=== PATIENT | male | born 1975 | race American Indian/Alaskan Native ===

== ENCOUNTER 2017-05-14 23:19 | Inpatient (IN) | payer MEDICAID ==
[2017-05-14] MEDS ORDERED: Midazolam 2 MG/2 ML VIAL IV ONE (23:41)
[2017-05-14 23:43] LABS: VENOUS BLOOD GAS BASE EXCESS -6.3 mmol/L (0.0-2.0); VENOUS BLOOD GAS PCO2 64 mmHg (40-60); VENOUS BLOOD PH 7.17 (7.32-7.43)
[2017-05-14] MEDS ORDERED: Sodium Chloride 0.9% 1,000 ML IV STA (23:47)
--- NOTE | 2017-05-14 23:49 | ED PDOC ---
HPI: Cardiac Arrest Time Seen by Provider: 05/14/17 23:27 Chief Complaint (Nursing): Cardiac Arrest Chief Complaint (Provider): Post-Cardiac Arrest History Per: EMS, Family Reason For Code Blue: Unresponsive Circumstances: Brought To ED By EMS Arrest Witnessed By: Family CPR Initiated Prior To MD Arrival?: Yes Treatment Initiated Prior To MD Arrival: CPR (done by bystander prior to EMS) Additional Complaint(s): 41 year male brought in by EMS and accompanied by ilya presents to ED due to possible post-cardiac arrest x25 minutes [employer] and has a past medical history of DM (type II), peripheral vascular disease, and end stage renal disease. Fiancee states that patient experienced sudden onset "seizure-like activity" in a motel and noted shaking, foaming at the mouth, and his eyes rolling back. Confirms that CPR was administered by a bystander prior to EMS arrival. Fiancee states patient was complaining of abdominal pain earlier today and had not had a bowel movement all day. States that patient is on MWF dialysis, but received dialysis yesterday as well due to being told by his doctor that there was too much fluid. EMS states patient was in VFIB, underwent defibrillation, and was asystole before another defibrillation brought the patient back to AFIB. EMS notes patient was sinus tachycardia and had a blood pressure of 89/46. Denies administering epinephrine, but confirmed administering Amiodarone. Of note, patient had recent amputation x5 weeks ago. PCP: Dr. Ye in [place] - Initial Findings Mentation: Unresponsive Respirations: None (Assisted) Rhythm: Tachycardia Past Medical History Reviewed: Historical Data, Nursing Documentation, Vital Signs Vital Signs: Last Vital Signs Temp 100.2 F H 05/17/17 09:18 Pulse 123 H 05/17/17 09:18 Resp 24 05/17/17 09:18 BP 114/76 05/17/17 09:18 Pulse Ox 100 05/17/17 09:00 - Medical History PMH: Diabetes, End Stage Renal Disease, Chronic Kidney Disease - Surgical History Other surgeries: bilateral leg amputations: left below the knee, right above the knee. Right chest wall permacath - Family History Family History: States: Unknown Family Hx - Social History Current smoker - smoking cessation education provided: Yes Ex-Smoker (has not smoked in the last 12 months): No Alcohol: None Drugs: Cannabis (occasional) - Immunization History Hx Tetanus Toxoid Vaccination: Yes Hx Influenza Vaccination: Yes Hx Pneumococcal Vaccination: No - Home Medications Home Medications: Ambulatory Orders Medication Instructions Recorded Calcium Acetate [Phoslo] 667 mg PO TID 04/07/16 Oxycodone HCl/Acetaminophen 1 each PO DAILY PRN 04/07/16 [Percocet 10-325 mg Tablet] predniSONE [Prednisone] 20 mg PO DAILY #7 tab 01/01/17 Cinacalcet [Sensipar] 1 tab PO DAILY 01/15/17 Clopidogrel [Plavix] 1 tab PO DAILY 01/15/17 Oxycodone HCl/Acetaminophen 1 tab PO QID PRN 01/15/17 [Percocet 10-325 mg Tablet] Sevelamer [Renagel] 4 tab PO TID 01/15/17 DiphenhydrAMINE [Benadryl] 50 mg PO Q6 PRN #16 cap 01/16/17 Tramadol HCl [Ultram] 50 mg PO Q6 PRN #12 tab 01/16/17 predniSONE [Prednisone] 40 mg PO DAILY #10 tab 01/16/17 - Allergies Allergies/Adverse Reactions: Allergies Allergy/AdvReac Type Severity Reaction Status Date / Time FISH Allergy RASH Verified 01/01/17 20:32 Review of Systems Review Of Systems: ROS cannot be obtained secondary to pt's inabilty to answer questions. (Patient is unresponsive) Neurological: Positive for: Seizures (as per fileanne) Physical Exam - Reviewed Nursing Documentation Reviewed: Yes Vital Signs Reviewed: Yes - Physical Exam Appears: Positive for: In Acute Distress Skin: Positive for: Normal Color, Warm, Dry Neck: Positive for: Normal Cardiovascular/Chest: Positive for: Regular Rate, Rhythm, Tachycardia Respiratory: Positive for: Normal Breath Sounds (equal sounds bilaterally), Other (Intubated by EMS in field) Gastrointestinal/Abdominal: Positive for: Normal Exam, Soft. Negative for: Tenderness Back: Positive for: Normal Inspection Extremity: Positive for: Other (bilateral leg amputations: right - above knee. left - below knee) Neurologic/Psych: Negative for: Alert, Oriented - Laboratory Results Result Diagrams: 05/17/17 04:20 05/17/17 04:20 - ECG ECG Rhythm: Positive for: Sinus Tachycardia Rate: 105 - Critical Care Total Time (In Min): 60 Medical Decision Making Medical Decision Makin Patient has good carotid pulse. Respiratory at bedside. BP: 113/86 Heart: ST 105 Sugar: 241 Noted right AC line done by EMS 2326 Initial impression: Initial plan: * T&S * ABG shock * VBG * CT HEAD * EKG * EtOH serum * Labs * CPK * Magnesium * Phosphorus * Trop I Q8H * PTT/PT * CXR * NS IV * Midazolam 4mg IV * Re-eval 2338 Rectal temperature: 97.8 degrees Hypothermia protocol initiated [address] Ring. Requests prolactin level * Prolactin 0000 VBG: potassium level is normal (4.8) Lactic acid is elevated (5.9) Patient is afebrile. Patient is starting to wake up. 0012 * Dextrose IV * Midazolam 4mg IV 0026 Dr. Ring accepted patient for ICU admission. 0029 ABG: lactic acid level: 3.1 CT HEAD FINDINGS Brain: No acute intracranial hemorrhage. No significant white matter disease. No edema. Ventricles: No significant ventriculomegaly. Bones: No acute displaced fracture. Sinuses: Unremarkable as visualized. No acute sinusitis. Mastoid air cells: Unremarkable as visualized. No mastoid effusion. IMPRESSION: No acute intracranial hemorrhage, or suspicious mass effect. 0130 Due to repeat lactic acid level being 3.1, will not consider case as code sepsis. Central line placed by Dr. Ring. Scribe Attestation: Documented by Christina Trejo acting as a scribe for Argelia Yost MD. Scribe Attestation: All medical record entries made by the Scribe were at my direction and personally dictated by me. I have reviewed the chart and agree that the record accurately reflects my personal performance of the history, physical exam, medical decision making, and the department course for this patient. I have also personally directed, reviewed, and agree with the discharge instructions and disposition. Disposition - Disposition
[2017-05-15] MEDS ORDERED: Midazolam 50 MG in Dextrose 5% In Water 50 ML IV ONE (00:04)
[2017-05-15] MEDS ORDERED: Midazolam 2 MG/2 ML VIAL IV ONE ×2 (00:12→01:42)
[2017-05-15 00:24] LABS: ABG ALLEN TEST YES; ABG MECHANICAL RATE 12; ARTERIAL BLOOD GAS HCO3 21.3 mmol/L (21-28); ARTERIAL BLOOD GAS MODE PRVC/AC; ARTERIAL BLOOD GAS PH 7.27 (7.35-7.45); ARTERIAL BLOOD GAS PO2 293 mm/Hg (80-100); ATERIAL BLOOD GAS PEEP 5
--- NOTE | 2017-05-15 00:30 | CT ---
EXAM: CT Head Without Intravenous Contrast CLINICAL HISTORY: 41 years old, male; Pain; Other: Cardiac arrest; Additional info: Sp cardiac arrest, hypothermia TECHNIQUE: Axial computed tomography images of the head/brain without intravenous contrast. All CT scans at this facility use one or more dose reduction techniques, viz.: automated exposure control; ma/kV adjustment per patient size (including targeted exams where dose is matched to indication; i.e. head); or iterative reconstruction technique. Coronal and sagittal reformatted images were created and reviewed. COMPARISON: No relevant prior studies available. FINDINGS: Brain: No acute intracranial hemorrhage. No significant white matter disease. No edema. Ventricles: No significant ventriculomegaly. Bones: No acute displaced fracture. Sinuses: Unremarkable as visualized. No acute sinusitis. Mastoid air cells: Unremarkable as visualized. No mastoid effusion. IMPRESSION: No acute intracranial hemorrhage, or suspicious mass effect.
[2017-05-15 00:43] LABS: ALB/GLOB RATIO 1.4 (1.0-2.1); ALCOHOL SERUM < 10 mg/dl (0-10); ALKALINE PHOSPHATASE 177 U/L (38-126); ALT/SGPT 131 U/L (21-72); AST/SGOT 125 U/L (17-59); BILIRUBIN,TOTAL 0.8 mg/dl (0.2-1.3); BLOOD UREA NITROGEN 64 mg/dl (9-20); CALCIUM 7.5 mg/dL (8.4-10.2); CARBON DIOXIDE 18 mmol/L (22-30); CHLORIDE 98 mmol/L (98-107); GFR AFRICAN-AMERICAN 7; GLUCOSE,RANDOM 229 mg/dL (75-110); MAGNESIUM 2.2 MG/DL (1.6-2.3); PHOSPHOROUS 11.3 mg/dl (2.5-4.5); SODIUM 142 mmol/l (132-148); TOTAL PROTEIN 8.3 G/DL (6.3-8.2)
[2017-05-15 00:45] LABS: BASO # 0.1 K/uL (0.0-0.2); BASO % 0.8 % (0.0-2.0); EOS # 0.4 K/uL (0.0-0.7); EOS % 3.3 % (0.0-4.0); HEMATOCRIT 43.3 % (35.0-51.0); LYMPH # 3.4 K/uL (1.0-4.3); LYMPH % 25.3 % (20.0-40.0); MEAN CORPUSCULAR HEMOGLOBIN 27.3 pg (27.0-31.0); MEAN CORPUSCULAR HGB CONC 30.3 g/dL (33.0-37.0); MEAN PLATELET VOLUME 9.5 fl (7.2-11.7); MONO # 0.5 K/uL (0.0-0.8); MONO % 3.7 % (0.0-10.0); NEUT # 9.1 K/uL (1.8-7.0); NEUT % 66.9 % (50.0-75.0); NRBC % 0.5 % (0.0-0.0); RED CELL DISTRIBUTION WIDTH 18.9 % (11.5-14.5); WHITE BLOOD COUNT 13.6 K/uL (4.8-10.8)
[2017-05-15] MEDS ORDERED: Propofol 10 mg/ml Inj (100 ml) IV SCH (02:00)
[2017-05-15] MEDS ORDERED: Cisatracurium Besylate 200 MG in Sodium Chloride 0.9% 500 ML IV SCH ×2 (02:00→18:56)
--- NOTE | 2017-05-15 02:06 | CP.PCM.HP ---
History of Present Illness - History of Present Illness History of Present Illness: CC: Cardiac Arrest HPI: This is a 41 y/o male with ESRD on MWF HD, DM2, and PVD among other medical conditions who comes in after having a cardiac arrest in the field. Per he fiancee, after dinner patient had 'seizure like activity' -- shaking/foaming a the mouth. Per report EMS arrived and noted Vfib/Vtach and administered defibrillation. Initially he was asystole but a second shock brought him back to A fib. He had a BP of 89/46. He was given a dose of epinephrine and a dose of amiodarone in the field. He was intubated in the field. ROS: Cannot be obtained MHx: ESRD on HD, DM2, PVD SHx: b/l LE amputation; R AKA, L BKA Allergies: Fish Medications: Pending Family Hx: Cannot obtain Social Hx: Lives with ilya, no EtOH or tobacco Surrogate: Fiancee Present on Admission - Present on Admission Any Indicators Present on Admission: No Past Patient History - Infectious Disease Hx of Infectious Diseases: None - Past Medical History & Family History Past Medical History?: Yes - Past Social History Alcohol: None Drugs: Cannabis (occasional) - CARDIAC Hx Cardiac Disorders: Yes - PULMONARY Hx Respiratory Disorders: No - NEUROLOGICAL Hx Neurological Disorder: No - HEENT Hx HEENT Problems: Yes - RENAL Hx Chronic Kidney Disease: Yes - ENDOCRINE/METABOLIC Hx Diabetes Mellitus Type 2: Yes - HEMATOLOGICAL/ONCOLOGICAL Hx Blood Transfusions: Yes - INTEGUMENTARY Hx Dermatological Problems: No - MUSCULOSKELETAL/RHEUMATOLOGICAL Other/Comment: gangrene left leg due to diabetes, pt. states diabetes under control - GASTROINTESTINAL Hx Gastrointestinal Disorders: No - GENITOURINARY/GYNECOLOGICAL Other/Comment: pt. 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,, right metatarsals amputated on right foot - ANESTHESIA Hx Anesthesia: Yes Hx Anesthesia Reactions: No Hx Malignant Hyperthermia: No Meds Allergies/Adverse Reactions: Allergies Allergy/AdvReac Type Severity Reaction Status Date / Time FISH Allergy RASH Verified 01/01/17 20:32 Physical Exam - Constitutional Appears: Agitated - Head Exam Head Exam: ATRAUMATIC, NORMOCEPHALIC - ENT Exam ENT Exam: Mucous Membranes Moist - Neck Exam Neck exam: Positive for: Full Rom - Respiratory Exam Additional comments: coarse bs on vent - Cardiovascular Exam Cardiovascular Exam: REGULAR RHYTHM, +S1, +S2 - GI/Abdominal Exam GI & Abdominal Exam: Normal Bowel Sounds, Soft - Extremities Exam Additional comments: amputations on both LE; AKA R, BKA L - Neurological Exam Additional comments: sedated - Skin Skin Exam: Dry, Warm Results - Vital Signs Recent Vital Signs: Last Vital Signs Temp 96.9 F L 05/15/17 01:47 Pulse 85 05/15/17 01:47 Resp 25 H 05/15/17 01:47 BP 100/68 05/15/17 01:47 Pulse Ox 98 05/15/17 01:47 - Labs Result Diagrams: 05/15/17 00:01 05/15/17 00:01 - EKG Data EKG Interpreted by: Myself EKG shows normal: Sinus rhythm Rate: Tachycardia - EKG Data EKG comments: No acute findings currently - Imaging and Cardiology Chest x-ray Status: Image reviewed by me (HD cath in place L chest, ET tube in place) CT scan - head Status: Image reviewed by me, Report reviewed by me (NO acute findings) Assessment & Plan (1) Cardiac arrest Assessment and Plan: 41 y/o patient with multiple medical problems coming in with cardiac arrest and possible seizure. 1) Cardiac arrest -Initiated hypothermia protocol in ED -Patient is being sedated with propofol IV as he was refractory to Versed/ Fentanyl -Nimbex ordered for shivering -Tylenol ordered for elevated temp -Ser gluc mgmt as below -Received amiodarone in field -Cardiology/Pulmonary consulted 2) DM2 -- q2h accucheck for now, will initiate insulin gtt as appropriate 3) ESRD on HD -- renal consult in AM for HD 4) HTN -- currently BP on low side, maintain map > 60-65 5) Possible seizure -- currently sedated, prolactin level ordered, neuro consult in AM 5) DVT PPx -- will re-eval in AM before starting Status: Acute (2) DM2 (diabetes mellitus, type 2) Status: Acute (3) HTN (hypertension) Status: Acute (4) ESRD (end stage renal disease) on dialysis Status: Acute (5) DVT prophylaxis Status: Acute
[2017-05-15] MEDS ORDERED: Glucagon Recombinant 1 mg Inj IM PRN (02:12)
[2017-05-15] MEDS ORDERED: Dextrose 50% SYRINGE Inj (50 ml) IV PRN (02:12)
[2017-05-15] MEDS ORDERED: Cisatracurium 2 mg/mL Inj 10ml IV ONE (02:35)
--- NOTE | 2017-05-15 02:43 | PCM.PROC ---
Procedures Attestation:: I certify that I have explained the specified Operation(s) or Procedure(s), risks, benefits and reasonable alternatives to the Patient and/or other person responsible. The opportunity was given to ask questions and all questions answered - Central Line Placement Left Femoral Aseptic technique was employed throughout the procedure: Hand Hygiene done prior to procedure, Full sterile barriers (mask, hair cover, sterile gown, sterile gloves), Full body sterile drape, Chloraprep Antiseptic: 30 second prep for IJ or SC sites CVP Time Out Performed: Yes Pt. Placed on Pulse Ox Monitor: Yes Central Line Prep: Chlorhexidine-Alcohol Combination Local Anesthesia Used: Lidocaine 1% Ultrasound Used for Placement: Yes Central Line Lumen Inserted: triple Post Procedure: Sutured in Place, Good Blood Return, All Ports Aspirated, Flushed, Capped, Sterile Dressing Applied Secured by: Suture Post Procedure X-Ray: No Patient Tolerated Procedure: No Complications Immediate Complications: Hematoma at Puncture Site Additional Comments: R femoral TLC was attempted, but because of patient movement fem artery was punctured; pressure dressing applied; L femoral vein was then accessed by ultrasound and successfully cannulated.
[2017-05-15] MEDS ORDERED: CISATRACURIUM IV ONE (02:45)
[2017-05-15] MEDS ORDERED: SODIUM CHLORIDE 0.9% IV ONE (02:45)
[2017-05-15] MEDS: Propofol 10 mg/ml Inj (100 ml) IV SCH ×3 (04:44→14:49)
[2017-05-15] MEDS ORDERED: Labetalol 5 mg/ml Inj 20ML IVP STA (05:27)
[2017-05-15 05:41] LABS: ABG ALLEN TEST YES; ABG MECHANICAL RATE 12; ARTERIAL BLOOD GAS HCO3 19.8 mmol/L (21-28); ARTERIAL BLOOD GAS MODE A/C; ARTERIAL BLOOD GAS O2 CAPACITY 20.2 mL/dL (16-24); ARTERIAL BLOOD GAS PH 7.13 (7.35-7.45); ARTERIAL BLOOD GAS PO2 265 mm/Hg (80-100); ARTERIAL BLOOD HGB O2 SAT 96.6 % (95.0-98.0); ATERIAL BLOOD GAS PEEP 5; CARBOXYHEMOGLOBIN 1.2 % (0.5-1.5); HHB 0.8 % (0.0-5.0); METHEMOGLOBIN 1.3 % (0.0-3.0)
[2017-05-15 06:50] LABS: ALB/GLOB RATIO 1.4 (1.0-2.1); BILIRUBIN,TOTAL 0.5 mg/dl (0.2-1.3); CALCIUM 7.2 mg/dL (8.4-10.2); MAGNESIUM 2.1 MG/DL (1.6-2.3); POTASSIUM 4.1 MMOL/L (3.6-5.0); TOTAL PROTEIN 8.2 G/DL (6.3-8.2)
[2017-05-15] MEDS: Sodium Chloride 0.9% 1,000 ML IV STA ×2 (06:57→17:51)
[2017-05-15 07:46] LABS: BASO % 0.1 % (0.0-2.0); HEMATOCRIT 43.6 % (35.0-51.0); LYMPH # 0.9 K/uL (1.0-4.3); LYMPH % 3.9 % (20.0-40.0); MEAN CELL VOLUME 88.9 fl (80.0-94.0); MEAN CORPUSCULAR HEMOGLOBIN 27.2 pg (27.0-31.0); MEAN CORPUSCULAR HGB CONC 30.6 g/dL (33.0-37.0); MEAN PLATELET VOLUME 10.2 fl (7.2-11.7); MONO % 4.4 % (0.0-10.0); NEUT # 21.6 K/uL (1.8-7.0); NEUT % 91.6 % (50.0-75.0); NRBC % 0.5 % (0.0-0.0); PLATELET COUNT 224 K/uL (130-400); WHITE BLOOD COUNT 23.6 K/uL (4.8-10.8)
[2017-05-15 08:34] VITALS: BMI 27.1
[2017-05-15 09:06] LABS: ABG ALLEN TEST YES; ABG MECHANICAL RATE 12; ARTERIAL BLOOD GAS HCO3 18.9 mmol/L (21-28); ARTERIAL BLOOD GAS MODE PRVC/AC; ARTERIAL BLOOD GAS PH 7.15 (7.35-7.45); ARTERIAL BLOOD GAS PO2 175 mm/Hg (80-100); ATERIAL BLOOD GAS PEEP 5
--- NOTE | 2017-05-15 09:40 | RAD ---
HISTORY: cardiac arrest COMPARISON: No prior study available for comparison FINDINGS: In situ ETT, tip of which lies approximately 6.3 5 cm above johnie. Large-bore right-sided central venous catheter with tip in the SVC/RA junction. LUNGS: Poor inspiration with low lung volumes crowded bronchovascular markings and mild atelectasis mid to lower lung farris. . PLEURA: No significant pleural effusion identified, no pneumothorax apparent. CARDIOVASCULAR: Heart size is borderline/mildly enlarged OSSEOUS STRUCTURES: No significant abnormalities. VISUALIZED UPPER ABDOMEN: Normal. OTHER FINDINGS: None. IMPRESSION: Support lines and tubes as above. Poor inspiration with low lung volumes crowded bronchovascular markings and mild atelectasis mid to lower lung farris. Heart size is borderline/ mildly enlarged
--- NOTE | 2017-05-15 10:00 | RAD ---
HISTORY: intubated COMPARISON: KeyNo prior. FINDINGS: In situ ETT, tip of which lies prox 7.27 cm above johnie. NGT is present, tip of which has not been included on this film though distal aspect does lie well below EG junction. Large-bore right IJ central venous line with tip in the SVC/RA junction. LUNGS: Vague patchy perihilar right perihilar opacity may represent perihilar atelectasis or developing perihilar infiltrate. PLEURA: No significant pleural effusion identified, no pneumothorax apparent. CARDIOVASCULAR: Heart appears enlarged. OSSEOUS STRUCTURES: No significant abnormalities. VISUALIZED UPPER ABDOMEN: Normal. OTHER FINDINGS: None. IMPRESSION: Support lines and tubes as above. Patchy right right perihilar opacity may represent atelectasis or developing perihilar infiltrate Cardiomegaly.
[2017-05-15 10:39] LABS: NEUTROPHIL 92 % (42-75); TOTAL CELLS COUNTED 100
--- NOTE | 2017-05-15 13:08 | CP.PCM.CON ---
History of Present Illness - History of Present Illness History of Present Illness: I was asked to evaluate patient by the Hospitalist service. Patient is a 41 year old male with PMH ESRD on HD, DM PAD s/p R AKA, L BKA who presents after cardiac arrest. The history is obtained from the record. The patient was eating with his faincee when he had a seizure. He reportedly had abdominal pain earlier in the day. The patient had an out of hospital cardaic arrest, complicated by reported V fib. The patient was defibrillated. Amiodarone was given. The patient is undergoing hypothermia protocol. Review of Systems - Review of Systems Systems not reviewed;Unavailable: Unstable Vital Signs Past Patient History - Infectious Disease Hx of Infectious Diseases: None - Past Medical History & Family History Past Medical History?: Yes - Past Social History Smoking Status: Never Smoked - CARDIAC Hx Cardiac Disorders: Yes Hx Peripheral Vascular Disease: Yes Other/Comment: left below the knee amputee. >rt above the knee amputee. >rt chest wall permacath for HD - PULMONARY Hx Respiratory Disorders: No - NEUROLOGICAL Hx Neurological Disorder: No - HEENT Hx HEENT Problems: Yes - RENAL Hx Chronic Kidney Disease: Yes Hx Dialysis: Yes Type of Dialysis Access: [id number] - ENDOCRINE/METABOLIC Hx Endocrine Disorders: Yes Hx Diabetes Mellitus Type 1: Yes Hx Diabetes Mellitus Type 2: Yes - HEMATOLOGICAL/ONCOLOGICAL Hx Blood Disorders: No Hx AIDS: No Hx Human Immunodeficiency Virus (HIV): No - INTEGUMENTARY Hx Dermatological Problems: No - MUSCULOSKELETAL/RHEUMATOLOGICAL Hx Musculoskeletal Disorders: No Hx Falls: No - GASTROINTESTINAL Hx Gastrointestinal Disorders: No - GENITOURINARY/GYNECOLOGICAL Hx Genitourinary Disorders: No Hx Prostate Problems: No Other/Comment: pt. 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 - ANESTHESIA Hx Anesthesia: Yes Hx Anesthesia Reactions: No Hx Malignant Hyperthermia: No Meds Allergies/Adverse Reactions: Allergies Allergy/AdvReac Type Severity Reaction Status Date / Time FISH Allergy RASH Verified 01/01/17 20:32 - Medications Medications: Current Medications Acetaminophen (Tylenol 650mg/20.3ml Solution Ud) 975 mg NG Q6 PRN PRN Reason: Rigors Dextrose (Dextrose 50% Inj) 0 ml IV STAT PRN; Protocol PRN Reason: Hyglycemia Protocol Dextrose (Glutose 15) 0 gm PO ONCE PRN; Protocol PRN Reason: Hypoglycemia Protocol Glucagon (Glucagen Diagnostic Kit) 0 mg IM STAT PRN; Protocol PRN Reason: Hypoglycemia Protocol Cisatracurium Besylate 200 mg/ (Sodium Chloride) 520 mls @ 37.14 mls/hr IV .Q14H1M JENI PRN Reason: 3 MCG/KG/MIN Last Admin: 05/15/17 07:30 Dose: 37.14 mls/hr Insulin Human Regular 100 (units/ Sodium Chloride) 101 mls @ 1.01 mls/hr IV .Q24H JENI; 1 UNITS/HR PRN Reason: Protocol Last Titration: 05/15/17 08:00 Dose: 2 units/hr, 2.02 mls/hr Piperacillin Sod/Tazobactam (Sod 2.25 gm/ Sodium Chloride) 100 mls @ 100 mls/ hr IVPB Q8 JENI Last Admin: 05/15/17 10:30 Dose: 100 mls/hr Pantoprazole Sodium (Protonix Inj) 40 mg IVP DAILY [facility] Last Admin: 05/15/17 09:21 Dose: 40 mg Propofol (Diprivan) 1,000 mg IV .TITRATE JENI PRN Reason: Protocol Last Admin: 05/15/17 07:30 Dose: 1,000 mg Physical Exam - Constitutional Additional comments: sedated - Head Exam Head Exam: NORMAL INSPECTION - Eye Exam Eye Exam: Normal appearance - ENT Exam ENT Exam: Mucous Membranes Moist - Neck Exam Neck exam: Positive for: Normal Inspection - Respiratory Exam Respiratory Exam: Decreased Breath Sounds - Cardiovascular Exam Cardiovascular Exam: REGULAR RHYTHM - GI/Abdominal Exam GI & Abdominal Exam: Hypoactive Bowel Sounds - Rectal Exam Rectal Exam: Deferred - Extremities Exam Additional comments: Braden GARCIAA - Skin Skin Exam: Normal Color Results - Vital Signs Recent Vital Signs: Last Vital Signs Temp 95.9 F L 05/15/17 08:38 Pulse 114 H 05/15/17 08:38 Resp 21 05/15/17 08:38 BP 176/112 H 05/15/17 08:38 Pulse Ox 100 05/15/17 07:00 - Labs Result Diagrams: 05/15/17 05:30 09/04/17 05:30 Labs: Laboratory Results - last 24 hr 05/15/17 05/15/17 05/15/17 02:40 02:55 04:07 WBC RBC Hgb Hct MCV MCH MCHC RDW Plt Count MPV Neut % (Auto) Lymph % (Auto) [place] % (Auto) Eos % (Auto) Baso % (Auto) Neut # Lymph # [place] # Eos # Baso # Neutrophils % (Manual) Band Neutrophils % Lymphocytes % (Manual) Monocytes % (Manual) Platelet Estimate Anisocytosis (manual) Tear Drop Cells Ovalocytes PT 11.1 INR 1.1 pCO2 pO2 HCO3 ABG pH ABG Total CO2 ABG O2 Saturation ABG O2 Content ABG Base Excess ABG Hemoglobin ABG Carboxyhemoglobin POC ABG HHb (Measured) ABG Methemoglobin ABG O2 Capacity Gurdeep Test ABG Potassium A-a O2 Difference Hgb O2 Saturation Glucose Lactate Vent Mode Mechanical Rate FiO2 Tidal Volume PEEP Crit Value Called To Crit Value Called By Crit Value Read Back Blood Gas Notified Time Sodium Potassium Chloride Carbon Dioxide Anion Gap BUN Creatinine Est GFR ( Amer) Est GFR (Non-Af Amer) POC Glucose (mg/dL) 320 H 280 H Random Glucose Lactic Acid Calcium Magnesium Total Bilirubin AST ALT Alkaline Phosphatase Troponin I Total Protein Albumin Globulin Albumin/Globulin Ratio Arterial Blood Potassium 05/15/17 05/15/17 05/15/17 05:00 05:19 05:30 WBC 23.6 H D RBC 4.91 Hgb 13.3 Hct 43.6 MCV 88.9 MCH 27.2 MCHC 30.6 L RDW 19.0 H Plt Count 224 MPV 10.2 Neut % (Auto) 91.6 H Lymph % (Auto) 3.9 L [place] % (Auto) 4.4 Eos % (Auto) 0.0 Baso % (Auto) 0.1 Neut # 21.6 H Lymph # 0.9 L [place] # 1.0 H Eos # 0.0 Baso # 0.0 Neutrophils % (Manual) 92 H Band Neutrophils % 2 Lymphocytes % (Manual) 2 L Monocytes % (Manual) 4 Platelet Estimate Normal Anisocytosis (manual) Moderate Tear Drop Cells Slight Ovalocytes Slight PT INR pCO2 73 H* pO2 265 H HCO3 19.8 L ABG pH 7.13 L* ABG Total CO2 26.5 ABG O2 Saturation 99.2 H ABG O2 Content 20.0 ABG Base Excess -6.5 L ABG Hemoglobin 14.3 ABG Carboxyhemoglobin 1.2 POC ABG HHb (Measured) 0.8 ABG Methemoglobin 1.3 ABG O2 Capacity 20.2 Gurdeep Test Yes ABG Potassium A-a O2 Difference 357.0 Hgb O2 Saturation 96.6 Glucose Lactate Vent Mode A/c Mechanical Rate 12 FiO2 100.0 Tidal Volume 500 PEEP 5 Crit Value Called To Dallin betancourt rn Crit Value Called By 6075 Crit Value Read Back Y Blood Gas Notified Time 541 Sodium Potassium Chloride Carbon Dioxide Anion Gap BUN Creatinine Est GFR ( Amer) Est GFR (Non-Af Amer) POC Glucose (mg/dL) 315 H Random Glucose Lactic Acid Calcium Magnesium Total Bilirubin AST ALT Alkaline Phosphatase Troponin I Total Protein Albumin Globulin Albumin/Globulin Ratio Arterial Blood Potassium 05/15/17 05/15/17 05/15/17 05:30 05:30 05:53 WBC RBC Hgb Hct MCV MCH MCHC RDW Plt Count MPV Neut % (Auto) Lymph % (Auto) [place] % (Auto) Eos % (Auto) Baso % (Auto) Neut # Lymph # [place] # Eos # Baso # Neutrophils % (Manual) Band Neutrophils % Lymphocytes % (Manual) Monocytes % (Manual) Platelet Estimate Anisocytosis (manual) Tear Drop Cells Ovalocytes PT INR pCO2 pO2 HCO3 ABG pH ABG Total CO2 ABG O2 Saturation ABG O2 Content ABG Base Excess ABG Hemoglobin ABG Carboxyhemoglobin POC ABG HHb (Measured) ABG Methemoglobin ABG O2 Capacity Gurdeep Test ABG Potassium A-a O2 Difference Hgb O2 Saturation Glucose Lactate Vent Mode Mechanical Rate FiO2 Tidal Volume PEEP Crit Value Called To Crit Value Called By Crit Value Read Back Blood Gas Notified Time Sodium 145 Potassium 4.1 Chloride 98 Carbon Dioxide 23 Anion Gap 28 H BUN 75 H Creatinine 9.7 H* Est GFR ( Amer) 7 Est GFR (Non-Af Amer) 6 POC Glucose (mg/dL) 325 H Random Glucose 333 H Lactic Acid 2.1 Calcium 7.2 L Magnesium 2.1 Total Bilirubin 0.5 AST 147 H ALT 126 H Alkaline Phosphatase 175 H Troponin I Total Protein 8.2 Albumin 4.7 Globulin 3.4 Albumin/Globulin Ratio 1.4 Arterial Blood Potassium 05/15/17 05/15/17 05/15/17 06:00 06:50 07:55 WBC RBC Hgb Hct MCV MCH MCHC RDW Plt Count MPV Neut % (Auto) Lymph % (Auto) [place] % (Auto) Eos % (Auto) Baso % (Auto) Neut # Lymph # [place] # Eos # Baso # Neutrophils % (Manual) Band Neutrophils % Lymphocytes % (Manual) Monocytes % (Manual) Platelet Estimate Anisocytosis (manual) Tear Drop Cells Ovalocytes PT INR pCO2 pO2 HCO3 ABG pH ABG Total CO2 ABG O2 Saturation ABG O2 Content ABG Base Excess ABG Hemoglobin ABG Carboxyhemoglobin POC ABG HHb (Measured) ABG Methemoglobin ABG O2 Capacity Gurdeep Test ABG Potassium A-a O2 Difference Hgb O2 Saturation Glucose Lactate Vent Mode Mechanical Rate FiO2 Tidal Volume PEEP Crit Value Called To Crit Value Called By Crit Value Read Back Blood Gas Notified Time Sodium Potassium Chloride Carbon Dioxide Anion Gap BUN Creatinine Est GFR ( Amer) Est GFR (Non-Af Amer) POC Glucose (mg/dL) 283 H 211 H Random Glucose Lactic Acid Calcium Magnesium Total Bilirubin AST ALT Alkaline Phosphatase Troponin I 0.5260 H* Total Protein Albumin Globulin Albumin/Globulin Ratio Arterial Blood Potassium 05/15/17 05/15/17 05/15/17 09:02 09:06 10:03 WBC RBC Hgb Hct MCV MCH MCHC RDW Plt Count MPV Neut % (Auto) Lymph % (Auto) [place] % (Auto) Eos % (Auto) Baso % (Auto) Neut # Lymph # [place] # Eos # Baso # Neutrophils % (Manual) Band Neutrophils % Lymphocytes % (Manual) Monocytes % (Manual) Platelet Estimate Anisocytosis (manual) Tear Drop Cells Ovalocytes PT INR pCO2 64 H pO2 175 H HCO3 18.9 L ABG pH 7.15 L* ABG Total CO2 24.3 ABG O2 Saturation 98.4 H ABG O2 Content ABG Base Excess -7.7 L ABG Hemoglobin ABG Carboxyhemoglobin POC ABG HHb (Measured) ABG Methemoglobin ABG O2 Capacity Gurdeep Test Yes ABG Potassium 4.5 A-a O2 Difference 458.0 Hgb O2 Saturation Glucose 234 H Lactate 1.7 Vent Mode Prvc/ac Mechanical Rate 12 FiO2 100.0 Tidal Volume 500 PEEP 5 Crit Value Called To Maverick partida Crit Value Called By 15 Crit Value Read Back Y Blood Gas Notified Time 905 Sodium 134.0 Potassium Chloride 103.0 Carbon Dioxide Anion Gap BUN Creatinine Est GFR ( Amer) Est GFR (Non-Af Amer) POC Glucose (mg/dL) 251 H 243 H Random Glucose Lactic Acid Calcium Magnesium Total Bilirubin AST ALT Alkaline Phosphatase Troponin I Total Protein Albumin Globulin Albumin/Globulin Ratio Arterial Blood Potassium 4.5 05/15/17 05/15/17 11:05 12:01 WBC RBC Hgb Hct MCV MCH MCHC RDW Plt Count MPV Neut % (Auto) Lymph % (Auto) [place] % (Auto) Eos % (Auto) Baso % (Auto) Neut # Lymph # [place] # Eos # Baso # Neutrophils % (Manual) Band Neutrophils % Lymphocytes % (Manual) Monocytes % (Manual) Platelet Estimate Anisocytosis (manual) Tear Drop Cells Ovalocytes PT INR pCO2 pO2 HCO3 ABG pH ABG Total CO2 ABG O2 Saturation ABG O2 Content ABG Base Excess ABG Hemoglobin ABG Carboxyhemoglobin POC ABG HHb (Measured) ABG Methemoglobin ABG O2 Capacity Gurdeep Test ABG Potassium A-a O2 Difference Hgb O2 Saturation Glucose Lactate Vent Mode Mechanical Rate FiO2 Tidal Volume PEEP Crit Value Called To Crit Value Called By Crit Value Read Back Blood Gas Notified Time Sodium Potassium Chloride Carbon Dioxide Anion Gap BUN Creatinine Est GFR ( Amer) Est GFR (Non-Af Amer) POC Glucose (mg/dL) 207 H 152 H Random Glucose Lactic Acid Calcium Magnesium Total Bilirubin AST ALT Alkaline Phosphatase Troponin I Total Protein Albumin Globulin Albumin/Globulin Ratio Arterial Blood Potassium - EKG Data EKG Interpreted by: Myself EKG shows normal: Sinus rhythm Assessment & Plan (1) Cardiac arrest Assessment and Plan: unclear etiology. WBC elevated. troponin mildy elevated. recommend echocardiogram to evaluate ventricular function. Status: Acute (2) DM2 (diabetes mellitus, type 2) Assessment and Plan: risk factor for CAD Status: Acute (3) ESRD (end stage renal disease) on dialysis Assessment and Plan: on dialysis Status: Acute (4) HTN (hypertension) Assessment and Plan: will monitor. Status: Acute
[2017-05-15 13:25] LABS: HEMATOCRIT 45.7 % (35.0-51.0); MEAN CELL VOLUME 88.7 fl (80.0-94.0); MEAN CORPUSCULAR HGB CONC 30.5 g/dL (33.0-37.0); RED CELL DISTRIBUTION WIDTH 18.7 % (11.5-14.5); WHITE BLOOD COUNT 16.6 K/uL (4.8-10.8)
[2017-05-15] MEDS ORDERED: Nicardipine 20 MG/200 ML 20 MG/200 ML BAG IV SCH (13:30)
[2017-05-15 13:41] LABS: CALCIUM 7.2 mg/dL (8.4-10.2); PHOSPHOROUS 9.6 mg/dl (2.5-4.5); POTASSIUM 5.4 MMOL/L (3.6-5.0)
[2017-05-15 13:44] LABS: PARTIAL THROMBOPLASTIN TIME 36.1 Seconds (25.6-37.1)
[2017-05-15 13:54] LABS: TROPONIN I 0.792 ng/mL (0.00-0.120)
[2017-05-15] MEDS: Propofol 10 mg/ml 1,000 MG/100 ML VIAL IV SCH ×2 (14:49→15:00)
[2017-05-15 15:13] LABS: ABG ALLEN TEST YES; ABG MECHANICAL RATE 18; ARTERIAL BLOOD GAS HCO3 17.3 mmol/L (21-28); ARTERIAL BLOOD GAS MODE PRVC/AC; ARTERIAL BLOOD GAS O2 CAPACITY 20.7 mL/dL (16-24); ARTERIAL BLOOD GAS O2 CONTENT 19.4 ML/dL (15-23); ARTERIAL BLOOD GAS PH 7.15 (7.35-7.45); ARTERIAL BLOOD GAS PO2 72 mm/Hg (80-100); ARTERIAL BLOOD HGB O2 SAT 91.4 % (95.0-98.0); ATERIAL BLOOD GAS PEEP 8; CARBOXYHEMOGLOBIN 1.3 % (0.5-1.5); HHB 5.9 % (0.0-5.0); METHEMOGLOBIN 1.4 % (0.0-3.0)
[2017-05-15 17:36] LABS: ABG ALLEN TEST YES; ABG MECHANICAL RATE 20; ARTERIAL BLOOD GAS HCO3 17.9 mmol/L (21-28); ARTERIAL BLOOD GAS MODE PRVC AC; ARTERIAL BLOOD GAS O2 CONTENT 19.1 ML/dL (15-23); ARTERIAL BLOOD GAS PH 7.25 (7.35-7.45); ARTERIAL BLOOD GAS PO2 76 mm/Hg (80-100); ARTERIAL BLOOD HGB O2 SAT 92.9 % (95.0-98.0); ATERIAL BLOOD GAS PEEP 8; CARBOXYHEMOGLOBIN 1.1 % (0.5-1.5); HHB 4.6 % (0.0-5.0); METHEMOGLOBIN 1.5 % (0.0-3.0)
[2017-05-15 20:33] LABS: BASO % 0.3 % (0.0-2.0); EOS % 0.3 % (0.0-4.0); HEMATOCRIT 45.7 % (35.0-51.0); LYMPH # 0.9 K/uL (1.0-4.3); LYMPH % 8.9 % (20.0-40.0); MEAN CELL VOLUME 87.7 fl (80.0-94.0); MEAN CORPUSCULAR HEMOGLOBIN 27.3 pg (27.0-31.0); MEAN CORPUSCULAR HGB CONC 31.1 g/dL (33.0-37.0); MEAN PLATELET VOLUME 8.3 fl (7.2-11.7); MONO # 0.6 K/uL (0.0-0.8); MONO % 5.6 % (0.0-10.0); NEUT # 8.9 K/uL (1.8-7.0); NEUT % 84.9 % (50.0-75.0); NRBC % 0.1 % (0.0-0.0); RED CELL DISTRIBUTION WIDTH 19.1 % (11.5-14.5); WHITE BLOOD COUNT 10.5 K/uL (4.8-10.8)
[2017-05-15 20:43] LABS: CALCIUM 7.7 mg/dL (8.4-10.2); MAGNESIUM 2.1 MG/DL (1.6-2.3); PHOSPHOROUS 8.8 mg/dl (2.5-4.5)
[2017-05-15 20:44] LABS: CALCIUM 7.7 mg/dL (8.4-10.2)
[2017-05-15 20:47] LABS: PARTIAL THROMBOPLASTIN TIME 35.8 Seconds (25.6-37.1)
[2017-05-15 21:03] LABS: TROPONIN I 0.865 ng/mL (0.00-0.120)
[2017-05-15] MEDS ORDERED: Dextrose 50% SYRINGE Inj (50 ml) IVP ONE (22:19)
[2017-05-15] MEDS ORDERED: Insulin Regular 100 units/ml IVP ONE (22:24)
--- NOTE | 2017-05-15 22:24 | CP.PCM.CON ---
History of Present Illness - History of Present Illness History of Present Illness: Initial Nephrology Consultation: Assessment: critical Diabetic chronic Kidney Disease (E11.22) Hypertensive Chronic Kidney Disease (I12.0) End stage renal disease (N18.6) dependence on hemodialysis (Z99.2) (MWF) via permacath Anemia (D64.9), Hyperphosphatemia (E83.39), Secondary Hyperparathyroidism (E21.1 ), HTN (I12.0) s/p Rt AKA and left BKA Combined respiratory and metabolic acidosis, lactic acidosis s/p cardiac arrest, V fib, seizure, Hyperkalemia Plan: Pt presently on hypothermia protocol and dialysis is not feasible at this time as it will interfere with his hypothermia recommend medical management of his mildly elevated K with D50 x 1 amp and 5 units of regular insulin IV. repeat BMP at 1:00 AM. Please call with results aspen if with persistent hyperkalemia to see if dialysis need to be done at that time. As rewarming will begin at midnight, dialysis afterwards will be feasible. If remains stable from electrolyte perspective then shall plan for dialysis in AM. lower down IVF rate to 75 ml/hr to avoid potential fluid overload status. may lower it further to 50 ml/hr by tomorrow AM Continue with Nephrovite 1 tab/day once stable Last Hb 13 hence no MYLES at this time Continue with phos binders phoslo 667 mg 3 cap TID with meals once stable, on feeds. last phos level 8-11 range BP control with meds as ordered. Glycemic control, Dialysis consistent diet Further work up/management as per primary team Dose meds/antibiotics (if needed) for ESRD status. Avoid fleets enema/magnesium based laxatives. Thanks for allowing me to participate in care of your patient. Will follow patient with you. Please call if any Qs Dr Bethel Chavira Office: [phone] Chief Complaint;Unable reason for consult: ESRD source of Info; EMR HPI: Pt is a 41 y/o M with hx of ESRD on hemodialysis (MWF) via permacath, last dialysis monday as extra treatment after [facility] HD on monday, chronic anemia , hyperphosphatemia, secondary hyperparathyroidism, Diabetes Mellitus, hypertension, Rt AKA and left BKA was brought to hospital after an episode of seizure, cardiac arrest, V fib s/p defibrillator Pt is currently intubated and on hypothermia protocol. I was called to evaluate him 1 hour ago. ROS: Unable as pt intubated/sedated Physical Examination: General Appearance: no acute respiratory distress, intubated/sedated and on hypothermia protocol . he is ill appearing Vitals reviewed and noted as below Head; Atraumatic, normocephalic ENT: intubated. EYES: Sclera is anicteric. Neck; supple no lymphadenopathy, no thyromegaly or bruit Lungs: Normal respiratory rate/effort anteriorly. Breath sounds bilateral equal and clear. he is mechanically ventilated Heart: Normal rate. s1s2 normal. No rub or gallop. Extremities: no edema. No varicose veins. s/p Rt AKA and left BKA Neurological: Patient is sedated Skin: Warm and dry. Normal turgor. No rash. Palpitation: Normal elasticity for age Abdomen: Abdomen is soft. Bowel sounds +. There is no abdominal tenderness, no guarding/rigidity or organomegaly Psych: Unable MSK: no joint tenderness or swelling. Digits and nails normal, no deformity : kidney or bladder not palpable. has obrien Access: permacath Labs/imaging reviewed. Past medical history, past surgical history, family history, social history, allergy reviewed and noted as below Family Hx: Unable to obtain Past Patient History - Infectious Disease Hx of Infectious Diseases: None - Past Medical History & Family History Past Medical History?: Yes - Past Social History Smoking Status: Never Smoked - CARDIAC Hx Cardiac Disorders: Yes Hx Peripheral Vascular Disease: Yes Other/Comment: left below the knee amputee. >rt above the knee amputee. >rt chest wall permacath for HD - PULMONARY Hx Respiratory Disorders: No - NEUROLOGICAL Hx Neurological Disorder: No - HEENT Hx HEENT Problems: Yes - RENAL Hx Chronic Kidney Disease: Yes Hx Dialysis: Yes Type of Dialysis Access: [id number] - ENDOCRINE/METABOLIC Hx Endocrine Disorders: Yes Hx Diabetes Mellitus Type 1: Yes Hx Diabetes Mellitus Type 2: Yes - HEMATOLOGICAL/ONCOLOGICAL Hx Blood Disorders: No Hx AIDS: No Hx Human Immunodeficiency Virus (HIV): No - INTEGUMENTARY Hx Dermatological Problems: No - MUSCULOSKELETAL/RHEUMATOLOGICAL Hx Musculoskeletal Disorders: No Hx Falls: No - GASTROINTESTINAL Hx Gastrointestinal Disorders: No - GENITOURINARY/GYNECOLOGICAL Hx Genitourinary Disorders: No Hx Prostate Problems: No Other/Comment: pt. 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 - ANESTHESIA Hx Anesthesia: Yes Hx Anesthesia Reactions: No Hx Malignant Hyperthermia: No Meds Allergies/Adverse Reactions: Allergies Allergy/AdvReac Type Severity Reaction Status Date / Time FISH Allergy RASH Verified 01/01/17 20:32 - Medications Medications: Current Medications Acetaminophen (Tylenol 650mg/20.3ml Solution Ud) 975 mg NG Q6 PRN PRN Reason: Rigors Dextrose (Dextrose 50% Inj) 0 ml IV STAT PRN; Protocol PRN Reason: Hyglycemia Protocol Dextrose (Glutose 15) 0 gm PO ONCE PRN; Protocol PRN Reason: Hypoglycemia Protocol Glucagon (Glucagen Diagnostic Kit) 0 mg IM STAT PRN; Protocol PRN Reason: Hypoglycemia Protocol Heparin Sodium (Porcine) (Heparin) 5,000 units SC Q12 JENI PRN Reason: Protocol Insulin Human Regular 100 (units/ Sodium Chloride) 101 mls @ 1.01 mls/hr IV .Q24H JENI; 1 UNITS/HR PRN Reason: Protocol Last Titration: 05/15/17 19:00 Dose: 0 units/hr, 0 mls/hr Piperacillin Sod/Tazobactam (Sod 2.25 gm/ Sodium Chloride) 100 mls @ 100 mls/ hr IVPB Q8 JENI Last Admin: 05/15/17 17:54 Dose: 100 mls/hr Nicardipine HCl (Cardene Iv Premix) 20 mg in 200 mls @ 50 mls/hr IV .Q4H JENI; 5 MG/HR PRN Reason: Protocol Last Titration: 05/15/17 16:30 Dose: 0 mg/hr, 0 mls/hr Propofol (Diprivan) 1,000 mg in 100 mls @ 2.722 mls/hr IV .Q24H JENI; 5 MCG/KG/ MIN PRN Reason: Protocol Stop: 05/16/17 18:33 Last Admin: 05/15/17 14:49 Dose: 20 mcg/kg/min, 10.886 mls/hr Sodium Bicarbonate 75 meq/ (Sodium Chloride) 1,075 mls @ 100 mls/hr IV .[id number] JENI Stop: 05/16/17 18:51 Last Admin: 05/15/17 20:55 Dose: 100 mls/hr Cisatracurium Besylate 200 mg/ (Sodium Chloride) 520 mls @ 37.14 mls/hr IV .Q14H1M JENI; 3 MCG/KG/MIN PRN Reason: Protocol Last Admin: 05/15/17 15:00 Dose: 2 mcg/kg/min, 24.76 mls/hr Pantoprazole Sodium (Protonix Inj) 40 mg IVP DAILY JENI Last Admin: 05/15/17 09:21 Dose: 40 mg Results - Vital Signs Recent Vital Signs: Last Vital Signs Temp 96.3 F L 05/15/17 21:00 Pulse 89 05/15/17 21:00 Resp 20 05/15/17 21:00 BP 145/96 H 05/15/17 21:00 Pulse Ox 100 05/15/17 21:00 - Labs Result Diagrams: 05/15/17 20:29 05/15/17 20:31 Labs: Laboratory Results - last 24 hr 05/15/17 05/15/17 05/15/17 02:40 02:55 04:07 WBC RBC Hgb Hct MCV MCH MCHC RDW Plt Count MPV Neut % (Auto) Lymph % (Auto) [place] % (Auto) Eos % (Auto) Baso % (Auto) Neut # Lymph # [place] # Eos # Baso # Neutrophils % (Manual) Band Neutrophils % Lymphocytes % (Manual) Monocytes % (Manual) Platelet Estimate Anisocytosis (manual) Tear Drop Cells Ovalocytes PT 11.1 INR 1.1 APTT pCO2 pO2 HCO3 ABG pH ABG Total CO2 ABG O2 Saturation ABG O2 Content ABG Base Excess ABG Hemoglobin ABG Carboxyhemoglobin POC ABG HHb (Measured) ABG Methemoglobin ABG O2 Capacity Gurdeep Test ABG Potassium A-a O2 Difference Hgb O2 Saturation Glucose Lactate Vent Mode Mechanical Rate FiO2 Tidal Volume PEEP Crit Value Called To Crit Value Called By Crit Value Read Back Blood Gas Notified Time Sodium Potassium Chloride Carbon Dioxide Anion Gap BUN Creatinine Est GFR ( Amer) Est GFR (Non-Af Amer) POC Glucose (mg/dL) 320 H 280 H Random Glucose Lactic Acid Calcium Phosphorus Magnesium Total Bilirubin AST ALT Alkaline Phosphatase Troponin I Total Protein Albumin Globulin Albumin/Globulin Ratio Arterial Blood Potassium 05/15/17 05/15/17 05/15/17 05:00 05:19 05:30 WBC 23.6 H D RBC 4.91 Hgb 13.3 Hct 43.6 MCV 88.9 MCH 27.2 MCHC 30.6 L RDW 19.0 H Plt Count 224 MPV 10.2 Neut % (Auto) 91.6 H Lymph % (Auto) 3.9 L [place] % (Auto) 4.4 Eos % (Auto) 0.0 Baso % (Auto) 0.1 Neut # 21.6 H Lymph # 0.9 L [place] # 1.0 H Eos # 0.0 Baso # 0.0 Neutrophils % (Manual) 92 H Band Neutrophils % 2 Lymphocytes % (Manual) 2 L Monocytes % (Manual) 4 Platelet Estimate Normal Anisocytosis (manual) Moderate Tear Drop Cells Slight Ovalocytes Slight PT INR APTT pCO2 73 H* pO2 265 H HCO3 19.8 L ABG pH 7.13 L* ABG Total CO2 26.5 ABG O2 Saturation 99.2 H ABG O2 Content 20.0 ABG Base Excess -6.5 L ABG Hemoglobin 14.3 ABG Carboxyhemoglobin 1.2 POC ABG HHb (Measured) 0.8 ABG Methemoglobin 1.3 ABG O2 Capacity 20.2 Gurdeep Test Yes ABG Potassium A-a O2 Difference 357.0 Hgb O2 Saturation 96.6 Glucose Lactate Vent Mode A/c Mechanical Rate 12 FiO2 100.0 Tidal Volume 500 PEEP 5 Crit Value Called To Dallin betancourt rn Crit Value Called By 6075 Crit Value Read Back Y Blood Gas Notified Time 541 Sodium Potassium Chloride Carbon Dioxide Anion Gap BUN Creatinine Est GFR ( Amer) Est GFR (Non-Af Amer) POC Glucose (mg/dL) 315 H Random Glucose Lactic Acid Calcium Phosphorus Magnesium Total Bilirubin AST ALT Alkaline Phosphatase Troponin I Total Protein Albumin Globulin Albumin/Globulin Ratio Arterial Blood Potassium 05/15/17 05/15/17 05/15/17 05:30 05:30 05:53 WBC RBC Hgb Hct MCV MCH MCHC RDW Plt Count MPV Neut % (Auto) Lymph % (Auto) [place] % (Auto) Eos % (Auto) Baso % (Auto) Neut # Lymph # [place] # Eos # Baso # Neutrophils % (Manual) Band Neutrophils % Lymphocytes % (Manual) Monocytes % (Manual) Platelet Estimate Anisocytosis (manual) Tear Drop Cells Ovalocytes PT INR APTT pCO2 pO2 HCO3 ABG pH ABG Total CO2 ABG O2 Saturation ABG O2 Content ABG Base Excess ABG Hemoglobin ABG Carboxyhemoglobin POC ABG HHb (Measured) ABG Methemoglobin ABG O2 Capacity Gurdeep Test ABG Potassium A-a O2 Difference Hgb O2 Saturation Glucose Lactate Vent Mode Mechanical Rate FiO2 Tidal Volume PEEP Crit Value Called To Crit Value Called By Crit Value Read Back Blood Gas Notified Time Sodium 145 Potassium 4.1 Chloride 98 Carbon Dioxide 23 Anion Gap 28 H BUN 75 H Creatinine 9.7 H* Est GFR ( Amer) 7 Est GFR (Non-Af Amer) 6 POC Glucose (mg/dL) 325 H Random Glucose 333 H Lactic Acid 2.1 Calcium 7.2 L Phosphorus Magnesium 2.1 Total Bilirubin 0.5 AST 147 H ALT 126 H Alkaline Phosphatase 175 H Troponin I Total Protein 8.2 Albumin 4.7 Globulin 3.4 Albumin/Globulin Ratio 1.4 Arterial Blood Potassium 05/15/17 05/15/17 05/15/17 06:00 06:50 07:55 WBC RBC Hgb Hct MCV MCH MCHC RDW Plt Count MPV Neut % (Auto) Lymph % (Auto) [place] % (Auto) Eos % (Auto) Baso % (Auto) Neut # Lymph # [place] # Eos # Baso # Neutrophils % (Manual) Band Neutrophils % Lymphocytes % (Manual) Monocytes % (Manual) Platelet Estimate Anisocytosis (manual) Tear Drop Cells Ovalocytes PT INR APTT pCO2 pO2 HCO3 ABG pH ABG Total CO2 ABG O2 Saturation ABG O2 Content ABG Base Excess ABG Hemoglobin ABG Carboxyhemoglobin POC ABG HHb (Measured) ABG Methemoglobin ABG O2 Capacity Gurdeep Test ABG Potassium A-a O2 Difference Hgb O2 Saturation Glucose Lactate Vent Mode Mechanical Rate FiO2 Tidal Volume PEEP Crit Value Called To Crit Value Called By Crit Value Read Back Blood Gas Notified Time Sodium Potassium Chloride Carbon Dioxide Anion Gap BUN Creatinine Est GFR ( Amer) Est GFR (Non-Af Amer) POC Glucose (mg/dL) 283 H 211 H Random Glucose Lactic Acid Calcium Phosphorus Magnesium Total Bilirubin AST ALT Alkaline Phosphatase Troponin I 0.5260 H* Total Protein Albumin Globulin Albumin/Globulin Ratio Arterial Blood Potassium 05/15/17 05/15/17 05/15/17 09:02 09:06 10:03 WBC RBC Hgb Hct MCV MCH MCHC RDW Plt Count MPV Neut % (Auto) Lymph % (Auto) [place] % (Auto) Eos % (Auto) Baso % (Auto) Neut # Lymph # [place] # Eos # Baso # Neutrophils % (Manual) Band Neutrophils % Lymphocytes % (Manual) Monocytes % (Manual) Platelet Estimate Anisocytosis (manual) Tear Drop Cells Ovalocytes PT INR APTT pCO2 64 H pO2 175 H HCO3 18.9 L ABG pH 7.15 L* ABG Total CO2 24.3 ABG O2 Saturation 98.4 H ABG O2 Content ABG Base Excess -7.7 L ABG Hemoglobin ABG Carboxyhemoglobin POC ABG HHb (Measured) ABG Methemoglobin ABG O2 Capacity Gurdeep Test Yes ABG Potassium 4.5 A-a O2 Difference 458.0 Hgb O2 Saturation Glucose 234 H Lactate 1.7 Vent Mode Prvc/ac Mechanical Rate 12 FiO2 100.0 Tidal Volume 500 PEEP 5 Crit Value Called To Maverick partida Crit Value Called By 15 Crit Value Read Back Y Blood Gas Notified Time 905 Sodium 134.0 Potassium Chloride 103.0 Carbon Dioxide Anion Gap BUN Creatinine Est GFR ( Amer) Est GFR (Non-Af Amer) POC Glucose (mg/dL) 251 H 243 H Random Glucose Lactic Acid Calcium Phosphorus Magnesium Total Bilirubin AST ALT Alkaline Phosphatase Troponin I Total Protein Albumin Globulin Albumin/Globulin Ratio Arterial Blood Potassium 4.5 05/15/17 05/15/17 05/15/17 11:05 12:01 13:00 WBC RBC Hgb Hct MCV MCH MCHC RDW Plt Count MPV Neut % (Auto) Lymph % (Auto) [place] % (Auto) Eos % (Auto) Baso % (Auto) Neut # Lymph # [place] # Eos # Baso # Neutrophils % (Manual) Band Neutrophils % Lymphocytes % (Manual) Monocytes % (Manual) Platelet Estimate Anisocytosis (manual) Tear Drop Cells Ovalocytes PT INR APTT pCO2 pO2 HCO3 ABG pH ABG Total CO2 ABG O2 Saturation ABG O2 Content ABG Base Excess ABG Hemoglobin ABG Carboxyhemoglobin POC ABG HHb (Measured) ABG Methemoglobin ABG O2 Capacity Gurdeep Test ABG Potassium A-a O2 Difference Hgb O2 Saturation Glucose Lactate Vent Mode Mechanical Rate FiO2 Tidal Volume PEEP Crit Value Called To Crit Value Called By Crit Value Read Back Blood Gas Notified Time Sodium Potassium Chloride Carbon Dioxide Anion Gap BUN Creatinine Est GFR ( Amer) Est GFR (Non-Af Amer) POC Glucose (mg/dL) 207 H 152 H Random Glucose Lactic Acid Calcium 7.1 L Phosphorus Magnesium Total Bilirubin AST ALT Alkaline Phosphatase Troponin I Total Protein Albumin Globulin Albumin/Globulin Ratio Arterial Blood Potassium 05/15/17 05/15/17 05/15/17 13:16 13:20 13:20 WBC 16.6 H RBC 5.15 Hgb 13.9 Hct 45.7 MCV 88.7 MCH 27.0 MCHC 30.5 L RDW 18.7 H Plt Count 191 MPV Neut % (Auto) Lymph % (Auto) [place] % (Auto) Eos % (Auto) Baso % (Auto) Neut # Lymph # [place] # Eos # Baso # Neutrophils % (Manual) Band Neutrophils % Lymphocytes % (Manual) Monocytes % (Manual) Platelet Estimate Anisocytosis (manual) Tear Drop Cells Ovalocytes PT 11.5 INR 1.1 APTT 36.1 pCO2 pO2 HCO3 ABG pH ABG Total CO2 ABG O2 Saturation ABG O2 Content ABG Base Excess ABG Hemoglobin ABG Carboxyhemoglobin POC ABG HHb (Measured) ABG Methemoglobin ABG O2 Capacity Gurdeep Test ABG Potassium A-a O2 Difference Hgb O2 Saturation Glucose Lactate Vent Mode Mechanical Rate FiO2 Tidal Volume PEEP Crit Value Called To Crit Value Called By Crit Value Read Back Blood Gas Notified Time Sodium Potassium Chloride Carbon Dioxide Anion Gap BUN Creatinine Est GFR ( Amer) Est GFR (Non-Af Amer) POC Glucose (mg/dL) 173 H Random Glucose Lactic Acid Calcium Phosphorus Magnesium Total Bilirubin AST ALT Alkaline Phosphatase Troponin I Total Protein Albumin Globulin Albumin/Globulin Ratio Arterial Blood Potassium 05/15/17 05/15/17 05/15/17 13:20 14:00 15:08 WBC RBC Hgb Hct MCV MCH MCHC RDW Plt Count MPV Neut % (Auto) Lymph % (Auto) [place] % (Auto) Eos % (Auto) Baso % (Auto) Neut # Lymph # [place] # Eos # Baso # Neutrophils % (Manual) Band Neutrophils % Lymphocytes % (Manual) Monocytes % (Manual) Platelet Estimate Anisocytosis (manual) Tear Drop Cells Ovalocytes PT INR APTT pCO2 57 H pO2 72 L HCO3 17.3 L ABG pH 7.15 L* ABG Total CO2 21.6 L ABG O2 Saturation 93.9 L ABG O2 Content 19.4 ABG Base Excess -9.6 L ABG Hemoglobin 15.1 ABG Carboxyhemoglobin 1.3 POC ABG HHb (Measured) 5.9 H ABG Methemoglobin 1.4 ABG O2 Capacity 20.7 Gurdeep Test Yes ABG Potassium A-a O2 Difference 427.0 Hgb O2 Saturation 91.4 L Glucose Lactate Vent Mode Prvc/ac Mechanical Rate 18 FiO2 80.0 Tidal Volume 500 PEEP 8 Crit Value Called To dalton Anguiano Crit Value Called By 203 Crit Value Read Back Y Blood Gas Notified Time 1513 Sodium 143 Potassium 5.4 H Chloride 100 Carbon Dioxide 20 L Anion Gap 28 H BUN 79 H Creatinine 10.4 H* Est GFR ( Amer) 7 Est GFR (Non-Af Amer) 6 POC Glucose (mg/dL) 231 H Random Glucose 180 H Lactic Acid Calcium 7.2 L Phosphorus 9.6 H Magnesium 2.0 Total Bilirubin AST ALT Alkaline Phosphatase Troponin I 0.7920 H* Total Protein Albumin Globulin Albumin/Globulin Ratio Arterial Blood Potassium 05/15/17 05/15/17 05/15/17 15:13 16:11 16:56 WBC RBC Hgb Hct MCV MCH MCHC RDW Plt Count MPV Neut % (Auto) Lymph % (Auto) [place] % (Auto) Eos % (Auto) Baso % (Auto) Neut # Lymph # [place] # Eos # Baso # Neutrophils % (Manual) Band Neutrophils % Lymphocytes % (Manual) Monocytes % (Manual) Platelet Estimate Anisocytosis (manual) Tear Drop Cells Ovalocytes PT INR APTT pCO2 pO2 HCO3 ABG pH ABG Total CO2 ABG O2 Saturation ABG O2 Content ABG Base Excess ABG Hemoglobin ABG Carboxyhemoglobin POC ABG HHb (Measured) ABG Methemoglobin ABG O2 Capacity Gurdeep Test ABG Potassium A-a O2 Difference Hgb O2 Saturation Glucose Lactate Vent Mode Mechanical Rate FiO2 Tidal Volume PEEP Crit Value Called To Crit Value Called By Crit Value Read Back Blood Gas Notified Time Sodium Potassium Chloride Carbon Dioxide Anion Gap BUN Creatinine Est GFR ( Amer) Est GFR (Non-Af Amer) POC Glucose (mg/dL) 219 H 248 H 276 H Random Glucose Lactic Acid Calcium Phosphorus Magnesium Total Bilirubin AST ALT Alkaline Phosphatase Troponin I Total Protein Albumin Globulin Albumin/Globulin Ratio Arterial Blood Potassium 05/15/17 05/15/17 05/15/17 17:33 17:56 18:57 WBC RBC Hgb Hct MCV MCH MCHC RDW Plt Count MPV Neut % (Auto) Lymph % (Auto) [place] % (Auto) Eos % (Auto) Baso % (Auto) Neut # Lymph # [place] # Eos # Baso # Neutrophils % (Manual) Band Neutrophils % Lymphocytes % (Manual) Monocytes % (Manual) Platelet Estimate Anisocytosis (manual) Tear Drop Cells Ovalocytes PT INR APTT pCO2 41 pO2 76 L HCO3 17.9 L ABG pH 7.25 L ABG Total CO2 19.3 L ABG O2 Saturation 95.3 ABG O2 Content 19.1 ABG Base Excess -8.8 L ABG Hemoglobin 14.6 ABG Carboxyhemoglobin 1.1 POC ABG HHb (Measured) 4.6 ABG Methemoglobin 1.5 ABG O2 Capacity 20.0 Gurdeep Test Yes ABG Potassium A-a O2 Difference 443.0 Hgb O2 Saturation 92.9 L Glucose Lactate Vent Mode Prvc ac Mechanical Rate 20 FiO2 80.0 Tidal Volume 550 PEEP 8 Crit Value Called To Crit Value Called By Crit Value Read Back Blood Gas Notified Time Sodium Potassium Chloride Carbon Dioxide Anion Gap BUN Creatinine Est GFR ( Amer) Est GFR (Non-Af Amer) POC Glucose (mg/dL) 231 H 165 H Random Glucose Lactic Acid Calcium Phosphorus Magnesium Total Bilirubin AST ALT Alkaline Phosphatase Troponin I Total Protein Albumin Globulin Albumin/Globulin Ratio Arterial Blood Potassium 05/15/17 05/15/17 05/15/17 19:56 20:29 20:29 WBC RBC Hgb Hct MCV MCH MCHC RDW Plt Count MPV Neut % (Auto) Lymph % (Auto) [place] % (Auto) Eos % (Auto) Baso % (Auto) Neut # Lymph # [place] # Eos # Baso # Neutrophils % (Manual) Band Neutrophils % Lymphocytes % (Manual) Monocytes % (Manual) Platelet Estimate Anisocytosis (manual) Tear Drop Cells Ovalocytes PT 11.6 INR 1.1 APTT 35.8 pCO2 pO2 HCO3 ABG pH ABG Total CO2 ABG O2 Saturation ABG O2 Content ABG Base Excess ABG Hemoglobin ABG Carboxyhemoglobin POC ABG HHb (Measured) ABG Methemoglobin ABG O2 Capacity Gurdeep Test ABG Potassium A-a O2 Difference Hgb O2 Saturation Glucose Lactate Vent Mode Mechanical Rate FiO2 Tidal Volume PEEP Crit Value Called To Crit Value Called By Crit Value Read Back Blood Gas Notified Time Sodium Potassium Chloride Carbon Dioxide Anion Gap BUN Creatinine Est GFR ( Amer) Est GFR (Non-Af Amer) POC Glucose (mg/dL) 123 H Random Glucose Lactic Acid Calcium 7.7 L Phosphorus 8.8 H Magnesium 2.1 Total Bilirubin AST ALT Alkaline Phosphatase Troponin I 0.8650 H* Total Protein Albumin Globulin Albumin/Globulin Ratio Arterial Blood Potassium 05/15/17 05/15/17 05/15/17 20:29 20:31 20:54 WBC 10.5 RBC 5.21 Hgb 14.2 Hct 45.7 MCV 87.7 MCH 27.3 MCHC 31.1 L RDW 19.1 H Plt Count 150 MPV 8.3 Neut % (Auto) 84.9 H Lymph % (Auto) 8.9 L [place] % (Auto) 5.6 Eos % (Auto) 0.3 Baso % (Auto) 0.3 Neut # 8.9 H Lymph # 0.9 L [place] # 0.6 Eos # 0.0 Baso # 0.0 Neutrophils % (Manual) Band Neutrophils % Lymphocytes % (Manual) Monocytes % (Manual) Platelet Estimate Anisocytosis (manual) Tear Drop Cells Ovalocytes PT INR APTT pCO2 pO2 HCO3 ABG pH ABG Total CO2 ABG O2 Saturation ABG O2 Content ABG Base Excess ABG Hemoglobin ABG Carboxyhemoglobin POC ABG HHb (Measured) ABG Methemoglobin ABG O2 Capacity Gurdeep Test ABG Potassium A-a O2 Difference Hgb O2 Saturation Glucose Lactate Vent Mode Mechanical Rate FiO2 Tidal Volume PEEP Crit Value Called To Crit Value Called By Crit Value Read Back Blood Gas Notified Time Sodium 143 Potassium 6.0 H Chloride 100 Carbon Dioxide 19 L Anion Gap 30 H BUN 85 H Creatinine 10.7 H* Est GFR ( Amer) 7 Est GFR (Non-Af Amer) 5 POC Glucose (mg/dL) 124 H Random Glucose 128 H Lactic Acid Calcium 7.7 L Phosphorus Magnesium Total Bilirubin AST ALT Alkaline Phosphatase Troponin I Total Protein Albumin Globulin Albumin/Globulin Ratio Arterial Blood Potassium 05/15/17 21:59 WBC RBC Hgb Hct MCV MCH MCHC RDW Plt Count MPV Neut % (Auto) Lymph % (Auto) [place] % (Auto) Eos % (Auto) Baso % (Auto) Neut # Lymph # [place] # Eos # Baso # Neutrophils % (Manual) Band Neutrophils % Lymphocytes % (Manual) Monocytes % (Manual) Platelet Estimate Anisocytosis (manual) Tear Drop Cells Ovalocytes PT INR APTT pCO2 pO2 HCO3 ABG pH ABG Total CO2 ABG O2 Saturation ABG O2 Content ABG Base Excess ABG Hemoglobin ABG Carboxyhemoglobin POC ABG HHb (Measured) ABG Methemoglobin ABG O2 Capacity Gurdeep Test ABG Potassium A-a O2 Difference Hgb O2 Saturation Glucose Lactate Vent Mode Mechanical Rate FiO2 Tidal Volume PEEP Crit Value Called To Crit Value Called By Crit Value Read Back Blood Gas Notified Time Sodium Potassium Chloride Carbon Dioxide Anion Gap BUN Creatinine Est GFR ( Amer) Est GFR (Non-Af Amer) POC Glucose (mg/dL) 136 H Random Glucose Lactic Acid Calcium Phosphorus Magnesium Total Bilirubin AST ALT Alkaline Phosphatase Troponin I Total Protein Albumin Globulin Albumin/Globulin Ratio Arterial Blood Potassium
--- NOTE | 2017-05-15 23:25 | CP.PCM.CON ---
History of Present Illness - History of Present Illness History of Present Illness: Acute Resp Fail Asp Pneumonia / sepsis Cardiac arrest Acute on Chronic Renal Fail DM II / HTN T = Hypothermic protocol. VSS Stable. Head: neg adeno, pos ana Heart RRR, NS1S2 Neg M Lungs: some scattered crackles at bases. Abdo: s, nt, pos bs Ext: no c,c,e Neuro: Pt in deep sedation. a/p Cont MV, maintain O2 Sat > 90% Maintain PH between 7.35 ane 7.45 Cont IV Abx and monitor CBC, Temp Curve, and Pancultures. Cardiac optimization as per Cardiology. Neuro assessment. Cont IV Abx for possible Aspiration Pna during Cardiac arrest. PUD and DVT Px Cont care as per ICU Staff / Physician. Signing out of case. Please reconsult prn: Past Patient History - Infectious Disease Hx of Infectious Diseases: None - Past Medical History & Family History Past Medical History?: Yes - Past Social History Smoking Status: Never Smoked - CARDIAC Hx Cardiac Disorders: Yes Hx Peripheral Vascular Disease: Yes Other/Comment: left below the knee amputee. >rt above the knee amputee. >rt chest wall permacath for HD - PULMONARY Hx Respiratory Disorders: No - NEUROLOGICAL Hx Neurological Disorder: No - HEENT Hx HEENT Problems: Yes - RENAL Hx Chronic Kidney Disease: Yes Hx Dialysis: Yes Type of Dialysis Access: [id number] - ENDOCRINE/METABOLIC Hx Endocrine Disorders: Yes Hx Diabetes Mellitus Type 1: Yes Hx Diabetes Mellitus Type 2: Yes - HEMATOLOGICAL/ONCOLOGICAL Hx Blood Disorders: No Hx AIDS: No Hx Human Immunodeficiency Virus (HIV): No - INTEGUMENTARY Hx Dermatological Problems: No - MUSCULOSKELETAL/RHEUMATOLOGICAL Hx Musculoskeletal Disorders: No Hx Falls: No - GASTROINTESTINAL Hx Gastrointestinal Disorders: No - GENITOURINARY/GYNECOLOGICAL Hx Genitourinary Disorders: No Hx Prostate Problems: No Other/Comment: pt. 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 - ANESTHESIA Hx Anesthesia: Yes Hx Anesthesia Reactions: No Hx Malignant Hyperthermia: No Meds Allergies/Adverse Reactions: Allergies Allergy/AdvReac Type Severity Reaction Status Date / Time FISH Allergy RASH Verified 01/01/17 20:32 - Medications Medications: Current Medications Acetaminophen (Tylenol 650mg/20.3ml Solution Ud) 975 mg NG Q6 PRN PRN Reason: Rigors Dextrose (Dextrose 50% Inj) 0 ml IV STAT PRN; Protocol PRN Reason: Hyglycemia Protocol Dextrose (Glutose 15) 0 gm PO ONCE PRN; Protocol PRN Reason: Hypoglycemia Protocol Glucagon (Glucagen Diagnostic Kit) 0 mg IM STAT PRN; Protocol PRN Reason: Hypoglycemia Protocol Heparin Sodium (Porcine) (Heparin) 5,000 units SC Q12 JENI PRN Reason: Protocol Last Admin: 05/15/17 22:36 Dose: 5,000 units Insulin Human Regular 100 (units/ Sodium Chloride) 101 mls @ 1.01 mls/hr IV .Q24H JENI; 1 UNITS/HR PRN Reason: Protocol Last Titration: 05/15/17 19:00 Dose: 0 units/hr, 0 mls/hr Piperacillin Sod/Tazobactam (Sod 2.25 gm/ Sodium Chloride) 100 mls @ 100 mls/ hr IVPB Q8 JENI Last Admin: 05/15/17 17:54 Dose: 100 mls/hr Nicardipine HCl (Cardene Iv Premix) 20 mg in 200 mls @ 50 mls/hr IV .Q4H JENI; 5 MG/HR PRN Reason: Protocol Last Titration: 05/15/17 16:30 Dose: 0 mg/hr, 0 mls/hr Propofol (Diprivan) 1,000 mg in 100 mls @ 2.722 mls/hr IV .Q24H JENI; 5 MCG/KG/ MIN PRN Reason: Protocol Stop: 05/16/17 18:33 Last Titration: 05/15/17 23:00 Dose: 10 mcg/kg/min, 5.443 mls/hr Cisatracurium Besylate 200 mg/ (Sodium Chloride) 520 mls @ 37.14 mls/hr IV .Q14H1M JENI; 3 MCG/KG/MIN PRN Reason: Protocol Last Titration: 05/15/17 23:06 Dose: 1.5 mcg/kg/min, 18.57 mls/hr Sodium Bicarbonate 75 meq/ (Sodium Chloride) 1,075 mls @ 75 mls/hr IV .[id number] JENI Stop: 05/16/17 18:51 Last Admin: 05/15/17 22:43 Dose: 75 mls/hr Pantoprazole Sodium (Protonix Inj) 40 mg IVP DAILY [facility] Last Admin: 05/15/17 09:21 Dose: 40 mg Results - Vital Signs Recent Vital Signs: Last Vital Signs Temp 96.3 F L 05/15/17 21:00 Pulse 89 05/15/17 21:00 Resp 20 05/15/17 21:00 BP 145/96 H 05/15/17 21:00 Pulse Ox 100 05/15/17 21:00 - Labs Result Diagrams: 05/15/17 20:29 05/15/17 20:31 Labs: Laboratory Results - last 24 hr 05/15/17 05/15/17 05/15/17 02:40 02:55 04:07 WBC RBC Hgb Hct MCV MCH MCHC RDW Plt Count MPV Neut % (Auto) Lymph % (Auto) [place] % (Auto) Eos % (Auto) Baso % (Auto) Neut # Lymph # [place] # Eos # Baso # Neutrophils % (Manual) Band Neutrophils % Lymphocytes % (Manual) Monocytes % (Manual) Platelet Estimate Anisocytosis (manual) Tear Drop Cells Ovalocytes PT 11.1 INR 1.1 APTT pCO2 pO2 HCO3 ABG pH ABG Total CO2 ABG O2 Saturation ABG O2 Content ABG Base Excess ABG Hemoglobin ABG Carboxyhemoglobin POC ABG HHb (Measured) ABG Methemoglobin ABG O2 Capacity Gurdeep Test ABG Potassium A-a O2 Difference Hgb O2 Saturation Glucose Lactate Vent Mode Mechanical Rate FiO2 Tidal Volume PEEP Crit Value Called To Crit Value Called By Crit Value Read Back Blood Gas Notified Time Sodium Potassium Chloride Carbon Dioxide Anion Gap BUN Creatinine Est GFR ( Amer) Est GFR (Non-Af Amer) POC Glucose (mg/dL) 320 H 280 H Random Glucose Lactic Acid Calcium Phosphorus Magnesium Total Bilirubin AST ALT Alkaline Phosphatase Troponin I Total Protein Albumin Globulin Albumin/Globulin Ratio Arterial Blood Potassium 05/15/17 05/15/17 05/15/17 05:00 05:19 05:30 WBC 23.6 H D RBC 4.91 Hgb 13.3 Hct 43.6 MCV 88.9 MCH 27.2 MCHC 30.6 L RDW 19.0 H Plt Count 224 MPV 10.2 Neut % (Auto) 91.6 H Lymph % (Auto) 3.9 L [place] % (Auto) 4.4 Eos % (Auto) 0.0 Baso % (Auto) 0.1 Neut # 21.6 H Lymph # 0.9 L [place] # 1.0 H Eos # 0.0 Baso # 0.0 Neutrophils % (Manual) 92 H Band Neutrophils % 2 Lymphocytes % (Manual) 2 L Monocytes % (Manual) 4 Platelet Estimate Normal Anisocytosis (manual) Moderate Tear Drop Cells Slight Ovalocytes Slight PT INR APTT pCO2 73 H* pO2 265 H HCO3 19.8 L ABG pH 7.13 L* ABG Total CO2 26.5 ABG O2 Saturation 99.2 H ABG O2 Content 20.0 ABG Base Excess -6.5 L ABG Hemoglobin 14.3 ABG Carboxyhemoglobin 1.2 POC ABG HHb (Measured) 0.8 ABG Methemoglobin 1.3 ABG O2 Capacity 20.2 Gurdeep Test Yes ABG Potassium A-a O2 Difference 357.0 Hgb O2 Saturation 96.6 Glucose Lactate Vent Mode A/c Mechanical Rate 12 FiO2 100.0 Tidal Volume 500 PEEP 5 Crit Value Called To Dallin betancourt rn Crit Value Called By 6075 Crit Value Read Back Y Blood Gas Notified Time 541 Sodium Potassium Chloride Carbon Dioxide Anion Gap BUN Creatinine Est GFR ( Amer) Est GFR (Non-Af Amer) POC Glucose (mg/dL) 315 H Random Glucose Lactic Acid Calcium Phosphorus Magnesium Total Bilirubin AST ALT Alkaline Phosphatase Troponin I Total Protein Albumin Globulin Albumin/Globulin Ratio Arterial Blood Potassium 05/15/17 05/15/17 05/15/17 05:30 05:30 05:53 WBC RBC Hgb Hct MCV MCH MCHC RDW Plt Count MPV Neut % (Auto) Lymph % (Auto) [place] % (Auto) Eos % (Auto) Baso % (Auto) Neut # Lymph # [place] # Eos # Baso # Neutrophils % (Manual) Band Neutrophils % Lymphocytes % (Manual) Monocytes % (Manual) Platelet Estimate Anisocytosis (manual) Tear Drop Cells Ovalocytes PT INR APTT pCO2 pO2 HCO3 ABG pH ABG Total CO2 ABG O2 Saturation ABG O2 Content ABG Base Excess ABG Hemoglobin ABG Carboxyhemoglobin POC ABG HHb (Measured) ABG Methemoglobin ABG O2 Capacity Gurdeep Test ABG Potassium A-a O2 Difference Hgb O2 Saturation Glucose Lactate Vent Mode Mechanical Rate FiO2 Tidal Volume PEEP Crit Value Called To Crit Value Called By Crit Value Read Back Blood Gas Notified Time Sodium 145 Potassium 4.1 Chloride 98 Carbon Dioxide 23 Anion Gap 28 H BUN 75 H Creatinine 9.7 H* Est GFR ( Amer) 7 Est GFR (Non-Af Amer) 6 POC Glucose (mg/dL) 325 H Random Glucose 333 H Lactic Acid 2.1 Calcium 7.2 L Phosphorus Magnesium 2.1 Total Bilirubin 0.5 AST 147 H ALT 126 H Alkaline Phosphatase 175 H Troponin I Total Protein 8.2 Albumin 4.7 Globulin 3.4 Albumin/Globulin Ratio 1.4 Arterial Blood Potassium 05/15/17 05/15/17 05/15/17 06:00 06:50 07:55 WBC RBC Hgb Hct MCV MCH MCHC RDW Plt Count MPV Neut % (Auto) Lymph % (Auto) [place] % (Auto) Eos % (Auto) Baso % (Auto) Neut # Lymph # [place] # Eos # Baso # Neutrophils % (Manual) Band Neutrophils % Lymphocytes % (Manual) Monocytes % (Manual) Platelet Estimate Anisocytosis (manual) Tear Drop Cells Ovalocytes PT INR APTT pCO2 pO2 HCO3 ABG pH ABG Total CO2 ABG O2 Saturation ABG O2 Content ABG Base Excess ABG Hemoglobin ABG Carboxyhemoglobin POC ABG HHb (Measured) ABG Methemoglobin ABG O2 Capacity Gurdeep Test ABG Potassium A-a O2 Difference Hgb O2 Saturation Glucose Lactate Vent Mode Mechanical Rate FiO2 Tidal Volume PEEP Crit Value Called To Crit Value Called By Crit Value Read Back Blood Gas Notified Time Sodium Potassium Chloride Carbon Dioxide Anion Gap BUN Creatinine Est GFR ( Amer) Est GFR (Non-Af Amer) POC Glucose (mg/dL) 283 H 211 H Random Glucose Lactic Acid Calcium Phosphorus Magnesium Total Bilirubin AST ALT Alkaline Phosphatase Troponin I 0.5260 H* Total Protein Albumin Globulin Albumin/Globulin Ratio Arterial Blood Potassium 05/15/17 05/15/17 05/15/17 09:02 09:06 10:03 WBC RBC Hgb Hct MCV MCH MCHC RDW Plt Count MPV Neut % (Auto) Lymph % (Auto) [place] % (Auto) Eos % (Auto) Baso % (Auto) Neut # Lymph # [place] # Eos # Baso # Neutrophils % (Manual) Band Neutrophils % Lymphocytes % (Manual) Monocytes % (Manual) Platelet Estimate Anisocytosis (manual) Tear Drop Cells Ovalocytes PT INR APTT pCO2 64 H pO2 175 H HCO3 18.9 L ABG pH 7.15 L* ABG Total CO2 24.3 ABG O2 Saturation 98.4 H ABG O2 Content ABG Base Excess -7.7 L ABG Hemoglobin ABG Carboxyhemoglobin POC ABG HHb (Measured) ABG Methemoglobin ABG O2 Capacity Gurdeep Test Yes ABG Potassium 4.5 A-a O2 Difference 458.0 Hgb O2 Saturation Glucose 234 H Lactate 1.7 Vent Mode Prvc/ac Mechanical Rate 12 FiO2 100.0 Tidal Volume 500 PEEP 5 Crit Value Called To Maverick partida Crit Value Called By 15 Crit Value Read Back Y Blood Gas Notified Time 905 Sodium 134.0 Potassium Chloride 103.0 Carbon Dioxide Anion Gap BUN Creatinine Est GFR ( Amer) Est GFR (Non-Af Amer) POC Glucose (mg/dL) 251 H 243 H Random Glucose Lactic Acid Calcium Phosphorus Magnesium Total Bilirubin AST ALT Alkaline Phosphatase Troponin I Total Protein Albumin Globulin Albumin/Globulin Ratio Arterial Blood Potassium 4.5 05/15/17 05/15/17 05/15/17 11:05 12:01 13:00 WBC RBC Hgb Hct MCV MCH MCHC RDW Plt Count MPV Neut % (Auto) Lymph % (Auto) [place] % (Auto) Eos % (Auto) Baso % (Auto) Neut # Lymph # [place] # Eos # Baso # Neutrophils % (Manual) Band Neutrophils % Lymphocytes % (Manual) Monocytes % (Manual) Platelet Estimate Anisocytosis (manual) Tear Drop Cells Ovalocytes PT INR APTT pCO2 pO2 HCO3 ABG pH ABG Total CO2 ABG O2 Saturation ABG O2 Content ABG Base Excess ABG Hemoglobin ABG Carboxyhemoglobin POC ABG HHb (Measured) ABG Methemoglobin ABG O2 Capacity Gurdeep Test ABG Potassium A-a O2 Difference Hgb O2 Saturation Glucose Lactate Vent Mode Mechanical Rate FiO2 Tidal Volume PEEP Crit Value Called To Crit Value Called By Crit Value Read Back Blood Gas Notified Time Sodium Potassium Chloride Carbon Dioxide Anion Gap BUN Creatinine Est GFR ( Amer) Est GFR (Non-Af Amer) POC Glucose (mg/dL) 207 H 152 H Random Glucose Lactic Acid Calcium 7.1 L Phosphorus Magnesium Total Bilirubin AST ALT Alkaline Phosphatase Troponin I Total Protein Albumin Globulin Albumin/Globulin Ratio Arterial Blood Potassium 05/15/17 05/15/17 05/15/17 13:16 13:20 13:20 WBC 16.6 H RBC 5.15 Hgb 13.9 Hct 45.7 MCV 88.7 MCH 27.0 MCHC 30.5 L RDW 18.7 H Plt Count 191 MPV Neut % (Auto) Lymph % (Auto) [place] % (Auto) Eos % (Auto) Baso % (Auto) Neut # Lymph # [place] # Eos # Baso # Neutrophils % (Manual) Band Neutrophils % Lymphocytes % (Manual) Monocytes % (Manual) Platelet Estimate Anisocytosis (manual) Tear Drop Cells Ovalocytes PT 11.5 INR 1.1 APTT 36.1 pCO2 pO2 HCO3 ABG pH ABG Total CO2 ABG O2 Saturation ABG O2 Content ABG Base Excess ABG Hemoglobin ABG Carboxyhemoglobin POC ABG HHb (Measured) ABG Methemoglobin ABG O2 Capacity Gurdeep Test ABG Potassium A-a O2 Difference Hgb O2 Saturation Glucose Lactate Vent Mode Mechanical Rate FiO2 Tidal Volume PEEP Crit Value Called To Crit Value Called By Crit Value Read Back Blood Gas Notified Time Sodium Potassium Chloride Carbon Dioxide Anion Gap BUN Creatinine Est GFR ( Amer) Est GFR (Non-Af Amer) POC Glucose (mg/dL) 173 H Random Glucose Lactic Acid Calcium Phosphorus Magnesium Total Bilirubin AST ALT Alkaline Phosphatase Troponin I Total Protein Albumin Globulin Albumin/Globulin Ratio Arterial Blood Potassium 05/15/17 05/15/17 05/15/17 13:20 14:00 15:08 WBC RBC Hgb Hct MCV MCH MCHC RDW Plt Count MPV Neut % (Auto) Lymph % (Auto) [place] % (Auto) Eos % (Auto) Baso % (Auto) Neut # Lymph # [place] # Eos # Baso # Neutrophils % (Manual) Band Neutrophils % Lymphocytes % (Manual) Monocytes % (Manual) Platelet Estimate Anisocytosis (manual) Tear Drop Cells Ovalocytes PT INR APTT pCO2 57 H pO2 72 L HCO3 17.3 L ABG pH 7.15 L* ABG Total CO2 21.6 L ABG O2 Saturation 93.9 L ABG O2 Content 19.4 ABG Base Excess -9.6 L ABG Hemoglobin 15.1 ABG Carboxyhemoglobin 1.3 POC ABG HHb (Measured) 5.9 H ABG Methemoglobin 1.4 ABG O2 Capacity 20.7 Gurdeep Test Yes ABG Potassium A-a O2 Difference 427.0 Hgb O2 Saturation 91.4 L Glucose Lactate Vent Mode Prvc/ac Mechanical Rate 18 FiO2 80.0 Tidal Volume 500 PEEP 8 Crit Value Called To dalton Anguiano Crit Value Called By 203 Crit Value Read Back Y Blood Gas Notified Time 1513 Sodium 143 Potassium 5.4 H Chloride 100 Carbon Dioxide 20 L Anion Gap 28 H BUN 79 H Creatinine 10.4 H* Est GFR ( Amer) 7 Est GFR (Non-Af Amer) 6 POC Glucose (mg/dL) 231 H Random Glucose 180 H Lactic Acid Calcium 7.2 L Phosphorus 9.6 H Magnesium 2.0 Total Bilirubin AST ALT Alkaline Phosphatase Troponin I 0.7920 H* Total Protein Albumin Globulin Albumin/Globulin Ratio Arterial Blood Potassium 05/15/17 05/15/17 05/15/17 15:13 16:11 16:56 WBC RBC Hgb Hct MCV MCH MCHC RDW Plt Count MPV Neut % (Auto) Lymph % (Auto) [place] % (Auto) Eos % (Auto) Baso % (Auto) Neut # Lymph # [place] # Eos # Baso # Neutrophils % (Manual) Band Neutrophils % Lymphocytes % (Manual) Monocytes % (Manual) Platelet Estimate Anisocytosis (manual) Tear Drop Cells Ovalocytes PT INR APTT pCO2 pO2 HCO3 ABG pH ABG Total CO2 ABG O2 Saturation ABG O2 Content ABG Base Excess ABG Hemoglobin ABG Carboxyhemoglobin POC ABG HHb (Measured) ABG Methemoglobin ABG O2 Capacity Gurdeep Test ABG Potassium A-a O2 Difference Hgb O2 Saturation Glucose Lactate Vent Mode Mechanical Rate FiO2 Tidal Volume PEEP Crit Value Called To Crit Value Called By Crit Value Read Back Blood Gas Notified Time Sodium Potassium Chloride Carbon Dioxide Anion Gap BUN Creatinine Est GFR ( Amer) Est GFR (Non-Af Amer) POC Glucose (mg/dL) 219 H 248 H 276 H Random Glucose Lactic Acid Calcium Phosphorus Magnesium Total Bilirubin AST ALT Alkaline Phosphatase Troponin I Total Protein Albumin Globulin Albumin/Globulin Ratio Arterial Blood Potassium 05/15/17 05/15/17 05/15/17 17:33 17:56 18:57 WBC RBC Hgb Hct MCV MCH MCHC RDW Plt Count MPV Neut % (Auto) Lymph % (Auto) [place] % (Auto) Eos % (Auto) Baso % (Auto) Neut # Lymph # [place] # Eos # Baso # Neutrophils % (Manual) Band Neutrophils % Lymphocytes % (Manual) Monocytes % (Manual) Platelet Estimate Anisocytosis (manual) Tear Drop Cells Ovalocytes PT INR APTT pCO2 41 pO2 76 L HCO3 17.9 L ABG pH 7.25 L ABG Total CO2 19.3 L ABG O2 Saturation 95.3 ABG O2 Content 19.1 ABG Base Excess -8.8 L ABG Hemoglobin 14.6 ABG Carboxyhemoglobin 1.1 POC ABG HHb (Measured) 4.6 ABG Methemoglobin 1.5 ABG O2 Capacity 20.0 Gurdeep Test Yes ABG Potassium A-a O2 Difference 443.0 Hgb O2 Saturation 92.9 L Glucose Lactate Vent Mode Prvc ac Mechanical Rate 20 FiO2 80.0 Tidal Volume 550 PEEP 8 Crit Value Called To Crit Value Called By Crit Value Read Back Blood Gas Notified Time Sodium Potassium Chloride Carbon Dioxide Anion Gap BUN Creatinine Est GFR ( Amer) Est GFR (Non-Af Amer) POC Glucose (mg/dL) 231 H 165 H Random Glucose Lactic Acid Calcium Phosphorus Magnesium Total Bilirubin AST ALT Alkaline Phosphatase Troponin I Total Protein Albumin Globulin Albumin/Globulin Ratio Arterial Blood Potassium 05/15/17 05/15/17 05/15/17 19:56 20:29 20:29 WBC RBC Hgb Hct MCV MCH MCHC RDW Plt Count MPV Neut % (Auto) Lymph % (Auto) [place] % (Auto) Eos % (Auto) Baso % (Auto) Neut # Lymph # [place] # Eos # Baso # Neutrophils % (Manual) Band Neutrophils % Lymphocytes % (Manual) Monocytes % (Manual) Platelet Estimate Anisocytosis (manual) Tear Drop Cells Ovalocytes PT 11.6 INR 1.1 APTT 35.8 pCO2 pO2 HCO3 ABG pH ABG Total CO2 ABG O2 Saturation ABG O2 Content ABG Base Excess ABG Hemoglobin ABG Carboxyhemoglobin POC ABG HHb (Measured) ABG Methemoglobin ABG O2 Capacity Gurdeep Test ABG Potassium A-a O2 Difference Hgb O2 Saturation Glucose Lactate Vent Mode Mechanical Rate FiO2 Tidal Volume PEEP Crit Value Called To Crit Value Called By Crit Value Read Back Blood Gas Notified Time Sodium Potassium Chloride Carbon Dioxide Anion Gap BUN Creatinine Est GFR ( Amer) Est GFR (Non-Af Amer) POC Glucose (mg/dL) 123 H Random Glucose Lactic Acid Calcium 7.7 L Phosphorus 8.8 H Magnesium 2.1 Total Bilirubin AST ALT Alkaline Phosphatase Troponin I 0.8650 H* Total Protein Albumin Globulin Albumin/Globulin Ratio Arterial Blood Potassium 05/15/17 05/15/17 05/15/17 20:29 20:31 20:54 WBC 10.5 RBC 5.21 Hgb 14.2 Hct 45.7 MCV 87.7 MCH 27.3 MCHC 31.1 L RDW 19.1 H Plt Count 150 MPV 8.3 Neut % (Auto) 84.9 H Lymph % (Auto) 8.9 L [place] % (Auto) 5.6 Eos % (Auto) 0.3 Baso % (Auto) 0.3 Neut # 8.9 H Lymph # 0.9 L [place] # 0.6 Eos # 0.0 Baso # 0.0 Neutrophils % (Manual) Band Neutrophils % Lymphocytes % (Manual) Monocytes % (Manual) Platelet Estimate Anisocytosis (manual) Tear Drop Cells Ovalocytes PT INR APTT pCO2 pO2 HCO3 ABG pH ABG Total CO2 ABG O2 Saturation ABG O2 Content ABG Base Excess ABG Hemoglobin ABG Carboxyhemoglobin POC ABG HHb (Measured) ABG Methemoglobin ABG O2 Capacity Gurdeep Test ABG Potassium A-a O2 Difference Hgb O2 Saturation Glucose Lactate Vent Mode Mechanical Rate FiO2 Tidal Volume PEEP Crit Value Called To Crit Value Called By Crit Value Read Back Blood Gas Notified Time Sodium 143 Potassium 6.0 H Chloride 100 Carbon Dioxide 19 L Anion Gap 30 H BUN 85 H Creatinine 10.7 H* Est GFR ( Amer) 7 Est GFR (Non-Af Amer) 5 POC Glucose (mg/dL) 124 H Random Glucose 128 H Lactic Acid Calcium 7.7 L Phosphorus Magnesium Total Bilirubin AST ALT Alkaline Phosphatase Troponin I Total Protein Albumin Globulin Albumin/Globulin Ratio Arterial Blood Potassium 05/15/17 05/15/17 21:59 22:57 WBC RBC Hgb Hct MCV MCH MCHC RDW Plt Count MPV Neut % (Auto) Lymph % (Auto) [place] % (Auto) Eos % (Auto) Baso % (Auto) Neut # Lymph # [place] # Eos # Baso # Neutrophils % (Manual) Band Neutrophils % Lymphocytes % (Manual) Monocytes % (Manual) Platelet Estimate Anisocytosis (manual) Tear Drop Cells Ovalocytes PT INR APTT pCO2 pO2 HCO3 ABG pH ABG Total CO2 ABG O2 Saturation ABG O2 Content ABG Base Excess ABG Hemoglobin ABG Carboxyhemoglobin POC ABG HHb (Measured) ABG Methemoglobin ABG O2 Capacity Gurdeep Test ABG Potassium A-a O2 Difference Hgb O2 Saturation Glucose Lactate Vent Mode Mechanical Rate FiO2 Tidal Volume PEEP Crit Value Called To Crit Value Called By Crit Value Read Back Blood Gas Notified Time Sodium Potassium Chloride Carbon Dioxide Anion Gap BUN Creatinine Est GFR ( Amer) Est GFR (Non-Af Amer) POC Glucose (mg/dL) 136 H 198 H Random Glucose Lactic Acid Calcium Phosphorus Magnesium Total Bilirubin AST ALT Alkaline Phosphatase Troponin I Total Protein Albumin Globulin Albumin/Globulin Ratio Arterial Blood Potassium
[2017-05-16] MEDS: Labetalol 5mg/ml (4ml) IVP SCH ×5 (00:15→23:45)
[2017-05-16] MEDS: Propofol 10 mg/ml 1,000 MG/100 ML VIAL IV SCH ×3 (00:47→18:57)
[2017-05-16 01:51] LABS: POTASSIUM 5.4 MMOL/L (3.6-5.0)
[2017-05-16] MEDS ORDERED: Midazolam 2 MG/2 ML VIAL IV ONE (04:33)
[2017-05-16 06:00] LABS: ABG ALLEN TEST YES; ABG MECHANICAL RATE 20; ARTERIAL BLOOD GAS HCO3 18.1 mmol/L (21-28); ARTERIAL BLOOD GAS MODE A/C; ARTERIAL BLOOD GAS O2 CAPACITY 20.2 mL/dL (16-24); ARTERIAL BLOOD GAS O2 CONTENT 19.9 ML/dL (15-23); ARTERIAL BLOOD GAS PH 7.26 (7.35-7.45); ARTERIAL BLOOD GAS PO2 220 mm/Hg (80-100); ARTERIAL BLOOD HGB O2 SAT 96.2 % (95.0-98.0); ATERIAL BLOOD GAS PEEP 8; CARBOXYHEMOGLOBIN 0.8 % (0.5-1.5); HHB 1.5 % (0.0-5.0); METHEMOGLOBIN 1.5 % (0.0-3.0)
[2017-05-16 06:13] LABS: HEMATOCRIT 42.5 % (35.0-51.0); MEAN CELL VOLUME 87.6 fl (80.0-94.0); MEAN CORPUSCULAR HEMOGLOBIN 27.8 pg (27.0-31.0); MEAN CORPUSCULAR HGB CONC 31.8 g/dL (33.0-37.0); RED CELL DISTRIBUTION WIDTH 18.7 % (11.5-14.5); WHITE BLOOD COUNT 10.2 K/uL (4.8-10.8)
[2017-05-16 06:24] LABS: CALCIUM 8.2 mg/dL (8.4-10.2)
[2017-05-16 06:35] LABS: POTASSIUM 5.6 MMOL/L (3.6-5.0)
--- NOTE | 2017-05-16 07:51 | RAD ---
PROCEDURE: CHEST RADIOGRAPH, 1 VIEW HISTORY: intubated COMPARISON: Portable chest 05/15/2017. FINDINGS: Endotracheal tube, nasogastric tube and right central venous dialysis catheter unchanged in position. LUNGS: Restrained motion degrades correlates examination a repeat radiograph is advised. Nevertheless, limited right perihilar PET patchy density is not excluded with left basilar infiltrate or atelectasis unchanged. No definitive pleural effusion bilaterally. No pneumothorax. PLEURA: As above. CARDIOVASCULAR: Cardiac silhouette remains prominent appearing. OSSEOUS STRUCTURES: No significant abnormalities. VISUALIZED UPPER ABDOMEN: Normal. OTHER FINDINGS: None. IMPRESSION: Limited examination due to respiratory motion. Likely stable bilateral infiltrates. Repeat radiography is advised.
[2017-05-16] MEDS: Midazolam 2 MG/2 ML VIAL IV PRN ×3 (08:05→18:32)
[2017-05-16 09:14] LABS: ABG ALLEN TEST YES; ARTERIAL BLOOD GAS HCO3 18.9 mmol/L (21-28); ARTERIAL BLOOD GAS O2 CAPACITY 19.1 mL/dL (16-24); ARTERIAL BLOOD GAS O2 CONTENT 18.6 ML/dL (15-23); ARTERIAL BLOOD GAS PH 7.27 (7.35-7.45); ARTERIAL BLOOD GAS PO2 114 mm/Hg (80-100); ARTERIAL BLOOD HGB O2 SAT 95.1 % (95.0-98.0); CARBOXYHEMOGLOBIN 0.9 % (0.5-1.5); HHB 2.5 % (0.0-5.0); METHEMOGLOBIN 1.6 % (0.0-3.0)
--- NOTE | 2017-05-16 09:20 | CP.PCM.PN ---
Subjective - Date & Time of Evaluation Date of Evaluation: 05/16/17 Time of Evaluation: 09:00 - Subjective Subjective: Patient seen and examined bedside. Intubated on MV 16/450/8/70 % FIO2 ABG 41/ 114/18/7.27 , awake , restless on propofol drip .No acute issues overnight BP 135/88 HR 98 afebrile T 99.5 At present being re warmed after hypothermia protocol I/o 2644/800 With minimal coffee ground output from OGT WBC 10 Hgb 13 plt 154 K 5.6 BUN / Cr 90/11 Objective - Vital Signs/Intake and Output Vital Signs (last 24 hours): Temp Pulse Resp BP Pulse Ox 97.5 F L 98 H 24 135/88 100 05/16/17 06:30 05/16/17 06:30 05/16/17 06:30 05/16/17 06:30 05/16/17 06:30 Intake and Output: 05/16/17 05/16/17 06:59 18:59 Intake Total 1129 0 Output Total 800 Balance 329 0 - Medications Medications: Current Medications Acetaminophen (Tylenol 650mg/20.3ml Solution Ud) 975 mg NG Q6 PRN PRN Reason: Rigors Dextrose (Dextrose 50% Inj) 0 ml IV STAT PRN; Protocol PRN Reason: Hyglycemia Protocol Dextrose (Glutose 15) 0 gm PO ONCE PRN; Protocol PRN Reason: Hypoglycemia Protocol Glucagon (Glucagen Diagnostic Kit) 0 mg IM STAT PRN; Protocol PRN Reason: Hypoglycemia Protocol Heparin Sodium (Porcine) (Heparin) 5,000 units SC Q12 JENI PRN Reason: Protocol Last Admin: 05/16/17 08:07 Dose: 5,000 units Insulin Human Regular 100 (units/ Sodium Chloride) 101 mls @ 1.01 mls/hr IV .Q24H JENI; 1 UNITS/HR PRN Reason: Protocol Last Titration: 05/15/17 23:10 Dose: 2 units/hr, 2.02 mls/hr Piperacillin Sod/Tazobactam (Sod 2.25 gm/ Sodium Chloride) 100 mls @ 100 mls/ hr IVPB Q8 JENI Last Admin: 05/16/17 08:08 Dose: 100 mls/hr Nicardipine HCl (Cardene Iv Premix) 20 mg in 200 mls @ 50 mls/hr IV .Q4H JENI; 5 MG/HR PRN Reason: Protocol Last Titration: 05/15/17 16:30 Dose: 0 mg/hr, 0 mls/hr Propofol (Diprivan) 1,000 mg in 100 mls @ 2.722 mls/hr IV .Q24H JENI; 5 MCG/KG/ MIN PRN Reason: Protocol Stop: 05/16/17 18:33 Last Titration: 05/16/17 07:45 Dose: 25 mcg/kg/min, 13.608 mls/hr Cisatracurium Besylate 200 mg/ (Sodium Chloride) 520 mls @ 37.14 mls/hr IV .Q14H1M JENI; 3 MCG/KG/MIN PRN Reason: Protocol Last Titration: 05/16/17 01:34 Dose: 1 mcg/kg/min, 12.38 mls/hr Sodium Bicarbonate 75 meq/ (Sodium Chloride) 1,075 mls @ 75 mls/hr IV .[id number] JENI Stop: 05/16/17 18:51 Last Admin: 05/15/17 22:43 Dose: 75 mls/hr Labetalol HCl (Trandate) 10 mg IVP Q6H JENI Last Admin: 05/16/17 06:00 Dose: Not Given Midazolam HCl (Versed Inj) 2 mg IV Q2H PRN PRN Reason: Agitation Last Admin: 05/16/17 08:05 Dose: 2 mg Pantoprazole Sodium (Protonix Inj) 40 mg IVP DAILY [facility] Last Admin: 05/15/17 09:21 Dose: 40 mg - Labs Labs: 05/16/17 04:30 05/16/17 04:30 PT 11.6 Seconds (9.8-13.1) 05/15/17 20:29 INR 1.1 (0.9-1.2) 05/15/17 20:29 APTT 35.8 Seconds (25.6-37.1) 05/15/17 20:29 - Constitutional Appears: Other (intubated on MV, restlesss , awake ) - Head Exam Head Exam: ATRAUMATIC, NORMOCEPHALIC - Eye Exam Eye Exam: EOMI, Normal appearance, PERRL Pupil Exam: NORMAL ACCOMODATION - ENT Exam ENT Exam: Mucous Membranes Moist, Normal Exam - Neck Exam Neck Exam: Normal Inspection - Respiratory Exam Additional comments: coarse breath sounds bilaterally - Cardiovascular Exam Cardiovascular Exam: REGULAR RHYTHM, RRR, +S1, +S2. absent: JVD - GI/Abdominal Exam GI & Abdominal Exam: Soft, Normal Bowel Sounds. absent: Distended, Guarding, Tenderness, Rebound - Rectal Exam Rectal Exam: Deferred - Extremities Exam Additional comments: left BKa Right AKA - Neurological Exam Additional comments: responds to name calling - Skin Skin Exam: Dry, Normal Color, Warm Assessment and Plan - Assessment and Plan (Free Text) Assessment: 41 y/o male with PMH ESRD on MWF HD, DM2, and PVD among other medical conditions brought in after having a cardiac arrest in the field. Per his fiancee, after dinner patient had 'seizure like activity' -- shaking/foaming a the mouth. Per report EMS arrived and noted Vfib/Vtach and administered defibrillation. Initially he was asystole but a second shock brought him back to A fib. He had a BP of 89/46. He was given a dose of epinephrine and a dose of amiodarone in the field. He was intubated in the field. 1. Cardiac arrest unclear etiology with episode of Vib/Vtach in the field s/p defibrillation and amiodarone troponin slightly elevated 0.5--0.7--0.8 Hypothermia protocol was initiated and now rewarming started cardiology consulted Follow up echo report Patient is being sedated with propofol IV as he was refractory to Versed/ Fentanyl 2. Acute respiratory failure post cardiac arrest on MV PRVC AC mode 16/450/8/70 % FIo2 with ABG 41/114/7.27 CXR showing bilateral infiltrate possible aspiration pneumonia WBC trended down to normal 10 K Started Zosyn Iv. Will add Vancomycin post HD f/u cultures , sputum and blood pulmonary on consult 3.Combined respiratory and metabolic acidosis Ph 7.27 CO2 18 Continue vent management patient will need HD as soon as rewarming is finished on HCO3 drip nephro on consult on insulin drip 4.ESRD on HD/ with hyperkalemia nephro consulted Will start HD today on HCO3 drip treated hyperkalemia medically while on hypothermia protocol 5.Suspected Seizure like activity CT head showed no acute pathology Follow up MRI Head and EEG neuro consulted Seziure precautions on propofol and ativan PRN 6.Hypertension uncontrolled was initially on cardene drip and now d/c Continue labetalol PRN 7.DM uncontrolled on insulin drip will start OGT feeding 8. 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 DVT prophylaxis 10. GI prophylaxis with coffee ground materail on OGT most likely stress induced on Protonix IV
[2017-05-16] MEDS ORDERED: Dextrose 50% SYRINGE Inj (50 ml) IV PRN (09:59)
[2017-05-16] MEDS ORDERED: Glucagon Recombinant 1 mg Inj IM PRN (09:59)
--- NOTE | 2017-05-16 10:11 | CP.CCUPN ---
<Manasa Solis - Last Filed: 05/16/17 10:33> CCU Subjective - Physician Review Subjective (Free Text): 05/16/17 10:04 Patient intubated, alert, restless, follows commands. Hemodialysis scheduled for today, OG tube feeds will start after rewarming phase of Therapeutic Hypothermia protocol ends at 4:30pm. 05/16/17 10:33 CCU Objective - Vital Signs / Intake & Output Vital Signs (Last 4 hours): Vital Signs Temp Pulse Resp BP Pulse Ox 05/16/17 06:30 97.5 F L 98 H 24 135/88 100 Intake and Output (Last 8hrs): Intake & Output 05/15/17 05/16/17 05/16/17 22:59 06:59 14:59 Intake Total 643 1128 0 Output Total 0 800 Balance 643 328 0 Intake: IV 643 800 0 Intake, Piggyback 328 Output: Gastric Amount 800 Stomach 800 Urine 0 Urethral (Obrien) 0 - Physical Exam Physical Exam Limitations: Positive for: Other (Intubated, upper extremity restraints in place) Head: Positive for: Atraumatic, Normocephalic Pupils: Positive for: PERRL Extroacular Muscles: Positive for: EOMI Respiratory/Chest: Positive for: Rhonchi Cardiovascular: Positive for: Regular Rate and Rhythm, Normal S1, S2 Abdomen: Positive for: Normal Bowel Sounds Genitourinary Male: Positive for: Other (obrien catheter in place, no urine output) Upper Extremity: Positive for: NORMAL PULSES (restraints in place) 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, left BKA) Neurological: Positive for: Other (alert, follows commands, restless) Skin: Positive for: Warm, Dry Psychiatric: Positive for: Alert - Medications Active Medications: Active Medications Generic Name Dose Route Start Last Admin Trade Name Freq PRN Reason Stop Dose Admin Acetaminophen 975 mg 05/15/17 01:55 Tylenol 650mg/20.3ml Solution Ud NG Q6 PRN Rigors Dextrose 0 ml 05/15/17 02:12 Dextrose 50% Inj IV STAT PRN Hyglycemia Protocol Protocol Dextrose 0 gm 05/15/17 02:12 Glutose 15 PO ONCE PRN Hypoglycemia Protocol Protocol Dextrose 0 ml 05/16/17 09:59 Dextrose 50% Inj IV STAT PRN Hyglycemia Protocol Protocol Dextrose 0 gm 05/16/17 09:59 Glutose 15 PO ONCE PRN Hypoglycemia Protocol Protocol Glucagon 0 mg 05/15/17 02:12 Glucagen Diagnostic Kit IM STAT PRN Hypoglycemia Protocol Protocol Glucagon 0 mg 05/16/17 09:59 Glucagen Diagnostic Kit IM STAT PRN Hypoglycemia Protocol Protocol Heparin Sodium (Porcine) 5,000 units 05/15/17 21:00 05/16/17 08:07 Heparin SC 5,000 units Q12 JENI Administration Protocol Insulin Human Regular 100 101 mls @ 1.01 mls/hr 05/15/17 02:15 05/15/17 23:10 units/ Sodium Chloride IV 2 units/hr .Q24H JENI 2.02 mls/hr Protocol Titration 1 UNITS/HR Piperacillin Sod/Tazobactam 100 mls @ 100 mls/hr 05/15/17 09:30 05/16/17 08: 08 Sod 2.25 gm/ Sodium Chloride IVPB 100 mls/hr Q8 JENI Administration Nicardipine HCl 20 mg in 200 mls @ 50 mls/hr 05/15/17 13:30 05/15/17 16:30 Cardene Iv Premix IV 0 mg/hr .Q4H JENI 0 mls/hr Protocol Titration 5 MG/HR Propofol 1,000 mg in 100 mls @ 2.722 mls/hr 05/15/17 14:00 05/16/17 07:45 Diprivan IV 05/16/17 18:33 25 mcg/kg/min .Q24H JENI 13.608 mls/hr Protocol Titration 5 MCG/KG/MIN Cisatracurium Besylate 200 mg/ 520 mls @ 37.14 mls/hr 05/15/17 18:56 01:34 Sodium Chloride IV 1 mcg/kg/min .Q14H1M JENI 12.38 mls/hr Protocol Titration 3 MCG/KG/MIN Sodium Bicarbonate 75 meq/ 1,075 mls @ 75 mls/hr 05/15/17 22:30 05/15/17 22: 43 Sodium Chloride IV 05/16/17 18:51 75 mls/hr .[id number] JENI Administration Insulin Human Lispro 0 units 05/16/17 10:00 Humalog SC Q6 JENI Protocol Labetalol HCl 10 mg 05/15/17 23:45 05/16/17 06:00 Trandate IVP Not Given Q6H JENI Midazolam HCl 2 mg 05/16/17 04:33 05/16/17 08:05 Versed Inj IV 2 mg Q2H PRN Administration Agitation Pantoprazole Sodium 40 mg 05/15/17 09:00 05/15/17 09:21 Protonix Inj IVP 40 mg DAILY JENI Administration - Patient Studies Lab Studies: Lab Studies 05/16/17 05/16/17 05/16/17 Range/Units 09:05 05:55 05:53 WBC (4.8-10.8) K/uL RBC (4.40-5.90) Mil/uL Hgb (12.0-18.0) g/dL Hct (35.0-51.0) % MCV (80.0-94.0) fl MCH (27.0-31.0) pg MCHC (33.0-37.0) g/dL RDW (11.5-14.5) % Plt Count (130-400) K/uL MPV (7.2-11.7) fl Neut % (Auto) (50.0-75.0) % Lymph % (Auto) (20.0-40.0) % Carter % (Auto) (0.0-10.0) % Eos % (Auto) (0.0-4.0) % Baso % (Auto) (0.0-2.0) % Neut # (1.8-7.0) K/uL Lymph # (1.0-4.3) K/uL Carter # (0.0-0.8) K/uL Eos # (0.0-0.7) K/uL Baso # (0.0-0.2) K/uL Neutrophils % (Manual) (42-75) % Band Neutrophils % (0-2) % Lymphocytes % (Manual) (20-50) % Monocytes % (Manual) (0-10) % Platelet Estimate (NORMAL) Anisocytosis (manual) Tear Drop Cells Ovalocytes PT (9.8-13.1) Seconds INR (0.9-1.2) APTT (25.6-37.1) Seconds pCO2 41 40 (35-45) mm/Hg pO2 114 H 220 H (80-100) mm/Hg HCO3 18.9 L 18.1 L (21-28) mmol/L ABG pH 7.27 L 7.26 L (7.35-7.45) ABG Total CO2 20.1 L 19.1 L (22-28) mmol/L ABG O2 Saturation 97.4 98.5 H (95-98) % ABG O2 Content 18.6 19.9 (15-23) ML/dL ABG Base Excess -7.7 L -8.7 L (-2.0-3.0) mmol/L ABG Hemoglobin 13.8 14.4 (11.7-17.4) g/dL ABG Carboxyhemoglobin 0.9 0.8 (0.5-1.5) % POC ABG HHb (Measured) 2.5 1.5 (0.0-5.0) % ABG Methemoglobin 1.6 1.5 (0.0-3.0) % ABG O2 Capacity 19.1 20.2 (16-24) mL/dL Gurdeep Test Yes Yes A-a O2 Difference 334.0 372.0 mm/Hg Hgb O2 Saturation 95.1 96.2 (95.0-98.0) % Vent Mode A/c Mechanical Rate 20 FiO2 70.0 90.0 % Tidal Volume 550 PEEP 8 Crit Value Called To Crit Value Called By Crit Value Read Back Blood Gas Notified Time Sodium (132-148) mmol/l Potassium (3.6-5.0) MMOL/L Chloride (98-107) mmol/L Carbon Dioxide (22-30) mmol/L Anion Gap (10-20) BUN (9-20) mg/dl Creatinine (0.8-1.5) mg/dL Est GFR ( Amer) Est GFR (Non-Af Amer) POC Glucose (mg/dL) 173 H (65-110) mg/dL Random Glucose (75-110) mg/dL Calcium (8.4-10.2) mg/dL Phosphorus (2.5-4.5) mg/dl Magnesium (1.6-2.3) MG/DL Troponin I (0.00-0.120) ng/mL 05/16/17 05/16/17 05/16/17 Range/Units 04:30 04:30 04:17 WBC 10.2 (4.8-10.8) K/uL RBC 4.85 (4.40-5.90) Mil/uL Hgb 13.5 (12.0-18.0) g/dL Hct 42.5 (35.0-51.0) % MCV 87.6 (80.0-94.0) fl MCH 27.8 (27.0-31.0) pg MCHC 31.8 L (33.0-37.0) g/dL RDW 18.7 H (11.5-14.5) % Plt Count 154 (130-400) K/uL MPV (7.2-11.7) fl Neut % (Auto) (50.0-75.0) % Lymph % (Auto) (20.0-40.0) % Carter % (Auto) (0.0-10.0) % Eos % (Auto) (0.0-4.0) % Baso % (Auto) (0.0-2.0) % Neut # (1.8-7.0) K/uL Lymph # (1.0-4.3) K/uL Carter # (0.0-0.8) K/uL Eos # (0.0-0.7) K/uL Baso # (0.0-0.2) K/uL Neutrophils % (Manual) (42-75) % Band Neutrophils % (0-2) % Lymphocytes % (Manual) (20-50) % Monocytes % (Manual) (0-10) % Platelet Estimate (NORMAL) Anisocytosis (manual) Tear Drop Cells Ovalocytes PT (9.8-13.1) Seconds INR (0.9-1.2) APTT (25.6-37.1) Seconds pCO2 (35-45) mm/Hg pO2 (80-100) mm/Hg HCO3 (21-28) mmol/L ABG pH (7.35-7.45) ABG Total CO2 (22-28) mmol/L ABG O2 Saturation (95-98) % ABG O2 Content (15-23) ML/dL ABG Base Excess (-2.0-3.0) mmol/L ABG Hemoglobin (11.7-17.4) g/dL ABG Carboxyhemoglobin (0.5-1.5) % POC ABG HHb (Measured) (0.0-5.0) % ABG Methemoglobin (0.0-3.0) % ABG O2 Capacity (16-24) mL/dL Gurdeep Test A-a O2 Difference mm/Hg Hgb O2 Saturation (95.0-98.0) % Vent Mode Mechanical Rate FiO2 % Tidal Volume PEEP Crit Value Called To Crit Value Called By Crit Value Read Back Blood Gas Notified Time Sodium 144 (132-148) mmol/l Potassium 5.6 H (3.6-5.0) MMOL/L Chloride 99 (98-107) mmol/L Carbon Dioxide 19 L (22-30) mmol/L Anion Gap 32 H (10-20) BUN 90 H (9-20) mg/dl Creatinine 11.0 H* (0.8-1.5) mg/dL Est GFR ( Amer) 6 Est GFR (Non-Af Amer) 5 POC Glucose (mg/dL) 170 H (65-110) mg/dL Random Glucose 169 H (75-110) mg/dL Calcium 8.2 L (8.4-10.2) mg/dL Phosphorus (2.5-4.5) mg/dl Magnesium (1.6-2.3) MG/DL Troponin I (0.00-0.120) ng/mL 05/16/17 05/16/17 05/16/17 Range/Units 03:28 02:05 01:21 WBC (4.8-10.8) K/uL RBC (4.40-5.90) Mil/uL Hgb (12.0-18.0) g/dL Hct (35.0-51.0) % MCV (80.0-94.0) fl MCH (27.0-31.0) pg MCHC (33.0-37.0) g/dL RDW (11.5-14.5) % Plt Count (130-400) K/uL MPV (7.2-11.7) fl Neut % (Auto) (50.0-75.0) % Lymph % (Auto) (20.0-40.0) % Carter % (Auto) (0.0-10.0) % Eos % (Auto) (0.0-4.0) % Baso % (Auto) (0.0-2.0) % Neut # (1.8-7.0) K/uL Lymph # (1.0-4.3) K/uL Carter # (0.0-0.8) K/uL Eos # (0.0-0.7) K/uL Baso # (0.0-0.2) K/uL Neutrophils % (Manual) (42-75) % Band Neutrophils % (0-2) % Lymphocytes % (Manual) (20-50) % Monocytes % (Manual) (0-10) % Platelet Estimate (NORMAL) Anisocytosis (manual) Tear Drop Cells Ovalocytes PT (9.8-13.1) Seconds INR (0.9-1.2) APTT (25.6-37.1) Seconds pCO2 (35-45) mm/Hg pO2 (80-100) mm/Hg HCO3 (21-28) mmol/L ABG pH (7.35-7.45) ABG Total CO2 (22-28) mmol/L ABG O2 Saturation (95-98) % ABG O2 Content (15-23) ML/dL ABG Base Excess (-2.0-3.0) mmol/L ABG Hemoglobin (11.7-17.4) g/dL ABG Carboxyhemoglobin (0.5-1.5) % POC ABG HHb (Measured) (0.0-5.0) % ABG Methemoglobin (0.0-3.0) % ABG O2 Capacity (16-24) mL/dL Gurdeep Test A-a O2 Difference mm/Hg Hgb O2 Saturation (95.0-98.0) % Vent Mode Mechanical Rate FiO2 % Tidal Volume PEEP Crit Value Called To Crit Value Called By Crit Value Read Back Blood Gas Notified Time Sodium 143 (132-148) mmol/l Potassium 5.4 H (3.6-5.0) MMOL/L Chloride 101 (98-107) mmol/L Carbon Dioxide 18 L (22-30) mmol/L Anion Gap 29 H (10-20) BUN 86 H (9-20) mg/dl Creatinine 10.7 H* (0.8-1.5) mg/dL Est GFR ( Amer) 7 Est GFR (Non-Af Amer) 5 POC Glucose (mg/dL) 178 H 192 H (65-110) mg/dL Random Glucose 162 H (75-110) mg/dL Calcium 8.0 L (8.4-10.2) mg/dL Phosphorus (2.5-4.5) mg/dl Magnesium (1.6-2.3) MG/DL Troponin I (0.00-0.120) ng/mL 05/16/17 05/16/17 05/15/17 Range/Units 01:08 00:07 23:17 WBC (4.8-10.8) K/uL RBC (4.40-5.90) Mil/uL Hgb (12.0-18.0) g/dL Hct (35.0-51.0) % MCV (80.0-94.0) fl MCH (27.0-31.0) pg MCHC (33.0-37.0) g/dL RDW (11.5-14.5) % Plt Count (130-400) K/uL MPV (7.2-11.7) fl Neut % (Auto) (50.0-75.0) % Lymph % (Auto) (20.0-40.0) % Carter % (Auto) (0.0-10.0) % Eos % (Auto) (0.0-4.0) % Baso % (Auto) (0.0-2.0) % Neut # (1.8-7.0) K/uL Lymph # (1.0-4.3) K/uL Carter # (0.0-0.8) K/uL Eos # (0.0-0.7) K/uL Baso # (0.0-0.2) K/uL Neutrophils % (Manual) (42-75) % Band Neutrophils % (0-2) % Lymphocytes % (Manual) (20-50) % Monocytes % (Manual) (0-10) % Platelet Estimate (NORMAL) Anisocytosis (manual) Tear Drop Cells Ovalocytes PT (9.8-13.1) Seconds INR (0.9-1.2) APTT (25.6-37.1) Seconds pCO2 (35-45) mm/Hg pO2 (80-100) mm/Hg HCO3 (21-28) mmol/L ABG pH (7.35-7.45) ABG Total CO2 (22-28) mmol/L ABG O2 Saturation (95-98) % ABG O2 Content (15-23) ML/dL ABG Base Excess (-2.0-3.0) mmol/L ABG Hemoglobin (11.7-17.4) g/dL ABG Carboxyhemoglobin (0.5-1.5) % POC ABG HHb (Measured) (0.0-5.0) % ABG Methemoglobin (0.0-3.0) % ABG O2 Capacity (16-24) mL/dL Gurdeep Test A-a O2 Difference mm/Hg Hgb O2 Saturation (95.0-98.0) % Vent Mode Mechanical Rate FiO2 % Tidal Volume PEEP Crit Value Called To Crit Value Called By Crit Value Read Back Blood Gas Notified Time Sodium (132-148) mmol/l Potassium (3.6-5.0) MMOL/L Chloride (98-107) mmol/L Carbon Dioxide (22-30) mmol/L Anion Gap (10-20) BUN (9-20) mg/dl Creatinine (0.8-1.5) mg/dL Est GFR ( Amer) Est GFR (Non-Af Amer) POC Glucose (mg/dL) 182 H 196 H 201 H (65-110) mg/dL Random Glucose (75-110) mg/dL Calcium (8.4-10.2) mg/dL Phosphorus (2.5-4.5) mg/dl Magnesium (1.6-2.3) MG/DL Troponin I (0.00-0.120) ng/mL 05/15/17 05/15/17 05/15/17 Range/Units 22:57 21:59 20:54 WBC (4.8-10.8) K/uL RBC (4.40-5.90) Mil/uL Hgb (12.0-18.0) g/dL Hct (35.0-51.0) % MCV (80.0-94.0) fl MCH (27.0-31.0) pg MCHC (33.0-37.0) g/dL RDW (11.5-14.5) % Plt Count (130-400) K/uL MPV (7.2-11.7) fl Neut % (Auto) (50.0-75.0) % Lymph % (Auto) (20.0-40.0) % Carter % (Auto) (0.0-10.0) % Eos % (Auto) (0.0-4.0) % Baso % (Auto) (0.0-2.0) % Neut # (1.8-7.0) K/uL Lymph # (1.0-4.3) K/uL Carter # (0.0-0.8) K/uL Eos # (0.0-0.7) K/uL Baso # (0.0-0.2) K/uL Neutrophils % (Manual) (42-75) % Band Neutrophils % (0-2) % Lymphocytes % (Manual) (20-50) % Monocytes % (Manual) (0-10) % Platelet Estimate (NORMAL) Anisocytosis (manual) Tear Drop Cells Ovalocytes PT (9.8-13.1) Seconds INR (0.9-1.2) APTT (25.6-37.1) Seconds pCO2 (35-45) mm/Hg pO2 (80-100) mm/Hg HCO3 (21-28) mmol/L ABG pH (7.35-7.45) ABG Total CO2 (22-28) mmol/L ABG O2 Saturation (95-98) % ABG O2 Content (15-23) ML/dL ABG Base Excess (-2.0-3.0) mmol/L ABG Hemoglobin (11.7-17.4) g/dL ABG Carboxyhemoglobin (0.5-1.5) % POC ABG HHb (Measured) (0.0-5.0) % ABG Methemoglobin (0.0-3.0) % ABG O2 Capacity (16-24) mL/dL Gurdeep Test A-a O2 Difference mm/Hg Hgb O2 Saturation (95.0-98.0) % Vent Mode Mechanical Rate FiO2 % Tidal Volume PEEP Crit Value Called To Crit Value Called By Crit Value Read Back Blood Gas Notified Time Sodium (132-148) mmol/l Potassium (3.6-5.0) MMOL/L Chloride (98-107) mmol/L Carbon Dioxide (22-30) mmol/L Anion Gap (10-20) BUN (9-20) mg/dl Creatinine (0.8-1.5) mg/dL Est GFR ( Amer) Est GFR (Non-Af Amer) POC Glucose (mg/dL) 198 H 136 H 124 H (65-110) mg/dL Random Glucose (75-110) mg/dL Calcium (8.4-10.2) mg/dL Phosphorus (2.5-4.5) mg/dl Magnesium (1.6-2.3) MG/DL Troponin I (0.00-0.120) ng/mL 05/15/17 05/15/17 05/15/17 Range/Units 20:31 20:29 20:29 WBC 10.5 (4.8-10.8) K/uL RBC 5.21 (4.40-5.90) Mil/uL Hgb 14.2 (12.0-18.0) g/dL Hct 45.7 (35.0-51.0) % MCV 87.7 (80.0-94.0) fl MCH 27.3 (27.0-31.0) pg MCHC 31.1 L (33.0-37.0) g/dL RDW 19.1 H (11.5-14.5) % Plt Count 150 (130-400) K/uL MPV 8.3 (7.2-11.7) fl Neut % (Auto) 84.9 H (50.0-75.0) % Lymph % (Auto) 8.9 L (20.0-40.0) % Carter % (Auto) 5.6 (0.0-10.0) % Eos % (Auto) 0.3 (0.0-4.0) % Baso % (Auto) 0.3 (0.0-2.0) % Neut # 8.9 H (1.8-7.0) K/uL Lymph # 0.9 L (1.0-4.3) K/uL Carter # 0.6 (0.0-0.8) K/uL Eos # 0.0 (0.0-0.7) K/uL Baso # 0.0 (0.0-0.2) K/uL Neutrophils % (Manual) (42-75) % Band Neutrophils % (0-2) % Lymphocytes % (Manual) (20-50) % Monocytes % (Manual) (0-10) % Platelet Estimate (NORMAL) Anisocytosis (manual) Tear Drop Cells Ovalocytes PT (9.8-13.1) Seconds INR (0.9-1.2) APTT (25.6-37.1) Seconds pCO2 (35-45) mm/Hg pO2 (80-100) mm/Hg HCO3 (21-28) mmol/L ABG pH (7.35-7.45) ABG Total CO2 (22-28) mmol/L ABG O2 Saturation (95-98) % ABG O2 Content (15-23) ML/dL ABG Base Excess (-2.0-3.0) mmol/L ABG Hemoglobin (11.7-17.4) g/dL ABG Carboxyhemoglobin (0.5-1.5) % POC ABG HHb (Measured) (0.0-5.0) % ABG Methemoglobin (0.0-3.0) % ABG O2 Capacity (16-24) mL/dL Gurdeep Test A-a O2 Difference mm/Hg Hgb O2 Saturation (95.0-98.0) % Vent Mode Mechanical Rate FiO2 % Tidal Volume PEEP Crit Value Called To Crit Value Called By Crit Value Read Back Blood Gas Notified Time Sodium 143 (132-148) mmol/l Potassium 6.0 H (3.6-5.0) MMOL/L Chloride 100 (98-107) mmol/L Carbon Dioxide 19 L (22-30) mmol/L Anion Gap 30 H (10-20) BUN 85 H (9-20) mg/dl Creatinine 10.7 H* (0.8-1.5) mg/dL Est GFR ( Amer) 7 Est GFR (Non-Af Amer) 5 POC Glucose (mg/dL) (65-110) mg/dL Random Glucose 128 H (75-110) mg/dL Calcium 7.7 L 7.7 L (8.4-10.2) mg/dL Phosphorus 8.8 H (2.5-4.5) mg/dl Magnesium 2.1 (1.6-2.3) MG/DL Troponin I 0.8650 H* (0.00-0.120) ng/mL 05/15/17 05/15/17 05/15/17 Range/Units 20:29 19:56 18:57 WBC (4.8-10.8) K/uL RBC (4.40-5.90) Mil/uL Hgb (12.0-18.0) g/dL Hct (35.0-51.0) % MCV (80.0-94.0) fl MCH (27.0-31.0) pg MCHC (33.0-37.0) g/dL RDW (11.5-14.5) % Plt Count (130-400) K/uL MPV (7.2-11.7) fl Neut % (Auto) (50.0-75.0) % Lymph % (Auto) (20.0-40.0) % Carter % (Auto) (0.0-10.0) % Eos % (Auto) (0.0-4.0) % Baso % (Auto) (0.0-2.0) % Neut # (1.8-7.0) K/uL Lymph # (1.0-4.3) K/uL Carter # (0.0-0.8) K/uL Eos # (0.0-0.7) K/uL Baso # (0.0-0.2) K/uL Neutrophils % (Manual) (42-75) % Band Neutrophils % (0-2) % Lymphocytes % (Manual) (20-50) % Monocytes % (Manual) (0-10) % Platelet Estimate (NORMAL) Anisocytosis (manual) Tear Drop Cells Ovalocytes PT 11.6 (9.8-13.1) Seconds INR 1.1 (0.9-1.2) APTT 35.8 (25.6-37.1) Seconds pCO2 (35-45) mm/Hg pO2 (80-100) mm/Hg HCO3 (21-28) mmol/L ABG pH (7.35-7.45) ABG Total CO2 (22-28) mmol/L ABG O2 Saturation (95-98) % ABG O2 Content (15-23) ML/dL ABG Base Excess (-2.0-3.0) mmol/L ABG Hemoglobin (11.7-17.4) g/dL ABG Carboxyhemoglobin (0.5-1.5) % POC ABG HHb (Measured) (0.0-5.0) % ABG Methemoglobin (0.0-3.0) % ABG O2 Capacity (16-24) mL/dL Gurdeep Test A-a O2 Difference mm/Hg Hgb O2 Saturation (95.0-98.0) % Vent Mode Mechanical Rate FiO2 % Tidal Volume PEEP Crit Value Called To Crit Value Called By Crit Value Read Back Blood Gas Notified Time Sodium (132-148) mmol/l Potassium (3.6-5.0) MMOL/L Chloride (98-107) mmol/L Carbon Dioxide (22-30) mmol/L Anion Gap (10-20) BUN (9-20) mg/dl Creatinine (0.8-1.5) mg/dL Est GFR ( Amer) Est GFR (Non-Af Amer) POC Glucose (mg/dL) 123 H 165 H (65-110) mg/dL Random Glucose (75-110) mg/dL Calcium (8.4-10.2) mg/dL Phosphorus (2.5-4.5) mg/dl Magnesium (1.6-2.3) MG/DL Troponin I (0.00-0.120) ng/mL 05/15/17 05/15/17 05/15/17 Range/Units 17:56 17:33 16:56 WBC (4.8-10.8) K/uL RBC (4.40-5.90) Mil/uL Hgb (12.0-18.0) g/dL Hct (35.0-51.0) % MCV (80.0-94.0) fl MCH (27.0-31.0) pg MCHC (33.0-37.0) g/dL RDW (11.5-14.5) % Plt Count (130-400) K/uL MPV (7.2-11.7) fl Neut % (Auto) (50.0-75.0) % Lymph % (Auto) (20.0-40.0) % Carter % (Auto) (0.0-10.0) % Eos % (Auto) (0.0-4.0) % Baso % (Auto) (0.0-2.0) % Neut # (1.8-7.0) K/uL Lymph # (1.0-4.3) K/uL Carter # (0.0-0.8) K/uL Eos # (0.0-0.7) K/uL Baso # (0.0-0.2) K/uL Neutrophils % (Manual) (42-75) % Band Neutrophils % (0-2) % Lymphocytes % (Manual) (20-50) % Monocytes % (Manual) (0-10) % Platelet Estimate (NORMAL) Anisocytosis (manual) Tear Drop Cells Ovalocytes PT (9.8-13.1) Seconds INR (0.9-1.2) APTT (25.6-37.1) Seconds pCO2 41 (35-45) mm/Hg pO2 76 L (80-100) mm/Hg HCO3 17.9 L (21-28) mmol/L ABG pH 7.25 L (7.35-7.45) ABG Total CO2 19.3 L (22-28) mmol/L ABG O2 Saturation 95.3 (95-98) % ABG O2 Content 19.1 (15-23) ML/dL ABG Base Excess -8.8 L (-2.0-3.0) mmol/L ABG Hemoglobin 14.6 (11.7-17.4) g/dL ABG Carboxyhemoglobin 1.1 (0.5-1.5) % POC ABG HHb (Measured) 4.6 (0.0-5.0) % ABG Methemoglobin 1.5 (0.0-3.0) % ABG O2 Capacity 20.0 (16-24) mL/dL Gurdeep Test Yes A-a O2 Difference 443.0 mm/Hg Hgb O2 Saturation 92.9 L (95.0-98.0) % Vent Mode Prvc ac Mechanical Rate 20 FiO2 80.0 % Tidal Volume 550 PEEP 8 Crit Value Called To Crit Value Called By Crit Value Read Back Blood Gas Notified Time Sodium (132-148) mmol/l Potassium (3.6-5.0) MMOL/L Chloride (98-107) mmol/L Carbon Dioxide (22-30) mmol/L Anion Gap (10-20) BUN (9-20) mg/dl Creatinine (0.8-1.5) mg/dL Est GFR ( Amer) Est GFR (Non-Af Amer) POC Glucose (mg/dL) 231 H 276 H (65-110) mg/dL Random Glucose (75-110) mg/dL Calcium (8.4-10.2) mg/dL Phosphorus (2.5-4.5) mg/dl Magnesium (1.6-2.3) MG/DL Troponin I (0.00-0.120) ng/mL 05/15/17 05/15/17 05/15/17 Range/Units 16:11 15:13 15:08 WBC (4.8-10.8) K/uL RBC (4.40-5.90) Mil/uL Hgb (12.0-18.0) g/dL Hct (35.0-51.0) % MCV (80.0-94.0) fl MCH (27.0-31.0) pg MCHC (33.0-37.0) g/dL RDW (11.5-14.5) % Plt Count (130-400) K/uL MPV (7.2-11.7) fl Neut % (Auto) (50.0-75.0) % Lymph % (Auto) (20.0-40.0) % Carter % (Auto) (0.0-10.0) % Eos % (Auto) (0.0-4.0) % Baso % (Auto) (0.0-2.0) % Neut # (1.8-7.0) K/uL Lymph # (1.0-4.3) K/uL Carter # (0.0-0.8) K/uL Eos # (0.0-0.7) K/uL Baso # (0.0-0.2) K/uL Neutrophils % (Manual) (42-75) % Band Neutrophils % (0-2) % Lymphocytes % (Manual) (20-50) % Monocytes % (Manual) (0-10) % Platelet Estimate (NORMAL) Anisocytosis (manual) Tear Drop Cells Ovalocytes PT (9.8-13.1) Seconds INR (0.9-1.2) APTT (25.6-37.1) Seconds pCO2 57 H (35-45) mm/Hg pO2 72 L (80-100) mm/Hg HCO3 17.3 L (21-28) mmol/L ABG pH 7.15 L* (7.35-7.45) ABG Total CO2 21.6 L (22-28) mmol/L ABG O2 Saturation 93.9 L (95-98) % ABG O2 Content 19.4 (15-23) ML/dL ABG Base Excess -9.6 L (-2.0-3.0) mmol/L ABG Hemoglobin 15.1 (11.7-17.4) g/dL ABG Carboxyhemoglobin 1.3 (0.5-1.5) % POC ABG HHb (Measured) 5.9 H (0.0-5.0) % ABG Methemoglobin 1.4 (0.0-3.0) % ABG O2 Capacity 20.7 (16-24) mL/dL Gurdeep Test Yes A-a O2 Difference 427.0 mm/Hg Hgb O2 Saturation 91.4 L (95.0-98.0) % Vent Mode Prvc/ac Mechanical Rate 18 FiO2 80.0 % Tidal Volume 500 PEEP 8 Crit Value Called To dalton Anguiano Crit Value Called By 203 Crit Value Read Back Y Blood Gas Notified Time 1513 Sodium (132-148) mmol/l Potassium (3.6-5.0) MMOL/L Chloride (98-107) mmol/L Carbon Dioxide (22-30) mmol/L Anion Gap (10-20) BUN (9-20) mg/dl Creatinine (0.8-1.5) mg/dL Est GFR ( Amer) Est GFR (Non-Af Amer) POC Glucose (mg/dL) 248 H 219 H (65-110) mg/dL Random Glucose (75-110) mg/dL Calcium (8.4-10.2) mg/dL Phosphorus (2.5-4.5) mg/dl Magnesium (1.6-2.3) MG/DL Troponin I (0.00-0.120) ng/mL 05/15/17 05/15/17 05/15/17 Range/Units 14:00 13:20 13:20 WBC (4.8-10.8) K/uL RBC (4.40-5.90) Mil/uL Hgb (12.0-18.0) g/dL Hct (35.0-51.0) % MCV (80.0-94.0) fl MCH (27.0-31.0) pg MCHC (33.0-37.0) g/dL RDW (11.5-14.5) % Plt Count (130-400) K/uL MPV (7.2-11.7) fl Neut % (Auto) (50.0-75.0) % Lymph % (Auto) (20.0-40.0) % Carter % (Auto) (0.0-10.0) % Eos % (Auto) (0.0-4.0) % Baso % (Auto) (0.0-2.0) % Neut # (1.8-7.0) K/uL Lymph # (1.0-4.3) K/uL Carter # (0.0-0.8) K/uL Eos # (0.0-0.7) K/uL Baso # (0.0-0.2) K/uL Neutrophils % (Manual) (42-75) % Band Neutrophils % (0-2) % Lymphocytes % (Manual) (20-50) % Monocytes % (Manual) (0-10) % Platelet Estimate (NORMAL) Anisocytosis (manual) Tear Drop Cells Ovalocytes PT 11.5 (9.8-13.1) Seconds INR 1.1 (0.9-1.2) APTT 36.1 (25.6-37.1) Seconds pCO2 (35-45) mm/Hg pO2 (80-100) mm/Hg HCO3 (21-28) mmol/L ABG pH (7.35-7.45) ABG Total CO2 (22-28) mmol/L ABG O2 Saturation (95-98) % ABG O2 Content (15-23) ML/dL ABG Base Excess (-2.0-3.0) mmol/L ABG Hemoglobin (11.7-17.4) g/dL ABG Carboxyhemoglobin (0.5-1.5) % POC ABG HHb (Measured) (0.0-5.0) % ABG Methemoglobin (0.0-3.0) % ABG O2 Capacity (16-24) mL/dL Gurdeep Test A-a O2 Difference mm/Hg Hgb O2 Saturation (95.0-98.0) % Vent Mode Mechanical Rate FiO2 % Tidal Volume PEEP Crit Value Called To Crit Value Called By Crit Value Read Back Blood Gas Notified Time Sodium 143 (132-148) mmol/l Potassium 5.4 H (3.6-5.0) MMOL/L Chloride 100 (98-107) mmol/L Carbon Dioxide 20 L (22-30) mmol/L Anion Gap 28 H (10-20) BUN 79 H (9-20) mg/dl Creatinine 10.4 H* (0.8-1.5) mg/dL Est GFR ( Amer) 7 Est GFR (Non-Af Amer) 6 POC Glucose (mg/dL) 231 H (65-110) mg/dL Random Glucose 180 H (75-110) mg/dL Calcium 7.2 L (8.4-10.2) mg/dL Phosphorus 9.6 H (2.5-4.5) mg/dl Magnesium 2.0 (1.6-2.3) MG/DL Troponin I 0.7920 H* (0.00-0.120) ng/mL 05/15/17 05/15/17 05/15/17 Range/Units 13:20 13:16 13:00 WBC 16.6 H (4.8-10.8) K/uL RBC 5.15 (4.40-5.90) Mil/uL Hgb 13.9 (12.0-18.0) g/dL Hct 45.7 (35.0-51.0) % MCV 88.7 (80.0-94.0) fl MCH 27.0 (27.0-31.0) pg MCHC 30.5 L (33.0-37.0) g/dL RDW 18.7 H (11.5-14.5) % Plt Count 191 (130-400) K/uL MPV (7.2-11.7) fl Neut % (Auto) (50.0-75.0) % Lymph % (Auto) (20.0-40.0) % Carter % (Auto) (0.0-10.0) % Eos % (Auto) (0.0-4.0) % Baso % (Auto) (0.0-2.0) % Neut # (1.8-7.0) K/uL Lymph # (1.0-4.3) K/uL Carter # (0.0-0.8) K/uL Eos # (0.0-0.7) K/uL Baso # (0.0-0.2) K/uL Neutrophils % (Manual) (42-75) % Band Neutrophils % (0-2) % Lymphocytes % (Manual) (20-50) % Monocytes % (Manual) (0-10) % Platelet Estimate (NORMAL) Anisocytosis (manual) Tear Drop Cells Ovalocytes PT (9.8-13.1) Seconds INR (0.9-1.2) APTT (25.6-37.1) Seconds pCO2 (35-45) mm/Hg pO2 (80-100) mm/Hg HCO3 (21-28) mmol/L ABG pH (7.35-7.45) ABG Total CO2 (22-28) mmol/L ABG O2 Saturation (95-98) % ABG O2 Content (15-23) ML/dL ABG Base Excess (-2.0-3.0) mmol/L ABG Hemoglobin (11.7-17.4) g/dL ABG Carboxyhemoglobin (0.5-1.5) % POC ABG HHb (Measured) (0.0-5.0) % ABG Methemoglobin (0.0-3.0) % ABG O2 Capacity (16-24) mL/dL Gurdeep Test A-a O2 Difference mm/Hg Hgb O2 Saturation (95.0-98.0) % Vent Mode Mechanical Rate FiO2 % Tidal Volume PEEP Crit Value Called To Crit Value Called By Crit Value Read Back Blood Gas Notified Time Sodium (132-148) mmol/l Potassium (3.6-5.0) MMOL/L Chloride (98-107) mmol/L Carbon Dioxide (22-30) mmol/L Anion Gap (10-20) BUN (9-20) mg/dl Creatinine (0.8-1.5) mg/dL Est GFR ( Amer) Est GFR (Non-Af Amer) POC Glucose (mg/dL) 173 H (65-110) mg/dL Random Glucose (75-110) mg/dL Calcium 7.1 L (8.4-10.2) mg/dL Phosphorus (2.5-4.5) mg/dl Magnesium (1.6-2.3) MG/DL Troponin I (0.00-0.120) ng/mL 05/15/17 05/15/17 05/15/17 Range/Units 12:01 11:05 10:03 WBC (4.8-10.8) K/uL RBC (4.40-5.90) Mil/uL Hgb (12.0-18.0) g/dL Hct (35.0-51.0) % MCV (80.0-94.0) fl MCH (27.0-31.0) pg MCHC (33.0-37.0) g/dL RDW (11.5-14.5) % Plt Count (130-400) K/uL MPV (7.2-11.7) fl Neut % (Auto) (50.0-75.0) % Lymph % (Auto) (20.0-40.0) % Carter % (Auto) (0.0-10.0) % Eos % (Auto) (0.0-4.0) % Baso % (Auto) (0.0-2.0) % Neut # (1.8-7.0) K/uL Lymph # (1.0-4.3) K/uL Carter # (0.0-0.8) K/uL Eos # (0.0-0.7) K/uL Baso # (0.0-0.2) K/uL Neutrophils % (Manual) (42-75) % Band Neutrophils % (0-2) % Lymphocytes % (Manual) (20-50) % Monocytes % (Manual) (0-10) % Platelet Estimate (NORMAL) Anisocytosis (manual) Tear Drop Cells Ovalocytes PT (9.8-13.1) Seconds INR (0.9-1.2) APTT (25.6-37.1) Seconds pCO2 (35-45) mm/Hg pO2 (80-100) mm/Hg HCO3 (21-28) mmol/L ABG pH (7.35-7.45) ABG Total CO2 (22-28) mmol/L ABG O2 Saturation (95-98) % ABG O2 Content (15-23) ML/dL ABG Base Excess (-2.0-3.0) mmol/L ABG Hemoglobin (11.7-17.4) g/dL ABG Carboxyhemoglobin (0.5-1.5) % POC ABG HHb (Measured) (0.0-5.0) % ABG Methemoglobin (0.0-3.0) % ABG O2 Capacity (16-24) mL/dL Gurdeep Test A-a O2 Difference mm/Hg Hgb O2 Saturation (95.0-98.0) % Vent Mode Mechanical Rate FiO2 % Tidal Volume PEEP Crit Value Called To Crit Value Called By Crit Value Read Back Blood Gas Notified Time Sodium (132-148) mmol/l Potassium (3.6-5.0) MMOL/L Chloride (98-107) mmol/L Carbon Dioxide (22-30) mmol/L Anion Gap (10-20) BUN (9-20) mg/dl Creatinine (0.8-1.5) mg/dL Est GFR ( Amer) Est GFR (Non-Af Amer) POC Glucose (mg/dL) 152 H 207 H 243 H (65-110) mg/dL Random Glucose (75-110) mg/dL Calcium (8.4-10.2) mg/dL Phosphorus (2.5-4.5) mg/dl Magnesium (1.6-2.3) MG/DL Troponin I (0.00-0.120) ng/mL 05/15/17 Range/Units 05:30 WBC (4.8-10.8) K/uL RBC (4.40-5.90) Mil/uL Hgb (12.0-18.0) g/dL Hct (35.0-51.0) % MCV (80.0-94.0) fl MCH (27.0-31.0) pg MCHC (33.0-37.0) g/dL RDW (11.5-14.5) % Plt Count (130-400) K/uL MPV (7.2-11.7) fl Neut % (Auto) (50.0-75.0) % Lymph % (Auto) (20.0-40.0) % Carter % (Auto) (0.0-10.0) % Eos % (Auto) (0.0-4.0) % Baso % (Auto) (0.0-2.0) % Neut # (1.8-7.0) K/uL Lymph # (1.0-4.3) K/uL Carter # (0.0-0.8) K/uL Eos # (0.0-0.7) K/uL Baso # (0.0-0.2) K/uL Neutrophils % (Manual) 92 H (42-75) % Band Neutrophils % 2 (0-2) % Lymphocytes % (Manual) 2 L (20-50) % Monocytes % (Manual) 4 (0-10) % Platelet Estimate Normal (NORMAL) Anisocytosis (manual) Moderate Tear Drop Cells Slight Ovalocytes Slight PT (9.8-13.1) Seconds INR (0.9-1.2) APTT (25.6-37.1) Seconds pCO2 (35-45) mm/Hg pO2 (80-100) mm/Hg HCO3 (21-28) mmol/L ABG pH (7.35-7.45) ABG Total CO2 (22-28) mmol/L ABG O2 Saturation (95-98) % ABG O2 Content (15-23) ML/dL ABG Base Excess (-2.0-3.0) mmol/L ABG Hemoglobin (11.7-17.4) g/dL ABG Carboxyhemoglobin (0.5-1.5) % POC ABG HHb (Measured) (0.0-5.0) % ABG Methemoglobin (0.0-3.0) % ABG O2 Capacity (16-24) mL/dL Gurdeep Test A-a O2 Difference mm/Hg Hgb O2 Saturation (95.0-98.0) % Vent Mode Mechanical Rate FiO2 % Tidal Volume PEEP Crit Value Called To Crit Value Called By Crit Value Read Back Blood Gas Notified Time Sodium (132-148) mmol/l Potassium (3.6-5.0) MMOL/L Chloride (98-107) mmol/L Carbon Dioxide (22-30) mmol/L Anion Gap (10-20) BUN (9-20) mg/dl Creatinine (0.8-1.5) mg/dL Est GFR ( Amer) Est GFR (Non-Af Amer) POC Glucose (mg/dL) (65-110) mg/dL Random Glucose (75-110) mg/dL Calcium (8.4-10.2) mg/dL Phosphorus (2.5-4.5) mg/dl Magnesium (1.6-2.3) MG/DL Troponin I (0.00-0.120) ng/mL Laboratory Results - last 24 hr 05/15/17 05/15/17 05/15/17 05:30 10:03 11:05 WBC RBC Hgb Hct MCV MCH MCHC RDW Plt Count MPV Neut % (Auto) Lymph % (Auto) Carter % (Auto) Eos % (Auto) Baso % (Auto) Neut # Lymph # Carter # Eos # Baso # Neutrophils % (Manual) 92 H Band Neutrophils % 2 Lymphocytes % (Manual) 2 L Monocytes % (Manual) 4 Platelet Estimate Normal Anisocytosis (manual) Moderate Tear Drop Cells Slight Ovalocytes Slight PT INR APTT pCO2 pO2 HCO3 ABG pH ABG Total CO2 ABG O2 Saturation ABG O2 Content ABG Base Excess ABG Hemoglobin ABG Carboxyhemoglobin POC ABG HHb (Measured) ABG Methemoglobin ABG O2 Capacity Gurdeep Test A-a O2 Difference Hgb O2 Saturation Vent Mode Mechanical Rate FiO2 Tidal Volume PEEP Crit Value Called To Crit Value Called By Crit Value Read Back Blood Gas Notified Time Sodium Potassium Chloride Carbon Dioxide Anion Gap BUN Creatinine Est GFR ( Amer) Est GFR (Non-Af Amer) POC Glucose (mg/dL) 243 H 207 H Random Glucose Calcium Phosphorus Magnesium Troponin I 05/15/17 05/15/17 05/15/17 12:01 13:00 13:16 WBC RBC Hgb Hct MCV MCH MCHC RDW Plt Count MPV Neut % (Auto) Lymph % (Auto) Carter % (Auto) Eos % (Auto) Baso % (Auto) Neut # Lymph # Carter # Eos # Baso # Neutrophils % (Manual) Band Neutrophils % Lymphocytes % (Manual) Monocytes % (Manual) Platelet Estimate Anisocytosis (manual) Tear Drop Cells Ovalocytes PT INR APTT pCO2 pO2 HCO3 ABG pH ABG Total CO2 ABG O2 Saturation ABG O2 Content ABG Base Excess ABG Hemoglobin ABG Carboxyhemoglobin POC ABG HHb (Measured) ABG Methemoglobin ABG O2 Capacity Gurdeep Test A-a O2 Difference Hgb O2 Saturation Vent Mode Mechanical Rate FiO2 Tidal Volume PEEP Crit Value Called To Crit Value Called By Crit Value Read Back Blood Gas Notified Time Sodium Potassium Chloride Carbon Dioxide Anion Gap BUN Creatinine Est GFR ( Amer) Est GFR (Non-Af Amer) POC Glucose (mg/dL) 152 H 173 H Random Glucose Calcium 7.1 L Phosphorus Magnesium Troponin I 05/15/17 05/15/17 05/15/17 13:20 13:20 13:20 WBC 16.6 H RBC 5.15 Hgb 13.9 Hct 45.7 MCV 88.7 MCH 27.0 MCHC 30.5 L RDW 18.7 H Plt Count 191 MPV Neut % (Auto) Lymph % (Auto) Carter % (Auto) Eos % (Auto) Baso % (Auto) Neut # Lymph # Carter # Eos # Baso # Neutrophils % (Manual) Band Neutrophils % Lymphocytes % (Manual) Monocytes % (Manual) Platelet Estimate Anisocytosis (manual) Tear Drop Cells Ovalocytes PT 11.5 INR 1.1 APTT 36.1 pCO2 pO2 HCO3 ABG pH ABG Total CO2 ABG O2 Saturation ABG O2 Content ABG Base Excess ABG Hemoglobin ABG Carboxyhemoglobin POC ABG HHb (Measured) ABG Methemoglobin ABG O2 Capacity Gurdeep Test A-a O2 Difference Hgb O2 Saturation Vent Mode Mechanical Rate FiO2 Tidal Volume PEEP Crit Value Called To Crit Value Called By Crit Value Read Back Blood Gas Notified Time Sodium 143 Potassium 5.4 H Chloride 100 Carbon Dioxide 20 L Anion Gap 28 H BUN 79 H Creatinine 10.4 H* Est GFR ( Amer) 7 Est GFR (Non-Af Amer) 6 POC Glucose (mg/dL) Random Glucose 180 H Calcium 7.2 L Phosphorus 9.6 H Magnesium 2.0 Troponin I 0.7920 H* 05/15/17 05/15/17 05/15/17 14:00 15:08 15:13 WBC RBC Hgb Hct MCV MCH MCHC RDW Plt Count MPV Neut % (Auto) Lymph % (Auto) Carter % (Auto) Eos % (Auto) Baso % (Auto) Neut # Lymph # Carter # Eos # Baso # Neutrophils % (Manual) Band Neutrophils % Lymphocytes % (Manual) Monocytes % (Manual) Platelet Estimate Anisocytosis (manual) Tear Drop Cells Ovalocytes PT INR APTT pCO2 57 H pO2 72 L HCO3 17.3 L ABG pH 7.15 L* ABG Total CO2 21.6 L ABG O2 Saturation 93.9 L ABG O2 Content 19.4 ABG Base Excess -9.6 L ABG Hemoglobin 15.1 ABG Carboxyhemoglobin 1.3 POC ABG HHb (Measured) 5.9 H ABG Methemoglobin 1.4 ABG O2 Capacity 20.7 Gurdeep Test Yes A-a O2 Difference 427.0 Hgb O2 Saturation 91.4 L Vent Mode Prvc/ac Mechanical Rate 18 FiO2 80.0 Tidal Volume 500 PEEP 8 Crit Value Called To dalton Anguiano Crit Value Called By 203 Crit Value Read Back Y Blood Gas Notified Time 1513 Sodium Potassium Chloride Carbon Dioxide Anion Gap BUN Creatinine Est GFR ( Amer) Est GFR (Non-Af Amer) POC Glucose (mg/dL) 231 H 219 H Random Glucose Calcium Phosphorus Magnesium Troponin I 05/15/17 05/15/17 05/15/17 16:11 16:56 17:33 WBC RBC Hgb Hct MCV MCH MCHC RDW Plt Count MPV Neut % (Auto) Lymph % (Auto) Carter % (Auto) Eos % (Auto) Baso % (Auto) Neut # Lymph # Carter # Eos # Baso # Neutrophils % (Manual) Band Neutrophils % Lymphocytes % (Manual) Monocytes % (Manual) Platelet Estimate Anisocytosis (manual) Tear Drop Cells Ovalocytes PT INR APTT pCO2 41 pO2 76 L HCO3 17.9 L ABG pH 7.25 L ABG Total CO2 19.3 L ABG O2 Saturation 95.3 ABG O2 Content 19.1 ABG Base Excess -8.8 L ABG Hemoglobin 14.6 ABG Carboxyhemoglobin 1.1 POC ABG HHb (Measured) 4.6 ABG Methemoglobin 1.5 ABG O2 Capacity 20.0 Gurdeep Test Yes A-a O2 Difference 443.0 Hgb O2 Saturation 92.9 L Vent Mode Prvc ac Mechanical Rate 20 FiO2 80.0 Tidal Volume 550 PEEP 8 Crit Value Called To Crit Value Called By Crit Value Read Back Blood Gas Notified Time Sodium Potassium Chloride Carbon Dioxide Anion Gap BUN Creatinine Est GFR ( Amer) Est GFR (Non-Af Amer) POC Glucose (mg/dL) 248 H 276 H Random Glucose Calcium Phosphorus Magnesium Troponin I 05/15/17 05/15/17 05/15/17 17:56 18:57 19:56 WBC RBC Hgb Hct MCV MCH MCHC RDW Plt Count MPV Neut % (Auto) Lymph % (Auto) Carter % (Auto) Eos % (Auto) Baso % (Auto) Neut # Lymph # Carter # Eos # Baso # Neutrophils % (Manual) Band Neutrophils % Lymphocytes % (Manual) Monocytes % (Manual) Platelet Estimate Anisocytosis (manual) Tear Drop Cells Ovalocytes PT INR APTT pCO2 pO2 HCO3 ABG pH ABG Total CO2 ABG O2 Saturation ABG O2 Content ABG Base Excess ABG Hemoglobin ABG Carboxyhemoglobin POC ABG HHb (Measured) ABG Methemoglobin ABG O2 Capacity Gurdeep Test A-a O2 Difference Hgb O2 Saturation Vent Mode Mechanical Rate FiO2 Tidal Volume PEEP Crit Value Called To Crit Value Called By Crit Value Read Back Blood Gas Notified Time Sodium Potassium Chloride Carbon Dioxide Anion Gap BUN Creatinine Est GFR ( Amer) Est GFR (Non-Af Amer) POC Glucose (mg/dL) 231 H 165 H 123 H Random Glucose Calcium Phosphorus Magnesium Troponin I 05/15/17 05/15/17 05/15/17 20:29 20:29 20:29 WBC 10.5 RBC 5.21 Hgb 14.2 Hct 45.7 MCV 87.7 MCH 27.3 MCHC 31.1 L RDW 19.1 H Plt Count 150 MPV 8.3 Neut % (Auto) 84.9 H Lymph % (Auto) 8.9 L Carter % (Auto) 5.6 Eos % (Auto) 0.3 Baso % (Auto) 0.3 Neut # 8.9 H Lymph # 0.9 L Carter # 0.6 Eos # 0.0 Baso # 0.0 Neutrophils % (Manual) Band Neutrophils % Lymphocytes % (Manual) Monocytes % (Manual) Platelet Estimate Anisocytosis (manual) Tear Drop Cells Ovalocytes PT 11.6 INR 1.1 APTT 35.8 pCO2 pO2 HCO3 ABG pH ABG Total CO2 ABG O2 Saturation ABG O2 Content ABG Base Excess ABG Hemoglobin ABG Carboxyhemoglobin POC ABG HHb (Measured) ABG Methemoglobin ABG O2 Capacity Gurdeep Test A-a O2 Difference Hgb O2 Saturation Vent Mode Mechanical Rate FiO2 Tidal Volume PEEP Crit Value Called To Crit Value Called By Crit Value Read Back Blood Gas Notified Time Sodium Potassium Chloride Carbon Dioxide Anion Gap BUN Creatinine Est GFR ( Amer) Est GFR (Non-Af Amer) POC Glucose (mg/dL) Random Glucose Calcium 7.7 L Phosphorus 8.8 H Magnesium 2.1 Troponin I 0.8650 H* 05/15/17 05/15/17 05/15/17 20:31 20:54 21:59 WBC RBC Hgb Hct MCV MCH MCHC RDW Plt Count MPV Neut % (Auto) Lymph % (Auto) Carter % (Auto) Eos % (Auto) Baso % (Auto) Neut # Lymph # Carter # Eos # Baso # Neutrophils % (Manual) Band Neutrophils % Lymphocytes % (Manual) Monocytes % (Manual) Platelet Estimate Anisocytosis (manual) Tear Drop Cells Ovalocytes PT INR APTT pCO2 pO2 HCO3 ABG pH ABG Total CO2 ABG O2 Saturation ABG O2 Content ABG Base Excess ABG Hemoglobin ABG Carboxyhemoglobin POC ABG HHb (Measured) ABG Methemoglobin ABG O2 Capacity Gurdeep Test A-a O2 Difference Hgb O2 Saturation Vent Mode Mechanical Rate FiO2 Tidal Volume PEEP Crit Value Called To Crit Value Called By Crit Value Read Back Blood Gas Notified Time Sodium 143 Potassium 6.0 H Chloride 100 Carbon Dioxide 19 L Anion Gap 30 H BUN 85 H Creatinine 10.7 H* Est GFR ( Amer) 7 Est GFR (Non-Af Amer) 5 POC Glucose (mg/dL) 124 H 136 H Random Glucose 128 H Calcium 7.7 L Phosphorus Magnesium Troponin I 05/15/17 05/15/17 05/16/17 22:57 23:17 00:07 WBC RBC Hgb Hct MCV MCH MCHC RDW Plt Count MPV Neut % (Auto) Lymph % (Auto) Carter % (Auto) Eos % (Auto) Baso % (Auto) Neut # Lymph # Carter # Eos # Baso # Neutrophils % (Manual) Band Neutrophils % Lymphocytes % (Manual) Monocytes % (Manual) Platelet Estimate Anisocytosis (manual) Tear Drop Cells Ovalocytes PT INR APTT pCO2 pO2 HCO3 ABG pH ABG Total CO2 ABG O2 Saturation ABG O2 Content ABG Base Excess ABG Hemoglobin ABG Carboxyhemoglobin POC ABG HHb (Measured) ABG Methemoglobin ABG O2 Capacity Gurdeep Test A-a O2 Difference Hgb O2 Saturation Vent Mode Mechanical Rate FiO2 Tidal Volume PEEP Crit Value Called To Crit Value Called By Crit Value Read Back Blood Gas Notified Time Sodium Potassium Chloride Carbon Dioxide Anion Gap BUN Creatinine Est GFR ( Amer) Est GFR (Non-Af Amer) POC Glucose (mg/dL) 198 H 201 H 196 H Random Glucose Calcium Phosphorus Magnesium Troponin I 05/16/17 05/16/17 05/16/17 01:08 01:21 02:05 WBC RBC Hgb Hct MCV MCH MCHC RDW Plt Count MPV Neut % (Auto) Lymph % (Auto) Carter % (Auto) Eos % (Auto) Baso % (Auto) Neut # Lymph # Carter # Eos # Baso # Neutrophils % (Manual) Band Neutrophils % Lymphocytes % (Manual) Monocytes % (Manual) Platelet Estimate Anisocytosis (manual) Tear Drop Cells Ovalocytes PT INR APTT pCO2 pO2 HCO3 ABG pH ABG Total CO2 ABG O2 Saturation ABG O2 Content ABG Base Excess ABG Hemoglobin ABG Carboxyhemoglobin POC ABG HHb (Measured) ABG Methemoglobin ABG O2 Capacity Gurdeep Test A-a O2 Difference Hgb O2 Saturation Vent Mode Mechanical Rate FiO2 Tidal Volume PEEP Crit Value Called To Crit Value Called By Crit Value Read Back Blood Gas Notified Time Sodium 143 Potassium 5.4 H Chloride 101 Carbon Dioxide 18 L Anion Gap 29 H BUN 86 H Creatinine 10.7 H* Est GFR ( Amer) 7 Est GFR (Non-Af Amer) 5 POC Glucose (mg/dL) 182 H 192 H Random Glucose 162 H Calcium 8.0 L Phosphorus Magnesium Troponin I 05/16/17 05/16/17 05/16/17 03:28 04:17 04:30 WBC 10.2 RBC 4.85 Hgb 13.5 Hct 42.5 MCV 87.6 MCH 27.8 MCHC 31.8 L RDW 18.7 H Plt Count 154 MPV Neut % (Auto) Lymph % (Auto) Carter % (Auto) Eos % (Auto) Baso % (Auto) Neut # Lymph # Carter # Eos # Baso # Neutrophils % (Manual) Band Neutrophils % Lymphocytes % (Manual) Monocytes % (Manual) Platelet Estimate Anisocytosis (manual) Tear Drop Cells Ovalocytes PT INR APTT pCO2 pO2 HCO3 ABG pH ABG Total CO2 ABG O2 Saturation ABG O2 Content ABG Base Excess ABG Hemoglobin ABG Carboxyhemoglobin POC ABG HHb (Measured) ABG Methemoglobin ABG O2 Capacity Gurdeep Test A-a O2 Difference Hgb O2 Saturation Vent Mode Mechanical Rate FiO2 Tidal Volume PEEP Crit Value Called To Crit Value Called By Crit Value Read Back Blood Gas Notified Time Sodium Potassium Chloride Carbon Dioxide Anion Gap BUN Creatinine Est GFR ( Amer) Est GFR (Non-Af Amer) POC Glucose (mg/dL) 178 H 170 H Random Glucose Calcium Phosphorus Magnesium Troponin I 05/16/17 05/16/17 05/16/17 04:30 05:53 05:55 WBC RBC Hgb Hct MCV MCH MCHC RDW Plt Count MPV Neut % (Auto) Lymph % (Auto) Carter % (Auto) Eos % (Auto) Baso % (Auto) Neut # Lymph # Carter # Eos # Baso # Neutrophils % (Manual) Band Neutrophils % Lymphocytes % (Manual) Monocytes % (Manual) Platelet Estimate Anisocytosis (manual) Tear Drop Cells Ovalocytes PT INR APTT pCO2 40 pO2 220 H HCO3 18.1 L ABG pH 7.26 L ABG Total CO2 19.1 L ABG O2 Saturation 98.5 H ABG O2 Content 19.9 ABG Base Excess -8.7 L ABG Hemoglobin 14.4 ABG Carboxyhemoglobin 0.8 POC ABG HHb (Measured) 1.5 ABG Methemoglobin 1.5 ABG O2 Capacity 20.2 Gurdeep Test Yes A-a O2 Difference 372.0 Hgb O2 Saturation 96.2 Vent Mode A/c Mechanical Rate 20 FiO2 90.0 Tidal Volume 550 PEEP 8 Crit Value Called To Crit Value Called By Crit Value Read Back Blood Gas Notified Time Sodium 144 Potassium 5.6 H Chloride 99 Carbon Dioxide 19 L Anion Gap 32 H BUN 90 H Creatinine 11.0 H* Est GFR ( Amer) 6 Est GFR (Non-Af Amer) 5 POC Glucose (mg/dL) 173 H Random Glucose 169 H Calcium 8.2 L Phosphorus Magnesium Troponin I 05/16/17 09:05 WBC RBC Hgb Hct MCV MCH MCHC RDW Plt Count MPV Neut % (Auto) Lymph % (Auto) Carter % (Auto) Eos % (Auto) Baso % (Auto) Neut # Lymph # Carter # Eos # Baso # Neutrophils % (Manual) Band Neutrophils % Lymphocytes % (Manual) Monocytes % (Manual) Platelet Estimate Anisocytosis (manual) Tear Drop Cells Ovalocytes PT INR APTT pCO2 41 pO2 114 H HCO3 18.9 L ABG pH 7.27 L ABG Total CO2 20.1 L ABG O2 Saturation 97.4 ABG O2 Content 18.6 ABG Base Excess -7.7 L ABG Hemoglobin 13.8 ABG Carboxyhemoglobin 0.9 POC ABG HHb (Measured) 2.5 ABG Methemoglobin 1.6 ABG O2 Capacity 19.1 Gurdeep Test Yes A-a O2 Difference 334.0 Hgb O2 Saturation 95.1 Vent Mode Mechanical Rate FiO2 70.0 Tidal Volume PEEP Crit Value Called To Crit Value Called By Crit Value Read Back Blood Gas Notified Time Sodium Potassium Chloride Carbon Dioxide Anion Gap BUN Creatinine Est GFR ( Amer) Est GFR (Non-Af Amer) POC Glucose (mg/dL) Random Glucose Calcium Phosphorus Magnesium Troponin I Fingerstick Blood Sugar Results: 173 Review of Systems - Review of Systems Systems not reviewed;Unavailable: Intubated Critical Care Progress Note - Vent Settings TIDAL VOLUME:: 500 RESP RATE:: 16 FIO2:: 70 PEEP:: 8 - Extremities/Vascular Does the Patient have a Central Venous Catheter?: Yes Insertion Site: Femoral Vein (left) Does the Patient need a Central Venous Catheter?: Yes Does the Patient have a Obrien Catheter?: Yes Does the Patient need a Obrien Catheter?: Yes Catheter Insertion Criteria: Need for accurate measurement of output in critically ill patient - Restraints Justification for Restraints: High risk for self extubation - Prophylaxis GI Prophylaxis GI: PPI - Prophylaxis DVT Prophylaxis DVT: Heparin SQ - Nutrition Nutrition: Nutrition Category Date Time Status NPO Diet [DIET] Diets 05/15/17 Breakfast Active Assessment/Plan - Assessment and Plan (Free Text) Assessment: 41 yr old with PMHx of ESRD on HD MWF, DM2, PVD with R AKA and L BKA, admitted to ICU s/p cardiac arrest with acute respiratory failure 2dary to cardiac arrest. Neuro: alert and following commands, CT negative for ICH of mass effect Pulm: acute respiratory failure on vent, sedated d/t restlessness (propofol drip , versed prn) CV: s/p cardiac arrest, on rewarming phase of Therapeutic Hypothermia protocol, BP stable, regular rhythm, f/u echo per cardiology Hem: hemodynamically stable, no pressors required Renal: Anion gap metabolic acidosis, ESRD on HD MWD, missed HD yesterday d/t cardiac arrest, HD scheduled for today Endo: DM type 2, short acting insulin coverage scale Q6h, accucheck Q4h GI: NPO, OG tube feeds will start today once rewarming phase of therapeutic hypothermia protocol ends at 16:30 ID: afebrile, negative Bcx, leukocytosis resolved, empiric Zosyn DVT proph - heparin SC Q12 GI proph - Protonix IV QD obrien for strict I/O's during acute illness Code status - full code - Date & Time Date: 05/16/17 Time: 08:00 <Jhon Bradley - Last Filed: 05/16/17 16:39> CCU Objective - Vital Signs / Intake & Output Vital Signs (Last 4 hours): Vital Signs Temp Pulse Resp BP Pulse Ox 05/16/17 16:00 97.4 F L 125 H 19 127/82 100 05/16/17 15:30 125 H 24 127/82 100 05/16/17 15:00 121 H 26 H 131/79 100 05/16/17 14:30 115 H 26 H 138/85 100 05/16/17 14:09 98.2 F 112 H 26 H 135/75 05/16/17 14:00 108 H 24 147/80 100 05/16/17 13:30 110 H 24 152/74 H 100 05/16/17 13:09 98.8 F 05/16/17 13:00 110 H 24 136/75 100 Intake and Output (Last 8hrs): Intake & Output 05/16/17 05/16/17 05/16/17 06:59 14:59 22:59 Intake Total 1128 695 Output Total 800 0 Balance 328 695 Intake: IV 800 695 Intake, Piggyback 328 Output: Gastric Amount 800 Stomach 800 Urine 0 Urethral (Obrien) 0 - Medications Active Medications: Active Medications Generic Name Dose Route Start Last Admin Trade Name Freq PRN Reason Stop Dose Admin Acetaminophen 975 mg 05/15/17 01:55 05/16/17 13:09 Tylenol 650mg/20.3ml Solution Ud NG 975 mg Q6 PRN Administration Rigors Dextrose 0 ml 05/15/17 02:12 Dextrose 50% Inj IV STAT PRN Hyglycemia Protocol Protocol Dextrose 0 gm 05/15/17 02:12 Glutose 15 PO ONCE PRN Hypoglycemia Protocol Protocol Dextrose 0 ml 05/16/17 09:59 Dextrose 50% Inj IV STAT PRN Hyglycemia Protocol Protocol Dextrose 0 gm 05/16/17 09:59 Glutose 15 PO ONCE PRN Hypoglycemia Protocol Protocol Glucagon 0 mg 05/15/17 02:12 Glucagen Diagnostic Kit IM STAT PRN Hypoglycemia Protocol Protocol Glucagon 0 mg 05/16/17 09:59 Glucagen Diagnostic Kit IM STAT PRN Hypoglycemia Protocol Protocol Heparin Sodium (Porcine) 5,000 units 05/15/17 21:00 05/16/17 08:07 Heparin SC 5,000 units Q12 JENI Administration Protocol Piperacillin Sod/Tazobactam 100 mls @ 100 mls/hr 05/15/17 09:30 05/16/17 08: 08 Sod 2.25 gm/ Sodium Chloride IVPB 100 mls/hr Q8 JENI Administration Nicardipine HCl 20 mg in 200 mls @ 50 mls/hr 05/15/17 13:30 05/15/17 16:30 Cardene Iv Premix IV 0 mg/hr .Q4H JENI 0 mls/hr Protocol Titration 5 MG/HR Propofol 1,000 mg in 100 mls @ 2.722 mls/hr 05/15/17 14:00 05/16/17 15:54 Diprivan IV 05/16/17 18:33 30 mcg/kg/min .Q24H JENI 16.329 mls/hr Protocol Administration 5 MCG/KG/MIN Sodium Bicarbonate 75 meq/ 1,075 mls @ 75 mls/hr 05/15/17 22:30 05/16/17 13: 24 Sodium Chloride IV 05/16/17 18:51 75 mls/hr .[id number] JENI Administration Insulin Human Lispro 0 units 05/16/17 10:00 05/16/17 15:53 Humalog SC Not Given Q6 JENI Protocol Labetalol HCl 10 mg 05/15/17 23:45 05/16/17 13:23 Trandate IVP 10 mg Q6H JENI Administration Midazolam HCl 2 mg 05/16/17 04:33 05/16/17 12:28 Versed Inj IV 2 mg Q2H PRN Administration Agitation Pantoprazole Sodium 40 mg 05/15/17 09:00 05/16/17 08:20 Protonix Inj IVP 40 mg DAILY JENI Administration - Patient Studies Lab Studies: Microbiology Studies 05/15/17 14:00 Blood Culture - Preliminary Blood-Thru Central Line NO GROWTH AFTER 24 HOURS 05/15/17 09:03 MRSA Culture (Admit) - Final Nose MRSA NOT DETECTED Lab Studies 05/16/17 05/16/17 05/16/17 Range/Units 15:45 11:00 10:02 WBC (4.8-10.8) K/uL RBC (4.40-5.90) Mil/uL Hgb (12.0-18.0) g/dL Hct (35.0-51.0) % MCV (80.0-94.0) fl MCH (27.0-31.0) pg MCHC (33.0-37.0) g/dL RDW (11.5-14.5) % Plt Count (130-400) K/uL MPV (7.2-11.7) fl Neut % (Auto) (50.0-75.0) % Lymph % (Auto) (20.0-40.0) % Carter % (Auto) (0.0-10.0) % Eos % (Auto) (0.0-4.0) % Baso % (Auto) (0.0-2.0) % Neut # (1.8-7.0) K/uL Lymph # (1.0-4.3) K/uL Carter # (0.0-0.8) K/uL Eos # (0.0-0.7) K/uL Baso # (0.0-0.2) K/uL PT (9.8-13.1) Seconds INR (0.9-1.2) APTT (25.6-37.1) Seconds pCO2 (35-45) mm/Hg pO2 (80-100) mm/Hg HCO3 (21-28) mmol/L ABG pH (7.35-7.45) ABG Total CO2 (22-28) mmol/L ABG O2 Saturation (95-98) % ABG O2 Content (15-23) ML/dL ABG Base Excess (-2.0-3.0) mmol/L ABG Hemoglobin (11.7-17.4) g/dL ABG Carboxyhemoglobin (0.5-1.5) % POC ABG HHb (Measured) (0.0-5.0) % ABG Methemoglobin (0.0-3.0) % ABG O2 Capacity (16-24) mL/dL Gurdeep Test A-a O2 Difference mm/Hg Hgb O2 Saturation (95.0-98.0) % Vent Mode Mechanical Rate FiO2 % Tidal Volume PEEP Sodium (132-148) mmol/l Potassium (3.6-5.0) MMOL/L Chloride (98-107) mmol/L Carbon Dioxide (22-30) mmol/L Anion Gap (10-20) BUN (9-20) mg/dl Creatinine (0.8-1.5) mg/dL Est GFR ( Amer) Est GFR (Non-Af Amer) POC Glucose (mg/dL) 160 H 154 H 147 H (65-110) mg/dL Random Glucose (75-110) mg/dL Calcium (8.4-10.2) mg/dL Phosphorus (2.5-4.5) mg/dl Magnesium (1.6-2.3) MG/DL Troponin I (0.00-0.120) ng/mL 05/16/17 05/16/17 05/16/17 Range/Units 09:05 07:59 05:55 WBC (4.8-10.8) K/uL RBC (4.40-5.90) Mil/uL Hgb (12.0-18.0) g/dL Hct (35.0-51.0) % MCV (80.0-94.0) fl MCH (27.0-31.0) pg MCHC (33.0-37.0) g/dL RDW (11.5-14.5) % Plt Count (130-400) K/uL MPV (7.2-11.7) fl Neut % (Auto) (50.0-75.0) % Lymph % (Auto) (20.0-40.0) % Carter % (Auto) (0.0-10.0) % Eos % (Auto) (0.0-4.0) % Baso % (Auto) (0.0-2.0) % Neut # (1.8-7.0) K/uL Lymph # (1.0-4.3) K/uL Carter # (0.0-0.8) K/uL Eos # (0.0-0.7) K/uL Baso # (0.0-0.2) K/uL PT (9.8-13.1) Seconds INR (0.9-1.2) APTT (25.6-37.1) Seconds pCO2 41 40 (35-45) mm/Hg pO2 114 H 220 H (80-100) mm/Hg HCO3 18.9 L 18.1 L (21-28) mmol/L ABG pH 7.27 L 7.26 L (7.35-7.45) ABG Total CO2 20.1 L 19.1 L (22-28) mmol/L ABG O2 Saturation 97.4 98.5 H (95-98) % ABG O2 Content 18.6 19.9 (15-23) ML/dL ABG Base Excess -7.7 L -8.7 L (-2.0-3.0) mmol/L ABG Hemoglobin 13.8 14.4 (11.7-17.4) g/dL ABG Carboxyhemoglobin 0.9 0.8 (0.5-1.5) % POC ABG HHb (Measured) 2.5 1.5 (0.0-5.0) % ABG Methemoglobin 1.6 1.5 (0.0-3.0) % ABG O2 Capacity 19.1 20.2 (16-24) mL/dL Gurdeep Test Yes Yes A-a O2 Difference 334.0 372.0 mm/Hg Hgb O2 Saturation 95.1 96.2 (95.0-98.0) % Vent Mode A/c Mechanical Rate 20 FiO2 70.0 90.0 % Tidal Volume 550 PEEP 8 Sodium (132-148) mmol/l Potassium (3.6-5.0) MMOL/L Chloride (98-107) mmol/L Carbon Dioxide (22-30) mmol/L Anion Gap (10-20) BUN (9-20) mg/dl Creatinine (0.8-1.5) mg/dL Est GFR ( Amer) Est GFR (Non-Af Amer) POC Glucose (mg/dL) 128 H (65-110) mg/dL Random Glucose (75-110) mg/dL Calcium (8.4-10.2) mg/dL Phosphorus (2.5-4.5) mg/dl Magnesium (1.6-2.3) MG/DL Troponin I (0.00-0.120) ng/mL 05/16/17 05/16/17 05/16/17 Range/Units 05:53 04:30 04:30 WBC 10.2 (4.8-10.8) K/uL RBC 4.85 (4.40-5.90) Mil/uL Hgb 13.5 (12.0-18.0) g/dL Hct 42.5 (35.0-51.0) % MCV 87.6 (80.0-94.0) fl MCH 27.8 (27.0-31.0) pg MCHC 31.8 L (33.0-37.0) g/dL RDW 18.7 H (11.5-14.5) % Plt Count 154 (130-400) K/uL MPV (7.2-11.7) fl Neut % (Auto) (50.0-75.0) % Lymph % (Auto) (20.0-40.0) % Carter % (Auto) (0.0-10.0) % Eos % (Auto) (0.0-4.0) % Baso % (Auto) (0.0-2.0) % Neut # (1.8-7.0) K/uL Lymph # (1.0-4.3) K/uL Carter # (0.0-0.8) K/uL Eos # (0.0-0.7) K/uL Baso # (0.0-0.2) K/uL PT (9.8-13.1) Seconds INR (0.9-1.2) APTT (25.6-37.1) Seconds pCO2 (35-45) mm/Hg pO2 (80-100) mm/Hg HCO3 (21-28) mmol/L ABG pH (7.35-7.45) ABG Total CO2 (22-28) mmol/L ABG O2 Saturation (95-98) % ABG O2 Content (15-23) ML/dL ABG Base Excess (-2.0-3.0) mmol/L ABG Hemoglobin (11.7-17.4) g/dL ABG Carboxyhemoglobin (0.5-1.5) % POC ABG HHb (Measured) (0.0-5.0) % ABG Methemoglobin (0.0-3.0) % ABG O2 Capacity (16-24) mL/dL Gurdeep Test A-a O2 Difference mm/Hg Hgb O2 Saturation (95.0-98.0) % Vent Mode Mechanical Rate FiO2 % Tidal Volume PEEP Sodium 144 (132-148) mmol/l Potassium 5.6 H (3.6-5.0) MMOL/L Chloride 99 (98-107) mmol/L Carbon Dioxide 19 L (22-30) mmol/L Anion Gap 32 H (10-20) BUN 90 H (9-20) mg/dl Creatinine 11.0 H* (0.8-1.5) mg/dL Est GFR ( Amer) 6 Est GFR (Non-Af Amer) 5 POC Glucose (mg/dL) 173 H (65-110) mg/dL Random Glucose 169 H (75-110) mg/dL Calcium 8.2 L (8.4-10.2) mg/dL Phosphorus (2.5-4.5) mg/dl Magnesium (1.6-2.3) MG/DL Troponin I (0.00-0.120) ng/mL 05/16/17 05/16/17 05/16/17 Range/Units 04:17 03:28 02:05 WBC (4.8-10.8) K/uL RBC (4.40-5.90) Mil/uL Hgb (12.0-18.0) g/dL Hct (35.0-51.0) % MCV (80.0-94.0) fl MCH (27.0-31.0) pg MCHC (33.0-37.0) g/dL RDW (11.5-14.5) % Plt Count (130-400) K/uL MPV (7.2-11.7) fl Neut % (Auto) (50.0-75.0) % Lymph % (Auto) (20.0-40.0) % Carter % (Auto) (0.0-10.0) % Eos % (Auto) (0.0-4.0) % Baso % (Auto) (0.0-2.0) % Neut # (1.8-7.0) K/uL Lymph # (1.0-4.3) K/uL Carter # (0.0-0.8) K/uL Eos # (0.0-0.7) K/uL Baso # (0.0-0.2) K/uL PT (9.8-13.1) Seconds INR (0.9-1.2) APTT (25.6-37.1) Seconds pCO2 (35-45) mm/Hg pO2 (80-100) mm/Hg HCO3 (21-28) mmol/L ABG pH (7.35-7.45) ABG Total CO2 (22-28) mmol/L ABG O2 Saturation (95-98) % ABG O2 Content (15-23) ML/dL ABG Base Excess (-2.0-3.0) mmol/L ABG Hemoglobin (11.7-17.4) g/dL ABG Carboxyhemoglobin (0.5-1.5) % POC ABG HHb (Measured) (0.0-5.0) % ABG Methemoglobin (0.0-3.0) % ABG O2 Capacity (16-24) mL/dL Gurdeep Test A-a O2 Difference mm/Hg Hgb O2 Saturation (95.0-98.0) % Vent Mode Mechanical Rate FiO2 % Tidal Volume PEEP Sodium (132-148) mmol/l Potassium (3.6-5.0) MMOL/L Chloride (98-107) mmol/L Carbon Dioxide (22-30) mmol/L Anion Gap (10-20) BUN (9-20) mg/dl Creatinine (0.8-1.5) mg/dL Est GFR ( Amer) Est GFR (Non-Af Amer) POC Glucose (mg/dL) 170 H 178 H 192 H (65-110) mg/dL Random Glucose (75-110) mg/dL Calcium (8.4-10.2) mg/dL Phosphorus (2.5-4.5) mg/dl Magnesium (1.6-2.3) MG/DL Troponin I (0.00-0.120) ng/mL 05/16/17 05/16/17 05/16/17 Range/Units 01:21 01:08 00:07 WBC (4.8-10.8) K/uL RBC (4.40-5.90) Mil/uL Hgb (12.0-18.0) g/dL Hct (35.0-51.0) % MCV (80.0-94.0) fl MCH (27.0-31.0) pg MCHC (33.0-37.0) g/dL RDW (11.5-14.5) % Plt Count (130-400) K/uL MPV (7.2-11.7) fl Neut % (Auto) (50.0-75.0) % Lymph % (Auto) (20.0-40.0) % Carter % (Auto) (0.0-10.0) % Eos % (Auto) (0.0-4.0) % Baso % (Auto) (0.0-2.0) % Neut # (1.8-7.0) K/uL Lymph # (1.0-4.3) K/uL Carter # (0.0-0.8) K/uL Eos # (0.0-0.7) K/uL Baso # (0.0-0.2) K/uL PT (9.8-13.1) Seconds INR (0.9-1.2) APTT (25.6-37.1) Seconds pCO2 (35-45) mm/Hg pO2 (80-100) mm/Hg HCO3 (21-28) mmol/L ABG pH (7.35-7.45) ABG Total CO2 (22-28) mmol/L ABG O2 Saturation (95-98) % ABG O2 Content (15-23) ML/dL ABG Base Excess (-2.0-3.0) mmol/L ABG Hemoglobin (11.7-17.4) g/dL ABG Carboxyhemoglobin (0.5-1.5) % POC ABG HHb (Measured) (0.0-5.0) % ABG Methemoglobin (0.0-3.0) % ABG O2 Capacity (16-24) mL/dL Gurdeep Test A-a O2 Difference mm/Hg Hgb O2 Saturation (95.0-98.0) % Vent Mode Mechanical Rate FiO2 % Tidal Volume PEEP Sodium 143 (132-148) mmol/l Potassium 5.4 H (3.6-5.0) MMOL/L Chloride 101 (98-107) mmol/L Carbon Dioxide 18 L (22-30) mmol/L Anion Gap 29 H (10-20) BUN 86 H (9-20) mg/dl Creatinine 10.7 H* (0.8-1.5) mg/dL Est GFR ( Amer) 7 Est GFR (Non-Af Amer) 5 POC Glucose (mg/dL) 182 H 196 H (65-110) mg/dL Random Glucose 162 H (75-110) mg/dL Calcium 8.0 L (8.4-10.2) mg/dL Phosphorus (2.5-4.5) mg/dl Magnesium (1.6-2.3) MG/DL Troponin I (0.00-0.120) ng/mL 05/15/17 05/15/17 05/15/17 Range/Units 23:17 22:57 21:59 WBC (4.8-10.8) K/uL RBC (4.40-5.90) Mil/uL Hgb (12.0-18.0) g/dL Hct (35.0-51.0) % MCV (80.0-94.0) fl MCH (27.0-31.0) pg MCHC (33.0-37.0) g/dL RDW (11.5-14.5) % Plt Count (130-400) K/uL MPV (7.2-11.7) fl Neut % (Auto) (50.0-75.0) % Lymph % (Auto) (20.0-40.0) % Carter % (Auto) (0.0-10.0) % Eos % (Auto) (0.0-4.0) % Baso % (Auto) (0.0-2.0) % Neut # (1.8-7.0) K/uL Lymph # (1.0-4.3) K/uL Carter # (0.0-0.8) K/uL Eos # (0.0-0.7) K/uL Baso # (0.0-0.2) K/uL PT (9.8-13.1) Seconds INR (0.9-1.2) APTT (25.6-37.1) Seconds pCO2 (35-45) mm/Hg pO2 (80-100) mm/Hg HCO3 (21-28) mmol/L ABG pH (7.35-7.45) ABG Total CO2 (22-28) mmol/L ABG O2 Saturation (95-98) % ABG O2 Content (15-23) ML/dL ABG Base Excess (-2.0-3.0) mmol/L ABG Hemoglobin (11.7-17.4) g/dL ABG Carboxyhemoglobin (0.5-1.5) % POC ABG HHb (Measured) (0.0-5.0) % ABG Methemoglobin (0.0-3.0) % ABG O2 Capacity (16-24) mL/dL Gurdeep Test A-a O2 Difference mm/Hg Hgb O2 Saturation (95.0-98.0) % Vent Mode Mechanical Rate FiO2 % Tidal Volume PEEP Sodium (132-148) mmol/l Potassium (3.6-5.0) MMOL/L Chloride (98-107) mmol/L Carbon Dioxide (22-30) mmol/L Anion Gap (10-20) BUN (9-20) mg/dl Creatinine (0.8-1.5) mg/dL Est GFR ( Amer) Est GFR (Non-Af Amer) POC Glucose (mg/dL) 201 H 198 H 136 H (65-110) mg/dL Random Glucose (75-110) mg/dL Calcium (8.4-10.2) mg/dL Phosphorus (2.5-4.5) mg/dl Magnesium (1.6-2.3) MG/DL Troponin I (0.00-0.120) ng/mL 05/15/17 05/15/17 05/15/17 Range/Units 20:54 20:31 20:29 WBC 10.5 (4.8-10.8) K/uL RBC 5.21 (4.40-5.90) Mil/uL Hgb 14.2 (12.0-18.0) g/dL Hct 45.7 (35.0-51.0) % MCV 87.7 (80.0-94.0) fl MCH 27.3 (27.0-31.0) pg MCHC 31.1 L (33.0-37.0) g/dL RDW 19.1 H (11.5-14.5) % Plt Count 150 (130-400) K/uL MPV 8.3 (7.2-11.7) fl Neut % (Auto) 84.9 H (50.0-75.0) % Lymph % (Auto) 8.9 L (20.0-40.0) % Carter % (Auto) 5.6 (0.0-10.0) % Eos % (Auto) 0.3 (0.0-4.0) % Baso % (Auto) 0.3 (0.0-2.0) % Neut # 8.9 H (1.8-7.0) K/uL Lymph # 0.9 L (1.0-4.3) K/uL Carter # 0.6 (0.0-0.8) K/uL Eos # 0.0 (0.0-0.7) K/uL Baso # 0.0 (0.0-0.2) K/uL PT (9.8-13.1) Seconds INR (0.9-1.2) APTT (25.6-37.1) Seconds pCO2 (35-45) mm/Hg pO2 (80-100) mm/Hg HCO3 (21-28) mmol/L ABG pH (7.35-7.45) ABG Total CO2 (22-28) mmol/L ABG O2 Saturation (95-98) % ABG O2 Content (15-23) ML/dL ABG Base Excess (-2.0-3.0) mmol/L ABG Hemoglobin (11.7-17.4) g/dL ABG Carboxyhemoglobin (0.5-1.5) % POC ABG HHb (Measured) (0.0-5.0) % ABG Methemoglobin (0.0-3.0) % ABG O2 Capacity (16-24) mL/dL Gurdeep Test A-a O2 Difference mm/Hg Hgb O2 Saturation (95.0-98.0) % Vent Mode Mechanical Rate FiO2 % Tidal Volume PEEP Sodium 143 (132-148) mmol/l Potassium 6.0 H (3.6-5.0) MMOL/L Chloride 100 (98-107) mmol/L Carbon Dioxide 19 L (22-30) mmol/L Anion Gap 30 H (10-20) BUN 85 H (9-20) mg/dl Creatinine 10.7 H* (0.8-1.5) mg/dL Est GFR ( Amer) 7 Est GFR (Non-Af Amer) 5 POC Glucose (mg/dL) 124 H (65-110) mg/dL Random Glucose 128 H (75-110) mg/dL Calcium 7.7 L (8.4-10.2) mg/dL Phosphorus (2.5-4.5) mg/dl Magnesium (1.6-2.3) MG/DL Troponin I (0.00-0.120) ng/mL 05/15/17 05/15/17 05/15/17 Range/Units 20:29 20:29 19:56 WBC (4.8-10.8) K/uL RBC (4.40-5.90) Mil/uL Hgb (12.0-18.0) g/dL Hct (35.0-51.0) % MCV (80.0-94.0) fl MCH (27.0-31.0) pg MCHC (33.0-37.0) g/dL RDW (11.5-14.5) % Plt Count (130-400) K/uL MPV (7.2-11.7) fl Neut % (Auto) (50.0-75.0) % Lymph % (Auto) (20.0-40.0) % Carter % (Auto) (0.0-10.0) % Eos % (Auto) (0.0-4.0) % Baso % (Auto) (0.0-2.0) % Neut # (1.8-7.0) K/uL Lymph # (1.0-4.3) K/uL Carter # (0.0-0.8) K/uL Eos # (0.0-0.7) K/uL Baso # (0.0-0.2) K/uL PT 11.6 (9.8-13.1) Seconds INR 1.1 (0.9-1.2) APTT 35.8 (25.6-37.1) Seconds pCO2 (35-45) mm/Hg pO2 (80-100) mm/Hg HCO3 (21-28) mmol/L ABG pH (7.35-7.45) ABG Total CO2 (22-28) mmol/L ABG O2 Saturation (95-98) % ABG O2 Content (15-23) ML/dL ABG Base Excess (-2.0-3.0) mmol/L ABG Hemoglobin (11.7-17.4) g/dL ABG Carboxyhemoglobin (0.5-1.5) % POC ABG HHb (Measured) (0.0-5.0) % ABG Methemoglobin (0.0-3.0) % ABG O2 Capacity (16-24) mL/dL Gurdeep Test A-a O2 Difference mm/Hg Hgb O2 Saturation (95.0-98.0) % Vent Mode Mechanical Rate FiO2 % Tidal Volume PEEP Sodium (132-148) mmol/l Potassium (3.6-5.0) MMOL/L Chloride (98-107) mmol/L Carbon Dioxide (22-30) mmol/L Anion Gap (10-20) BUN (9-20) mg/dl Creatinine (0.8-1.5) mg/dL Est GFR ( Amer) Est GFR (Non-Af Amer) POC Glucose (mg/dL) 123 H (65-110) mg/dL Random Glucose (75-110) mg/dL Calcium 7.7 L (8.4-10.2) mg/dL Phosphorus 8.8 H (2.5-4.5) mg/dl Magnesium 2.1 (1.6-2.3) MG/DL Troponin I 0.8650 H* (0.00-0.120) ng/mL 05/15/17 05/15/17 05/15/17 Range/Units 18:57 17:56 17:33 WBC (4.8-10.8) K/uL RBC (4.40-5.90) Mil/uL Hgb (12.0-18.0) g/dL Hct (35.0-51.0) % MCV (80.0-94.0) fl MCH (27.0-31.0) pg MCHC (33.0-37.0) g/dL RDW (11.5-14.5) % Plt Count (130-400) K/uL MPV (7.2-11.7) fl Neut % (Auto) (50.0-75.0) % Lymph % (Auto) (20.0-40.0) % Carter % (Auto) (0.0-10.0) % Eos % (Auto) (0.0-4.0) % Baso % (Auto) (0.0-2.0) % Neut # (1.8-7.0) K/uL Lymph # (1.0-4.3) K/uL Carter # (0.0-0.8) K/uL Eos # (0.0-0.7) K/uL Baso # (0.0-0.2) K/uL PT (9.8-13.1) Seconds INR (0.9-1.2) APTT (25.6-37.1) Seconds pCO2 41 (35-45) mm/Hg pO2 76 L (80-100) mm/Hg HCO3 17.9 L (21-28) mmol/L ABG pH 7.25 L (7.35-7.45) ABG Total CO2 19.3 L (22-28) mmol/L ABG O2 Saturation 95.3 (95-98) % ABG O2 Content 19.1 (15-23) ML/dL ABG Base Excess -8.8 L (-2.0-3.0) mmol/L ABG Hemoglobin 14.6 (11.7-17.4) g/dL ABG Carboxyhemoglobin 1.1 (0.5-1.5) % POC ABG HHb (Measured) 4.6 (0.0-5.0) % ABG Methemoglobin 1.5 (0.0-3.0) % ABG O2 Capacity 20.0 (16-24) mL/dL Gurdeep Test Yes A-a O2 Difference 443.0 mm/Hg Hgb O2 Saturation 92.9 L (95.0-98.0) % Vent Mode Prvc ac Mechanical Rate 20 FiO2 80.0 % Tidal Volume 550 PEEP 8 Sodium (132-148) mmol/l Potassium (3.6-5.0) MMOL/L Chloride (98-107) mmol/L Carbon Dioxide (22-30) mmol/L Anion Gap (10-20) BUN (9-20) mg/dl Creatinine (0.8-1.5) mg/dL Est GFR ( Amer) Est GFR (Non-Af Amer) POC Glucose (mg/dL) 165 H 231 H (65-110) mg/dL Random Glucose (75-110) mg/dL Calcium (8.4-10.2) mg/dL Phosphorus (2.5-4.5) mg/dl Magnesium (1.6-2.3) MG/DL Troponin I (0.00-0.120) ng/mL 05/15/17 Range/Units 16:56 WBC (4.8-10.8) K/uL RBC (4.40-5.90) Mil/uL Hgb (12.0-18.0) g/dL Hct (35.0-51.0) % MCV (80.0-94.0) fl MCH (27.0-31.0) pg MCHC (33.0-37.0) g/dL RDW (11.5-14.5) % Plt Count (130-400) K/uL MPV (7.2-11.7) fl Neut % (Auto) (50.0-75.0) % Lymph % (Auto) (20.0-40.0) % Carter % (Auto) (0.0-10.0) % Eos % (Auto) (0.0-4.0) % Baso % (Auto) (0.0-2.0) % Neut # (1.8-7.0) K/uL Lymph # (1.0-4.3) K/uL Carter # (0.0-0.8) K/uL Eos # (0.0-0.7) K/uL Baso # (0.0-0.2) K/uL PT (9.8-13.1) Seconds INR (0.9-1.2) APTT (25.6-37.1) Seconds pCO2 (35-45) mm/Hg pO2 (80-100) mm/Hg HCO3 (21-28) mmol/L ABG pH (7.35-7.45) ABG Total CO2 (22-28) mmol/L ABG O2 Saturation (95-98) % ABG O2 Content (15-23) ML/dL ABG Base Excess (-2.0-3.0) mmol/L ABG Hemoglobin (11.7-17.4) g/dL ABG Carboxyhemoglobin (0.5-1.5) % POC ABG HHb (Measured) (0.0-5.0) % ABG Methemoglobin (0.0-3.0) % ABG O2 Capacity (16-24) mL/dL Gurdeep Test A-a O2 Difference mm/Hg Hgb O2 Saturation (95.0-98.0) % Vent Mode Mechanical Rate FiO2 % Tidal Volume PEEP Sodium (132-148) mmol/l Potassium (3.6-5.0) MMOL/L Chloride (98-107) mmol/L Carbon Dioxide (22-30) mmol/L Anion Gap (10-20) BUN (9-20) mg/dl Creatinine (0.8-1.5) mg/dL Est GFR ( Amer) Est GFR (Non-Af Amer) POC Glucose (mg/dL) 276 H (65-110) mg/dL Random Glucose (75-110) mg/dL Calcium (8.4-10.2) mg/dL Phosphorus (2.5-4.5) mg/dl Magnesium (1.6-2.3) MG/DL Troponin I (0.00-0.120) ng/mL Laboratory Results - last 24 hr 05/15/17 05/15/17 05/15/17 16:56 17:33 17:56 WBC RBC Hgb Hct MCV MCH MCHC RDW Plt Count MPV Neut % (Auto) Lymph % (Auto) Carter % (Auto) Eos % (Auto) Baso % (Auto) Neut # Lymph # Carter # Eos # Baso # PT INR APTT pCO2 41 pO2 76 L HCO3 17.9 L ABG pH 7.25 L ABG Total CO2 19.3 L ABG O2 Saturation 95.3 ABG O2 Content 19.1 ABG Base Excess -8.8 L ABG Hemoglobin 14.6 ABG Carboxyhemoglobin 1.1 POC ABG HHb (Measured) 4.6 ABG Methemoglobin 1.5 ABG O2 Capacity 20.0 Gurdeep Test Yes A-a O2 Difference 443.0 Hgb O2 Saturation 92.9 L Vent Mode Prvc ac Mechanical Rate 20 FiO2 80.0 Tidal Volume 550 PEEP 8 Sodium Potassium Chloride Carbon Dioxide Anion Gap BUN Creatinine Est GFR ( Amer) Est GFR (Non-Af Amer) POC Glucose (mg/dL) 276 H 231 H Random Glucose Calcium Phosphorus Magnesium Troponin I 05/15/17 05/15/17 05/15/17 18:57 19:56 20:29 WBC RBC Hgb Hct MCV MCH MCHC RDW Plt Count MPV Neut % (Auto) Lymph % (Auto) Carter % (Auto) Eos % (Auto) Baso % (Auto) Neut # Lymph # Carter # Eos # Baso # PT 11.6 INR 1.1 APTT 35.8 pCO2 pO2 HCO3 ABG pH ABG Total CO2 ABG O2 Saturation ABG O2 Content ABG Base Excess ABG Hemoglobin ABG Carboxyhemoglobin POC ABG HHb (Measured) ABG Methemoglobin ABG O2 Capacity Gurdeep Test A-a O2 Difference Hgb O2 Saturation Vent Mode Mechanical Rate FiO2 Tidal Volume PEEP Sodium Potassium Chloride Carbon Dioxide Anion Gap BUN Creatinine Est GFR ( Amer) Est GFR (Non-Af Amer) POC Glucose (mg/dL) 165 H 123 H Random Glucose Calcium Phosphorus Magnesium Troponin I 05/15/17 05/15/17 05/15/17 20:29 20:29 20:31 WBC 10.5 RBC 5.21 Hgb 14.2 Hct 45.7 MCV 87.7 MCH 27.3 MCHC 31.1 L RDW 19.1 H Plt Count 150 MPV 8.3 Neut % (Auto) 84.9 H Lymph % (Auto) 8.9 L Carter % (Auto) 5.6 Eos % (Auto) 0.3 Baso % (Auto) 0.3 Neut # 8.9 H Lymph # 0.9 L Carter # 0.6 Eos # 0.0 Baso # 0.0 PT INR APTT pCO2 pO2 HCO3 ABG pH ABG Total CO2 ABG O2 Saturation ABG O2 Content ABG Base Excess ABG Hemoglobin ABG Carboxyhemoglobin POC ABG HHb (Measured) ABG Methemoglobin ABG O2 Capacity Gurdeep Test A-a O2 Difference Hgb O2 Saturation Vent Mode Mechanical Rate FiO2 Tidal Volume PEEP Sodium 143 Potassium 6.0 H Chloride 100 Carbon Dioxide 19 L Anion Gap 30 H BUN 85 H Creatinine 10.7 H* Est GFR ( Amer) 7 Est GFR (Non-Af Amer) 5 POC Glucose (mg/dL) Random Glucose 128 H Calcium 7.7 L 7.7 L Phosphorus 8.8 H Magnesium 2.1 Troponin I 0.8650 H* 05/15/17 05/15/17 05/15/17 20:54 21:59 22:57 WBC RBC Hgb Hct MCV MCH MCHC RDW Plt Count MPV Neut % (Auto) Lymph % (Auto) Carter % (Auto) Eos % (Auto) Baso % (Auto) Neut # Lymph # Carter # Eos # Baso # PT INR APTT pCO2 pO2 HCO3 ABG pH ABG Total CO2 ABG O2 Saturation ABG O2 Content ABG Base Excess ABG Hemoglobin ABG Carboxyhemoglobin POC ABG HHb (Measured) ABG Methemoglobin ABG O2 Capacity Gurdeep Test A-a O2 Difference Hgb O2 Saturation Vent Mode Mechanical Rate FiO2 Tidal Volume PEEP Sodium Potassium Chloride Carbon Dioxide Anion Gap BUN Creatinine Est GFR ( Amer) Est GFR (Non-Af Amer) POC Glucose (mg/dL) 124 H 136 H 198 H Random Glucose Calcium Phosphorus Magnesium Troponin I 05/15/17 05/16/17 05/16/17 23:17 00:07 01:08 WBC RBC Hgb Hct MCV MCH MCHC RDW Plt Count MPV Neut % (Auto) Lymph % (Auto) Carter % (Auto) Eos % (Auto) Baso % (Auto) Neut # Lymph # Carter # Eos # Baso # PT INR APTT pCO2 pO2 HCO3 ABG pH ABG Total CO2 ABG O2 Saturation ABG O2 Content ABG Base Excess ABG Hemoglobin ABG Carboxyhemoglobin POC ABG HHb (Measured) ABG Methemoglobin ABG O2 Capacity Gurdeep Test A-a O2 Difference Hgb O2 Saturation Vent Mode Mechanical Rate FiO2 Tidal Volume PEEP Sodium Potassium Chloride Carbon Dioxide Anion Gap BUN Creatinine Est GFR ( Amer) Est GFR (Non-Af Amer) POC Glucose (mg/dL) 201 H 196 H 182 H Random Glucose Calcium Phosphorus Magnesium Troponin I 0905/16/17 05/16/17 01:21 02:05 03:28 WBC RBC Hgb Hct MCV MCH MCHC RDW Plt Count MPV Neut % (Auto) Lymph % (Auto) Carter % (Auto) Eos % (Auto) Baso % (Auto) Neut # Lymph # Carter # Eos # Baso # PT INR APTT pCO2 pO2 HCO3 ABG pH ABG Total CO2 ABG O2 Saturation ABG O2 Content ABG Base Excess ABG Hemoglobin ABG Carboxyhemoglobin POC ABG HHb (Measured) ABG Methemoglobin ABG O2 Capacity Gurdeep Test A-a O2 Difference Hgb O2 Saturation Vent Mode Mechanical Rate FiO2 Tidal Volume PEEP Sodium 143 Potassium 5.4 H Chloride 101 Carbon Dioxide 18 L Anion Gap 29 H BUN 86 H Creatinine 10.7 H* Est GFR ( Amer) 7 Est GFR (Non-Af Amer) 5 POC Glucose (mg/dL) 192 H 178 H Random Glucose 162 H Calcium 8.0 L Phosphorus Magnesium Troponin I 05/16/17 05/16/17 05/16/17 04:17 04:30 04:30 WBC 10.2 RBC 4.85 Hgb 13.5 Hct 42.5 MCV 87.6 MCH 27.8 MCHC 31.8 L RDW 18.7 H Plt Count 154 MPV Neut % (Auto) Lymph % (Auto) Carter % (Auto) Eos % (Auto) Baso % (Auto) Neut # Lymph # Carter # Eos # Baso # PT INR APTT pCO2 pO2 HCO3 ABG pH ABG Total CO2 ABG O2 Saturation ABG O2 Content ABG Base Excess ABG Hemoglobin ABG Carboxyhemoglobin POC ABG HHb (Measured) ABG Methemoglobin ABG O2 Capacity Gurdeep Test A-a O2 Difference Hgb O2 Saturation Vent Mode Mechanical Rate FiO2 Tidal Volume PEEP Sodium 144 Potassium 5.6 H Chloride 99 Carbon Dioxide 19 L Anion Gap 32 H BUN 90 H Creatinine 11.0 H* Est GFR ( Amer) 6 Est GFR (Non-Af Amer) 5 POC Glucose (mg/dL) 170 H Random Glucose 169 H Calcium 8.2 L Phosphorus Magnesium Troponin I 05/16/17 05/16/17 05/16/17 05:53 05:55 07:59 WBC RBC Hgb Hct MCV MCH MCHC RDW Plt Count MPV Neut % (Auto) Lymph % (Auto) Carter % (Auto) Eos % (Auto) Baso % (Auto) Neut # Lymph # Carter # Eos # Baso # PT INR APTT pCO2 40 pO2 220 H HCO3 18.1 L ABG pH 7.26 L ABG Total CO2 19.1 L ABG O2 Saturation 98.5 H ABG O2 Content 19.9 ABG Base Excess -8.7 L ABG Hemoglobin 14.4 ABG Carboxyhemoglobin 0.8 POC ABG HHb (Measured) 1.5 ABG Methemoglobin 1.5 ABG O2 Capacity 20.2 Gurdeep Test Yes A-a O2 Difference 372.0 Hgb O2 Saturation 96.2 Vent Mode A/c Mechanical Rate 20 FiO2 90.0 Tidal Volume 550 PEEP 8 Sodium Potassium Chloride Carbon Dioxide Anion Gap BUN Creatinine Est GFR ( Amer) Est GFR (Non-Af Amer) POC Glucose (mg/dL) 173 H 128 H Random Glucose Calcium Phosphorus Magnesium Troponin I 05/16/17 05/16/17 05/16/17 09:05 10:02 11:00 WBC RBC Hgb Hct MCV MCH MCHC RDW Plt Count MPV Neut % (Auto) Lymph % (Auto) Carter % (Auto) Eos % (Auto) Baso % (Auto) Neut # Lymph # Carter # Eos # Baso # PT INR APTT pCO2 41 pO2 114 H HCO3 18.9 L ABG pH 7.27 L ABG Total CO2 20.1 L ABG O2 Saturation 97.4 ABG O2 Content 18.6 ABG Base Excess -7.7 L ABG Hemoglobin 13.8 ABG Carboxyhemoglobin 0.9 POC ABG HHb (Measured) 2.5 ABG Methemoglobin 1.6 ABG O2 Capacity 19.1 Gurdeep Test Yes A-a O2 Difference 334.0 Hgb O2 Saturation 95.1 Vent Mode Mechanical Rate FiO2 70.0 Tidal Volume PEEP Sodium Potassium Chloride Carbon Dioxide Anion Gap BUN Creatinine Est GFR ( Amer) Est GFR (Non-Af Amer) POC Glucose (mg/dL) 147 H 154 H Random Glucose Calcium Phosphorus Magnesium Troponin I 05/16/17 15:45 WBC RBC Hgb Hct MCV MCH MCHC RDW Plt Count MPV Neut % (Auto) Lymph % (Auto) Carter % (Auto) Eos % (Auto) Baso % (Auto) Neut # Lymph # Carter # Eos # Baso # PT INR APTT pCO2 pO2 HCO3 ABG pH ABG Total CO2 ABG O2 Saturation ABG O2 Content ABG Base Excess ABG Hemoglobin ABG Carboxyhemoglobin POC ABG HHb (Measured) ABG Methemoglobin ABG O2 Capacity Gurdeep Test A-a O2 Difference Hgb O2 Saturation Vent Mode Mechanical Rate FiO2 Tidal Volume PEEP Sodium Potassium Chloride Carbon Dioxide Anion Gap BUN Creatinine Est GFR ( Amer) Est GFR (Non-Af Amer) POC Glucose (mg/dL) 160 H Random Glucose Calcium Phosphorus Magnesium Troponin I Critical Care Progress Note - Nutrition Nutrition: Nutrition Category Date Time Status NPO Diet [DIET] Diets 05/15/17 Breakfast Active Attending/Attestation - Attestation I have personally seen and examined this patient.: Yes I have fully participated in the care of the patient.: Yes I have reviewed all pertinent clinical information: Yes Notes (Text): 05/16/17 16:38 I have seen and examined the patient. Medical records, lab studies, and imaging were reviewed by me and a management plan was formulated on multidisciplinary rounds with resident Dr. Solis. I agree with their above documented assessment and plan. Patient has completed rewarming. Alert and following commands. Slowly weaning vent requirements, will soon be extubatable. Critical Care Time 35 minutes. Multi-disciplinary rounds were performed with house staff, nursing, speech therapy, respiratory therapy, pharmacy and nutrition with integrated input from the primary team/attending and other consulting services. The documented time is cumulative and includes review of patient data/exams/labs/chart review and examination of the patient on rounds and throughout the day; time is exclusive of any procedures or teaching time.
[2017-05-16] MEDS: Insulin Lispro (humaLOG) 100 Units/ml Inj SC SCH ×4 (10:23→21:44)
[2017-05-16] MEDS: Acetaminophen 650mg/20.3ml solution UD NG PRN (13:09)
--- NOTE | 2017-05-16 15:10 | CP.PCM.PN ---
Subjective - Date & Time of Evaluation Date of Evaluation: 05/16/17 Time of Evaluation: 15:09 - Subjective Subjective: no events overnight Objective - Vital Signs/Intake and Output Vital Signs (last 24 hours): Temp Pulse Resp BP Pulse Ox 98.2 F 112 H 26 H 135/75 100 05/16/17 14:09 05/16/17 14:09 05/16/17 14:05/16/17 14:09 05/16/17 06:30 Intake and Output: 05/16/17 05/16/17 06:59 18:59 Intake Total 1129 695 Output Total 800 0 Balance 329 695 - Medications Medications: Current Medications Acetaminophen (Tylenol 650mg/20.3ml Solution Ud) 975 mg NG Q6 PRN PRN Reason: Rigors Last Admin: 05/16/17 13:09 Dose: 975 mg Dextrose (Dextrose 50% Inj) 0 ml IV STAT PRN; Protocol PRN Reason: Hyglycemia Protocol Dextrose (Glutose 15) 0 gm PO ONCE PRN; Protocol PRN Reason: Hypoglycemia Protocol Dextrose (Dextrose 50% Inj) 0 ml IV STAT PRN; Protocol PRN Reason: Hyglycemia Protocol Dextrose (Glutose 15) 0 gm PO ONCE PRN; Protocol PRN Reason: Hypoglycemia Protocol Glucagon (Glucagen Diagnostic Kit) 0 mg IM STAT PRN; Protocol PRN Reason: Hypoglycemia Protocol Glucagon (Glucagen Diagnostic Kit) 0 mg IM STAT PRN; Protocol PRN Reason: Hypoglycemia Protocol Heparin Sodium (Porcine) (Heparin) 5,000 units SC Q12 JENI PRN Reason: Protocol Last Admin: 05/16/17 08:07 Dose: 5,000 units Piperacillin Sod/Tazobactam (Sod 2.25 gm/ Sodium Chloride) 100 mls @ 100 mls/ hr IVPB Q8 JENI Last Admin: 05/16/17 08:08 Dose: 100 mls/hr Nicardipine HCl (Cardene Iv Premix) 20 mg in 200 mls @ 50 mls/hr IV .Q4H JENI; 5 MG/HR PRN Reason: Protocol Last Titration: 05/15/17 16:30 Dose: 0 mg/hr, 0 mls/hr Propofol (Diprivan) 1,000 mg in 100 mls @ 2.722 mls/hr IV .Q24H JENI; 5 MCG/KG/ MIN PRN Reason: Protocol Stop: 05/16/17 18:33 Last Titration: 05/16/17 08:45 Dose: 30 mcg/kg/min, 16.329 mls/hr Sodium Bicarbonate 75 meq/ (Sodium Chloride) 1,075 mls @ 75 mls/hr IV .[id number] [facility] Stop: 05/16/17 18:51 Last Admin: 05/16/17 13:24 Dose: 75 mls/hr Insulin Human Lispro (Humalog) 0 units SC Q6 JENI PRN Reason: Protocol Last Admin: 05/16/17 10:23 Dose: Not Given Labetalol HCl (Trandate) [address] [facility] Last Admin: 05/16/17 13:23 Dose: 10 mg Midazolam HCl (Versed Inj) 2 mg IV Q2H PRN PRN Reason: Agitation Last Admin: 05/16/17 12:28 Dose: 2 mg Pantoprazole Sodium (Protonix Inj) [address] [facility] Last Admin: 05/16/17 08:20 Dose: 40 mg - Labs Labs: 05/16/17 04:30 05/16/17 04:30 PT 11.6 Seconds (9.8-13.1) 05/15/17 20:29 INR 1.1 (0.9-1.2) 05/15/17 20:29 APTT 35.8 Seconds (25.6-37.1) 05/15/17 20:29 - Constitutional Appears: Other (intubated ao times 0, ) - Eye Exam Eye Exam: Normal appearance - ENT Exam ENT Exam: Mucous Membranes Moist - Respiratory Exam Additional comments: vent dependent - Cardiovascular Exam Cardiovascular Exam: +S1, +S2 - GI/Abdominal Exam GI & Abdominal Exam: Soft - Extremities Exam Additional comments: bilateral LE amputations - Neurological Exam Additional comments: AO times 0 Assessment and Plan - Assessment and Plan (Free Text) Plan: ESRD/acute resp failure/pvd/cardiac arrest/anemia/hyperkalemia/acidosis hd mwf, has been gettingextra sessions opt sec to volume overload hd today per schedule hyperkalemia should improve with hd acidosis: should improve with hd anemia: no epo as hb>10
--- NOTE | 2017-05-16 20:39 | CON ---
DATE: 05/16/2017 NEUROLOGY CONSULT CHIEF COMPLAINT: Status post cardiac arrest. HISTORY OF PRESENT ILLNESS: A 41-year-old man with past medical history of end-stage renal disease, on hemodialysis on Monday, Monday, and Monday; type 2 diabetes mellitus; PVD; who was brought in after a cardiac arrest in the field. Apparently, per his fiancee after dinner he had a generalized shaking like activity and foaming of the mouth, and when the EMS had arrived, he was noted to be ventricular fibrillation/ventricular tachycardia, and was administered defibrillation. He was initially asystole, and a second a shot brought him back into atrial fibrillation, and he had systolic and diastolic blood pressure of 89/46 mmHg. He was also given a dose of epinephrine and a dose of amiodarone in the field. He was intubated and brought to the hospital. He had severe metabolic derangements, elevated BUN and creatinine, which he will be going for hemodialysis. Currently, he is on propofol though he is moving all extremities. He has bilateral below-knee amputations. He has a left BKA and a right AKA. He is moving all his upper extremities despite being on propofol. He is restless. He withdraws to localized deep noxious stimulus. No seizure like activity noticed. Currently, his blood pressures are stabilized, and his initial leukocytosis was likely possible to secondary aspiration pneumonia. PAST MEDICAL HISTORY: End-stage renal disease, on hemodialysis on Monday, Monday, and Monday; type 2 diabetes mellitus; peripheral vascular disease; left BKA, right AKA. REVIEW OF SYSTEMS: Difficult to obtain at this time due to underlying mental status. ALLERGIES: FISH. SOCIAL HISTORY: No illicit drug use, smoking, or EtOH abuse at this time. FAMILY HISTORY: Noncontributory. PHYSICAL EXAMINATION VITAL SIGNS: Temperature is 97.4, pulse rate of 125, blood pressure 127/80, respiratory rate of 19 and oxygen saturation is 100 % by mechanical ventilation. GENERAL: The patient is on sedation with propofol, though he is restless, moving around. HEENT: Head is atraumatic and normocephalic. PERRLA. Extraocular muscles are intact. NECK: Supple. No JVD. No adenopathy noted. LUNGS: Clear to auscultation. No adventitious sounds. HEART: S1 and S2, normal rate and rhythm. No murmurs, rubs, or gallops. ABDOMEN: Soft, nontender, and nondistended. Bowel sounds are present. EXTREMITIES: Left BKA and the right AKA. NEUROLOGIC: Drowsy and intubated on propofol though he has spontaneous movements of the upper extremities. Cranial nerves II through XII are intact. No doll's eyes are present. Brainstem reflexes are intact. Motor exam: Moving the upper extremities and bilateral lower thighs spontaneously. Motor was localized to noxious stimulus. DTRs are 1+ in the upper extremities. Coordination and gait deferred for now. LABORATORY DATA: Sodium is 144, potassium 5.6, chloride 99, carbon dioxide 19, BUN of 90, creatinine 11. Random glucose of 169. ASSESSMENT AND PLAN: This is a 41-year-old man with past medical history of end-stage renal disease, on hemodialysis on Monday, Monday, and Monday; type 2 diabetes mellitus; peripheral vascular disease; status post left below-knee amputation and right above-knee amputation, was brought in status post cardiac arrest, noticed to have foaming and non-seizure like activity with a round of ventricular fibrillation and ventricular tachycardia and was asystole and therefore was defibrillated back to a shock of atrial fibrillation. Currently, his cardiac arrest is unclear etiology, most likely secondary to metabolic derangements and cardiac in nature. At this time, his altered mental status is secondary to changes in cerebral hyperperfusion to the brain from the cardiac arrest which resulted also in unprovoked seizure. At this time recommend: 1. MRI of the brain without contrast to search for any infarcts. 2. EEG to assess brainwave activity. 3. Monitor electrolytes and correct accordingly. 4. Keep his blood sugars between 140 to 180. 5. Recommend IV thiamine 100 mg IV q. 12. 6. Follow up with nephrology in regards to his hemodialysis and his metabolic parameters and continue with current ICU management. Thank you for this consult. Delio Gomez MD
[2017-05-16] MEDS ORDERED: Sodium Chloride 0.9% 500 ML IV ONE (20:45)
[2017-05-17] MEDS: Insulin Lispro (humaLOG) 100 Units/ml Inj SC SCH ×4 (04:00→22:16)
[2017-05-17] MEDS: Acetaminophen 650mg/20.3ml solution UD NG PRN ×2 (04:04→08:18)
[2017-05-17 05:03] LABS: ABG ALLEN TEST YES; ABG MECHANICAL RATE 16; ARTERIAL BLOOD GAS HCO3 23.3 mmol/L (21-28); ARTERIAL BLOOD GAS MODE A/C; ARTERIAL BLOOD GAS O2 CAPACITY 18.1 mL/dL (16-24); ARTERIAL BLOOD GAS O2 CONTENT 17.8 ML/dL (15-23); ARTERIAL BLOOD GAS PH 7.35 (7.35-7.45); ARTERIAL BLOOD GAS PO2 231 mm/Hg (80-100); ARTERIAL BLOOD HGB O2 SAT 96.1 % (95.0-98.0); ATERIAL BLOOD GAS PEEP 8; CARBOXYHEMOGLOBIN 0.8 % (0.5-1.5); HHB 1.5 % (0.0-5.0); METHEMOGLOBIN 1.5 % (0.0-3.0)
[2017-05-17 05:26] LABS: HEMATOCRIT 38.3 % (35.0-51.0); MEAN CORPUSCULAR HEMOGLOBIN 26.8 pg (27.0-31.0); MEAN CORPUSCULAR HGB CONC 31.1 g/dL (33.0-37.0); RED CELL DISTRIBUTION WIDTH 18.9 % (11.5-14.5); WHITE BLOOD COUNT 11.3 K/uL (4.8-10.8)
[2017-05-17 05:34] LABS: CALCIUM 8.5 mg/dL (8.4-10.2)
[2017-05-17] MEDS: Labetalol 5mg/ml (4ml) IVP SCH ×3 (07:00→23:12)
[2017-05-17] MEDS ORDERED: Chlorhexidine Gluconate 1 APPL/PKT TP ONE (07:41)
--- NOTE | 2017-05-17 08:14 | CP.CCUPN ---
<Manasa Solis - Last Filed: 05/17/17 11:03> CCU Subjective - Physician Review Subjective (Free Text): 05/17/17 07:55 Patient seen and examined at bedside, intubated, awake, alert, follows commands , spontaneously moving b/l upper and proximal b/l LE. Was only able to tolerate 2hrs of HD yesterday due to low BP. BP has normalized today. Obrien was discontinued. Last night patient removed his OG tube, and NG tube was placed and patient removed it as well despite UE restraints and being under mild sedation. An OG tube was placed this AM. CCU Objective - Vital Signs / Intake & Output Vital Signs (Last 4 hours): Vital Signs Temp Pulse Resp BP Pulse Ox 05/17/17 07:00 114 H 18 157/15 H 100 05/17/17 06:00 124 H 22 135/76 100 05/17/17 05:00 99.8 F H 121 H 19 158/71 H 100 05/17/17 04:04 99.8 F H 05/17/17 04:00 99.8 F H 114 H 18 119/53 L 100 Intake and Output (Last 8hrs): Intake & Output 05/16/17 05/17/17 05/17/17 22:59 06:59 14:59 Intake Total 1217 604 16 Output Total 1701 0 0 Balance -484 604 16 Intake: IV 497 524 16 Intake, Piggyback 500 Tube Feeding 20 80 Free Water Flush 200 Output: Urine 0 0 0 Urethral (Obrien) 0 0 0 Stool 1 Ultrafiltrate 1700 - Physical Exam Physical Exam Limitations: Positive for: Other (Intubated, ,upper extremity restraints b/l) Head: Positive for: Atraumatic, Normocephalic Pupils: Positive for: PERRL Extroacular Muscles: Positive for: EOMI Conjunctiva: Positive for: Normal Mouth: Positive for: Moist Mucous Membranes, Other (approximately 10cc dark brown fluid reflux from OG tube this AM) Nose (External): Positive for: Atraumatic Neck: Positive for: Normal Range of Motion. Negative for: JVD Respiratory/Chest: Positive for: Clear to Auscultation, Other (right chest perm- cath (dressing clean/dry/intact)) Cardiovascular: Positive for: Regular Rate and Rhythm, Normal S1, S2 Abdomen: Positive for: Normal Bowel Sounds Genitourinary Male: Positive for: Other (obrien discontinued) Upper Extremity: Positive for: NORMAL PULSES (b/l restraints in place) Lower Extremity: Positive for: Other (left femoral vein catheter in place, right AKA, left BKA) Neurological: Positive for: Other (alert, awake, follows commands) Skin: Positive for: Warm, Dry Psychiatric: Positive for: Alert - Medications Active Medications: Active Medications Generic Name Dose Route Start Last Admin Trade Name Freq PRN Reason Stop Dose Admin Acetaminophen 975 mg 05/15/17 01:55 05/17/17 04:04 Tylenol 650mg/20.3ml Solution Ud NG 975 mg Q6 PRN Administration Rigors Dextrose 0 ml 05/15/17 02:12 Dextrose 50% Inj IV STAT PRN Hyglycemia Protocol Protocol Dextrose 0 gm 05/15/17 02:12 Glutose 15 PO ONCE PRN Hypoglycemia Protocol Protocol Dextrose 0 ml 05/16/17 09:59 Dextrose 50% Inj IV STAT PRN Hyglycemia Protocol Protocol Dextrose 0 gm 05/16/17 09:59 Glutose 15 PO ONCE PRN Hypoglycemia Protocol Protocol Glucagon 0 mg 05/15/17 02:12 Glucagen Diagnostic Kit IM STAT PRN Hypoglycemia Protocol Protocol Glucagon 0 mg 05/16/17 09:59 Glucagen Diagnostic Kit IM STAT PRN Hypoglycemia Protocol Protocol Heparin Sodium (Porcine) 5,000 units 05/15/17 21:00 05/16/17 21:17 Heparin SC 5,000 units Q12 JENI Administration Protocol Piperacillin Sod/Tazobactam 100 mls @ 100 mls/hr 05/15/17 09:30 05/17/17 01: 48 Sod 2.25 gm/ Sodium Chloride IVPB 100 mls/hr Q8 JENI Administration Nicardipine HCl 20 mg in 200 mls @ 50 mls/hr 05/15/17 13:30 05/15/17 16:30 Cardene Iv Premix IV 0 mg/hr .Q4H JENI 0 mls/hr Protocol Titration 5 MG/HR Propofol 1,000 mg in 100 mls @ 13.608 mls/hr 05/16/17 19:00 05/17/17 01:00 Diprivan IV 05/17/17 18:53 30 mcg/kg/min .Q7H21M JENI 16.329 mls/hr Protocol Titration 25 MCG/KG/MIN Ibuprofen 600 mg 05/16/17 17:40 05/16/17 18:21 Motrin Tab PO 600 mg Q6 PRN Administration Fever >100.4 F Insulin Human Lispro 0 units 05/16/17 10:00 05/17/17 04:00 Humalog SC Not Given Q6 [facility] Protocol Labetalol HCl 10 mg 05/15/17 23:45 05/17/17 07:00 Trandate IVP Not Given Q6H JENI Midazolam HCl 2 mg 05/16/17 04:33 05/16/17 18:32 Versed Inj IV 2 mg Q2H PRN Administration Agitation Pantoprazole Sodium 40 mg 05/15/17 09:00 05/16/17 08:20 Protonix Inj IVP 40 mg DAILY JENI Administration - Patient Studies Lab Studies: Microbiology Studies 05/15/17 14:00 Blood Culture - Preliminary Blood-Thru Central Line NO GROWTH AFTER 24 HOURS 05/15/17 09:03 MRSA Culture (Admit) - Final Nose MRSA NOT DETECTED Lab Studies 05/17/17 05/17/17 05/17/17 Range/Units 04:57 04:20 04:20 WBC 11.3 H (4.8-10.8) K/uL RBC 4.46 (4.40-5.90) Mil/uL Hgb 11.9 L (12.0-18.0) g/dL Hct 38.3 (35.0-51.0) % MCV 86.0 (80.0-94.0) fl MCH 26.8 L (27.0-31.0) pg MCHC 31.1 L (33.0-37.0) g/dL RDW 18.9 H (11.5-14.5) % Plt Count 144 (130-400) K/uL pCO2 43 (35-45) mm/Hg pO2 231 H (80-100) mm/Hg HCO3 23.3 (21-28) mmol/L ABG pH 7.35 (7.35-7.45) ABG Total CO2 25.0 (22-28) mmol/L ABG O2 Saturation 98.5 H (95-98) % ABG O2 Content 17.8 (15-23) ML/dL ABG Base Excess -2.0 (-2.0-3.0) mmol/L ABG Hemoglobin 12.8 (11.7-17.4) g/dL ABG Carboxyhemoglobin 0.8 (0.5-1.5) % POC ABG HHb (Measured) 1.5 (0.0-5.0) % ABG Methemoglobin 1.5 (0.0-3.0) % ABG O2 Capacity 18.1 (16-24) mL/dL Gurdeep Test Yes A-a O2 Difference 214.0 mm/Hg Hgb O2 Saturation 96.1 (95.0-98.0) % Vent Mode A/c Mechanical Rate 16 FiO2 70.0 % Tidal Volume 500 PEEP 8 Sodium 140 (132-148) mmol/l Potassium 5.0 (3.6-5.0) MMOL/L Chloride 95 L (98-107) mmol/L Carbon Dioxide 22 (22-30) mmol/L Anion Gap 28 H (10-20) BUN 72 H (9-20) mg/dl Creatinine 9.8 H* (0.8-1.5) mg/dL Est GFR ( Amer) 7 Est GFR (Non-Af Amer) 6 POC Glucose (mg/dL) (65-110) mg/dL Random Glucose 150 H (75-110) mg/dL Calcium 8.5 (8.4-10.2) mg/dL Hep Bs Antigen (NEGATIVE) Hep Bs Antibody (NEGATIVE) Hepatitis C Antibody (NEGATIVE) 05/17/17 05/16/17 05/16/17 Range/Units 04:17 21:08 18:36 WBC (4.8-10.8) K/uL RBC (4.40-5.90) Mil/uL Hgb (12.0-18.0) g/dL Hct (35.0-51.0) % MCV (80.0-94.0) fl MCH (27.0-31.0) pg MCHC (33.0-37.0) g/dL RDW (11.5-14.5) % Plt Count (130-400) K/uL pCO2 (35-45) mm/Hg pO2 (80-100) mm/Hg HCO3 (21-28) mmol/L ABG pH (7.35-7.45) ABG Total CO2 (22-28) mmol/L ABG O2 Saturation (95-98) % ABG O2 Content (15-23) ML/dL ABG Base Excess (-2.0-3.0) mmol/L ABG Hemoglobin (11.7-17.4) g/dL ABG Carboxyhemoglobin (0.5-1.5) % POC ABG HHb (Measured) (0.0-5.0) % ABG Methemoglobin (0.0-3.0) % ABG O2 Capacity (16-24) mL/dL Gurdeep Test A-a O2 Difference mm/Hg Hgb O2 Saturation (95.0-98.0) % Vent Mode Mechanical Rate FiO2 % Tidal Volume PEEP Sodium (132-148) mmol/l Potassium (3.6-5.0) MMOL/L Chloride (98-107) mmol/L Carbon Dioxide (22-30) mmol/L Anion Gap (10-20) BUN (9-20) mg/dl Creatinine (0.8-1.5) mg/dL Est GFR ( Amer) Est GFR (Non-Af Amer) POC Glucose (mg/dL) 133 H 167 H 134 H (65-110) mg/dL Random Glucose (75-110) mg/dL Calcium (8.4-10.2) mg/dL Hep Bs Antigen (NEGATIVE) Hep Bs Antibody (NEGATIVE) Hepatitis C Antibody (NEGATIVE) 05/16/17 05/16/17 05/16/17 Range/Units 18:00 18:00 15:45 WBC (4.8-10.8) K/uL RBC (4.40-5.90) Mil/uL Hgb (12.0-18.0) g/dL Hct (35.0-51.0) % MCV (80.0-94.0) fl MCH (27.0-31.0) pg MCHC (33.0-37.0) g/dL RDW (11.5-14.5) % Plt Count (130-400) K/uL pCO2 (35-45) mm/Hg pO2 (80-100) mm/Hg HCO3 (21-28) mmol/L ABG pH (7.35-7.45) ABG Total CO2 (22-28) mmol/L ABG O2 Saturation (95-98) % ABG O2 Content (15-23) ML/dL ABG Base Excess (-2.0-3.0) mmol/L ABG Hemoglobin (11.7-17.4) g/dL ABG Carboxyhemoglobin (0.5-1.5) % POC ABG HHb (Measured) (0.0-5.0) % ABG Methemoglobin (0.0-3.0) % ABG O2 Capacity (16-24) mL/dL Gurdeep Test A-a O2 Difference mm/Hg Hgb O2 Saturation (95.0-98.0) % Vent Mode Mechanical Rate FiO2 % Tidal Volume PEEP Sodium (132-148) mmol/l Potassium (3.6-5.0) MMOL/L Chloride (98-107) mmol/L Carbon Dioxide (22-30) mmol/L Anion Gap (10-20) BUN (9-20) mg/dl Creatinine (0.8-1.5) mg/dL Est GFR ( Amer) Est GFR (Non-Af Amer) POC Glucose (mg/dL) 160 H (65-110) mg/dL Random Glucose (75-110) mg/dL Calcium (8.4-10.2) mg/dL Hep Bs Antigen Negative (NEGATIVE) Hep Bs Antibody Positive (NEGATIVE) Hepatitis C Antibody Negative (NEGATIVE) 05/16/17 05/16/17 05/16/17 Range/Units 11:00 10:02 09:05 WBC (4.8-10.8) K/uL RBC (4.40-5.90) Mil/uL Hgb (12.0-18.0) g/dL Hct (35.0-51.0) % MCV (80.0-94.0) fl MCH (27.0-31.0) pg MCHC (33.0-37.0) g/dL RDW (11.5-14.5) % Plt Count (130-400) K/uL pCO2 41 (35-45) mm/Hg pO2 114 H (80-100) mm/Hg HCO3 18.9 L (21-28) mmol/L ABG pH 7.27 L (7.35-7.45) ABG Total CO2 20.1 L (22-28) mmol/L ABG O2 Saturation 97.4 (95-98) % ABG O2 Content 18.6 (15-23) ML/dL ABG Base Excess -7.7 L (-2.0-3.0) mmol/L ABG Hemoglobin 13.8 (11.7-17.4) g/dL ABG Carboxyhemoglobin 0.9 (0.5-1.5) % POC ABG HHb (Measured) 2.5 (0.0-5.0) % ABG Methemoglobin 1.6 (0.0-3.0) % ABG O2 Capacity 19.1 (16-24) mL/dL Gurdeep Test Yes A-a O2 Difference 334.0 mm/Hg Hgb O2 Saturation 95.1 (95.0-98.0) % Vent Mode Mechanical Rate FiO2 70.0 % Tidal Volume PEEP Sodium (132-148) mmol/l Potassium (3.6-5.0) MMOL/L Chloride (98-107) mmol/L Carbon Dioxide (22-30) mmol/L Anion Gap (10-20) BUN (9-20) mg/dl Creatinine (0.8-1.5) mg/dL Est GFR ( Amer) Est GFR (Non-Af Amer) POC Glucose (mg/dL) 154 H 147 H (65-110) mg/dL Random Glucose (75-110) mg/dL Calcium (8.4-10.2) mg/dL Hep Bs Antigen (NEGATIVE) Hep Bs Antibody (NEGATIVE) Hepatitis C Antibody (NEGATIVE) 05/16/17 Range/Units 07:59 WBC (4.8-10.8) K/uL RBC (4.40-5.90) Mil/uL Hgb (12.0-18.0) g/dL Hct (35.0-51.0) % MCV (80.0-94.0) fl MCH (27.0-31.0) pg MCHC (33.0-37.0) g/dL RDW (11.5-14.5) % Plt Count (130-400) K/uL pCO2 (35-45) mm/Hg pO2 (80-100) mm/Hg HCO3 (21-28) mmol/L ABG pH (7.35-7.45) ABG Total CO2 (22-28) mmol/L ABG O2 Saturation (95-98) % ABG O2 Content (15-23) ML/dL ABG Base Excess (-2.0-3.0) mmol/L ABG Hemoglobin (11.7-17.4) g/dL ABG Carboxyhemoglobin (0.5-1.5) % POC ABG HHb (Measured) (0.0-5.0) % ABG Methemoglobin (0.0-3.0) % ABG O2 Capacity (16-24) mL/dL Gurdeep Test A-a O2 Difference mm/Hg Hgb O2 Saturation (95.0-98.0) % Vent Mode Mechanical Rate FiO2 % Tidal Volume PEEP Sodium (132-148) mmol/l Potassium (3.6-5.0) MMOL/L Chloride (98-107) mmol/L Carbon Dioxide (22-30) mmol/L Anion Gap (10-20) BUN (9-20) mg/dl Creatinine (0.8-1.5) mg/dL Est GFR ( Amer) Est GFR (Non-Af Amer) POC Glucose (mg/dL) 128 H (65-110) mg/dL Random Glucose (75-110) mg/dL Calcium (8.4-10.2) mg/dL Hep Bs Antigen (NEGATIVE) Hep Bs Antibody (NEGATIVE) Hepatitis C Antibody (NEGATIVE) Laboratory Results - last 24 hr 05/16/17 05/16/17 05/16/17 07:59 09:05 10:02 WBC RBC Hgb Hct MCV MCH MCHC RDW Plt Count pCO2 41 pO2 114 H HCO3 18.9 L ABG pH 7.27 L ABG Total CO2 20.1 L ABG O2 Saturation 97.4 ABG O2 Content 18.6 ABG Base Excess -7.7 L ABG Hemoglobin 13.8 ABG Carboxyhemoglobin 0.9 POC ABG HHb (Measured) 2.5 ABG Methemoglobin 1.6 ABG O2 Capacity 19.1 Gurdeep Test Yes A-a O2 Difference 334.0 Hgb O2 Saturation 95.1 Vent Mode Mechanical Rate FiO2 70.0 Tidal Volume PEEP Sodium Potassium Chloride Carbon Dioxide Anion Gap BUN Creatinine Est GFR ( Amer) Est GFR (Non-Af Amer) POC Glucose (mg/dL) 128 H 147 H Random Glucose Calcium Hep Bs Antigen Hep Bs Antibody Hepatitis C Antibody 05/16/17 05/16/17 05/16/17 11:00 15:45 18:00 WBC RBC Hgb Hct MCV MCH MCHC RDW Plt Count pCO2 pO2 HCO3 ABG pH ABG Total CO2 ABG O2 Saturation ABG O2 Content ABG Base Excess ABG Hemoglobin ABG Carboxyhemoglobin POC ABG HHb (Measured) ABG Methemoglobin ABG O2 Capacity Gurdeep Test A-a O2 Difference Hgb O2 Saturation Vent Mode Mechanical Rate FiO2 Tidal Volume PEEP Sodium Potassium Chloride Carbon Dioxide Anion Gap BUN Creatinine Est GFR ( Amer) Est GFR (Non-Af Amer) POC Glucose (mg/dL) 154 H 160 H Random Glucose Calcium Hep Bs Antigen Negative Hep Bs Antibody Hepatitis C Antibody Negative 05/16/17 05/16/17 05/16/17 18:00 18:36 21:08 WBC RBC Hgb Hct MCV MCH MCHC RDW Plt Count pCO2 pO2 HCO3 ABG pH ABG Total CO2 ABG O2 Saturation ABG O2 Content ABG Base Excess ABG Hemoglobin ABG Carboxyhemoglobin POC ABG HHb (Measured) ABG Methemoglobin ABG O2 Capacity Gurdeep Test A-a O2 Difference Hgb O2 Saturation Vent Mode Mechanical Rate FiO2 Tidal Volume PEEP Sodium Potassium Chloride Carbon Dioxide Anion Gap BUN Creatinine Est GFR ( Amer) Est GFR (Non-Af Amer) POC Glucose (mg/dL) 134 H 167 H Random Glucose Calcium Hep Bs Antigen Hep Bs Antibody Positive Hepatitis C Antibody 05/17/17 05/17/17 05/17/17 04:17 04:20 04:20 WBC 11.3 H RBC 4.46 Hgb 11.9 L Hct 38.3 MCV 86.0 MCH 26.8 L MCHC 31.1 L RDW 18.9 H Plt Count 144 pCO2 pO2 HCO3 ABG pH ABG Total CO2 ABG O2 Saturation ABG O2 Content ABG Base Excess ABG Hemoglobin ABG Carboxyhemoglobin POC ABG HHb (Measured) ABG Methemoglobin ABG O2 Capacity Gurdeep Test A-a O2 Difference Hgb O2 Saturation Vent Mode Mechanical Rate FiO2 Tidal Volume PEEP Sodium 140 Potassium 5.0 Chloride 95 L Carbon Dioxide 22 Anion Gap 28 H BUN 72 H Creatinine 9.8 H* Est GFR ( Amer) 7 Est GFR (Non-Af Amer) 6 POC Glucose (mg/dL) 133 H Random Glucose 150 H Calcium 8.5 Hep Bs Antigen Hep Bs Antibody Hepatitis C Antibody 05/17/17 04:57 WBC RBC Hgb Hct MCV MCH MCHC RDW Plt Count pCO2 43 pO2 231 H HCO3 23.3 ABG pH 7.35 ABG Total CO2 25.0 ABG O2 Saturation 98.5 H ABG O2 Content 17.8 ABG Base Excess -2.0 ABG Hemoglobin 12.8 ABG Carboxyhemoglobin 0.8 POC ABG HHb (Measured) 1.5 ABG Methemoglobin 1.5 ABG O2 Capacity 18.1 Gurdeep Test Yes A-a O2 Difference 214.0 Hgb O2 Saturation 96.1 Vent Mode A/c Mechanical Rate 16 FiO2 70.0 Tidal Volume 500 PEEP 8 Sodium Potassium Chloride Carbon Dioxide Anion Gap BUN Creatinine Est GFR ( Amer) Est GFR (Non-Af Amer) POC Glucose (mg/dL) Random Glucose Calcium Hep Bs Antigen Hep Bs Antibody Hepatitis C Antibody Fingerstick Blood Sugar Results: 133 Review of Systems - Review of Systems Systems not reviewed;Unavailable: Intubated Review of Systems: denies chest or abd pain via head gesture Critical Care Progress Note - Ventilator Checklist Head of Bed 30 Degrees: Yes Daily Sedation Vacation: Yes Daily Assessment of Readiness to Wean: Yes PUD Prophalyxis: Yes DVT Prophylaxis: Yes - Vent Settings MODE:: PRVC (/AC) TIDAL VOLUME:: 500 RESP RATE:: 16 FIO2:: 60 PEEP:: 8 - Extremities/Vascular Does the Patient have a Central Venous Catheter?: Yes Insertion Site: Femoral Vein (left) Does the Patient need a Central Venous Catheter?: Yes Does the Patient have a Obrien Catheter?: No Does the Patient need a Obrien Catheter?: No - Restraints Justification for Restraints: High risk for self extubation - Prophylaxis GI Prophylaxis GI: PPI - Prophylaxis DVT Prophylaxis DVT: Heparin SQ (AM dose held d/t dark brown fluid reflux from OG tube this AM) - Nutrition Nutrition: Nutrition Category Date Time Status NPO Diet [DIET] Diets 05/15/17 Breakfast Active Assessment/Plan - Assessment and Plan (Free Text) Assessment: 41 yr old with PMHx of ESRD on HD MWF, DM2, PVD with R AKA and L BKA, admitted to ICU s/p cardiac arrest with acute respiratory failure 2dary to cardiac arrest. Neuro: alert and following commands, CT negative for ICH of mass effect, per neurology follow up EEG and MRI Brain Pulm: acute respiratory failure on vent, restless (will d/c propofol drip, and start Fentanyl ) CV: s/p cardiac arrest, BP stable, regular rhythm, f/u echo per cardiology, 24hr post-hypothermia protocol ends at 4:30pm today, Tylenol PRN for temp >37 C Hem: hemodynamically stable, no pressors required, pt has left femoral veina catheter and right chest perm-cath port, PICC ordered, will remove left femoral vein catheter after PICC placement Renal: acidosis resolved, ESRD on HD MWD, only tolerated 2hr of HD yesterday d/ t low BP during session, will have HD today Endo: DM type 2, short acting insulin coverage scale Q6h, accucheck Q4h GI: NPO, OG tube feeds held today d/t dark brown fluid reflux from OG tube this AM ID: Tmax 100.3 F at 9am today, Tylenol PRN to keep temp < 98.6 F , negative Bcx , f/u repeat BCx, leukocytosis 11.3, empiric Zosyn DVT prophylaxis - heparin SC Q12, held this AM d/t dark brown fluid reflux from OG tube GI proph - Protonix IV QD Code status - full code - Date & Time Date: 05/17/17 Time: 08:00 <Gideon Torres M - Last Filed: 05/17/17 16:01> CCU Objective - Vital Signs / Intake & Output Vital Signs (Last 4 hours): Vital Signs Temp Pulse Resp BP Pulse Ox 05/17/17 15:00 99.9 F H 118 H 20 105/74 100 05/17/17 14:30 100.1 F H 121 H 20 122/78 100 05/17/17 14:00 125 H 20 106/71 100 05/17/17 13:30 99.9 F H 05/17/17 13:00 125 H 20 145/66 100 05/17/17 12:30 100.2 F H 123 H 20 141/94 H 100 Intake and Output (Last 8hrs): Intake & Output 05/17/17 05/17/17 05/17/17 06:59 14:59 22:59 Intake Total 609 191 40 Output Total 0 0 Balance 609 191 40 Weight 201 lb 3.2 oz Intake: IV 529 16 Intake, Piggyback 100 Tube Feeding 80 Free Water Flush 75 40 Output: Urine 0 0 Urethral (Obrien) 0 0 - Medications Active Medications: Active Medications Generic Name Dose Route Start Last Admin Trade Name Freq PRN Reason Stop Dose Admin Dextrose 0 ml 05/15/17 02:12 Dextrose 50% Inj IV STAT PRN Hyglycemia Protocol Protocol Dextrose 0 gm 05/15/17 02:12 Glutose 15 PO ONCE PRN Hypoglycemia Protocol Protocol Dextrose 0 ml 05/16/17 09:59 Dextrose 50% Inj IV STAT PRN Hyglycemia Protocol Protocol Dextrose 0 gm 05/16/17 09:59 Glutose 15 PO ONCE PRN Hypoglycemia Protocol Protocol Glucagon 0 mg 05/15/17 02:12 Glucagen Diagnostic Kit IM STAT PRN Hypoglycemia Protocol Protocol Glucagon 0 mg 05/16/17 09:59 Glucagen Diagnostic Kit IM STAT PRN Hypoglycemia Protocol Protocol Heparin Sodium (Porcine) 5,000 units 05/15/17 21:00 05/17/17 08:23 Heparin SC 5,000 units Q12 JENI Administration Protocol Piperacillin Sod/Tazobactam 100 mls @ 100 mls/hr 05/15/17 09:30 05/17/17 10: 14 Sod 2.25 gm/ Sodium Chloride IVPB 100 mls/hr Q8 JENI Administration Fentanyl Citrate 2,500 mcg/ 250 mls @ 6.3 mls/hr 05/17/17 10:00 05/17/17 12: 24 Dextrose IV 6.3 mls/hr .Q24H JENI Administration 63 MCG/HR Vancomycin HCl 1 gm/ Sodium 250 mls @ 125 mls/hr 05/17/17 14:31 05/17/17 14: 59 Chloride IVPB 125 mls/hr MWF JENI Administration Ibuprofen 600 mg 05/16/17 17:40 05/17/17 12:30 Motrin Tab PO 600 mg Q6 PRN Administration Fever >100.4 F Insulin Human Lispro 0 units 05/16/17 10:00 05/17/17 11:16 Humalog SC Not Given Q6 JENI Protocol Labetalol HCl 10 mg 05/15/17 23:45 05/17/17 12:44 Trandate IVP Not Given Q6H JENI Midazolam HCl 2 mg 05/16/17 04:33 05/16/17 18:32 Versed Inj IV 2 mg Q2H PRN Administration Agitation Pantoprazole Sodium 40 mg 05/15/17 09:00 05/17/17 08:22 Protonix Inj IVP 40 mg DAILY JENI Administration - Patient Studies Lab Studies: Microbiology Studies 05/15/17 14:00 Blood Culture - Preliminary Blood-Thru Central Line NO GROWTH AFTER 48 HOURS Lab Studies 05/17/17 05/17/17 05/17/17 Range/Units 12:30 11:16 04:57 WBC 9.9 (4.8-10.8) K/uL RBC 4.18 L (4.40-5.90) Mil/uL Hgb 11.5 L (12.0-18.0) g/dL Hct 35.9 (35.0-51.0) % MCV 85.9 (80.0-94.0) fl MCH 27.4 (27.0-31.0) pg MCHC 31.9 L (33.0-37.0) g/dL RDW 19.1 H (11.5-14.5) % Plt Count 133 (130-400) K/uL pCO2 43 (35-45) mm/Hg pO2 231 H (80-100) mm/Hg HCO3 23.3 (21-28) mmol/L ABG pH 7.35 (7.35-7.45) ABG Total CO2 25.0 (22-28) mmol/L ABG O2 Saturation 98.5 H (95-98) % ABG O2 Content 17.8 (15-23) ML/dL ABG Base Excess -2.0 (-2.0-3.0) mmol/L ABG Hemoglobin 12.8 (11.7-17.4) g/dL ABG Carboxyhemoglobin 0.8 (0.5-1.5) % POC ABG HHb (Measured) 1.5 (0.0-5.0) % ABG Methemoglobin 1.5 (0.0-3.0) % ABG O2 Capacity 18.1 (16-24) mL/dL Gurdeep Test Yes A-a O2 Difference 214.0 mm/Hg Hgb O2 Saturation 96.1 (95.0-98.0) % Vent Mode A/c Mechanical Rate 16 FiO2 70.0 % Tidal Volume 500 PEEP 8 Sodium (132-148) mmol/l Potassium (3.6-5.0) MMOL/L Chloride (98-107) mmol/L Carbon Dioxide (22-30) mmol/L Anion Gap (10-20) BUN (9-20) mg/dl Creatinine (0.8-1.5) mg/dL Est GFR ( Amer) Est GFR (Non-Af Amer) POC Glucose (mg/dL) 131 H (65-110) mg/dL Random Glucose (75-110) mg/dL Calcium (8.4-10.2) mg/dL Hep Bs Antigen (NEGATIVE) Hep Bs Antibody (NEGATIVE) Hepatitis C Antibody (NEGATIVE) 05/17/17 05/17/17 05/17/17 Range/Units 04:20 04:20 04:17 WBC 11.3 H (4.8-10.8) K/uL RBC 4.46 (4.40-5.90) Mil/uL Hgb 11.9 L (12.0-18.0) g/dL Hct 38.3 (35.0-51.0) % MCV 86.0 (80.0-94.0) fl MCH 26.8 L (27.0-31.0) pg MCHC 31.1 L (33.0-37.0) g/dL RDW 18.9 H (11.5-14.5) % Plt Count 144 (130-400) K/uL pCO2 (35-45) mm/Hg pO2 (80-100) mm/Hg HCO3 (21-28) mmol/L ABG pH (7.35-7.45) ABG Total CO2 (22-28) mmol/L ABG O2 Saturation (95-98) % ABG O2 Content (15-23) ML/dL ABG Base Excess (-2.0-3.0) mmol/L ABG Hemoglobin (11.7-17.4) g/dL ABG Carboxyhemoglobin (0.5-1.5) % POC ABG HHb (Measured) (0.0-5.0) % ABG Methemoglobin (0.0-3.0) % ABG O2 Capacity (16-24) mL/dL Gurdeep Test A-a O2 Difference mm/Hg Hgb O2 Saturation (95.0-98.0) % Vent Mode Mechanical Rate FiO2 % Tidal Volume PEEP Sodium 140 (132-148) mmol/l Potassium 5.0 (3.6-5.0) MMOL/L Chloride 95 L (98-107) mmol/L Carbon Dioxide 22 (22-30) mmol/L Anion Gap 28 H (10-20) BUN 72 H (9-20) mg/dl Creatinine 9.8 H* (0.8-1.5) mg/dL Est GFR ( Amer) 7 Est GFR (Non-Af Amer) 6 POC Glucose (mg/dL) 133 H (65-110) mg/dL Random Glucose 150 H (75-110) mg/dL Calcium 8.5 (8.4-10.2) mg/dL Hep Bs Antigen (NEGATIVE) Hep Bs Antibody (NEGATIVE) Hepatitis C Antibody (NEGATIVE) 05/16/17 05/16/17 05/16/17 Range/Units 21:08 18:36 18:00 WBC (4.8-10.8) K/uL RBC (4.40-5.90) Mil/uL Hgb (12.0-18.0) g/dL Hct (35.0-51.0) % MCV (80.0-94.0) fl MCH (27.0-31.0) pg MCHC (33.0-37.0) g/dL RDW (11.5-14.5) % Plt Count (130-400) K/uL pCO2 (35-45) mm/Hg pO2 (80-100) mm/Hg HCO3 (21-28) mmol/L ABG pH (7.35-7.45) ABG Total CO2 (22-28) mmol/L ABG O2 Saturation (95-98) % ABG O2 Content (15-23) ML/dL ABG Base Excess (-2.0-3.0) mmol/L ABG Hemoglobin (11.7-17.4) g/dL ABG Carboxyhemoglobin (0.5-1.5) % POC ABG HHb (Measured) (0.0-5.0) % ABG Methemoglobin (0.0-3.0) % ABG O2 Capacity (16-24) mL/dL Gurdeep Test A-a O2 Difference mm/Hg Hgb O2 Saturation (95.0-98.0) % Vent Mode Mechanical Rate FiO2 % Tidal Volume PEEP Sodium (132-148) mmol/l Potassium (3.6-5.0) MMOL/L Chloride (98-107) mmol/L Carbon Dioxide (22-30) mmol/L Anion Gap (10-20) BUN (9-20) mg/dl Creatinine (0.8-1.5) mg/dL Est GFR ( Amer) Est GFR (Non-Af Amer) POC Glucose (mg/dL) 167 H 134 H (65-110) mg/dL Random Glucose (75-110) mg/dL Calcium (8.4-10.2) mg/dL Hep Bs Antigen (NEGATIVE) Hep Bs Antibody Positive (NEGATIVE) Hepatitis C Antibody (NEGATIVE) 05/16/17 Range/Units 18:00 WBC (4.8-10.8) K/uL RBC (4.40-5.90) Mil/uL Hgb (12.0-18.0) g/dL Hct (35.0-51.0) % MCV (80.0-94.0) fl MCH (27.0-31.0) pg MCHC (33.0-37.0) g/dL RDW (11.5-14.5) % Plt Count (130-400) K/uL pCO2 (35-45) mm/Hg pO2 (80-100) mm/Hg HCO3 (21-28) mmol/L ABG pH (7.35-7.45) ABG Total CO2 (22-28) mmol/L ABG O2 Saturation (95-98) % ABG O2 Content (15-23) ML/dL ABG Base Excess (-2.0-3.0) mmol/L ABG Hemoglobin (11.7-17.4) g/dL ABG Carboxyhemoglobin (0.5-1.5) % POC ABG HHb (Measured) (0.0-5.0) % ABG Methemoglobin (0.0-3.0) % ABG O2 Capacity (16-24) mL/dL Gurdeep Test A-a O2 Difference mm/Hg Hgb O2 Saturation (95.0-98.0) % Vent Mode Mechanical Rate FiO2 % Tidal Volume PEEP Sodium (132-148) mmol/l Potassium (3.6-5.0) MMOL/L Chloride (98-107) mmol/L Carbon Dioxide (22-30) mmol/L Anion Gap (10-20) BUN (9-20) mg/dl Creatinine (0.8-1.5) mg/dL Est GFR ( Amer) Est GFR (Non-Af Amer) POC Glucose (mg/dL) (65-110) mg/dL Random Glucose (75-110) mg/dL Calcium (8.4-10.2) mg/dL Hep Bs Antigen Negative (NEGATIVE) Hep Bs Antibody (NEGATIVE) Hepatitis C Antibody Negative (NEGATIVE) Laboratory Results - last 24 hr 05/16/17 05/16/17 05/16/17 18:00 18:00 18:36 WBC RBC Hgb Hct MCV MCH MCHC RDW Plt Count pCO2 pO2 HCO3 ABG pH ABG Total CO2 ABG O2 Saturation ABG O2 Content ABG Base Excess ABG Hemoglobin ABG Carboxyhemoglobin POC ABG HHb (Measured) ABG Methemoglobin ABG O2 Capacity Gurdeep Test A-a O2 Difference Hgb O2 Saturation Vent Mode Mechanical Rate FiO2 Tidal Volume PEEP Sodium Potassium Chloride Carbon Dioxide Anion Gap BUN Creatinine Est GFR ( Amer) Est GFR (Non-Af Amer) POC Glucose (mg/dL) 134 H Random Glucose Calcium Hep Bs Antigen Negative Hep Bs Antibody Positive Hepatitis C Antibody Negative 05/16/17 05/17/17 05/17/17 21:08 04:17 04:20 WBC 11.3 H RBC 4.46 Hgb 11.9 L Hct 38.3 MCV 86.0 MCH 26.8 L MCHC 31.1 L RDW 18.9 H Plt Count 144 pCO2 pO2 HCO3 ABG pH ABG Total CO2 ABG O2 Saturation ABG O2 Content ABG Base Excess ABG Hemoglobin ABG Carboxyhemoglobin POC ABG HHb (Measured) ABG Methemoglobin ABG O2 Capacity Gurdeep Test A-a O2 Difference Hgb O2 Saturation Vent Mode Mechanical Rate FiO2 Tidal Volume PEEP Sodium Potassium Chloride Carbon Dioxide Anion Gap BUN Creatinine Est GFR ( Amer) Est GFR (Non-Af Amer) POC Glucose (mg/dL) 167 H 133 H Random Glucose Calcium Hep Bs Antigen Hep Bs Antibody Hepatitis C Antibody 05/17/17 05/17/17 05/17/17 04:20 04:57 11:16 WBC RBC Hgb Hct MCV MCH MCHC RDW Plt Count pCO2 43 pO2 231 H HCO3 23.3 ABG pH 7.35 ABG Total CO2 25.0 ABG O2 Saturation 98.5 H ABG O2 Content 17.8 ABG Base Excess -2.0 ABG Hemoglobin 12.8 ABG Carboxyhemoglobin 0.8 POC ABG HHb (Measured) 1.5 ABG Methemoglobin 1.5 ABG O2 Capacity 18.1 Gurdeep Test Yes A-a O2 Difference 214.0 Hgb O2 Saturation 96.1 Vent Mode A/c Mechanical Rate 16 FiO2 70.0 Tidal Volume 500 PEEP 8 Sodium 140 Potassium 5.0 Chloride 95 L Carbon Dioxide 22 Anion Gap 28 H BUN 72 H Creatinine 9.8 H* Est GFR ( Amer) 7 Est GFR (Non-Af Amer) 6 POC Glucose (mg/dL) 131 H Random Glucose 150 H Calcium 8.5 Hep Bs Antigen Hep Bs Antibody Hepatitis C Antibody 05/17/17 12:30 WBC 9.9 RBC 4.18 L Hgb 11.5 L Hct 35.9 MCV 85.9 MCH 27.4 MCHC 31.9 L RDW 19.1 H Plt Count 133 pCO2 pO2 HCO3 ABG pH ABG Total CO2 ABG O2 Saturation ABG O2 Content ABG Base Excess ABG Hemoglobin ABG Carboxyhemoglobin POC ABG HHb (Measured) ABG Methemoglobin ABG O2 Capacity Gurdeep Test A-a O2 Difference Hgb O2 Saturation Vent Mode Mechanical Rate FiO2 Tidal Volume PEEP Sodium Potassium Chloride Carbon Dioxide Anion Gap BUN Creatinine Est GFR ( Amer) Est GFR (Non-Af Amer) POC Glucose (mg/dL) Random Glucose Calcium Hep Bs Antigen Hep Bs Antibody Hepatitis C Antibody Attending/Attestation - Attestation I have personally seen and examined this patient.: Yes I have fully participated in the care of the patient.: Yes I have reviewed all pertinent clinical information: Yes Notes (Text): 05/17/17 16:01 Today: Wednesday, May 17, 2017 The patient was Seen/interviewed and examined by me at the bedside during ICU round, Medical records reviewed and Management issues were discussed and formulated with the house staff. I have reviewed all the relevant clinical, laboratory, hemodynamic, radiographic data and medications Pain issues, skin care, head of the bed elevation, glycemic control were addressed. I concur with resident's assessment and plan of care as transcribed in Dr. Solis note.
--- NOTE | 2017-05-17 08:20 | CP.PCM.PN ---
Subjective - Date & Time of Evaluation Date of Evaluation: 05/16/17 Time of Evaluation: 10:00 - Subjective Subjective: patient remains intubated. undergoing rewarming Objective - Vital Signs/Intake and Output Vital Signs (last 24 hours): Temp Pulse Resp BP Pulse Ox 99.8 F H 114 H 18 157/15 H 100 05/17/17 05:00 05/17/17 07:00 05/17/17 07:00 05/17/17 07:00 05/17/17 07:00 Intake and Output: 05/17/17 05/17/17 06:59 18:59 Intake Total 1821 16 Output Total 1701 0 Balance 120 16 - Medications Medications: Current Medications Acetaminophen (Tylenol 650mg/20.3ml Solution Ud) 975 mg NG Q6 PRN PRN Reason: Rigors Last Admin: 05/17/17 04:04 Dose: 975 mg Dextrose (Dextrose 50% Inj) 0 ml IV STAT PRN; Protocol PRN Reason: Hyglycemia Protocol Dextrose (Glutose 15) 0 gm PO ONCE PRN; Protocol PRN Reason: Hypoglycemia Protocol Dextrose (Dextrose 50% Inj) 0 ml IV STAT PRN; Protocol PRN Reason: Hyglycemia Protocol Dextrose (Glutose 15) 0 gm PO ONCE PRN; Protocol PRN Reason: Hypoglycemia Protocol Glucagon (Glucagen Diagnostic Kit) 0 mg IM STAT PRN; Protocol PRN Reason: Hypoglycemia Protocol Glucagon (Glucagen Diagnostic Kit) 0 mg IM STAT PRN; Protocol PRN Reason: Hypoglycemia Protocol Heparin Sodium (Porcine) (Heparin) 5,000 units SC Q12 JENI PRN Reason: Protocol Last Admin: 05/16/17 21:17 Dose: 5,000 units Piperacillin Sod/Tazobactam (Sod 2.25 gm/ Sodium Chloride) 100 mls @ 100 mls/ hr IVPB Q8 JENI Last Admin: 05/17/17 01:48 Dose: 100 mls/hr Nicardipine HCl (Cardene Iv Premix) 20 mg in 200 mls @ 50 mls/hr IV .Q4H JENI; 5 MG/HR PRN Reason: Protocol Last Titration: 05/15/17 16:30 Dose: 0 mg/hr, 0 mls/hr Propofol (Diprivan) 1,000 mg in 100 mls @ 13.608 mls/hr IV .Q7H21M JENI; 25 MCG/ KG/MIN PRN Reason: Protocol Stop: 05/17/17 18:53 Last Titration: 05/17/17 01:00 Dose: 30 mcg/kg/min, 16.329 mls/hr Ibuprofen (Motrin Tab) 600 mg PO Q6 PRN PRN Reason: Fever >100.4 F Last Admin: 05/16/17 18:21 Dose: 600 mg Insulin Human Lispro (Humalog) 0 units SC Q6 JENI PRN Reason: Protocol Last Admin: 05/17/17 04:00 Dose: Not Given Labetalol HCl (Trandate) 10 mg IVP Q6H [facility] Last Admin: 05/17/17 07:00 Dose: Not Given Midazolam HCl (Versed Inj) 2 mg IV Q2H PRN PRN Reason: Agitation Last Admin: 05/16/17 18:32 Dose: 2 mg Pantoprazole Sodium (Protonix Inj) 40 mg IVP DAILY [facility] Last Admin: 05/16/17 08:20 Dose: 40 mg - Labs Labs: 05/17/17 04:20 05/17/17 04:20 PT 11.6 Seconds (9.8-13.1) 05/15/17 20:29 INR 1.1 (0.9-1.2) 05/15/17 20:29 APTT 35.8 Seconds (25.6-37.1) 05/15/17 20:29 - Constitutional Appears: Toxic - Head Exam Head Exam: NORMAL INSPECTION - Eye Exam Eye Exam: Normal appearance - ENT Exam ENT Exam: Mucous Membranes Moist - Neck Exam Neck Exam: Full ROM - Respiratory Exam Respiratory Exam: Decreased Breath Sounds - Cardiovascular Exam Cardiovascular Exam: REGULAR RHYTHM - GI/Abdominal Exam GI & Abdominal Exam: Normal Bowel Sounds - Rectal Exam Rectal Exam: Deferred - Extremities Exam Extremities Exam: absent: Joint Swelling - Skin Skin Exam: Normal Color Assessment and Plan (1) Cardiac arrest Assessment & Plan: await echocardiogram. if improves to extubation, recommend cardiac catheterization to define coronary anatomy Status: Acute (2) DM2 (diabetes mellitus, type 2) Assessment & Plan: glucose control Status: Acute (3) ESRD (end stage renal disease) on dialysis Status: Acute (4) HTN (hypertension) Status: Acute
[2017-05-17] MEDS: Propofol 10 mg/ml 1,000 MG/100 ML VIAL IV SCH (08:44)
--- NOTE | 2017-05-17 09:32 | CP.PCM.PN ---
Subjective - Date & Time of Evaluation Date of Evaluation: 05/17/17 Time of Evaluation: 12:00 - Subjective Subjective: Patient seen and examined bedside. Intubated on MV 16/500/8/60 % FIO2 ABG 49/ 231/29/7.35 , awake , alert , following commands, denies any discomfort , on propofol drip . Febrile Tmax 100.2 , tachycardic HR 123 BP 123/94 saturating 100 % Had HD yesterday which was stopped early due to hypotension . will have another HD today feeding was started yesterday afternoon but held due to residuals . ( patient pulled out OGT tube that was reinserted ) I/o 2521/1701 CXr today showed clear lung field bilaterally WBC 11 Hgb 11 BUN/Cr 72/9.8 Objective - Vital Signs/Intake and Output Vital Signs (last 24 hours): Temp Pulse Resp BP Pulse Ox 100.2 F H 125 H 22 143/91 H 100 05/17/17 08:18 05/17/17 08:00 05/17/17 08:00 05/17/17 08:00 05/17/17 08:00 Intake and Output: 05/17/17 05/17/17 06:59 18:59 Intake Total 1826 16 Output Total 1701 0 Balance 125 16 - Medications Medications: Current Medications Dextrose (Dextrose 50% Inj) 0 ml IV STAT PRN; Protocol PRN Reason: Hyglycemia Protocol Dextrose (Glutose 15) 0 gm PO ONCE PRN; Protocol PRN Reason: Hypoglycemia Protocol Dextrose (Dextrose 50% Inj) 0 ml IV STAT PRN; Protocol PRN Reason: Hyglycemia Protocol Dextrose (Glutose 15) 0 gm PO ONCE PRN; Protocol PRN Reason: Hypoglycemia Protocol Glucagon (Glucagen Diagnostic Kit) 0 mg IM STAT PRN; Protocol PRN Reason: Hypoglycemia Protocol Glucagon (Glucagen Diagnostic Kit) 0 mg IM STAT PRN; Protocol PRN Reason: Hypoglycemia Protocol Heparin Sodium (Porcine) (Heparin) 5,000 units SC Q12 JENI PRN Reason: Protocol Last Admin: 05/17/17 08:23 Dose: 5,000 units Piperacillin Sod/Tazobactam (Sod 2.25 gm/ Sodium Chloride) 100 mls @ 100 mls/ hr IVPB Q8 [facility] Last Admin: 05/17/17 01:48 Dose: 100 mls/hr Nicardipine HCl (Cardene Iv Premix) 20 mg in 200 mls @ 50 mls/hr IV .Q4H JENI; 5 MG/HR PRN Reason: Protocol Last Titration: 05/15/17 16:30 Dose: 0 mg/hr, 0 mls/hr Propofol (Diprivan) 1,000 mg in 100 mls @ 13.608 mls/hr IV .Q7H21M JENI; 25 MCG/ KG/MIN PRN Reason: Protocol Stop: 05/17/17 18:53 Last Admin: 05/17/17 08:44 Dose: 24.8 mcg/kg/min, 13.499 mls/hr Ibuprofen (Motrin Tab) 600 mg PO Q6 PRN PRN Reason: Fever >100.4 F Last Admin: 05/16/17 18:21 Dose: 600 mg Insulin Human Lispro (Humalog) 0 units SC Q6 JENI PRN Reason: Protocol Last Admin: 05/17/17 04:00 Dose: Not Given Labetalol HCl (Trandate) 10 mg IVP Q6H [facility] Last Admin: 05/17/17 07:00 Dose: Not Given Midazolam HCl (Versed Inj) 2 mg IV Q2H PRN PRN Reason: Agitation Last Admin: 05/16/17 18:32 Dose: 2 mg Pantoprazole Sodium (Protonix Inj) 40 mg IVP DAILY [facility] Last Admin: 05/17/17 08:22 Dose: 40 mg - Labs Labs: 05/17/17 04:20 05/17/17 04:20 PT 11.6 Seconds (9.8-13.1) 05/15/17 20:29 INR 1.1 (0.9-1.2) 05/15/17 20:29 APTT 35.8 Seconds (25.6-37.1) 05/15/17 20:29 - Constitutional Appears: Other (intubated on MV, awake and alert following commands on PRVC/ Ac mode FiO2 60 %) - Head Exam Head Exam: ATRAUMATIC, NORMAL INSPECTION, NORMOCEPHALIC - Eye Exam Eye Exam: EOMI, Normal appearance, PERRL Pupil Exam: NORMAL ACCOMODATION - ENT Exam ENT Exam: Mucous Membranes Moist, Normal Exam - Neck Exam Neck Exam: Full ROM, Normal Inspection - Respiratory Exam Respiratory Exam: Clear to Ausculation Bilateral, NORMAL BREATHING PATTERN. absent: Rales, Rhonchi, Wheezes, Respiratory Distress - Cardiovascular Exam Cardiovascular Exam: Tachycardia, RRR, +S1, +S2. absent: JVD - GI/Abdominal Exam GI & Abdominal Exam: Soft, Normal Bowel Sounds. absent: Distended, Guarding, Tenderness, Rebound - Rectal Exam Rectal Exam: Deferred - Extremities Exam Additional comments: left AKA right BKA - Neurological Exam Neurological Exam: Alert, Awake Additional comments: moves extremities , follows commands - Psychiatric Exam Psychiatric exam: Normal Affect - Skin Skin Exam: Dry, Intact, Normal Color, Warm Assessment and Plan - Assessment and Plan (Free Text) Assessment: 41 y/o male with PMH ESRD on MWF HD, DM2, and PVD among other medical conditions brought in after having a cardiac arrest in the field. Per his fiancee, after dinner patient had 'seizure like activity' -- shaking/foaming of the mouth. Per report EMS arrived and noted Vfib/Vtach and administered defibrillation. Initially he was in asystole but a second shock brought him back to A fib. He had a BP of 89/46. He was given a dose of epinephrine and a dose of amiodarone in the field. He was intubated in the field. At present in ICU intubated on PRVC/ Ac mode FIo2 60 % , awake , alert , following commands 1. Cardiac arrest unclear etiology with episode of Vib/Vtach in the field s/p defibrillation and amiodarone troponin slightly elevated 0.5--0.7--0.8 suggesting less likely ID Hypothermia protocol was initiated and now 24 hours after rewarming cardiology consult appreciated f/u Echo report Will need cardiac cath once stable started Fentanyl drip 2. Acute respiratory failure post cardiac arrest on MV PRVC AC mode 16/500/8/60 % FIo2 with ABG 49/231/29/7.35 CXR initially showed bilateral infiltrate possible aspiration pneumonia. Repeat CXR today post HD showed clear lung farris bilaterally WBC 11 k , febrile Tmax 100.2 Continue Zosyn IV empirically . Added Vancomycin post HD f/u cultures , sputum and blood pulmonary on consult 3.Combined respiratory and metabolic acidosis-- improved Continue vent management patient will have another session of HD today nephro on consult 4.ESRD on HD/ with hyperkalemia nephro consulted Continjue with HD. Had HD yesterday but terminated early due to hypotension. will receive another Session today patient's technology sales representative is Dr. Augustine 5.Suspected Seizure like activity CT head showed no acute pathology Follow up MRI Head and EEG neuro consulted Seizure precautions on propofol and ativan PRN 6.Hypertension uncontrolled was initially on cardene drip and now d/c Continue labetalol PRN 7.DM uncontrolled d/c insulin drip Feeding on hold due to residuals Lispro coverage 8. 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 DVT prophylaxis on Heparin 10. GI prophylaxis with coffee ground material on OGT most likely stress induced on Protonix IV
--- NOTE | 2017-05-17 11:10 | CP.PCM.PN ---
Subjective - Date & Time of Evaluation Date of Evaluation: 05/17/17 Time of Evaluation: 11:07 - Subjective Subjective: Patient remained intubated Patient is awake Hemodialysis was not completed yesterday because of he was not stable. Lab reviewed Objective - Vital Signs/Intake and Output Vital Signs (last 24 hours): Temp Pulse Resp BP Pulse Ox 100.2 F H 105 H 24 114/76 100 05/17/17 09:18 05/17/17 10:49 05/17/17 09:18 05/17/17 09:18 05/17/17 09:00 Intake and Output: 05/17/17 05/17/17 06:59 18:59 Intake Total 1826 16 Output Total 1701 0 Balance 125 16 - Medications Medications: Current Medications Dextrose (Dextrose 50% Inj) 0 ml IV STAT PRN; Protocol PRN Reason: Hyglycemia Protocol Dextrose (Glutose 15) 0 gm PO ONCE PRN; Protocol PRN Reason: Hypoglycemia Protocol Dextrose (Dextrose 50% Inj) 0 ml IV STAT PRN; Protocol PRN Reason: Hyglycemia Protocol Dextrose (Glutose 15) 0 gm PO ONCE PRN; Protocol PRN Reason: Hypoglycemia Protocol Glucagon (Glucagen Diagnostic Kit) 0 mg IM STAT PRN; Protocol PRN Reason: Hypoglycemia Protocol Glucagon (Glucagen Diagnostic Kit) 0 mg IM STAT PRN; Protocol PRN Reason: Hypoglycemia Protocol Heparin Sodium (Porcine) (Heparin) 5,000 units SC Q12 JENI PRN Reason: Protocol Last Admin: 05/17/17 08:23 Dose: 5,000 units Piperacillin Sod/Tazobactam (Sod 2.25 gm/ Sodium Chloride) 100 mls @ 100 mls/ hr IVPB Q8 JENI Last Admin: 05/17/17 10:14 Dose: 100 mls/hr Nicardipine HCl (Cardene Iv Premix) 20 mg in 200 mls @ 50 mls/hr IV .Q4H JENI; 5 MG/HR PRN Reason: Protocol Last Titration: 05/15/17 16:30 Dose: 0 mg/hr, 0 mls/hr Propofol (Diprivan) 1,000 mg in 100 mls @ 13.608 mls/hr IV .Q7H21M JENI; 25 MCG/ KG/MIN PRN Reason: Protocol Stop: 05/17/17 18:53 Last Admin: 05/17/17 08:44 Dose: 24.8 mcg/kg/min, 13.499 mls/hr Fentanyl Citrate 2,500 mcg/ (Dextrose) 250 mls @ 6.3 mls/hr IV .Q24H JENI PRN Reason: 63 MCG/HR Ibuprofen (Motrin Tab) 600 mg PO Q6 PRN PRN Reason: Fever >100.4 F Last Admin: 05/16/17 18:21 Dose: 600 mg Insulin Human Lispro (Humalog) 0 units SC Q6 JENI PRN Reason: Protocol Last Admin: 05/17/17 04:00 Dose: Not Given Labetalol HCl (Trandate) 10 mg IVP Q6H [facility] Last Admin: 05/17/17 07:00 Dose: Not Given Midazolam HCl (Versed Inj) 2 mg IV Q2H PRN PRN Reason: Agitation Last Admin: 05/16/17 18:32 Dose: 2 mg Pantoprazole Sodium (Protonix Inj) 40 mg IVP DAILY [facility] Last Admin: 05/17/17 08:22 Dose: 40 mg - Labs Labs: 05/17/17 04:20 05/17/17 04:20 PT 11.6 Seconds (9.8-13.1) 05/15/17 20:29 INR 1.1 (0.9-1.2) 05/15/17 20:29 APTT 35.8 Seconds (25.6-37.1) 05/15/17 20:29 - Constitutional Appears: No Acute Distress - ENT Exam ENT Exam: Mucous Membranes Moist - Respiratory Exam Respiratory Exam: NORMAL BREATHING PATTERN - Cardiovascular Exam Cardiovascular Exam: absent: Rubs - GI/Abdominal Exam GI & Abdominal Exam: Normal Bowel Sounds - Extremities Exam Extremities Exam: absent: Calf Tenderness - Back Exam Back Exam: absent: CVA tenderness (L), CVA tenderness (R) - Neurological Exam Neurological Exam: Altered Assessment and Plan - Assessment and Plan (Free Text) Assessment: End stage renal disease requiring dialysis. Patient scheduled to have dialysis today because he did not completed yesterday Vital sign noted to be acceptable Creatinine rising and noted Diabetic chronic Kidney Disease (E11.22) Hypertensive Chronic Kidney Disease (I12.0) End stage renal disease (N18.6) dependence on hemodialysis (Z99.2) (MWF) via permacath Anemia (D64.9), Hyperphosphatemia (E83.39), Secondary Hyperparathyroidism (E21.1 ), HTN (I12.0) s/p Rt AKA and left BKA Combined respiratory and metabolic acidosis, lactic acidosis s/p cardiac arrest, V fib, seizure, Hyperkalemia
--- NOTE | 2017-05-17 11:50 | RAD ---
PROCEDURE: CHEST RADIOGRAPH, 1 VIEW HISTORY: intubated COMPARISON: Comparison is made to previous the exam. FINDINGS: LUNGS: Interval further improvement in the lungs since the previous study. PLEURA: No pneumothorax or pleural fluid seen. CARDIOVASCULAR: Normal. OSSEOUS STRUCTURES: No significant abnormalities. VISUALIZED UPPER ABDOMEN: Normal. OTHER FINDINGS: Right-sided hemodialysis catheter is seen in place. IMPRESSION: Interval improvement in the lungs since the previous exam.
--- NOTE | 2017-05-17 12:14 | CARD ---
APPROVED REPORT EXAM: Two-dimensional and M-mode echocardiogram with Doppler and color Doppler. Other Information Quality : AverageRhythm : Tachycardia INDICATION Cardiac Arrest,V-Fib 2D DIMENSIONS IVSd0.93 (0.7-1.1cm)LVDd5.78 (3.9-5.9cm) LVOT Diameter2.34 (1.8-2.4cm)PWd0.77 (0.7-1.1cm) IVSs1.11 (0.8-1.2cm)LVDs4.82 (2.5-4.0cm) FS (%) 16.6 %PWs1.04 (0.8-1.2cm) M-Mode DIMENSIONS Left Atrium (MM)3.82 (2.5-4.0cm)Aortic Root3.06 (2.2-3.7cm) Aortic Cusp Exc.1.59 (1.5-2.0cm) Mitral Valve E/A ratio0.0 TDI E/Lateral E'0.0E/Medial E'0.0 LEFT VENTRICLE The left ventricle is normal size. There is normal left ventricular wall thickness. Left ventricle systolic function is severely impaired. The Ejection Fraction is 20% There is severe global hypokinesis Transmitral Doppler flow pattern is Grade IV-fixed restrictive diastolic dysfunction. No left ventricle thrombus noted on this study. There is no ventricular septal defect visualized. There is no left ventricular aneurysm. There is no mass noted in the left ventricle. RIGHT VENTRICLE The right ventricle is normal size. There is normal right ventricular wall thickness. The right ventricular systolic function is normal. ATRIA The left atrium size is normal. The right atrium size is normal. The interatrial septum is intact with no evidence for an atrial septal defect. AORTIC VALVE The aortic valve is normal in structure and function. No aortic regurgitation is present. There is no aortic valvular stenosis. There is no aortic valvular vegetation. MITRAL VALVE The mitral valve is normal in structure and function. There is no evidence of mitral valve prolapse. There is no mitral valve stenosis. Mitral regurgitation is moderate. TRICUSPID VALVE The tricuspid valve is normal in structure and function. There is no tricuspid valve regurgitation noted. There is no tricuspid valve prolapse or vegetation. There is no tricuspid valve stenosis. PULMONIC VALVE The pulmonary valve is normal in structure and function. There is no pulmonic valvular regurgitation. There is no pulmonic valvular stenosis. GREAT VESSELS The aortic root is normal in size. The ascending aorta is normal in size. The IVC is normal in size and collapses >50% with inspiration. PERICARDIAL EFFUSION The pericardium appears normal. There is no pleural effusion. <Conclusion> Severely Reduced LV Systolic Function LVEF 20% Global Hypokinesis
[2017-05-17] MEDS: Fentanyl Citrate 2,500 MCG in Dextrose 5% In Water 200 ML IV SCH (12:24)
[2017-05-17 13:15] LABS: HEMATOCRIT 35.9 % (35.0-51.0); MEAN CELL VOLUME 85.9 fl (80.0-94.0); MEAN CORPUSCULAR HEMOGLOBIN 27.4 pg (27.0-31.0); MEAN CORPUSCULAR HGB CONC 31.9 g/dL (33.0-37.0); RED CELL DISTRIBUTION WIDTH 19.1 % (11.5-14.5); WHITE BLOOD COUNT 9.9 K/uL (4.8-10.8)
--- NOTE | 2017-05-17 14:58 | PN ---
DATE: 05/17/2017 This is a 41-year-old man. CHIEF COMPLAINT: Followup status post cardiac arrest. SUBJECTIVE: The patient was seen and examined at bedside. He is awake. He is intubated on mechanical ventilation. He is awake, alert, following simple commands, no discomfort, on propofol drip. He had hemodialysis yesterday, which was stopped early due to hypertension. We will have hemodialysis again this afternoon. Chest x-ray is clear, lungs bilaterally, moving upper extremities without any difficulties. PAST MEDICAL HISTORY: History of end-stage renal disease, on hemodialysis on Monday, Monday, and Monday; type 2 diabetes mellitus; peripheral vascular disease; left BKA, right AKA. REVIEW OF SYSTEMS: Difficult to obtain secondary to being intubated. ALLERGIES: FISH. SOCIAL HISTORY: No illicit drug use, smoking, or EtOH abuse. FAMILY HISTORY: Noncontributory. PHYSICAL EXAMINATION: VITAL SIGNS: Temperature is 100.4, pulse rate of 130, blood pressure 134/84, respiratory rate of 20 and oxygen saturation is 97% by mechanical ventilation. GENERAL: The patient is alert, oriented to person, follows simple commands. HEENT: Head is atraumatic and normocephalic. PERRLA. Extraocular muscles are intact. He is intubated. NECK: Supple. No JVD. No adenopathy noted. LUNGS: Clear to auscultation. No adventitious sounds. HEART: S1 and S2, normal rate and rhythm. No murmurs, rubs, or gallops. ABDOMEN: Soft, nontender, and nondistended. Bowel sounds are present. EXTREMITIES: Left BKA and the right AKA. NEUROLOGIC: The patient is alert, oriented to person. Cranial nerves II through XII are intact. Brainstem reflexes are intact. Motor exam: Moving the upper extremities equally as well as bilateral lower extremity thighs, his left BKA and right AKA. Sensory exam: Withdraws to localized noxious stimulus. DTRs are 1+ in the upper extremities. Coordination and gait are deferred for now. LABORATORY DATA: Sodium 140, potassium 5, chloride of 95, carbon dioxide 22, BUN of 72, creatinine 9.8. Random glucose of 150. ASSESSMENT AND PLAN: This is a 41-year-old man with past medical history of end-stage renal disease, on hemodialysis on Monday, Monday, and Monday; type 2 diabetes mellitus; peripheral vascular disease; status post left below-knee amputation and right above-knee amputation, was brought in status post cardiac arrest, noticed to have foaming a non-seizure like activity with a round of ventricular fibrillation and ventricular tachycardia and was asystole and therefore was defibrillated back to a shock of atrial fibrillation. Currently, his etiology of cardiac arrest is unclear, most likely secondary to metabolic derangements and most likely cardiac in nature. His altered mental status is secondary to changes in cerebral hypoperfusion to the brain from the cardiac arrest which resulted in unprovoked seizure. Currently, he is alert and following simple commands. RECOMMENDATIONS: At this time when he is stable; 1. Get MRI of the brain without contrast to see for any infarcts. 2. Monitor electrolytes and correct accordingly. 3. Recommend IV thiamine 100 mg IV q. 12. 4. Continue with nephrology in regards to his hemodialysis and monitor electrolytes and correct accordingly. Thank you for this followup. Delio Gomez MD
--- NOTE | 2017-05-17 18:55 | CP.PCM.PN ---
Subjective - Date & Time of Evaluation Date of Evaluation: 05/17/17 Time of Evaluation: 18:00 - Subjective Subjective: patient remains intubated. opens eyes. Objective - Vital Signs/Intake and Output Vital Signs (last 24 hours): Temp Pulse Resp BP Pulse Ox 99.3 F 114 H 20 135/79 100 05/17/17 18:00 05/17/17 18:00 05/17/17 18:00 05/17/17 18:00 05/17/17 18:00 Intake and Output: 05/17/17 05/17/17 06:59 18:59 Intake Total 1826 351 Output Total 1701 0 Balance 125 351 - Medications Medications: Current Medications Dextrose (Dextrose 50% Inj) 0 ml IV STAT PRN; Protocol PRN Reason: Hyglycemia Protocol Dextrose (Glutose 15) 0 gm PO ONCE PRN; Protocol PRN Reason: Hypoglycemia Protocol Dextrose (Dextrose 50% Inj) 0 ml IV STAT PRN; Protocol PRN Reason: Hyglycemia Protocol Dextrose (Glutose 15) 0 gm PO ONCE PRN; Protocol PRN Reason: Hypoglycemia Protocol Glucagon (Glucagen Diagnostic Kit) 0 mg IM STAT PRN; Protocol PRN Reason: Hypoglycemia Protocol Glucagon (Glucagen Diagnostic Kit) 0 mg IM STAT PRN; Protocol PRN Reason: Hypoglycemia Protocol Heparin Sodium (Porcine) (Heparin) 5,000 units SC Q12 JENI PRN Reason: Protocol Last Admin: 05/17/17 08:23 Dose: 5,000 units Piperacillin Sod/Tazobactam (Sod 2.25 gm/ Sodium Chloride) 100 mls @ 100 mls/ hr IVPB Q8 [facility] Last Admin: 05/17/17 17:57 Dose: 100 mls/hr Fentanyl Citrate 2,500 mcg/ (Dextrose) 250 mls @ 6.3 mls/hr IV .Q24H [facility] PRN Reason: 63 MCG/HR Last Admin: 05/17/17 12:24 Dose: 6.3 mls/hr Vancomycin HCl 1 gm/ Sodium (Chloride) 250 mls @ 125 mls/hr IVPB MWF [facility] Last Admin: 05/17/17 14:59 Dose: 125 mls/hr Ibuprofen (Motrin Tab) 600 mg PO Q6 PRN PRN Reason: Fever >100.4 F Last Admin: 05/17/17 12:30 Dose: 600 mg Insulin Human Lispro (Humalog) 0 units SC Q6 JENI PRN Reason: Protocol Last Admin: 05/17/17 17:56 Dose: Not Given Labetalol HCl (Trandate) 10 mg IVP Q6H [facility] Last Admin: 05/17/17 12:44 Dose: Not Given Midazolam HCl (Versed Inj) 2 mg IV Q2H PRN PRN Reason: Agitation Last Admin: 05/16/17 18:32 Dose: 2 mg Pantoprazole Sodium (Protonix Inj) 40 mg IVP DAILY [facility] Last Admin: 05/17/17 08:22 Dose: 40 mg - Labs Labs: 05/17/17 12:30 05/17/17 04:20 PT 11.6 Seconds (9.8-13.1) 05/15/17 20:29 INR 1.1 (0.9-1.2) 05/15/17 20:29 APTT 35.8 Seconds (25.6-37.1) 05/15/17 20:29 - Constitutional Appears: Chronically Ill - Head Exam Head Exam: NORMAL INSPECTION - Eye Exam Eye Exam: Normal appearance - ENT Exam ENT Exam: Mucous Membranes Moist - Neck Exam Neck Exam: Full ROM, Normal Inspection - Respiratory Exam Respiratory Exam: NORMAL BREATHING PATTERN - Cardiovascular Exam Cardiovascular Exam: REGULAR RHYTHM - GI/Abdominal Exam GI & Abdominal Exam: Normal Bowel Sounds - Rectal Exam Rectal Exam: Deferred - Extremities Exam Extremities Exam: absent: Pedal Edema - Back Exam Back Exam: NORMAL INSPECTION - Neurological Exam Neurological Exam: Alert - Psychiatric Exam Psychiatric exam: Normal Affect - Skin Skin Exam: Normal Color Assessment and Plan (1) Cardiac arrest Assessment & Plan: continue medical therapy. will monitor. and consider cardaic cath Status: Acute (2) DM2 (diabetes mellitus, type 2) Assessment & Plan: will monitor glucose Status: Acute (3) ESRD (end stage renal disease) on dialysis Status: Acute (4) HTN (hypertension) Status: Acute
[2017-05-17] MEDS: Midazolam 2 MG/2 ML VIAL IV PRN (21:00)
[2017-05-18 05:05] LABS: ABG ALLEN TEST YES; ABG MECHANICAL RATE 16; ARTERIAL BLOOD GAS HCO3 24.7 mmol/L (21-28); ARTERIAL BLOOD GAS MODE A/C; ARTERIAL BLOOD GAS O2 CAPACITY 16.5 mL/dL (16-24); ARTERIAL BLOOD GAS O2 CONTENT 16.1 ML/dL (15-23); ARTERIAL BLOOD GAS PH 7.39 (7.35-7.45); ARTERIAL BLOOD GAS PO2 103 mm/Hg (80-100); ARTERIAL BLOOD HGB O2 SAT 95.1 % (95.0-98.0); ATERIAL BLOOD GAS PEEP 8; HHB 2.5 % (0.0-5.0); METHEMOGLOBIN 1.5 % (0.0-3.0)
[2017-05-18] MEDS: Insulin Lispro (humaLOG) 100 Units/ml Inj SC SCH ×4 (05:35→21:17)
[2017-05-18] MEDS: Labetalol 5mg/ml (4ml) IVP SCH ×2 (06:14→14:05)
[2017-05-18 06:42] LABS: HEMATOCRIT 35.4 % (35.0-51.0); MEAN CELL VOLUME 86.5 fl (80.0-94.0); MEAN CORPUSCULAR HEMOGLOBIN 27.4 pg (27.0-31.0); MEAN CORPUSCULAR HGB CONC 31.7 g/dL (33.0-37.0); RED CELL DISTRIBUTION WIDTH 19.2 % (11.5-14.5); WHITE BLOOD COUNT 8.3 K/uL (4.8-10.8)
[2017-05-18 06:49] LABS: CALCIUM 9.1 mg/dL (8.4-10.2); POTASSIUM 4.9 MMOL/L (3.6-5.0)
[2017-05-18] MEDS ORDERED: Sodium Chloride 3% for Inhalation 4 ML VIAL.NEB IH PRN (09:56)
--- NOTE | 2017-05-18 10:19 | RAD ---
PROCEDURE: CHEST RADIOGRAPH, 1 VIEW HISTORY: intubated COMPARISON: Frontal chest 05/17/2017. FINDINGS: Central dialysis catheter unchanged in position. LUNGS: Clear. PLEURA: No pneumothorax or pleural fluid seen. CARDIOVASCULAR: Stable cardiac prominence. No definite pulmonary vascular derangement. OSSEOUS STRUCTURES: No significant abnormalities. VISUALIZED UPPER ABDOMEN: Normal. OTHER FINDINGS: None. IMPRESSION: No acute infiltrate identified bilaterally. Stable prominent cardiac silhouette.
--- NOTE | 2017-05-18 10:24 | CP.CCUPN ---
<Manasa Solis - Last Filed: 05/18/17 11:32> CCU Subjective - Physician Review Subjective (Free Text): 05/18/17 10:24 Patient seen and examined at bedside, awake, alert, follows commands. Patient self extubated upon returning from IR for RUE PICC placement. Breathing comfortably with normal O2 sat on FiO2 40%, 10L O2 via venti mask. CCU Objective - Vital Signs / Intake & Output Vital Signs (Last 4 hours): Vital Signs Temp Pulse Resp BP Pulse Ox 05/18/17 10:00 123 H 19 131/81 0 L 05/18/17 09:00 123 H 20 125/70 100 05/18/17 08:00 99.9 F H 119 H 18 131/74 100 Intake and Output (Last 8hrs): Intake & Output 05/17/17 05/18/17 05/18/17 22:59 06:59 14:59 Intake Total 180 152 100 Output Total 0 Balance 180 152 100 Weight 189 lb Intake: IV 120 52 Intake, Piggyback 20 100 100 Oral 0 0 Tube Feeding 0 Free Water Flush 40 Output: Urine 0 Urethral (Baez) 0 - Physical Exam Head: Positive for: Atraumatic, Normocephalic Pupils: Positive for: PERRL Extroacular Muscles: Positive for: EOMI Conjunctiva: Positive for: Normal Mouth: Positive for: Moist Mucous Membranes Nose (External): Positive for: Atraumatic Neck: Positive for: Normal Range of Motion. Negative for: JVD Respiratory/Chest: Positive for: Clear to Auscultation, Good Air Exchange (on 10L O2 at FiO2 40% via venti mask), Other (right chest perm-cath (dressing clean /dry/intact)). Negative for: Rales, Rhonchi Cardiovascular: Positive for: Regular Rate and Rhythm, Normal S1, S2, Tachycardic Abdomen: Positive for: Normal Bowel Sounds Upper Extremity: Positive for: Normal ROM, NORMAL PULSES (RUE PICC placed, dressing clean/dry/intact) Lower Extremity: Positive for: Other (left femoral vein catheter in place, right AKA, left BKA) Neurological: Positive for: Other (alert, awake, follows commands) Skin: Positive for: Warm, Dry. Negative for: Rashes Psychiatric: Positive for: Alert - Medications Active Medications: Active Medications Generic Name Dose Route Start Last Admin Trade Name Freq PRN Reason Stop Dose Admin Dextrose 0 ml 05/15/17 02:12 Dextrose 50% Inj IV STAT PRN Hyglycemia Protocol Protocol Dextrose 0 gm 05/15/17 02:12 Glutose 15 PO ONCE PRN Hypoglycemia Protocol Protocol Dextrose 0 ml 05/16/17 09:59 Dextrose 50% Inj IV STAT PRN Hyglycemia Protocol Protocol Dextrose 0 gm 05/16/17 09:59 Glutose 15 PO ONCE PRN Hypoglycemia Protocol Protocol Glucagon 0 mg 05/15/17 02:12 Glucagen Diagnostic Kit IM STAT PRN Hypoglycemia Protocol Protocol Glucagon 0 mg 05/16/17 09:59 Glucagen Diagnostic Kit IM STAT PRN Hypoglycemia Protocol Protocol Heparin Sodium (Porcine) 5,000 units 05/15/17 21:00 05/17/17 20:51 Heparin SC 5,000 units Q12 JENI Administration Protocol Piperacillin Sod/Tazobactam 100 mls @ 100 mls/hr 05/15/17 09:30 05/18/17 08: 25 Sod 2.25 gm/ Sodium Chloride IVPB 100 mls/hr Q8 JENI Administration Fentanyl Citrate 2,500 mcg/ 250 mls @ 6.3 mls/hr 05/17/17 10:00 05/17/17 12: 24 Dextrose IV 6.3 mls/hr .Q24H JENI Administration 63 MCG/HR Vancomycin HCl 1 gm/ Sodium 250 mls @ 125 mls/hr 05/17/17 14:31 05/17/17 14: 59 Chloride IVPB 125 mls/hr MWF JENI Administration Ibuprofen 600 mg 05/16/17 17:40 05/17/17 12:30 Motrin Tab PO 600 mg Q6 PRN Administration Fever >100.4 F Insulin Human Lispro 0 units 05/16/17 10:00 05/18/17 05:35 Humalog SC Not Given Q6 JENI Protocol Labetalol HCl 10 mg 05/15/17 23:45 05/18/17 06:14 Trandate IVP Not Given Q6H JENI Midazolam HCl 2 mg 05/16/17 04:33 05/17/17 21:00 Versed Inj IV 2 mg Q2H PRN Administration Agitation Pantoprazole Sodium 40 mg 05/15/17 09:00 05/18/17 08:25 Protonix Inj IVP 40 mg DAILY JENI Administration - Patient Studies Lab Studies: Microbiology Studies 05/15/17 14:00 Blood Culture - Preliminary Blood-Thru Central Line NO GROWTH AFTER 48 HOURS Lab Studies 05/18/17 05/18/17 05/18/17 Range/Units 05:27 05:00 05:00 WBC 8.3 (4.8-10.8) K/uL RBC 4.10 L (4.40-5.90) Mil/uL Hgb 11.2 L (12.0-18.0) g/dL Hct 35.4 (35.0-51.0) % MCV 86.5 (80.0-94.0) fl MCH 27.4 (27.0-31.0) pg MCHC 31.7 L (33.0-37.0) g/dL RDW 19.2 H (11.5-14.5) % Plt Count 138 (130-400) K/uL pCO2 (35-45) mm/Hg pO2 (80-100) mm/Hg HCO3 (21-28) mmol/L ABG pH (7.35-7.45) ABG Total CO2 (22-28) mmol/L ABG O2 Saturation (95-98) % ABG O2 Content (15-23) ML/dL ABG Base Excess (-2.0-3.0) mmol/L ABG Hemoglobin (11.7-17.4) g/dL ABG Carboxyhemoglobin (0.5-1.5) % POC ABG HHb (Measured) (0.0-5.0) % ABG Methemoglobin (0.0-3.0) % ABG O2 Capacity (16-24) mL/dL Gurdeep Test A-a O2 Difference mm/Hg Hgb O2 Saturation (95.0-98.0) % Vent Mode Mechanical Rate FiO2 % Tidal Volume PEEP Sodium 138 (132-148) mmol/l Potassium 4.9 (3.6-5.0) MMOL/L Chloride 95 L (98-107) mmol/L Carbon Dioxide 24 (22-30) mmol/L Anion Gap 24 H (10-20) BUN 55 H (9-20) mg/dl Creatinine 8.3 H* (0.8-1.5) mg/dL Est GFR ( Amer) 9 Est GFR (Non-Af Amer) 7 POC Glucose (mg/dL) 139 H (65-110) mg/dL Random Glucose 127 H (75-110) mg/dL Calcium 9.1 (8.4-10.2) mg/dL 05/18/17 05/17/17 05/17/17 Range/Units 04:58 22:13 16:45 WBC (4.8-10.8) K/uL RBC (4.40-5.90) Mil/uL Hgb (12.0-18.0) g/dL Hct (35.0-51.0) % MCV (80.0-94.0) fl MCH (27.0-31.0) pg MCHC (33.0-37.0) g/dL RDW (11.5-14.5) % Plt Count (130-400) K/uL pCO2 41 (35-45) mm/Hg pO2 103 H (80-100) mm/Hg HCO3 24.7 (21-28) mmol/L ABG pH 7.39 (7.35-7.45) ABG Total CO2 26.1 (22-28) mmol/L ABG O2 Saturation 97.4 (95-98) % ABG O2 Content 16.1 (15-23) ML/dL ABG Base Excess -0.2 (-2.0-3.0) mmol/L ABG Hemoglobin 11.9 (11.7-17.4) g/dL ABG Carboxyhemoglobin 1.0 (0.5-1.5) % POC ABG HHb (Measured) 2.5 (0.0-5.0) % ABG Methemoglobin 1.5 (0.0-3.0) % ABG O2 Capacity 16.5 (16-24) mL/dL Gurdeep Test Yes A-a O2 Difference 274.0 mm/Hg Hgb O2 Saturation 95.1 (95.0-98.0) % Vent Mode A/c Mechanical Rate 16 FiO2 60.0 % Tidal Volume 500 PEEP 8 Sodium (132-148) mmol/l Potassium (3.6-5.0) MMOL/L Chloride (98-107) mmol/L Carbon Dioxide (22-30) mmol/L Anion Gap (10-20) BUN (9-20) mg/dl Creatinine (0.8-1.5) mg/dL Est GFR ( Amer) Est GFR (Non-Af Amer) POC Glucose (mg/dL) 157 H 118 H (65-110) mg/dL Random Glucose (75-110) mg/dL Calcium (8.4-10.2) mg/dL 05/17/17 05/17/17 Range/Units 12:30 11:16 WBC 9.9 (4.8-10.8) K/uL RBC 4.18 L (4.40-5.90) Mil/uL Hgb 11.5 L (12.0-18.0) g/dL Hct 35.9 (35.0-51.0) % MCV 85.9 (80.0-94.0) fl MCH 27.4 (27.0-31.0) pg MCHC 31.9 L (33.0-37.0) g/dL RDW 19.1 H (11.5-14.5) % Plt Count 133 (130-400) K/uL pCO2 (35-45) mm/Hg pO2 (80-100) mm/Hg HCO3 (21-28) mmol/L ABG pH (7.35-7.45) ABG Total CO2 (22-28) mmol/L ABG O2 Saturation (95-98) % ABG O2 Content (15-23) ML/dL ABG Base Excess (-2.0-3.0) mmol/L ABG Hemoglobin (11.7-17.4) g/dL ABG Carboxyhemoglobin (0.5-1.5) % POC ABG HHb (Measured) (0.0-5.0) % ABG Methemoglobin (0.0-3.0) % ABG O2 Capacity (16-24) mL/dL Gurdeep Test A-a O2 Difference mm/Hg Hgb O2 Saturation (95.0-98.0) % Vent Mode Mechanical Rate FiO2 % Tidal Volume PEEP Sodium (132-148) mmol/l Potassium (3.6-5.0) MMOL/L Chloride (98-107) mmol/L Carbon Dioxide (22-30) mmol/L Anion Gap (10-20) BUN (9-20) mg/dl Creatinine (0.8-1.5) mg/dL Est GFR ( Amer) Est GFR (Non-Af Amer) POC Glucose (mg/dL) 131 H (65-110) mg/dL Random Glucose (75-110) mg/dL Calcium (8.4-10.2) mg/dL Laboratory Results - last 24 hr 05/17/17 05/17/17 05/17/17 11:16 12:30 16:45 WBC 9.9 RBC 4.18 L Hgb 11.5 L Hct 35.9 MCV 85.9 MCH 27.4 MCHC 31.9 L RDW 19.1 H Plt Count 133 pCO2 pO2 HCO3 ABG pH ABG Total CO2 ABG O2 Saturation ABG O2 Content ABG Base Excess ABG Hemoglobin ABG Carboxyhemoglobin POC ABG HHb (Measured) ABG Methemoglobin ABG O2 Capacity Gurdeep Test A-a O2 Difference Hgb O2 Saturation Vent Mode Mechanical Rate FiO2 Tidal Volume PEEP Sodium Potassium Chloride Carbon Dioxide Anion Gap BUN Creatinine Est GFR ( Amer) Est GFR (Non-Af Amer) POC Glucose (mg/dL) 131 H 118 H Random Glucose Calcium 05/17/17 05/18/17 05/18/17 22:13 04:58 05:00 WBC 8.3 RBC 4.10 L Hgb 11.2 L Hct 35.4 MCV 86.5 MCH 27.4 MCHC 31.7 L RDW 19.2 H Plt Count 138 pCO2 41 pO2 103 H HCO3 24.7 ABG pH 7.39 ABG Total CO2 26.1 ABG O2 Saturation 97.4 ABG O2 Content 16.1 ABG Base Excess -0.2 ABG Hemoglobin 11.9 ABG Carboxyhemoglobin 1.0 POC ABG HHb (Measured) 2.5 ABG Methemoglobin 1.5 ABG O2 Capacity 16.5 Gurdeep Test Yes A-a O2 Difference 274.0 Hgb O2 Saturation 95.1 Vent Mode A/c Mechanical Rate 16 FiO2 60.0 Tidal Volume 500 PEEP 8 Sodium Potassium Chloride Carbon Dioxide Anion Gap BUN Creatinine Est GFR ( Amer) Est GFR (Non-Af Amer) POC Glucose (mg/dL) 157 H Random Glucose Calcium 05/18/17 05/18/17 05:00 05:27 WBC RBC Hgb Hct MCV MCH MCHC RDW Plt Count pCO2 pO2 HCO3 ABG pH ABG Total CO2 ABG O2 Saturation ABG O2 Content ABG Base Excess ABG Hemoglobin ABG Carboxyhemoglobin POC ABG HHb (Measured) ABG Methemoglobin ABG O2 Capacity Gurdeep Test A-a O2 Difference Hgb O2 Saturation Vent Mode Mechanical Rate FiO2 Tidal Volume PEEP Sodium 138 Potassium 4.9 Chloride 95 L Carbon Dioxide 24 Anion Gap 24 H BUN 55 H Creatinine 8.3 H* Est GFR ( Amer) 9 Est GFR (Non-Af Amer) 7 POC Glucose (mg/dL) 139 H Random Glucose 127 H Calcium 9.1 Fingerstick Blood Sugar Results: 139 Review of Systems - Review of Systems Systems not reviewed;Unavailable: Other (self extubated, throat sore) Review of Systems: via head/hand gestures denies SOB, chest pain Critical Care Progress Note - Extremities/Vascular Does the Patient have a Central Venous Catheter?: Yes Insertion Site: Subclavian Vein (RUE PICC placed) Does the Patient need a Central Venous Catheter?: Yes Does the Patient have a Baez Catheter?: No Does the Patient need a Baez Catheter?: No - Prophylaxis GI Prophylaxis GI: PPI - Prophylaxis DVT Prophylaxis DVT: Heparin SQ Assessment/Plan - Assessment and Plan (Free Text) Assessment: 41 yr old with PMHx of ESRD on HD MWF, DM2, PVD with R ARTEMIOA and L ADRI, admitted to ICU s/p cardiac arrest. Self extubated today, comfortable with normal O2 sat on 10L O2 with FiO2 40% via venti mask. RUE PICC placed, will remove left femoral vein catheter. Assessment 1. Acute respiratory Failure 2dary to Cardiac Arrest 2. Systolic CHF (Echo: severely impaired systolic dysfunction with EF of 20% ( see full report)) 3. End Stage Renal Disease 4. NIDDM Type 2-controlled 5. PVD 6. DVT/ GI prophylaxis Plan 1. Resolved, pt self extubated, currently with normal O2 sat on 10L O2 with FiO2 40% via venti mask, PO diet pending swallow screening eval, f/u MRI Brain and EEG per neuro, start Thiamine 100mg Q12 2. stable, will follow cardiology recommendations 3. Hemodialysis MWF, tolerated HD well yesterday, pt has right chest perm-cath port, nephrology on board 4. short acting insulin coverage scale Q6h, accucheck Q4h 5. will consider resuming home med ASA, Plavix; pending possible cardiology procedures 6. Heparin SC Q12, Protonix IV QD - Date & Time Date: 05/18/17 Time: 10:00 <Pablo Ag - Last Filed: 05/18/17 14:02> Assessment/Plan - Assessment and Plan (Free Text) Plan: Attestation: Patient seen and examined at the bedside with Resident Dr. Rio Solis; and I agree with her outline of plans and management as documented below and discussed on AM rounds today, May 18, 2017. Any exceptions or additions are listed in my personal note that follows and reflects my review of all applicable clinical data, and participation in the care of the patient throughout the day in ICU. s/p Cardiac Arrest, followed by Therapeutic Hypothermia, remains on sedation/ anxiolysis with Fentanyl (was on Propofol and NMBs during cooling period). Awake and alert, no overall distress, on AC 16, 450ml TV, 60% with PEEP 8, spo2 99%. Day #6 MV support. Tolerated CPAP PS trials this Am, awaiting for PICC to be completed before extubation. Left Fem TLC noted, on Fentanyl drip, off other vasoactive meds. HD done yesterday with 2.5L removed. Other vitals and I/O's reviewed. Low grade temps post cooling noted. ROS: unobtainable from intubated patient. No other pertinent negs or positives on system review. PMSFH: All Nursing and physician documentation reviewed to date; no new pertinent info noted relevant to current medical problems. CXR: (my interp) ETT position OK above johnie, except for min cardiomegaly, essentially clear lung farris, no gross consolidation nor effusion noted. Previous bilat yaya-hilar interstitial changes not apparent on serial films from 05/17. MAJOR PROBLEMS: 1. Cardiac Arrest 05/15, preceded by "seizure-like" activity 2. Acute Hypoxemic Resp Failure 2' Aspiration Pneumonia 3. ESRD on HD, with s/p Hyperkalemia 4. s/p Accel HTN 5. H/o DM II / PVD / with R-BKA, L-AKA. PLAN: 1. CPAP PS trials towards extubation today if tolerated. Hemodynamics improved , ABGs acceptable. No new CXR findings limiting wean tolerance. 2. Vanco/ Zosyn coverage noted. Blood culture neg to date. I see no Sputum cx in Micro lab, will order now. 3. Brain CT negative on 05/14. Etiology of precedent seizure-like activity unclear. Possible antecedent VFib leading to asystole and hypoxic seizure?? 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 Neuro consulted 05/15. 4. Home meds reviewed, discuss with PMD / Cardio: resume Plavix. Patient was also on Prednisone, ??indication?? 5. ECHO 05/15 results reviewed: indication for AICD?
--- NOTE | 2017-05-18 10:32 | CP.PCM.PN ---
Subjective - Date & Time of Evaluation Date of Evaluation: 05/18/17 Time of Evaluation: 10:29 - Subjective Subjective: Patient on CPAP Patient is more awake Vital sign noted Objective - Vital Signs/Intake and Output Vital Signs (last 24 hours): Temp Pulse Resp BP Pulse Ox 99.9 F H 123 H 19 131/81 0 L 05/18/17 08:00 05/18/17 10:00 05/18/17 10:00 05/18/17 10:00 05/18/17 10:00 Intake and Output: 05/18/17 05/18/17 06:59 18:59 Intake Total 172 100 Output Total 0 Balance 172 100 - Medications Medications: Current Medications Dextrose (Dextrose 50% Inj) 0 ml IV STAT PRN; Protocol PRN Reason: Hyglycemia Protocol Dextrose (Glutose 15) 0 gm PO ONCE PRN; Protocol PRN Reason: Hypoglycemia Protocol Dextrose (Dextrose 50% Inj) 0 ml IV STAT PRN; Protocol PRN Reason: Hyglycemia Protocol Dextrose (Glutose 15) 0 gm PO ONCE PRN; Protocol PRN Reason: Hypoglycemia Protocol Glucagon (Glucagen Diagnostic Kit) 0 mg IM STAT PRN; Protocol PRN Reason: Hypoglycemia Protocol Glucagon (Glucagen Diagnostic Kit) 0 mg IM STAT PRN; Protocol PRN Reason: Hypoglycemia Protocol Heparin Sodium (Porcine) (Heparin) 5,000 units SC Q12 JENI PRN Reason: Protocol Last Admin: 05/17/17 20:51 Dose: 5,000 units Piperacillin Sod/Tazobactam (Sod 2.25 gm/ Sodium Chloride) 100 mls @ 100 mls/ hr IVPB Q8 [facility] Last Admin: 05/18/17 08:25 Dose: 100 mls/hr Fentanyl Citrate 2,500 mcg/ (Dextrose) 250 mls @ 6.3 mls/hr IV .Q24H [facility] PRN Reason: 63 MCG/HR Last Admin: 05/17/17 12:24 Dose: 6.3 mls/hr Vancomycin HCl 1 gm/ Sodium (Chloride) 250 mls @ 125 mls/hr IVPB MWF [facility] Last Admin: 05/17/17 14:59 Dose: 125 mls/hr Ibuprofen (Motrin Tab) 600 mg PO Q6 PRN PRN Reason: Fever >100.4 F Last Admin: 05/17/17 12:30 Dose: 600 mg Insulin Human Lispro (Humalog) 0 units SC Q6 JENI PRN Reason: Protocol Last Admin: 05/18/17 05:35 Dose: Not Given Labetalol HCl (Trandate) 10 mg IVP Q6H [facility] Last Admin: 05/18/17 06:14 Dose: Not Given Midazolam HCl (Versed Inj) 2 mg IV Q2H PRN PRN Reason: Agitation Last Admin: 05/17/17 21:00 Dose: 2 mg Pantoprazole Sodium (Protonix Inj) 40 mg IVP DAILY [facility] Last Admin: 05/18/17 08:25 Dose: 40 mg - Labs Labs: 05/18/17 05:00 05/18/17 05:00 PT 11.6 Seconds (9.8-13.1) 05/15/17 20:29 INR 1.1 (0.9-1.2) 05/15/17 20:29 APTT 35.8 Seconds (25.6-37.1) 05/15/17 20:29 - Constitutional Appears: No Acute Distress - ENT Exam ENT Exam: Mucous Membranes Moist - Respiratory Exam Respiratory Exam: Rhonchi. absent: Chest Wall Tenderness - Cardiovascular Exam Cardiovascular Exam: absent: JVD, Rubs - GI/Abdominal Exam GI & Abdominal Exam: Normal Bowel Sounds - Extremities Exam Extremities Exam: absent: Calf Tenderness - Back Exam Back Exam: absent: CVA tenderness (L), CVA tenderness (R) - Neurological Exam Neurological Exam: Alert Assessment and Plan (1) Chronic kidney disease requiring chronic dialysis Assessment & Plan: Patient had dialysis yesterday and is scheduled for MWF Management of respiratory failure as per primary team The rest of the medical problem as noted Diabetic chronic Kidney Disease (E11.22) Hypertensive Chronic Kidney Disease (I12.0) End stage renal disease (N18.6) dependence on hemodialysis (Z99.2) (MWF) via permacath Anemia (D64.9), Hyperphosphatemia (E83.39), Secondary Hyperparathyroidism (E21.1 ), HTN (I12.0) s/p Rt AKA and left BKA s/p cardiac arrest, V fib, seizure, Hyperkalemia Status: Acute (2) Cardiac arrest Status: Acute
[2017-05-18] MEDS ORDERED: Lidocaine 1% Inj (20ml) ONE (10:37)
--- NOTE | 2017-05-18 11:00 | PCM.SURG1 ---
Surgeon's Initial Post Op Note - Surgeon's Notes Surgeon: Nikunj Rosen MD Commercial Producer: NONE Type of Anesthesia: Local Pre-Operative Diagnosis: Poor venous access Operative Findings: Patent right basilic vein. Post-Operative Diagnosis: Poor venous access Operation Performed: Double lumen picc placement right basilic vein, 40 cm. Tip in SVC. Specimen/Specimens Removed: None Estimated Blood Loss: EBL {In ML}: 2 Blood Products Given: N/A Drains Used: No Drains Post-Op Condition: Poor Date of Surgery/Procedure: 05/18/17 Time of Surgery/Procedure: 10:55
--- NOTE | 2017-05-18 11:37 | PCM.PROC ---
Procedures Attestation:: I certify that I have explained the specified Operation(s) or Procedure(s), risks, benefits and reasonable alternatives to the Patient and/or other person responsible. The opportunity was given to ask questions and all questions answered - Extubation Clinical Parameters: Resolution/Stabilization of disease process, Hemodynamically Stable, Intact Cough/Gag Reflex, Spontaneous Respirations, Acceptable Vent Settings (FIO2<50%, PEEP<8, PaO2>75, pH>7.25) Weaning Criteria Met: Yes General Weaning Approaches: Pressure Support Ventilation (PSV) Weaning Patient Condition: Patient has been successfully extubated and assessed Oxygen Therapy: O2 via Venti Mask Patient Tolerated Procedure: Well Additional Comments: Patient had returned from PICC line procedure and was in the MV weaning process from 930AM, on low level CPAP PS 5/10 at 50% oxygen. Upon return to room, despite bilat soft wrist restraints, he managed to pull out ETT, no distress noted pre-exutubation, nor post-extubation, no immediate stridor noted and SPO2 remains at 100%. Otherwise, awake and alert, regular, symmetrical, spontaneous resp pattern noted. Will continue close observation. OGT removed as well to facilitate ventilatory efforts.
--- NOTE | 2017-05-18 11:49 | CP.PCM.PN ---
Subjective - Date & Time of Evaluation Date of Evaluation: 05/18/17 Time of Evaluation: 11:30 - Subjective Subjective: Pt just self extubated after coming back fom PICC line placement + fever this am awake, alert, with soft voice , was able to tell mw e his name then did not answer other questions follows commands- moves all extremities Denies CP, no abd pain Objective - Vital Signs/Intake and Output Vital Signs (last 24 hours): Temp Pulse Resp BP Pulse Ox 100.7 F H 124 H 19 124/86 100 05/18/17 10:30 05/18/17 10:30 05/18/17 10:00 05/18/17 11:12 05/18/17 11:12 Intake and Output: 05/18/17 05/18/17 06:59 18:59 Intake Total 172 100 Output Total 0 Balance 172 100 - Medications Medications: Current Medications Dextrose (Dextrose 50% Inj) 0 ml IV STAT PRN; Protocol PRN Reason: Hyglycemia Protocol Dextrose (Glutose 15) 0 gm PO ONCE PRN; Protocol PRN Reason: Hypoglycemia Protocol Dextrose (Dextrose 50% Inj) 0 ml IV STAT PRN; Protocol PRN Reason: Hyglycemia Protocol Dextrose (Glutose 15) 0 gm PO ONCE PRN; Protocol PRN Reason: Hypoglycemia Protocol Glucagon (Glucagen Diagnostic Kit) 0 mg IM STAT PRN; Protocol PRN Reason: Hypoglycemia Protocol Glucagon (Glucagen Diagnostic Kit) 0 mg IM STAT PRN; Protocol PRN Reason: Hypoglycemia Protocol Heparin Sodium (Porcine) (Heparin) 5,000 units SC Q12 [facility] PRN Reason: Protocol Last Admin: 05/17/17 20:51 Dose: 5,000 units Piperacillin Sod/Tazobactam (Sod 2.25 gm/ Sodium Chloride) 100 mls @ 100 mls/ hr IVPB Q8 [facility] Last Admin: 05/18/17 08:25 Dose: 100 mls/hr Fentanyl Citrate 2,500 mcg/ (Dextrose) 250 mls @ 6.3 mls/hr IV .Q24H [facility] PRN Reason: 63 MCG/HR Last Admin: 05/17/17 12:24 Dose: 6.3 mls/hr Vancomycin HCl 1 gm/ Sodium (Chloride) 250 mls @ 125 mls/hr IVPB MWF [facility] Last Admin: 05/17/17 14:59 Dose: 125 mls/hr Ibuprofen (Motrin Tab) 600 mg PO Q6 PRN PRN Reason: Fever >100.4 F Last Admin: 05/17/17 12:30 Dose: 600 mg Insulin Human Lispro (Humalog) 0 units SC Q6 [facility] PRN Reason: Protocol Last Admin: 05/18/17 05:35 Dose: Not Given Labetalol HCl (Trandate) 10 mg IVP Q6H [facility] Last Admin: 05/18/17 06:14 Dose: Not Given Midazolam HCl (Versed Inj) 2 mg IV Q2H PRN PRN Reason: Agitation Last Admin: 05/17/17 21:00 Dose: 2 mg Pantoprazole Sodium (Protonix Inj) 40 mg IVP DAILY [facility] Last Admin: 05/18/17 08:25 Dose: 40 mg - Labs Labs: 05/18/17 05:00 05/18/17 05:00 PT 11.6 Seconds (9.8-13.1) 05/15/17 20:29 INR 1.1 (0.9-1.2) 05/15/17 20:29 APTT 35.8 Seconds (25.6-37.1) 05/15/17 20:29 - Constitutional Appears: Other (On Ventimask post self extubation) - Head Exam Head Exam: NORMAL INSPECTION, NORMOCEPHALIC - Eye Exam Eye Exam: EOMI, Normal appearance Pupil Exam: NORMAL ACCOMODATION - ENT Exam ENT Exam: Mucous Membranes Dry, Normal External Ear Exam - Neck Exam Neck Exam: Full ROM. absent: Meningismus - Respiratory Exam Respiratory Exam: Rales, Rhonchi. absent: Wheezes - Cardiovascular Exam Cardiovascular Exam: REGULAR RHYTHM, +S1, +S2 Additional comments: Right Chest HD catheter Right basilic PICC line - GI/Abdominal Exam GI & Abdominal Exam: Soft, Normal Bowel Sounds. absent: Tenderness - Extremities Exam Additional comments: Right AKA, Left BKA left groin TLC - Neurological Exam Neurological Exam: Alert, Awake Additional comments: orinted to person - Psychiatric Exam Psychiatric exam: Flat Affect - Skin Skin Exam: Dry, Normal Color, Warm Assessment and Plan - Assessment and Plan (Free Text) Assessment: 41 y/o male with PMH ESRD on MWF HD, DM2, and PVD among other medical conditions brought in after having a cardiac arrest in the field. Per his fiancee, after dinner patient had 'seizure like activity' -- shaking/foaming of the mouth. Per report EMS arrived and noted Vfib/Vtach and administered defibrillation. Initially he was in asystole but a second shock brought him back to A fib. He had a BP of 89/46. He was given a dose of epinephrine and a dose of amiodarone in the field. He was intubated in the field. At present in ICU , he just self extubated 1. s/p Cardiac arrest unclear etiology with episode of VFib/Vtach in the field s/p defibrillation and amiodarone troponin slightly elevated 0.5--0.7--0.[address] Hypothermia protocol was initiated on admission cardiology consulted- Dr Ogden Echo : Global Hypokinesia, EF=20% Poss Cardiac cath once stable 2. Acute respiratory failure post cardiac arrest , possible Aspiration PNA CXR initially showed bilateral infiltrate possible aspiration pneumonia. Repeat CXR post HD showed clear lung farris bilaterally Pt is febrile, leukocytosis on admission Continue Zosyn IV empirically . Added Vancomycin post HD f/u cultures , sputum and blood pulmonary on consult 3.Combined respiratory and metabolic acidosis-- improved Hemodialysis 4.ESRD on HD/ with hyperkalemia nephro consulted Continue with HD. 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 DVT prophylaxis on Heparin 10. GI prophylaxis with coffee ground material on OGT most likely stress induced on Protonix IV
--- NOTE | 2017-05-18 14:37 | VASCULAR ---
PROCEDURE: Date of procedure: 05/18/2017 Procedure: 1. Placement of a right arm PICC with ultrasound and fluoroscopic guidance, CPT 43009 2. PICC tip confirmation with spot radiograph and is in the superior vena cava Medications: 1 percent lidocaine Total Fluoro time: 1.2 minutes Radiation: 12.12 MGy EBL: 2 cc HISTORY: Infection requiring long-term IV antibiotics TECHNIQUE: Following informed consent and procedure time-out, the patient was placed supine on the interventional table and the right arm prepped and draped in the usual sterile fashion. Ultrasound showed a patent and compressible right basilic vein. After the skin was anesthetized with lidocaine, the basilic vein was accessed with micro micropuncture technique using ultrasound guidance. A guidewire was then advanced under fluoroscopic guidance into the superior vena cava. An image documenting ultrasound guidance for vascular access was permanently saved. The length of the dual-lumen 5 [place] PICC was trimmed to 40 centimeters and advanced through a peel-away sheath. The PICC was position with tip of PICC confirm a spot radiograph the superior vena cava. The PICC was secured to the patient's skin. The PICC was flushed. A biopatch and sterile dressing was applied. IMPRESSION: Placement of a dual-lumen 5 Azeri PICC trimmed to 40 centimeters via right basilic vein. The tip of the PICC is confirmed with spot radiograph and is in the superior vena cava.
[2017-05-18] MEDS: Fentanyl Citrate 2,500 MCG in Dextrose 5% In Water 200 ML IV SCH (16:45)
--- NOTE | 2017-05-18 21:33 | CP.PCM.PN ---
Subjective - Date & Time of Evaluation Date of Evaluation: 05/18/17 Time of Evaluation: 07:30 - Subjective Subjective: patient remains intubated. Objective - Vital Signs/Intake and Output Vital Signs (last 24 hours): Temp Pulse Resp BP Pulse Ox 99.9 F H 126 H 21 122/53 L 100 05/18/17 20:00 05/18/17 20:00 05/18/17 20:00 05/18/17 20:00 05/18/17 20:00 Intake and Output: 05/18/17 05/19/17 18:59 06:59 Intake Total 350 0 Output Total 0 Balance 350 0 - Medications Medications: Current Medications Dextrose (Dextrose 50% Inj) 0 ml IV STAT PRN; Protocol PRN Reason: Hyglycemia Protocol Dextrose (Glutose 15) 0 gm PO ONCE PRN; Protocol PRN Reason: Hypoglycemia Protocol Dextrose (Dextrose 50% Inj) 0 ml IV STAT PRN; Protocol PRN Reason: Hyglycemia Protocol Dextrose (Glutose 15) 0 gm PO ONCE PRN; Protocol PRN Reason: Hypoglycemia Protocol Glucagon (Glucagen Diagnostic Kit) 0 mg IM STAT PRN; Protocol PRN Reason: Hypoglycemia Protocol Glucagon (Glucagen Diagnostic Kit) 0 mg IM STAT PRN; Protocol PRN Reason: Hypoglycemia Protocol Heparin Sodium (Porcine) (Heparin) 5,000 units SC Q12 [facility] PRN Reason: Protocol Last Admin: 05/18/17 20:02 Dose: 5,000 units Piperacillin Sod/Tazobactam (Sod 2.25 gm/ Sodium Chloride) 100 mls @ 100 mls/ hr IVPB Q8 [facility] Last Admin: 05/18/17 16:24 Dose: 100 mls/hr Vancomycin HCl 1 gm/ Sodium (Chloride) 250 mls @ 125 mls/hr IVPB MWF [facility] Last Admin: 05/17/17 14:59 Dose: 125 mls/hr Ibuprofen (Motrin Tab) 600 mg PO Q6 PRN PRN Reason: Fever >100.4 F Last Admin: 05/17/17 12:30 Dose: 600 mg Insulin Human Lispro (Humalog) 0 units SC Q6 [facility] PRN Reason: Protocol Last Admin: 05/18/17 21:17 Dose: Not Given Labetalol HCl (Trandate) 10 mg IVP Q6H [facility] Last Admin: 05/18/17 14:05 Dose: Not Given Midazolam HCl (Versed Inj) 2 mg IV Q2H PRN PRN Reason: Agitation Last Admin: 05/17/17 21:00 Dose: 2 mg Pantoprazole Sodium (Protonix Inj) 40 mg IVP DAILY [facility] Last Admin: 05/18/17 08:25 Dose: 40 mg - Labs Labs: 05/18/17 05:00 05/18/17 05:00 PT 11.6 Seconds (9.8-13.1) 05/15/17 20:29 INR 1.1 (0.9-1.2) 05/15/17 20:29 APTT 35.8 Seconds (25.6-37.1) 05/15/17 20:29 - Constitutional Appears: Non-toxic - Head Exam Head Exam: NORMAL INSPECTION - Eye Exam Eye Exam: Normal appearance - ENT Exam ENT Exam: Mucous Membranes Moist - Neck Exam Neck Exam: Normal Inspection - Respiratory Exam Respiratory Exam: NORMAL BREATHING PATTERN - Cardiovascular Exam Cardiovascular Exam: REGULAR RHYTHM - GI/Abdominal Exam GI & Abdominal Exam: Normal Bowel Sounds - Rectal Exam Rectal Exam: Deferred - Extremities Exam Extremities Exam: Pedal Edema - Back Exam Back Exam: NORMAL INSPECTION - Neurological Exam Neurological Exam: Alert - Psychiatric Exam Psychiatric exam: Normal Affect - Skin Skin Exam: Normal Color Assessment and Plan (1) Cardiac arrest Assessment & Plan: continued current therapy. If recovers would consider cardiac catheterization. Status: Acute (2) DM2 (diabetes mellitus, type 2) Status: Acute (3) ESRD (end stage renal disease) on dialysis Status: Acute (4) HTN (hypertension) Status: Acute
[2017-05-19] MEDS: Labetalol 5mg/ml (4ml) IVP SCH ×2 (02:48→05:13)
[2017-05-19] MEDS: Insulin Lispro (humaLOG) 100 Units/ml Inj SC SCH ×4 (05:12→23:14)
[2017-05-19 05:14] LABS: HEMATOCRIT 33.1 % (35.0-51.0); MEAN CELL VOLUME 86.5 fl (80.0-94.0); MEAN CORPUSCULAR HEMOGLOBIN 27.2 pg (27.0-31.0); MEAN CORPUSCULAR HGB CONC 31.4 g/dL (33.0-37.0); RED CELL DISTRIBUTION WIDTH 19.4 % (11.5-14.5); WHITE BLOOD COUNT 9.3 K/uL (4.8-10.8)
[2017-05-19 05:18] LABS: ALB/GLOB RATIO 1.2 (1.0-2.1); BILIRUBIN,TOTAL 0.8 mg/dl (0.2-1.3); POTASSIUM 4.8 MMOL/L (3.6-5.0); TOTAL PROTEIN 7.1 G/DL (6.3-8.2)
--- NOTE | 2017-05-19 07:36 | CP.PCM.PN ---
Subjective - Date & Time of Evaluation Date of Evaluation: 05/19/17 Time of Evaluation: 07:45 - Subjective Subjective: Patient seen and examined bedside. Lying n bed in NAD. awake , alert , oriented . Denies any pain or discomfort .Able to swallow. Hempdynamically stable afebrile last 12 hours , BP 118/78 Tachycardic HR 107 With chest congestion , expectorating yellowish secretions but with weak cough . No acute issues overnight No neuro deficits Objective - Vital Signs/Intake and Output Vital Signs (last 24 hours): Temp Pulse Resp BP Pulse Ox 98.7 F 107 H 19 118/78 100 05/19/17 04:00 05/19/17 06:09 05/19/17 06:09 05/19/17 06:09 05/19/17 06:09 Intake and Output: 05/19/17 05/19/17 06:59 18:59 Intake Total 210 Balance 210 - Medications Medications: Current Medications Dextrose (Dextrose 50% Inj) 0 ml IV STAT PRN; Protocol PRN Reason: Hyglycemia Protocol Dextrose (Glutose 15) 0 gm PO ONCE PRN; Protocol PRN Reason: Hypoglycemia Protocol Dextrose (Dextrose 50% Inj) 0 ml IV STAT PRN; Protocol PRN Reason: Hyglycemia Protocol Dextrose (Glutose 15) 0 gm PO ONCE PRN; Protocol PRN Reason: Hypoglycemia Protocol Glucagon (Glucagen Diagnostic Kit) 0 mg IM STAT PRN; Protocol PRN Reason: Hypoglycemia Protocol Glucagon (Glucagen Diagnostic Kit) 0 mg IM STAT PRN; Protocol PRN Reason: Hypoglycemia Protocol Heparin Sodium (Porcine) (Heparin) 5,000 units SC Q12 [facility] PRN Reason: Protocol Last Admin: 05/18/17 20:02 Dose: 5,000 units Piperacillin Sod/Tazobactam (Sod 2.25 gm/ Sodium Chloride) 100 mls @ 100 mls/ hr IVPB Q8 [facility] Last Admin: 05/19/17 00:41 Dose: 100 mls/hr Vancomycin HCl 1 gm/ Sodium (Chloride) 250 mls @ 125 mls/hr IVPB MWF [facility] Last Admin: 05/17/17 14:59 Dose: 125 mls/hr Ibuprofen (Motrin Tab) 600 mg PO Q6 PRN PRN Reason: Fever >100.4 F Last Admin: 05/17/17 12:30 Dose: 600 mg Insulin Human Lispro (Humalog) 0 units SC Q6 [facility] PRN Reason: Protocol Last Admin: 05/19/17 05:12 Dose: Not Given Labetalol HCl (Trandate) 10 mg IVP Q6H [facility] Last Admin: 05/19/17 05:13 Dose: Not Given Pantoprazole Sodium (Protonix Inj) 40 mg IVP DAILY [facility] Last Admin: 05/18/17 08:25 Dose: 40 mg - Labs Labs: 05/19/17 04:20 05/19/17 04:20 PT 11.6 Seconds (9.8-13.1) 05/15/17 20:29 INR 1.1 (0.9-1.2) 05/15/17 20:29 APTT 35.8 Seconds (25.6-37.1) 05/15/17 20:29 - Constitutional Appears: Non-toxic, No Acute Distress - Head Exam Head Exam: ATRAUMATIC, NORMAL INSPECTION, NORMOCEPHALIC - Eye Exam Eye Exam: EOMI, Normal appearance, PERRL Pupil Exam: NORMAL ACCOMODATION - ENT Exam ENT Exam: Mucous Membranes Moist, Normal Exam - Neck Exam Neck Exam: Full ROM, Normal Inspection - Respiratory Exam Respiratory Exam: NORMAL BREATHING PATTERN. absent: Accessory Muscle Use, Prolonged Expiratory Phase, Wheezes Additional comments: coarse breath sounds bilaterally - Cardiovascular Exam Cardiovascular Exam: Tachycardia, +S1, +S2. absent: JVD - GI/Abdominal Exam GI & Abdominal Exam: Soft, Normal Bowel Sounds. absent: Distended, Guarding, Tenderness, Rebound - Rectal Exam Rectal Exam: Deferred - Extremities Exam Additional comments: left AKA R BKA - Neurological Exam Neurological Exam: Alert, Awake, CN II-XII Intact, Oriented x3 - Psychiatric Exam Psychiatric exam: Normal Affect, Normal Mood - Skin Skin Exam: Dry, Intact, Normal Color, Warm Assessment and Plan - Assessment and Plan (Free Text) Assessment: 41 y/o male with PMH ESRD on MWF HD, DM2, and PVD among other medical conditions brought in after having a cardiac arrest in the field. Per his fiancee, after dinner patient had 'seizure like activity' -- shaking/foaming of the mouth. Per report EMS arrived and noted Vfib/Vtach and administered defibrillation. Initially he was in asystole but a second shock brought him back to A fib. He had a BP of 89/46. He was given a dose of epinephrine and a dose of amiodarone in the field. He was intubated in the field. Hypothermia protocol was initiated . He wsa started on Zosyn and Vanco post Hd for possible aspiration Pneumonia. Cardiology, nephro ,Pulmonary were consultd Patient self extubated yesterday and at present doing well, maintaining his arirway , saturating 10 % on 2 L O2 vi aNC , hemodynamically stable For HD today 1. s/p Cardiac arrest unclear etiology with episode of VFib/Vtach in the field s/p defibrillation and amiodarone troponin slightly elevated 0.5--0.7--0.8 suggesting less likely [facility] Hypothermia protocol was initiated on admission cardiology consulted- Dr Ogden Echo : Global Hypokinesia, EF=20% Poss Cardiac cath once stable patient will need AICD placement 2. Acute respiratory failure post cardiac arrest , possible Aspiration PNA CXR initially showed bilateral infiltrate possible aspiration pneumonia. Repeat CXR post HD showed clear lung farris bilaterally Pt was febrile, leukocytosis on admission Continue Zosyn IV empirically and Vancomycin post HD cultures with no growth pulmonary on consult self extubated 05/18 and at present saturating well on 2 LO2 via NC with thick secretions and weak cough reflex. Start Duonebs and Acetylcystine INH incentive spirometry Start PT 3.Combined respiratory and metabolic acidosis-- improved Hemodialysis 4.ESRD on HD/ with hyperkalemia nephro consulted Continue with HD. 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 Augustine 5.Suspected Seizure like activity CT head showed no acute pathology Follow up MRI Head and EEG neuro consulted Seizure precautions ativan PRN no need for anti seizure medications for now 6.Hypertension BP now controlled was initially on cardene drip and now d/c off meds 7.DM type II uncontrolled d/c insulin drip Accucheck , Lispro coverage start diet 8. 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 DVT prophylaxis D/c heparin due to possible GI bleed 10. GI prophylaxis had coffee ground material on OGT most likely stress induced Hgb dropped from 14--10 on Protonix IV
--- NOTE | 2017-05-19 07:44 | CP.CCUPN ---
<Manasa Solis - Last Filed: 05/19/17 07:41> CCU Subjective - Physician Review Subjective (Free Text): 05/19/17 07:41 Patient seen and examined at bedside, awake, alert, follows commands, requesting water, oriented to person, does not recall conversation from yesterday afternoon when we discussed his cardiac arrest. Comfortable on supplemental O2 via nasal cannula. Will have repeat speech and swallow eval today. CCU Objective - Vital Signs / Intake & Output Vital Signs (Last 4 hours): Vital Signs Temp Pulse Resp BP Pulse Ox 05/19/17 06:09 107 H 19 118/78 100 05/19/17 05:00 105 H 21 109/46 L 100 05/19/17 04:00 98.7 F 103 H 19 95/70 L 100 Intake and Output (Last 8hrs): Intake & Output 05/18/17 05/19/17 05/19/17 22:59 06:59 14:59 Intake Total 200 210 Balance 200 210 Intake: Intake, Piggyback 100 200 Oral 100 10 Tube Feeding 0 Other: # Bowel Movements 0 - Physical Exam Head: Positive for: Atraumatic, Normocephalic Pupils: Positive for: PERRL Extroacular Muscles: Positive for: EOMI Conjunctiva: Positive for: Normal Mouth: Positive for: Moist Mucous Membranes Nose (External): Positive for: Atraumatic Neck: Positive for: Normal Range of Motion. Negative for: JVD Respiratory/Chest: Positive for: Good Air Exchange (on 2L O2 via nasal cannula) , Rhonchi (minimal), Other (right chest perm-cath (dressing clean/dry/intact)). Negative for: Rales Cardiovascular: Positive for: Regular Rate and Rhythm, Normal S1, S2, Tachycardic Abdomen: Positive for: Normal Bowel Sounds Genitourinary Male: Positive for: Other Upper Extremity: Positive for: Normal ROM, NORMAL PULSES (RUE PICC, dressing clean/dry/intact) 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, left BKA) Neurological: Positive for: Other (alert, awake, follows commands) Skin: Positive for: Warm, Dry. Negative for: Rashes Psychiatric: Positive for: Alert (oriented to self) - Medications Active Medications: Active Medications Generic Name Dose Route Start Last Admin Trade Name Freq PRN Reason Stop Dose Admin Dextrose 0 ml 05/15/17 02:12 Dextrose 50% Inj IV STAT PRN Hyglycemia Protocol Protocol Dextrose 0 gm 05/15/17 02:12 Glutose 15 PO ONCE PRN Hypoglycemia Protocol Protocol Dextrose 0 ml 05/16/17 09:59 Dextrose 50% Inj IV STAT PRN Hyglycemia Protocol Protocol Dextrose 0 gm 05/16/17 09:59 Glutose 15 PO ONCE PRN Hypoglycemia Protocol Protocol Glucagon 0 mg 05/15/17 02:12 Glucagen Diagnostic Kit IM STAT PRN Hypoglycemia Protocol Protocol Glucagon 0 mg 05/16/17 09:59 Glucagen Diagnostic Kit IM STAT PRN Hypoglycemia Protocol Protocol Heparin Sodium (Porcine) 5,000 units 05/15/17 21:00 05/18/17 20:02 Heparin SC 5,000 units Q12 JENI Administration Protocol Piperacillin Sod/Tazobactam 100 mls @ 100 mls/hr 05/15/17 09:30 05/19/17 00: 41 Sod 2.25 gm/ Sodium Chloride IVPB 100 mls/hr Q8 JENI Administration Vancomycin HCl 1 gm/ Sodium 250 mls @ 125 mls/hr 05/17/17 14:31 05/17/17 14: 59 Chloride IVPB 125 mls/hr MWF JENI Administration Ibuprofen 600 mg 05/16/17 17:40 05/17/17 12:30 Motrin Tab PO 600 mg Q6 PRN Administration Fever >100.4 F Insulin Human Lispro 0 units 05/16/17 10:00 05/19/17 05:12 Humalog SC Not Given Q6 JENI Protocol Labetalol HCl 10 mg 05/15/17 23:45 05/19/17 05:13 Trandate IVP Not Given Q6H [facility] Pantoprazole Sodium 40 mg 05/15/17 09:00 05/18/17 08:25 Protonix Inj IVP 40 mg DAILY JENI Administration Thiamine HCl 100 mg 05/19/17 09:00 Vitamin B1 Inj IM Q12 JENI - Patient Studies Lab Studies: Microbiology Studies 05/18/17 10:59 Gram Stain - Final Sputum 05/15/17 14:00 Blood Culture - Preliminary Blood-Thru Central Line NO GROWTH AFTER 3 DAYS Lab Studies 05/19/17 05/19/17 05/19/17 Range/Units 04:20 04:20 04:15 WBC 9.3 (4.8-10.8) K/uL RBC 3.82 L (4.40-5.90) Mil/uL Hgb 10.4 L (12.0-18.0) g/dL Hct 33.1 L (35.0-51.0) % MCV 86.5 (80.0-94.0) fl MCH 27.2 (27.0-31.0) pg MCHC 31.4 L (33.0-37.0) g/dL RDW 19.4 H (11.5-14.5) % Plt Count 133 (130-400) K/uL Sodium 143 (132-148) mmol/l Potassium 4.8 (3.6-5.0) MMOL/L Chloride 98 (98-107) mmol/L Carbon Dioxide 24 (22-30) mmol/L Anion Gap 27 H (10-20) BUN 81 H (9-20) mg/dl Creatinine 11.6 H* D (0.8-1.5) mg/dL Est GFR ( Amer) 6 Est GFR (Non-Af Amer) 5 POC Glucose (mg/dL) 108 (65-110) mg/dL Random Glucose 108 (75-110) mg/dL Calcium 9.0 (8.4-10.2) mg/dL Total Bilirubin 0.8 (0.2-1.3) mg/dl AST 35 (17-59) U/L ALT 41 (21-72) U/L Alkaline Phosphatase 106 (38-126) U/L Total Protein 7.1 (6.3-8.2) G/DL Albumin 3.9 (3.5-5.0) g/dL Globulin 3.2 (2.2-3.9) gm/dL Albumin/Globulin Ratio 1.2 (1.0-2.1) 05/18/17 05/18/17 05/18/17 Range/Units 21:16 16:16 11:27 WBC (4.8-10.8) K/uL RBC (4.40-5.90) Mil/uL Hgb (12.0-18.0) g/dL Hct (35.0-51.0) % MCV (80.0-94.0) fl MCH (27.0-31.0) pg MCHC (33.0-37.0) g/dL RDW (11.5-14.5) % Plt Count (130-400) K/uL Sodium (132-148) mmol/l Potassium (3.6-5.0) MMOL/L Chloride (98-107) mmol/L Carbon Dioxide (22-30) mmol/L Anion Gap (10-20) BUN (9-20) mg/dl Creatinine (0.8-1.5) mg/dL Est GFR ( Amer) Est GFR (Non-Af Amer) POC Glucose (mg/dL) 104 163 H 137 H (65-110) mg/dL Random Glucose (75-110) mg/dL Calcium (8.4-10.2) mg/dL Total Bilirubin (0.2-1.3) mg/dl AST (17-59) U/L ALT (21-72) U/L Alkaline Phosphatase (38-126) U/L Total Protein (6.3-8.2) G/DL Albumin (3.5-5.0) g/dL Globulin (2.2-3.9) gm/dL Albumin/Globulin Ratio (1.0-2.1) Laboratory Results - last 24 hr 05/18/17 05/18/17 05/18/17 11:27 16:16 21:16 WBC RBC Hgb Hct MCV MCH MCHC RDW Plt Count Sodium Potassium Chloride Carbon Dioxide Anion Gap BUN Creatinine Est GFR ( Amer) Est GFR (Non-Af Amer) POC Glucose (mg/dL) 137 H 163 H 104 Random Glucose Calcium Total Bilirubin AST ALT Alkaline Phosphatase Total Protein Albumin Globulin Albumin/Globulin Ratio 05/19/17 05/19/17 05/19/17 04:15 04:20 04:20 WBC 9.3 RBC 3.82 L Hgb 10.4 L Hct 33.1 L MCV 86.5 MCH 27.2 MCHC 31.4 L RDW 19.4 H Plt Count 133 Sodium 143 Potassium 4.8 Chloride 98 Carbon Dioxide 24 Anion Gap 27 H BUN 81 H Creatinine 11.6 H* D Est GFR ( Amer) 6 Est GFR (Non-Af Amer) 5 POC Glucose (mg/dL) 108 Random Glucose 108 Calcium 9.0 Total Bilirubin 0.8 AST 35 ALT 41 Alkaline Phosphatase 106 Total Protein 7.1 Albumin 3.9 Globulin 3.2 Albumin/Globulin Ratio 1.2 Fingerstick Blood Sugar Results: 108 Review of Systems - Review of Systems All systems: reviewed and no additional remarkable complaints except (for phlegm production) Critical Care Progress Note - Extremities/Vascular Does the Patient have a Central Venous Catheter?: Yes Insertion Site: Subclavian Vein (RUE PICC) Does the Patient need a Central Venous Catheter?: Yes Does the Patient have a Baez Catheter?: No Does the Patient need a Baez Catheter?: No - Prophylaxis GI Prophylaxis GI: PPI - Prophylaxis DVT Prophylaxis DVT: Heparin SQ Assessment/Plan - Assessment and Plan (Free Text) Assessment: 41 yr old with PMHx of ESRD on HD MWF, DM2, PVD with R AKA and L BKA, admitted to ICU s/p cardiac arrest. Oriented to self only. Comfortable with normal O2 sat on 2L O2 via nasal cannula. RUE PICC and right chest perm cath in place. Failed speech and swallow eval yesterday. Assessment 1. s/p Cardiac Arrest, acute hypoxemic respiratory failure 2ary to aspiration pneumonia 2. Systolic CHF (Echo: severely impaired systolic dysfunction with EF of 20% ( see full report)) 3. End Stage Renal Disease 4. NIDDM Type 2-controlled 5. PVD 6. DVT/ GI prophylaxis Plan 1. stable, oriented to self only, currently with normal O2 sat on 2L O2 via nasal cannula, PO diet pending repeat speech and swallow eval, f/u MRI Brain and EEG per neuro, start Thiamine 100mg Q12, continue Zosyn and Vancomycin, start duonebs/acetycysteine and spirometry 2. stable, will follow cardiology recommendations 3. Hemodialysis MWF, pt has right chest perm-cath port, nephrology on board 4. short acting insulin coverage scale Q6h, accucheck Q4h 5. will consider resuming home med ASA, Plavix; pending possible cardiology procedures 6. held Heparin SC Q12 for now d/t past brown fluid OG reflux/current epigastric tenderness with PO fluid and drop in Hgb since admission, Protonix IV QD - Date & Time Date: 05/19/17 Time: 07:20 <Palbo Ag - Last Filed: 05/19/17 16:56> Assessment/Plan - Assessment and Plan (Free Text) Plan: Attestation: Patient seen and examined at the bedside with Resident Dr. Rio Solis; and I agree with her outline of plans and management as documented below and discussed on AM rounds today, May 19, 2017. Any exceptions or additions are listed in my personal note that follows and reflects my review of all applicable clinical data, and participation in the care of the patient throughout the day in ICU. Further questioning the patient's fiance reveals possible small atypical seizure events preceding the day of cardiac arrest, manifest by "blank stares." MRI brain and EEG will be done today as tolerated. He is at time disoriented to time and place. Will discuss with Neuro if starting anti-epileptic therapy would be beneficial.
[2017-05-19] MEDS: Acetylcysteine 20% Inhal Soln (4ml) INH SCH ×2 (08:05→19:57)
[2017-05-19] MEDS: Albuterol-Ipratrop 3 mg / 0.5 (3 ml) UD INH SCH ×5 (08:05→19:57)
--- NOTE | 2017-05-19 11:14 | RAD ---
PROCEDURE: CHEST RADIOGRAPH, 1 VIEW HISTORY: r/o pneumonia COMPARISON: 05/18/2017 FINDINGS: There has been interval extubation and removal of the nasogastric tube. The right-sided dialysis catheter terminates at the cavoatrial junction. Please note the right PICC line is coiled in the subclavian vein. LUNGS: The right lung is clear. There is left lower lobe airspace disease. PLEURA: There is a small left pleural effusion. No pneumothorax or larger right pleural fluid seen. CARDIOVASCULAR: Normal. OSSEOUS STRUCTURES: No significant abnormalities. VISUALIZED UPPER ABDOMEN: Normal. OTHER FINDINGS: None. IMPRESSION: 1. Right PICC line is coiled in the subclavian vein. 2. Left lower lobe pneumonia and small left pleural effusion. Findings were conveyed to aircraft engine mechanic Dr. kraft on 05/19/2017 at 11:05 a.m.
[2017-05-19] MEDS: Thiamine 100 mg/ml Inj IM SCH ×2 (13:02→21:47)
--- NOTE | 2017-05-19 13:37 | CP.PCM.PN ---
Subjective - Date & Time of Evaluation Date of Evaluation: 05/19/17 Time of Evaluation: 13:34 - Subjective Subjective: Patient extubated his in bed awake although somewhat confused according to the family member at the bedside Patient just had MRI Objective - Vital Signs/Intake and Output Vital Signs (last 24 hours): Temp Pulse Resp BP Pulse Ox 97.9 F 104 H 12 152/62 H 100 05/19/17 12:00 05/19/17 12:00 05/19/17 12:00 05/19/17 12:00 05/19/17 12:00 Intake and Output: 05/19/17 05/19/17 06:59 18:59 Intake Total 210 710 Balance 210 710 - Medications Medications: Current Medications Acetylcysteine (Acetylcysteine 20%) 2 ml INH RBID [facility] Last Admin: 05/19/17 08:05 Dose: 2 ml Albuterol/Ipratropium (Duoneb 3 Mg/0.5 Mg (3 Ml) Ud) 3 ml INH RQID [facility] Last Admin: 05/19/17 12:37 Dose: 3 ml Dextrose (Dextrose 50% Inj) 0 ml IV STAT PRN; Protocol PRN Reason: Hyglycemia Protocol Dextrose (Glutose 15) 0 gm PO ONCE PRN; Protocol PRN Reason: Hypoglycemia Protocol Dextrose (Dextrose 50% Inj) 0 ml IV STAT PRN; Protocol PRN Reason: Hyglycemia Protocol Dextrose (Glutose 15) 0 gm PO ONCE PRN; Protocol PRN Reason: Hypoglycemia Protocol Docusate Sodium (Colace Liquid) 100 mg PO BID [facility] Last Admin: 05/19/17 12:47 Dose: 100 mg Glucagon (Glucagen Diagnostic Kit) 0 mg IM STAT PRN; Protocol PRN Reason: Hypoglycemia Protocol Glucagon (Glucagen Diagnostic Kit) 0 mg IM STAT PRN; Protocol PRN Reason: Hypoglycemia Protocol Piperacillin Sod/Tazobactam (Sod 2.25 gm/ Sodium Chloride) 100 mls @ 100 mls/ hr IVPB Q8 [facility] Last Admin: 05/19/17 09:28 Dose: 100 mls/hr Vancomycin HCl 1 gm/ Sodium (Chloride) 250 mls @ 125 mls/hr IVPB MWF [facility] Last Admin: 05/19/17 09:27 Dose: 125 mls/hr Ibuprofen (Motrin Tab) 600 mg PO Q6 PRN PRN Reason: Fever >100.4 F Last Admin: 05/17/17 12:30 Dose: 600 mg Insulin Human Lispro (Humalog) 0 units SC Q6 [facility] PRN Reason: Protocol Last Admin: 05/19/17 12:48 Dose: 2 units Pantoprazole Sodium (Protonix Inj) 40 mg IVP DAILY [facility] Last Admin: 05/19/17 09:27 Dose: 40 mg Sevelamer Carbonate (Renvela) 2.4 gm PO TIDWM [facility] Thiamine HCl (Vitamin B1 Inj) 100 mg IM Q12 [facility] Last Admin: 05/19/17 13:02 Dose: 100 mg - Labs Labs: 05/19/17 04:20 05/19/17 04:20 PT 11.6 Seconds (9.8-13.1) 05/15/17 20:29 INR 1.1 (0.9-1.2) 05/15/17 20:29 APTT 35.8 Seconds (25.6-37.1) 05/15/17 20:29 - Constitutional Appears: No Acute Distress - ENT Exam ENT Exam: Mucous Membranes Moist - Respiratory Exam Respiratory Exam: NORMAL BREATHING PATTERN. absent: Chest Wall Tenderness - GI/Abdominal Exam GI & Abdominal Exam: Soft, Normal Bowel Sounds - Extremities Exam Extremities Exam: absent: Calf Tenderness - Back Exam Back Exam: absent: CVA tenderness (L), CVA tenderness (R) - Neurological Exam Neurological Exam: Altered Assessment and Plan (1) Chronic kidney disease requiring chronic dialysis Assessment & Plan: End stage renal disease patient having dialysis right now about to start 4 hours dialysis if possible because of very high creatinine and the patient have not have included dialysis because of his condition Hyperphosphatemia add Renvela Status post cardiac arrest with episode of VFib/Vtach in the field s/p defibrillation and amiodarone troponin slightly elevated 0.5--0.7--0.8 suggesting less likely OK Hypothermia protocol was initiated on admission cardiology consulted- Dr Ogden Echo : Global Hypokinesia, EF=20% S/P post intubation Continue monitoring and dialysis as order [facility] CXR initially showed bilateral infiltrate possible aspiration pneumonia. Repeat CXR post HD showed clear lung farris bilaterally Status: Acute (2) Cardiac arrest Status: Acute
--- NOTE | 2017-05-19 14:46 | MRI ---
PROCEDURE: MRI BRAIN WITHOUT CONTRAST HISTORY: COMPARISON: Noncontrast head CT from 05/14/2017 TECHNIQUE: Multiplanar, multisequence MR images of the brain were obtained without intravenous contrast enhancement. FINDINGS: HEMORRHAGE: None DWI: No evidence of an acute or early subacute infarction. BRAIN PARENCHYMA: There are tiny scattered T2/FLAIR hyperintense foci in the supratentorial white matter. There is no mass, mass effect or abnormal extra-axial fluid collection. The midline sagittal structures are normal VENTRICLES: There is mild global parenchymal volume loss and proportionate enlargement of the ventricles and cortical sulci, advanced for the patient's age. CRANIUM: There is diffuse T1 hypointense signal in the visualized bones. . ORBITS: Grossly unremarkable. PARANASAL SINUSES/MASTOIDS: There is moderate circumferential mucosal thickening in the paranasal sinuses with aerosolized secretions in the maxillary sinuses and air-fluid levels in the ethmoid and sphenoid sinuses. VASCULAR SYSTEM: There are normal signal voids in the larger intracranial arteries. OTHER FINDINGS: None. IMPRESSION: 1. No acute intracranial abnormality. 2. Minimal subcortical supratentorial white matter changes are strictly nonspecific and could be related to migraine headache effect, gliosis, early chronic microvascular ischemia amongst others. 3. Diffuse low bone marrow signal which may be seen with anemia of chronic disease, marrow infiltrative processes, myelodysplastic syndrome and mastocytosis. Clinical correlation and follow-up is advised.
[2017-05-19] MEDS: Sevelamer Carb 0.8 gm/Packet PO SCH (17:06)
--- NOTE | 2017-05-19 18:05 | CP.PCM.PN ---
Subjective - Date & Time of Evaluation Date of Evaluation: 05/19/17 Time of Evaluation: 17:45 - Subjective Subjective: patient is extubated. confused. Objective - Vital Signs/Intake and Output Vital Signs (last 24 hours): Temp Pulse Resp BP Pulse Ox 97.9 F 119 H 25 H 147/82 96 05/19/17 12:00 05/19/17 17:49 05/19/17 17:49 05/19/17 17:49 05/19/17 16:00 Intake and Output: 05/19/17 05/19/17 06:59 18:59 Intake Total 210 710 Balance 210 710 - Medications Medications: Current Medications Acetylcysteine (Acetylcysteine 20%) 2 ml INH RBID [facility] Last Admin: 05/19/17 08:05 Dose: 2 ml Albuterol/Ipratropium (Duoneb 3 Mg/0.5 Mg (3 Ml) Ud) 3 ml INH RQID [facility] Last Admin: 05/19/17 16:14 Dose: 3 ml Dextrose (Dextrose 50% Inj) 0 ml IV STAT PRN; Protocol PRN Reason: Hyglycemia Protocol Dextrose (Glutose 15) 0 gm PO ONCE PRN; Protocol PRN Reason: Hypoglycemia Protocol Dextrose (Dextrose 50% Inj) 0 ml IV STAT PRN; Protocol PRN Reason: Hyglycemia Protocol Dextrose (Glutose 15) 0 gm PO ONCE PRN; Protocol PRN Reason: Hypoglycemia Protocol Docusate Sodium (Colace Liquid) 100 mg PO BID [facility] Last Admin: 05/19/17 17:05 Dose: Not Given Glucagon (Glucagen Diagnostic Kit) 0 mg IM STAT PRN; Protocol PRN Reason: Hypoglycemia Protocol Glucagon (Glucagen Diagnostic Kit) 0 mg IM STAT PRN; Protocol PRN Reason: Hypoglycemia Protocol Piperacillin Sod/Tazobactam (Sod 2.25 gm/ Sodium Chloride) 100 mls @ 100 mls/ hr IVPB Q8 [facility] Last Admin: 05/19/17 17:07 Dose: Not Given Vancomycin HCl 1 gm/ Sodium (Chloride) 250 mls @ 125 mls/hr IVPB MWF [facility] Last Admin: 05/19/17 09:27 Dose: 125 mls/hr Ibuprofen (Motrin Tab) 600 mg PO Q6 PRN PRN Reason: Fever >100.4 F Last Admin: 05/17/17 12:30 Dose: 600 mg Insulin Human Lispro (Humalog) 0 units SC Q6 [facility] PRN Reason: Protocol Last Admin: 05/19/17 17:06 Dose: Not Given Lorazepam (Ativan) 2 mg IVP Q6 PRN PRN Reason: Agitation Pantoprazole Sodium (Protonix Inj) 40 mg IVP DAILY [facility] Last Admin: 05/19/17 09:27 Dose: 40 mg Sevelamer Carbonate (Renvela) 2.4 gm PO TIDWM [facility] Last Admin: 05/19/17 17:06 Dose: Not Given Thiamine HCl (Vitamin B1 Inj) 100 mg IM Q12 [facility] Last Admin: 05/19/17 13:02 Dose: 100 mg - Labs Labs: 05/19/17 04:20 05/19/17 04:20 PT 11.6 Seconds (9.8-13.1) 05/15/17 20:29 INR 1.1 (0.9-1.2) 05/15/17 20:29 APTT 35.8 Seconds (25.6-37.1) 05/15/17 20:29 - Constitutional Appears: Chronically Ill - Head Exam Head Exam: NORMAL INSPECTION - Eye Exam Eye Exam: Normal appearance - ENT Exam ENT Exam: Mucous Membranes Moist - Neck Exam Neck Exam: Full ROM - Respiratory Exam Respiratory Exam: NORMAL BREATHING PATTERN - Cardiovascular Exam Cardiovascular Exam: REGULAR RHYTHM - GI/Abdominal Exam GI & Abdominal Exam: Normal Bowel Sounds - Rectal Exam Rectal Exam: Deferred - Extremities Exam Additional comments: amputation - Back Exam Back Exam: NORMAL INSPECTION - Neurological Exam Neurological Exam: Alert - Psychiatric Exam Psychiatric exam: Normal Affect - Skin Skin Exam: Normal Color Assessment and Plan (1) Cardiac arrest Assessment & Plan: unclear etiology. If mental status recovers, will perform cardiac cath to assess for coronary stenosis causing event. Status: Acute (2) DM2 (diabetes mellitus, type 2) Status: Acute (3) ESRD (end stage renal disease) on dialysis Status: Acute (4) HTN (hypertension) Status: Acute
[2017-05-20] MEDS: Insulin Lispro (humaLOG) 100 Units/ml Inj SC SCH ×4 (06:55→21:51)
[2017-05-20 07:09] LABS: HEMATOCRIT 36.8 % (35.0-51.0); MEAN CELL VOLUME 86.5 fl (80.0-94.0); MEAN CORPUSCULAR HEMOGLOBIN 26.8 pg (27.0-31.0); RED CELL DISTRIBUTION WIDTH 19.6 % (11.5-14.5); WHITE BLOOD COUNT 8.5 K/uL (4.8-10.8)
--- NOTE | 2017-05-20 07:15 | CP.PCM.PN ---
Subjective - Date & Time of Evaluation Date of Evaluation: 05/20/17 Time of Evaluation: 08:30 - Subjective Subjective: Patient seen and examined bedside. Lying n bed in NAD. awake , alert , oriented but with some confusion on and off. Denies any pain or discomfort .Wants to go home Hempdynamically stable afebrile BP 124/72 Tachycardic HR 105 No acute issues overnight No neuro deficits Objective - Vital Signs/Intake and Output Vital Signs (last 24 hours): Temp Pulse Resp BP Pulse Ox 98.2 F 105 H 25 H 124/72 100 05/20/17 04:00 05/20/17 06:00 05/20/17 06:00 05/20/17 06:00 05/20/17 06:00 Intake and Output: 05/20/17 05/20/17 06:59 18:59 Intake Total 152 Output Total 2500 Balance -2348 - Medications Medications: Current Medications Acetylcysteine (Acetylcysteine 20%) 2 ml INH RBID [facility] Last Admin: 05/19/17 19:57 Dose: 2 ml Albuterol/Ipratropium (Duoneb 3 Mg/0.5 Mg (3 Ml) Ud) 3 ml INH RQID [facility] Last Admin: 05/19/17 19:57 Dose: 3 ml Dextrose (Dextrose 50% Inj) 0 ml IV STAT PRN; Protocol PRN Reason: Hyglycemia Protocol Dextrose (Glutose 15) 0 gm PO ONCE PRN; Protocol PRN Reason: Hypoglycemia Protocol Dextrose (Dextrose 50% Inj) 0 ml IV STAT PRN; Protocol PRN Reason: Hyglycemia Protocol Dextrose (Glutose 15) 0 gm PO ONCE PRN; Protocol PRN Reason: Hypoglycemia Protocol Diphenhydramine HCl (Benadryl) 25 mg PO F [facility] Docusate Sodium (Colace Liquid) 100 mg PO BID [facility] Last Admin: 05/19/17 17:05 Dose: Not Given Glucagon (Glucagen Diagnostic Kit) 0 mg IM STAT PRN; Protocol PRN Reason: Hypoglycemia Protocol Glucagon (Glucagen Diagnostic Kit) 0 mg IM STAT PRN; Protocol PRN Reason: Hypoglycemia Protocol Piperacillin Sod/Tazobactam (Sod 2.25 gm/ Sodium Chloride) 100 mls @ 100 mls/ hr IVPB Q8 [facility] Last Admin: 05/20/17 01:40 Dose: 100 mls/hr Vancomycin HCl 1 gm/ Sodium (Chloride) 250 mls @ 125 mls/hr IVPB MWF [facility] Ibuprofen (Motrin Tab) 600 mg PO Q6 PRN PRN Reason: Fever >100.4 F Last Admin: 05/17/17 12:30 Dose: 600 mg Insulin Human Lispro (Humalog) 0 units SC Q6 [facility] PRN Reason: Protocol Last Admin: 05/20/17 06:55 Dose: Not Given Lorazepam (Ativan) 2 mg IVP Q6 PRN PRN Reason: Agitation Last Admin: 05/19/17 21:50 Dose: 2 mg Pantoprazole Sodium (Protonix Inj) 40 mg IVP DAILY [facility] Last Admin: 05/19/17 09:27 Dose: 40 mg Sevelamer Carbonate (Renvela) 2.4 gm PO TIDWM [facility] Last Admin: 05/19/17 17:06 Dose: Not Given Thiamine HCl (Vitamin B1 Inj) 100 mg IM Q12 [facility] Last Admin: 05/19/17 21:47 Dose: 100 mg - Labs Labs: 05/19/17 04:20 05/19/17 04:20 PT 11.6 Seconds (9.8-13.1) 05/15/17 20:29 INR 1.1 (0.9-1.2) 05/15/17 20:29 APTT 35.8 Seconds (25.6-37.1) 05/15/17 20:29 - Constitutional Appears: Non-toxic, No Acute Distress, Confused (on and off minimal) - Head Exam Head Exam: ATRAUMATIC, NORMAL INSPECTION, NORMOCEPHALIC - Eye Exam Eye Exam: EOMI, Normal appearance, PERRL Pupil Exam: NORMAL ACCOMODATION - ENT Exam ENT Exam: Mucous Membranes Moist, Normal Exam - Neck Exam Neck Exam: Full ROM, Normal Inspection - Respiratory Exam Respiratory Exam: Clear to Ausculation Bilateral. absent: Rales, Rhonchi, Wheezes - Cardiovascular Exam Cardiovascular Exam: Tachycardia, RRR, +S1, +S2. absent: JVD - GI/Abdominal Exam GI & Abdominal Exam: Soft, Normal Bowel Sounds. absent: Distended, Guarding, Tenderness, Rebound - Rectal Exam Rectal Exam: Deferred - Extremities Exam Additional comments: left AKA right BKA - Neurological Exam Neurological Exam: Alert, Awake, CN II-XII Intact, Oriented x3 Additional comments: with on and off confusion - Psychiatric Exam Psychiatric exam: Normal Affect - Skin Skin Exam: Dry, Normal Color, Warm Assessment and Plan - Assessment and Plan (Free Text) Assessment: 41 y/o male with PMH ESRD on MWF HD, DM2, and PVD among other medical conditions brought in after having a cardiac arrest in the field. Per his fiancee, after dinner patient had 'seizure like activity' -- shaking/foaming of the mouth. Per report EMS arrived and noted Vfib/Vtach and administered defibrillation. Initially he was in asystole but a second shock brought him back to A fib. He had a BP of 89/46. He was given a dose of epinephrine and a dose of amiodarone in the field. He was intubated in the field. Hypothermia protocol was initiated . He wsa started on Zosyn and Vanco post Hd for possible aspiration Pneumonia. Cardiology, nephro ,Pulmonary were consultd Patient self extubated 05/18 and at present doing well, maintaining his airrway , saturating 100 % on 2 L O2 via NC , hemodynamically stable, afebrile with few moments of confusion on and off 1. s/p Cardiac arrest unclear etiology with episode of VFib/Vtach in the field s/p defibrillation and amiodarone troponin slightly elevated 0.5--0.7--0.8 suggesting less likely [place] Hypothermia protocol was initiated on admission cardiology consulted- Dr Ogden Echo : Global Hypokinesia, EF=20% Poss Cardiac cath once stable patient will need AICD placement 2. Acute respiratory failure post cardiac arrest , possible Aspiration PNA CXR initially showed bilateral infiltrate possible aspiration pneumonia. Repeat CXR post HD showed clear lung farris bilaterally Pt was febrile, leukocytosis on admission Continue Zosyn IV empirically and Vancomycin post HD cultures with no growth pulmonary on consult self extubated 05/18 and at present saturating 100 % on 2 L O2 via NC Continue Duonebs and Acetylcystine INH incentive spirometry Started PT 3.Combined respiratory and metabolic acidosis-- improved Hemodialysis 4.ESRD on HD/ with hyperkalemia nephro consulted Continue with HD ( [facility]) patient's on air personality is Dr. Augustine 5.Suspected Seizure like activity CT head showed no acute pathology MRI Head showed no acute pathology f/u EEG neuro consulted Seizure precautions ativan PRN with minimal confusion on and off most likely delirium no need for anti seizure medications for now 6.Hypertension BP now controlled was initially on cardene drip and now d/c off meds 7.DM type II uncontrolled d/c insulin drip Accucheck , Lispro coverage continue diabetic diet 8. 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 DVT prophylaxis no signs of current bleeding will restart heparin 10. GI prophylaxis had coffee ground material on OGT most likely stress induced Hgb dropped from 14--11 on Protonix IV
[2017-05-20 07:17] LABS: CALCIUM 9.2 mg/dL (8.4-10.2); POTASSIUM 4.7 MMOL/L (3.6-5.0)
[2017-05-20] MEDS: Acetylcysteine 20% Inhal Soln (4ml) INH SCH ×2 (07:59→19:32)
[2017-05-20] MEDS: Albuterol-Ipratrop 3 mg / 0.5 (3 ml) UD INH SCH ×4 (08:00→19:32)
--- NOTE | 2017-05-20 08:16 | CP.CCUPN ---
CCU Subjective - Physician Review Events Since Last Encounter (Free Text): 05/20/17 08:14 Still confused at times, but comfortable, BP stable, no drop in Hb, CCU Objective - Vital Signs / Intake & Output Vital Signs (Last 4 hours): Vital Signs Pulse Resp BP Pulse Ox 05/20/17 06:00 105 H 25 H 124/72 100 Intake and Output (Last 8hrs): Intake & Output 05/19/17 05/20/17 05/20/17 22:59 06:59 14:59 Intake Total 264 138 Output Total 2500 Balance -2236 138 Intake: IV 14 138 Oral 250 Output: Urine 0 Urethral (Baez) 0 Ultrafiltrate 2500 Other: # Bowel Movements 0 - Physical Exam Head: Positive for: Atraumatic, Normocephalic Pupils: Positive for: PERRL Extroacular Muscles: Positive for: EOMI Conjunctiva: Positive for: Normal Mouth: Positive for: Moist Mucous Membranes Nose (External): Positive for: Atraumatic Neck: Positive for: Normal Range of Motion. Negative for: JVD Respiratory/Chest: Positive for: Good Air Exchange (on 2L O2 via nasal cannula) , Rhonchi (minimal), Other (right chest perm-cath (dressing clean/dry/intact)). Negative for: Rales Cardiovascular: Positive for: Regular Rate and Rhythm, Normal S1, S2, Tachycardic Abdomen: Positive for: Normal Bowel Sounds Genitourinary Male: Positive for: Other Upper Extremity: Positive for: Normal ROM, NORMAL PULSES (RUE PICC, dressing clean/dry/intact) 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, left BKA) Neurological: Positive for: Other (alert, awake, follows commands) Skin: Positive for: Warm, Dry. Negative for: Rashes Psychiatric: Positive for: Alert (oriented to self) - Medications Active Medications: Active Medications Generic Name Dose Route Start Last Admin Trade Name Freq PRN Reason Stop Dose Admin Acetylcysteine 2 ml 05/19/17 08:00 05/20/17 07:59 Acetylcysteine 20% INH 2 ml RBID JENI Administration Albuterol/Ipratropium 3 ml 05/19/17 08:00 05/20/17 08:00 Duoneb 3 Mg/0.5 Mg (3 Ml) Ud INH 3 ml RQID JENI Administration Dextrose 0 ml 05/15/17 02:12 Dextrose 50% Inj IV STAT PRN Hyglycemia Protocol Protocol Dextrose 0 gm 05/15/17 02:12 Glutose 15 PO ONCE PRN Hypoglycemia Protocol Protocol Dextrose 0 ml 05/16/17 09:59 Dextrose 50% Inj IV STAT PRN Hyglycemia Protocol Protocol Dextrose 0 gm 05/16/17 09:59 Glutose 15 PO ONCE PRN Hypoglycemia Protocol Protocol Diphenhydramine HCl 25 mg 05/22/17 09:00 Benadryl PO MWF [facility] Docusate Sodium 100 mg 05/19/17 10:00 05/19/17 17:05 Colace Liquid PO Not Given BID JENI Glucagon 0 mg 05/15/17 02:12 Glucagen Diagnostic Kit IM STAT PRN Hypoglycemia Protocol Protocol Glucagon 0 mg 05/16/17 09:59 Glucagen Diagnostic Kit IM STAT PRN Hypoglycemia Protocol Protocol Piperacillin Sod/Tazobactam 100 mls @ 100 mls/hr 05/15/17 09:30 05/20/17 01: 40 Sod 2.25 gm/ Sodium Chloride IVPB 100 mls/hr Q8 [facility] Administration Vancomycin HCl 1 gm/ Sodium 250 mls @ 125 mls/hr 05/22/17 09:00 Chloride IVPB MWF [facility] Ibuprofen 600 mg 05/16/17 17:40 05/17/17 12:30 Motrin Tab PO 600 mg Q6 PRN Administration Fever >100.4 F Insulin Human Lispro 0 units 05/16/17 10:00 05/20/17 06:55 Humalog SC Not Given Q6 JENI Protocol Lorazepam 2 mg 05/19/17 16:07 05/19/17 21:50 Ativan IVP 2 mg Q6 PRN Administration Agitation Pantoprazole Sodium 40 mg 05/15/17 09:00 05/19/17 09:27 Protonix Inj IVP 40 mg DAILY [facility] Administration Sevelamer Carbonate 2.4 gm 05/19/17 17:00 05/19/17 17:06 Renvela PO Not Given TIDWM [facility] Thiamine HCl 100 mg 05/19/17 09:00 05/19/17 21:47 Vitamin B1 Inj IM 100 mg Q12 [facility]I Administration - Patient Studies Lab Studies: Microbiology Studies 05/15/17 14:00 Blood Culture - Preliminary Blood-Thru Central Line NO GROWTH AFTER 4 DAYS Lab Studies 05/20/17 05/20/1705/20/17 Range/Units 06:45 06:45 05:22 WBC 8.5 (4.8-10.8) K/uL RBC 4.25 L (4.40-5.90) Mil/uL Hgb 11.4 L (12.0-18.0) g/dL Hct 36.8 (35.0-51.0) % MCV 86.5 (80.0-94.0) fl MCH 26.8 L (27.0-31.0) pg MCHC 31.0 L (33.0-37.0) g/dL RDW 19.6 H (11.5-14.5) % Plt Count 144 (130-400) K/uL Sodium 140 (132-148) mmol/l Potassium 4.7 (3.6-5.0) MMOL/L Chloride 95 L (98-107) mmol/L Carbon Dioxide 23 (22-30) mmol/L Anion Gap 27 H (10-20) BUN 43 H (9-20) mg/dl Creatinine 7.5 H* D (0.8-1.5) mg/dL Est GFR ( Amer) 10 Est GFR (Non-Af Amer) 8 POC Glucose (mg/dL) 105 (65-110) mg/dL Random Glucose 126 H (75-110) mg/dL Calcium 9.2 (8.4-10.2) mg/dL 05/19/17 05/19/17 05/19/17 Range/Units 23:14 16:57 11:06 WBC (4.8-10.8) K/uL RBC (4.40-5.90) Mil/uL Hgb (12.0-18.0) g/dL Hct (35.0-51.0) % MCV (80.0-94.0) fl MCH (27.0-31.0) pg MCHC (33.0-37.0) g/dL RDW (11.5-14.5) % Plt Count (130-400) K/uL Sodium (132-148) mmol/l Potassium (3.6-5.0) MMOL/L Chloride (98-107) mmol/L Carbon Dioxide (22-30) mmol/L Anion Gap (10-20) BUN (9-20) mg/dl Creatinine (0.8-1.5) mg/dL Est GFR ( Amer) Est GFR (Non-Af Amer) POC Glucose (mg/dL) 125 H 106 184 H (65-110) mg/dL Random Glucose (75-110) mg/dL Calcium (8.4-10.2) mg/dL Laboratory Results - last 24 hr 05/19/17 05/19/17 05/19/17 11:06 16:57 23:14 WBC RBC Hgb Hct MCV MCH MCHC RDW Plt Count Sodium Potassium Chloride Carbon Dioxide Anion Gap BUN Creatinine Est GFR ( Amer) Est GFR (Non-Af Amer) POC Glucose (mg/dL) 184 H 106 125 H Random Glucose Calcium 05/20/17 05/20/17 05/20/17 05:22 06:45 06:45 WBC 8.5 RBC 4.25 L Hgb 11.4 L Hct 36.8 MCV 86.5 MCH 26.8 L MCHC 31.0 L RDW 19.6 H Plt Count 144 Sodium 140 Potassium 4.7 Chloride 95 L Carbon Dioxide 23 Anion Gap 27 H BUN 43 H Creatinine 7.5 H* D Est GFR ( Amer) 10 Est GFR (Non-Af Amer) 8 POC Glucose (mg/dL) 105 Random Glucose 126 H Calcium 9.2 Fingerstick Blood Sugar Results: 105 Review of Systems - EENT Eyes: UNREMARKABLE Nose/Mouth/Throat: UNREMARKABLE - Cardiovascular Cardiovascular: UNREMARKABLE - Respiratory Respiratory: UNREMARKABLE - Gastrointestinal Gastrointestinal: UNREMARKABLE Critical Care Progress Note - Extremities/Vascular Does the Patient have a Central Venous Catheter?: Yes Insertion Site: Internal Jugular Vein - Restraints Justification for Restraints: High risk for harming self - Prophylaxis GI Prophylaxis GI: PPI - Prophylaxis DVT Prophylaxis DVT: Heparin SQ - Nutrition Nutrition: Nutrition Category Date Time Status Dysphagia/Modified Consistency Diet [DIET] Diets 05/19/17 Breakfast Active Assessment/Plan - Assessment and Plan (Free Text) Assessment: 1. s/p Cardiac arrest unclear etiology with episode of VFib/Vtach in the field s/p defibrillation and amiodarone troponin slightly elevated 0.5--0.7--0.8 suggesting less likely [place] Hypothermia protocol was initiated on admission cardiology consulted- Dr Ogden Echo : Global Hypokinesia, EF=20% Poss Cardiac cath once stable patient will need AICD placement 2. Acute respiratory failure post cardiac arrest , possible Aspiration PNA Had aspiration PNA but recent CXR CXR post HD showed clear lung farris bilaterally Pt was febrile, leukocytosis on admission Continue Zosyn IV empirically and Vancomycin post HD cultures with no growth pulmonary on consult self extubated 05/18 and at present saturating well on 2 LO2 via NC with thick secretions and weak cough reflex. Start Duonebs and Acetylcystine INH incentive spirometry Start PT 3.ESRD on HD/ with hyperkalemia HD MWF 4.Suspected Seizure like activity No seizure like activity since admission neuro consulted Seizure precautions no need for anti seizure medications for now 5.DM type II Accucheck , Lispro coverage start diet 6. PVD with Right AKA and left BKA 7. DVT prophylaxis Restart Heparin , Hb is stable and no signs of bleeding. 8-GI Prophylaxis PPI DISPOSITION: Will transfer to [facility], today.
[2017-05-20] MEDS: Thiamine 100 mg/ml Inj IM SCH ×2 (08:57→22:08)
[2017-05-20] MEDS: Sevelamer Carb 0.8 gm/Packet PO SCH ×4 (08:57→17:34)
--- NOTE | 2017-05-20 13:04 | CP.PCM.PN ---
Subjective - Date & Time of Evaluation Date of Evaluation: 05/20/17 Time of Evaluation: 12:00 - Subjective Subjective: Alert & talking No sob noted Objective - Vital Signs/Intake and Output Vital Signs (last 24 hours): Temp Pulse Resp BP Pulse Ox 98.2 F 112 H 20 151/90 H 100 05/20/17 04:00 05/20/17 12:00 05/20/17 12:00 05/20/17 12:00 05/20/17 12:00 Intake and Output: 05/20/17 05/20/17 06:59 18:59 Intake Total 152 650 Output Total 2500 Balance -1088 650 - Medications Medications: Current Medications Acetylcysteine (Acetylcysteine 20%) 2 ml INH RBID [facility] Last Admin: 05/20/17 07:59 Dose: 2 ml Albuterol/Ipratropium (Duoneb 3 Mg/0.5 Mg (3 Ml) Ud) 3 ml INH RQID [facility] Last Admin: 05/20/17 11:12 Dose: Not Given Dextrose (Dextrose 50% Inj) 0 ml IV STAT PRN; Protocol PRN Reason: Hyglycemia Protocol Dextrose (Glutose 15) 0 gm PO ONCE PRN; Protocol PRN Reason: Hypoglycemia Protocol Dextrose (Dextrose 50% Inj) 0 ml IV STAT PRN; Protocol PRN Reason: Hyglycemia Protocol Dextrose (Glutose 15) 0 gm PO ONCE PRN; Protocol PRN Reason: Hypoglycemia Protocol Diphenhydramine HCl (Benadryl) 25 mg PO [facility] Docusate Sodium (Colace Liquid) 100 mg PO BID [facility] Last Admin: 05/20/17 08:59 Dose: 100 mg Glucagon (Glucagen Diagnostic Kit) 0 mg IM STAT PRN; Protocol PRN Reason: Hypoglycemia Protocol Glucagon (Glucagen Diagnostic Kit) 0 mg IM STAT PRN; Protocol PRN Reason: Hypoglycemia Protocol Heparin Sodium (Porcine) (Heparin) 5,000 units SC Q12 [facility] PRN Reason: Protocol Piperacillin Sod/Tazobactam (Sod 2.25 gm/ Sodium Chloride) 100 mls @ 100 mls/ hr IVPB Q8 [facility] Last Admin: 05/20/17 08:58 Dose: 100 mls/hr Vancomycin HCl 1 gm/ Sodium (Chloride) 250 mls @ 125 mls/hr IVPB [facility] Ibuprofen (Motrin Tab) 600 mg PO Q6 PRN PRN Reason: Fever >100.4 F Last Admin: 05/17/17 12:30 Dose: 600 mg Insulin Human Lispro (Humalog) 0 units SC ACHS [facility] PRN Reason: Protocol Last Admin: 05/20/17 12:13 Dose: 2 units Lorazepam (Ativan) 2 mg IVP Q6 PRN PRN Reason: Agitation Last Admin: 05/20/17 10:55 Dose: 2 mg Pantoprazole Sodium (Protonix Inj) 40 mg IVP DAILY [facility] Last Admin: 05/20/17 08:58 Dose: 40 mg Sevelamer Carbonate (Renvela) 2.4 gm PO TIDWM [facility] Last Admin: 05/20/17 08:57 Dose: 2.4 gm Thiamine HCl (Vitamin B1 Inj) 100 mg IM Q12 [facility] Last Admin: 05/20/17 08:57 Dose: 100 mg - Labs Labs: 05/20/17 06:45 05/20/17 06:45 PT 11.6 Seconds (9.8-13.1) 05/15/17 20:29 INR 1.1 (0.9-1.2) 05/15/17 20:29 APTT 35.8 Seconds (25.6-37.1) 05/15/17 20:29 - Respiratory Exam Additional comments: Lungs clear - Cardiovascular Exam Cardiovascular Exam: REGULAR RHYTHM Assessment and Plan - Assessment and Plan (Free Text) Assessment: ESRD. HD MWE Cardiomyopathy S/P cardiac arrest Plan: Continue HD MWF Labs are stable
[2017-05-21] MEDS: Insulin Lispro (humaLOG) 100 Units/ml Inj SC SCH ×4 (06:30→22:05)
[2017-05-21] MEDS: Acetylcysteine 20% Inhal Soln (4ml) INH SCH ×3 (07:46→19:27)
[2017-05-21] MEDS: Albuterol-Ipratrop 3 mg / 0.5 (3 ml) UD INH SCH ×5 (07:46→19:27)
[2017-05-21] MEDS: Sevelamer Carb 0.8 gm/Packet PO SCH ×3 (08:42→17:34)
[2017-05-21] MEDS: Thiamine 100 mg/ml Inj IM SCH ×2 (08:45→21:04)
--- NOTE | 2017-05-21 09:31 | CP.PCM.PN ---
Subjective - Date & Time of Evaluation Date of Evaluation: 05/21/17 Time of Evaluation: 09:20 - Subjective Subjective: patient is aswake, but not coherent. has productive cough Objective - Vital Signs/Intake and Output Vital Signs (last 24 hours): Temp Pulse Resp BP Pulse Ox 97.9 F 98 H 18 161/94 H 99 05/21/17 08:22 05/21/17 08:22 05/21/17 08:22 05/21/17 08:22 05/21/17 08:22 Intake and Output: 05/21/17 05/21/17 06:59 18:59 Intake Total 130 Balance 130 - Medications Medications: Current Medications Acetylcysteine (Acetylcysteine 20%) 2 ml INH RBID [facility] Last Admin: 05/21/17 09:04 Dose: 2 ml Albuterol/Ipratropium (Duoneb 3 Mg/0.5 Mg (3 Ml) Ud) 3 ml INH RQID [facility] Last Admin: 05/21/17 09:05 Dose: 3 ml Dextrose (Dextrose 50% Inj) 0 ml IV STAT PRN; Protocol PRN Reason: Hyglycemia Protocol Dextrose (Glutose 15) 0 gm PO ONCE PRN; Protocol PRN Reason: Hypoglycemia Protocol Dextrose (Dextrose 50% Inj) 0 ml IV STAT PRN; Protocol PRN Reason: Hyglycemia Protocol Dextrose (Glutose 15) 0 gm PO ONCE PRN; Protocol PRN Reason: Hypoglycemia Protocol Diphenhydramine HCl (Benadryl) 25 mg PO [facility] Docusate Sodium (Colace Liquid) 100 mg PO BID [facility] Last Admin: 05/21/17 08:43 Dose: Not Given Glucagon (Glucagen Diagnostic Kit) 0 mg IM STAT PRN; Protocol PRN Reason: Hypoglycemia Protocol Glucagon (Glucagen Diagnostic Kit) 0 mg IM STAT PRN; Protocol PRN Reason: Hypoglycemia Protocol Heparin Sodium (Porcine) (Heparin) 5,000 units SC Q12 [facility] PRN Reason: Protocol Last Admin: 05/21/17 08:43 Dose: 5,000 units Piperacillin Sod/Tazobactam (Sod 2.25 gm/ Sodium Chloride) 100 mls @ 100 mls/ hr IVPB Q8 [facility] Last Admin: 05/21/17 00:56 Dose: 100 mls/hr Vancomycin HCl 1 gm/ Sodium (Chloride) 250 mls @ 125 mls/hr IVPB [facility] Ibuprofen (Motrin Tab) 600 mg PO Q6 PRN PRN Reason: Fever >100.4 F Last Admin: 05/17/17 12:30 Dose: 600 mg Insulin Human Lispro (Humalog) 0 units SC ACHS [facility] PRN Reason: Protocol Last Admin: 05/21/17 06:30 Dose: Not Given Lorazepam (Ativan) 2 mg IVP Q6 PRN PRN Reason: Agitation Last Admin: 05/21/17 04:52 Dose: 2 mg Pantoprazole Sodium (Protonix Inj) 40 mg IVP DAILY [facility] Last Admin: 05/20/17 08:58 Dose: 40 mg Sevelamer Carbonate (Renvela) 2.4 gm PO TIDWM [facility] Last Admin: 05/21/17 08:42 Dose: 2.4 gm Thiamine HCl (Vitamin B1 Inj) 100 mg IM Q12 [facility] Last Admin: 05/21/17 08:45 Dose: 100 mg - Labs Labs: 05/20/17 06:45 05/20/17 06:45 PT 11.6 Seconds (9.8-13.1) 05/15/17 20:29 INR 1.1 (0.9-1.2) 05/15/17 20:29 APTT 35.8 Seconds (25.6-37.1) 05/15/17 20:29 - Constitutional Appears: Chronically Ill - Head Exam Head Exam: NORMAL INSPECTION - Eye Exam Eye Exam: Normal appearance - ENT Exam ENT Exam: Mucous Membranes Moist - Neck Exam Neck Exam: Full ROM - Respiratory Exam Respiratory Exam: Decreased Breath Sounds - Cardiovascular Exam Cardiovascular Exam: REGULAR RHYTHM - GI/Abdominal Exam GI & Abdominal Exam: Normal Bowel Sounds - Rectal Exam Rectal Exam: Deferred - Extremities Exam Additional comments: bilateral amputee - Back Exam Back Exam: NORMAL INSPECTION - Neurological Exam Neurological Exam: Alert - Skin Skin Exam: Normal Color Assessment and Plan (1) Cardiac arrest Assessment & Plan: remains in sinus rhythm. would benefit from cardiac cath to assess for critical coronary stenosis contributing to arrhythmia. patient still does not have appropriate mental status. Status: Acute (2) DM2 (diabetes mellitus, type 2) Status: Acute (3) ESRD (end stage renal disease) on dialysis Status: Acute (4) HTN (hypertension) Status: Acute
--- NOTE | 2017-05-21 10:33 | CP.PCM.CON ---
History of Present Illness - History of Present Illness History of Present Illness: Psychiatry consult called for agitation/delirium HPI: 41 y/o male with ESRD on MWF HD, DM2, and PVD admitted s/p cardiac arrest, w/ respiratory failure possible aspiration PNA, now w/ periods of agitation and confusion in which he becomes disoriented, threatening, yells and curses at staff. Patient is a poor historian. Alert to [facility], self and February 2017. He does not recall these periods of agitation or aggression. He seems to have poor insight into the severity his medical condition at this time and can not weigh the risks/benefits of treatment. He denies feeling depressed/ anxious. Denies hallucinations/paranoia/delusions. PPHx: Patient denies past psychiatric history MHx: ESRD on HD, DM2, PVD SHx: b/l LE amputation; R AKA, L BKA Allergies: Fish, vancomycin Family Hx: Cannot obtain Social Hx: Lives with ilya, no EtOH or tobacco Surrogate: Ilya MSE: A + O x self, [facility] and February 2017, calm, cooperative, affect- irritable, mood- "fine", thought process- non-linear at times, thought content- no delusions/paranoia, no hallucations, no suicidal/homicidal ideation, insight/ judgment limited at this time. Impression: 41 y/o male with ESRD on MWF HD, DM2, and PVD admitted s/p cardiac arrest, w/ respiratory failure possible aspiration PNA, now w/ periods of agitation and confusion in which he becomes disoriented, threatening, yells and curses at staff. Acute delirium is secondary to acute medical issues not a primary psychiatric illness. -For acute agitation, can give Haldol 2 mg IM/IV/PO q8 hours PRN agitation -If Ativan is making patient more agitated or disinhibited, would stop or lower dosage to Ativan 1 mg IM/IV/PO Q8hr to be given w/ Haldol Past Patient History - Infectious Disease Hx of Infectious Diseases: None - Past Medical History & Family History Past Medical History?: Yes - Past Social History Alcohol: None Drugs: Cannabis (occasional) - CARDIAC Hx Cardiac Disorders: Yes Hx Peripheral Vascular Disease: Yes Other/Comment: left below the knee amputee. >rt above the knee amputee. >rt chest wall permacath for HD - PULMONARY Hx Respiratory Disorders: No - NEUROLOGICAL Hx Neurological Disorder: No - HEENT Hx HEENT Problems: Yes - RENAL Hx Chronic Kidney Disease: Yes - ENDOCRINE/METABOLIC Hx Diabetes Mellitus Type 2: Yes - HEMATOLOGICAL/ONCOLOGICAL Hx Blood Disorders: No Hx AIDS: No Hx Human Immunodeficiency Virus (HIV): No - INTEGUMENTARY Hx Dermatological Problems: No - MUSCULOSKELETAL/RHEUMATOLOGICAL Hx Musculoskeletal Disorders: No Hx Falls: No - GASTROINTESTINAL Hx Gastrointestinal Disorders: No - GENITOURINARY/GYNECOLOGICAL Hx Genitourinary Disorders: No Hx Prostate Problems: No Other/Comment: pt. 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 - ANESTHESIA Hx Anesthesia: Yes Hx Anesthesia Reactions: No Hx Malignant Hyperthermia: No Meds Allergies/Adverse Reactions: Allergies Allergy/AdvReac Type Severity Reaction Status Date / Time FISH Allergy RASH Verified 01/01/17 20:32 vancomycin AdvReac RASH Verified 05/19/17 21:39 - Medications Medications: Current Medications Acetylcysteine (Acetylcysteine 20%) 2 ml INH RBID [facility] Last Admin: 05/21/17 09:04 Dose: 2 ml Albuterol/Ipratropium (Duoneb 3 Mg/0.5 Mg (3 Ml) Ud) 3 ml INH RQID [facility] Last Admin: 05/21/17 09:05 Dose: 3 ml Dextrose (Dextrose 50% Inj) 0 ml IV STAT PRN; Protocol PRN Reason: Hyglycemia Protocol Dextrose (Glutose 15) 0 gm PO ONCE PRN; Protocol PRN Reason: Hypoglycemia Protocol Dextrose (Dextrose 50% Inj) 0 ml IV STAT PRN; Protocol PRN Reason: Hyglycemia Protocol Dextrose (Glutose 15) 0 gm PO ONCE PRN; Protocol PRN Reason: Hypoglycemia Protocol Diphenhydramine HCl (Benadryl) 25 mg PO MWF [facility] Docusate Sodium (Colace Liquid) 100 mg PO BID [facility] Last Admin: 05/21/17 08:43 Dose: Not Given Glucagon (Glucagen Diagnostic Kit) 0 mg IM STAT PRN; Protocol PRN Reason: Hypoglycemia Protocol Glucagon (Glucagen Diagnostic Kit) 0 mg IM STAT PRN; Protocol PRN Reason: Hypoglycemia Protocol Heparin Sodium (Porcine) (Heparin) 5,000 units SC Q12 [facility] PRN Reason: Protocol Last Admin: 05/21/17 08:43 Dose: 5,000 units Piperacillin Sod/Tazobactam (Sod 2.25 gm/ Sodium Chloride) 100 mls @ 100 mls/ hr IVPB Q8 [facility] Last Admin: 05/21/17 00:56 Dose: 100 mls/hr Vancomycin HCl 1 gm/ Sodium (Chloride) 250 mls @ 125 mls/hr IVPB MWF [facility] Ibuprofen (Motrin Tab) 600 mg PO Q6 PRN PRN Reason: Fever >100.4 F Last Admin: 05/17/17 12:30 Dose: 600 mg Insulin Human Lispro (Humalog) 0 units SC ACHS [facility] PRN Reason: Protocol Last Admin: 05/21/17 06:30 Dose: Not Given Lorazepam (Ativan) 2 mg IVP Q6 PRN PRN Reason: Agitation Last Admin: 05/21/17 10:23 Dose: 2 mg Pantoprazole Sodium (Protonix Inj) 40 mg IVP DAILY [facility] Last Admin: 05/20/17 08:58 Dose: 40 mg Sevelamer Carbonate (Renvela) 2.4 gm PO TIDWM [facility] Last Admin: 05/21/17 08:42 Dose: 2.4 gm Thiamine HCl (Vitamin B1 Inj) 100 mg IM Q12 [facility] Last Admin: 05/21/17 08:45 Dose: 100 mg Results - Vital Signs Recent Vital Signs: Last Vital Signs Temp 97.9 F 05/21/17 08:22 Pulse 98 H 05/21/17 08:22 Resp 18 05/21/17 08:22 BP 161/94 H 05/21/17 08:22 Pulse Ox 99 05/21/17 08:22 - Labs Result Diagrams: 05/20/17 06:45 05/20/17 06:45 Labs: Laboratory Results - last 24 hr 05/20/17 05/20/17 05/20/17 11:37 16:04 21:17 POC Glucose (mg/dL) 190 H 98 168 H 05/21/17 06:28 POC Glucose (mg/dL) 136 H
--- NOTE | 2017-05-21 11:52 | CP.PCM.PN ---
Subjective - Date & Time of Evaluation Date of Evaluation: 05/21/17 Time of Evaluation: 11:10 - Subjective Subjective: Alert. asking for water No resp distress Objective - Vital Signs/Intake and Output Vital Signs (last 24 hours): Temp Pulse Resp BP Pulse Ox 97.9 F 112 H 18 150/92 H 99 05/21/17 08:22 05/21/17 10:00 05/21/17 08:22 05/21/17 10:00 05/21/17 08:22 Intake and Output: 05/21/17 05/21/17 06:59 18:59 Intake Total 130 112 Balance 130 112 - Medications Medications: Current Medications Acetylcysteine (Acetylcysteine 20%) 2 ml INH RBID [facility] Last Admin: 05/21/17 09:04 Dose: 2 ml Albuterol/Ipratropium (Duoneb 3 Mg/0.5 Mg (3 Ml) Ud) 3 ml INH RQID [facility] Last Admin: 05/21/17 09:05 Dose: 3 ml Dextrose (Dextrose 50% Inj) 0 ml IV STAT PRN; Protocol PRN Reason: Hyglycemia Protocol Dextrose (Glutose 15) 0 gm PO ONCE PRN; Protocol PRN Reason: Hypoglycemia Protocol Dextrose (Dextrose 50% Inj) 0 ml IV STAT PRN; Protocol PRN Reason: Hyglycemia Protocol Dextrose (Glutose 15) 0 gm PO ONCE PRN; Protocol PRN Reason: Hypoglycemia Protocol Diphenhydramine HCl (Benadryl) 25 mg PO [facility] Docusate Sodium (Colace Liquid) 100 mg PO BID [facility] Last Admin: 05/21/17 08:43 Dose: Not Given Glucagon (Glucagen Diagnostic Kit) 0 mg IM STAT PRN; Protocol PRN Reason: Hypoglycemia Protocol Glucagon (Glucagen Diagnostic Kit) 0 mg IM STAT PRN; Protocol PRN Reason: Hypoglycemia Protocol Heparin Sodium (Porcine) (Heparin) 5,000 units SC Q12 [facility] PRN Reason: Protocol Last Admin: 05/21/17 08:43 Dose: 5,000 units Piperacillin Sod/Tazobactam (Sod 2.25 gm/ Sodium Chloride) 100 mls @ 100 mls/ hr IVPB Q8 [facility] Last Admin: 05/21/17 11:42 Dose: 100 mls/hr Vancomycin HCl 1 gm/ Sodium (Chloride) 250 mls @ 125 mls/hr IVPB [facility] Ibuprofen (Motrin Tab) 600 mg PO Q6 PRN PRN Reason: Fever >100.4 F Last Admin: 05/17/17 12:30 Dose: 600 mg Insulin Human Lispro (Humalog) 0 units SC ACHS [facility] PRN Reason: Protocol Last Admin: 05/21/17 11:45 Dose: 2 units Lorazepam (Ativan) 2 mg IVP Q6 PRN PRN Reason: Agitation Last Admin: 05/21/17 10:23 Dose: 2 mg Pantoprazole Sodium (Protonix Inj) 40 mg IVP DAILY [facility] Last Admin: 05/21/17 11:41 Dose: 40 mg Sevelamer Carbonate (Renvela) 2.4 gm PO TIDWM [facility] Last Admin: 05/21/17 08:42 Dose: 2.4 gm Thiamine HCl (Vitamin B1 Inj) 100 mg IM Q12 [facility] Last Admin: 05/21/17 08:45 Dose: 100 mg - Labs Labs: 05/20/17 06:45 05/20/17 06:45 PT 11.6 Seconds (9.8-13.1) 05/15/17 20:29 INR 1.1 (0.9-1.2) 05/15/17 20:29 APTT 35.8 Seconds (25.6-37.1) 05/15/17 20:29 - Respiratory Exam Additional comments: Lungs clear - Cardiovascular Exam Cardiovascular Exam: REGULAR RHYTHM - Extremities Exam Additional comments: Rt AKA. LT BKA Assessment and Plan - Assessment and Plan (Free Text) Assessment: ESRD Cardiomyopathy S/P cardiac arrest Plan: Instructed Pt on fluid restriction Continue HD MWF
--- NOTE | 2017-05-21 15:00 | CP.PCM.PN ---
Subjective - Date & Time of Evaluation Date of Evaluation: 05/21/17 Time of Evaluation: 12:20 - Subjective Subjective: Patient seen and examined bedside. Lying n bed in NAD. Awake , alert and oriented but with episodes of confusion and agitation at times. Wants to go home and seems to not really understand his condition Denies any pain or discomfort . BP 150/92 tachycardic HR 112 Tachycardic HR 105 No neuro deficits WBC 8.5 Hgb 11 Plt 144 K With coughing spells and some sputum production Objective - Vital Signs/Intake and Output Vital Signs (last 24 hours): Temp Pulse Resp BP Pulse Ox 97.9 F 112 H 18 150/92 H 99 05/21/17 08:22 05/21/17 10:00 05/21/17 08:22 05/21/17 10:00 05/21/17 08:22 Intake and Output: 05/21/17 05/21/17 06:59 18:59 Intake Total 130 112 Balance 130 112 - Medications Medications: Current Medications Acetylcysteine (Acetylcysteine 20%) 2 ml INH RBID [facility] Last Admin: 05/21/17 09:04 Dose: 2 ml Albuterol/Ipratropium (Duoneb 3 Mg/0.5 Mg (3 Ml) Ud) 3 ml INH RQID [facility] Last Admin: 05/21/17 12:16 Dose: 3 ml Dextrose (Dextrose 50% Inj) 0 ml IV STAT PRN; Protocol PRN Reason: Hyglycemia Protocol Dextrose (Glutose 15) 0 gm PO ONCE PRN; Protocol PRN Reason: Hypoglycemia Protocol Dextrose (Dextrose 50% Inj) 0 ml IV STAT PRN; Protocol PRN Reason: Hyglycemia Protocol Dextrose (Glutose 15) 0 gm PO ONCE PRN; Protocol PRN Reason: Hypoglycemia Protocol Diphenhydramine HCl (Benadryl) 25 mg PO [facility] Docusate Sodium (Colace Liquid) 100 mg PO BID [facility] Last Admin: 05/21/17 08:43 Dose: Not Given Glucagon (Glucagen Diagnostic Kit) 0 mg IM STAT PRN; Protocol PRN Reason: Hypoglycemia Protocol Glucagon (Glucagen Diagnostic Kit) 0 mg IM STAT PRN; Protocol PRN Reason: Hypoglycemia Protocol Guaifenesin/Dextromethorphan (Mucinex-Dm 600-30 Mg) 1 tab PO BID [facility] Haloperidol Lactate (Haldol) 1 mg IVP TID PRN PRN Reason: Agitation Heparin Sodium (Porcine) (Heparin) 5,000 units SC Q12 [facility] PRN Reason: Protocol Last Admin: 05/21/17 08:43 Dose: 5,000 units Piperacillin Sod/Tazobactam (Sod 2.25 gm/ Sodium Chloride) 100 mls @ 100 mls/ hr IVPB Q8 [facility] Last Admin: 05/21/17 11:42 Dose: 100 mls/hr Vancomycin HCl 1 gm/ Sodium (Chloride) 250 mls @ 125 mls/hr IVPB MWF [facility] Ibuprofen (Motrin Tab) 600 mg PO Q6 PRN PRN Reason: Fever >100.4 F Last Admin: 05/17/17 12:30 Dose: 600 mg Insulin Human Lispro (Humalog) 0 units SC ACHS [facility] PRN Reason: Protocol Last Admin: 05/21/17 11:45 Dose: 2 units Lorazepam (Ativan) 1 mg IVP Q8 PRN PRN Reason: Agitation Pantoprazole Sodium (Protonix Inj) 40 mg IVP DAILY [facility] Last Admin: 05/21/17 11:41 Dose: 40 mg Sevelamer Carbonate (Renvela) 2.4 gm PO TIDWM [facility] Last Admin: 05/21/17 08:42 Dose: 2.4 gm Thiamine HCl (Vitamin B1 Inj) 100 mg IM Q12 [facility] Last Admin: 05/21/17 08:45 Dose: 100 mg - Labs Labs: 05/20/17 06:45 05/20/17 06:45 PT 11.6 Seconds (9.8-13.1) 05/15/17 20:29 INR 1.1 (0.9-1.2) 05/15/17 20:29 APTT 35.8 Seconds (25.6-37.1) 05/15/17 20:29 - Constitutional Appears: Non-toxic, No Acute Distress, Confused - Head Exam Head Exam: ATRAUMATIC, NORMAL INSPECTION, NORMOCEPHALIC - Eye Exam Eye Exam: EOMI, Normal appearance, PERRL Pupil Exam: NORMAL ACCOMODATION - ENT Exam ENT Exam: Mucous Membranes Moist, Normal Exam - Neck Exam Neck Exam: Full ROM, Normal Inspection - Respiratory Exam Respiratory Exam: Clear to Ausculation Bilateral. absent: Rales, Rhonchi, Wheezes - Cardiovascular Exam Cardiovascular Exam: Tachycardia, RRR, +S1, +S2. absent: JVD - GI/Abdominal Exam GI & Abdominal Exam: Soft, Normal Bowel Sounds. absent: Distended, Guarding, Tenderness, Rebound - Rectal Exam Rectal Exam: Deferred - Extremities Exam Additional comments: left AKA Right BKA - Neurological Exam Neurological Exam: Alert, Awake, CN II-XII Intact Additional comments: with on and off confusion and agitation - Psychiatric Exam Psychiatric exam: Agitated, Normal Affect - Skin Skin Exam: Dry, Intact, Normal Color, Warm Assessment and Plan - Assessment and Plan (Free Text) Assessment: 41 y/o male with PMH ESRD on MWF HD, DM2, and PVD among other medical conditions brought in after having a cardiac arrest in the field. Per his fiancee, after dinner patient had 'seizure like activity' -- shaking/foaming of the mouth. Per report EMS arrived and noted Vfib/Vtach and administered defibrillation. Initially he was in asystole but a second shock brought him back to A fib. He had a BP of 89/46. He was given a dose of epinephrine and a dose of amiodarone in the field. He was intubated in the field. Hypothermia protocol was initiated . He wsa started on Zosyn and Vanco post Hd for possible aspiration Pneumonia. Cardiology, nephro ,Pulmonary were consult Patient self extubated 05/18 and at present doing well, maintaining his airway , saturating 100 % on 2 L O2 via NC , hemodynamically stable, afebrile with few moments of confusion on and off 1. Acute delirium with moments of confusion on and off 1;1 for safety psych consulted haldol PRN for agiation and ativan PRN 2. s/p Cardiac arrest unclear etiology with episode of VFib/Vtach in the field s/p defibrillation and amiodarone troponin slightly elevated 0.5--0.7--0.8 suggesting less likely PR Hypothermia protocol was initiated on admission cardiology consulted- Dr Ogden Echo : Global Hypokinesia, EF=20% Poss Cardiac cath once stable patient will need AICD placement 3. Acute respiratory failure post cardiac arrest , possible Aspiration PNA CXR initially showed bilateral infiltrate possible aspiration pneumonia. Repeat CXR post HD showed clear lung farris bilaterally Pt was febrile, leukocytosis on admission and at present afebrile with WBC 8.5 but with cough and thick yellowish secretions Continue Zosyn IV empirically and Vancomycin post HD cultures with no growth pulmonary on consult self extubated 05/18 and at present saturating 100 % on 2 L O2 via NC Continue Duonebs and Acetylcystine INH incentive spirometry Started PT Started Mucinex 4.Combined respiratory and metabolic acidosis-- improved Hemodialysis 5.ESRD on HD/ with hyperkalemia nephro consulted Continue with HD ( MWF) patient's supervisor smoke control is Dr. Augustine 6.Suspected Seizure like activity CT head showed no acute pathology MRI Head showed no acute pathology f/u EEG neuro consulted Seizure precautions ativan, halodol PRN with episodes of confusion and agitation on and off most likely delirium no need for anti seizure medications for now 7.Hypertension BP labile was initially on cardene drip and now d/c will start Coreg 6.25 mg PO BId for BP and HR control 8.DM type II uncontrolled d/c insulin drip Accucheck , Lispro coverage continue diabetic diet 9. PVD with Right AKA and left BKA 10. DVT prophylaxis no signs of current bleeding restarted heparin 11. GI prophylaxis had coffee ground material on OGT most likely stress induced Hgb dropped from 14--11 change protonix to PO
[2017-05-21] MEDS: guaiFENesin-DM 600-30 mg ER Tab PO SCH (17:41)
--- NOTE | 2017-05-21 19:10 | PN ---
NEUROLOGY FOLLOWUP DATE: 05/21/2017 CHIEF COMPLAINT: Followup for altered mental status. SUBJECTIVE: The patient was seen and examined at the bed, status post cardiac arrest, now currently transferred out of the ICU and is alert, oriented and following commands. He has intermittent confusion. His MRI of the brain showed no acute intracranial abnormalities. His electrolytes are currently been managed and stabilized. PAST MEDICAL HISTORY: History of end-stage renal disease on Monday, Monday and Monday; type 2 diabetes mellitus, peripheral vascular disease, history of left AKA and right BKA. SOCIAL HISTORY: No illicit drug use, smoking or EtOH abuse. ALLERGIES: FISH AND VANCOMYCIN. FAMILY HISTORY: Noncontributory. MEDICATIONS: Reviewed by nurse reconciliation sheet. REVIEW OF SYSTEMS: A 14-point review of systems negative except as in the HPI. PHYSICAL EXAMINATION: VITAL SIGNS: Temperature 97.9, pulse rate 98, blood pressure 161/94 and respiratory rate of 18. GENERAL: The patient is sitting up in the bed, alert and oriented to person and place, month and year. Recall at 5 minutes 0 out of 3 as intermittent tendency of conversation. Otherwise, cranial nerves II through XII are intact. Motor exam: Moves all extremities equally, has left AKA and right BKA. HEART: S1 and S2, normal rate and rhythm. No murmurs, rubs, or gallops. ABDOMEN: Soft, nontender and nondistended. Bowel sounds are present. EXTREMITIES: Has left AKA and right BKA. NEUROLOGIC: The patient is alert and oriented to person and place, month and year. Speech is fluent without any errors. Cranial nerves II through XII are intact. Motor exam: Moves all upper extremities equally. Sensory exam: Light touch and pinprick is intact bilaterally on both thighs as well as upper extremities. DTRs are 1+ in the upper extremities. Coordination of [id number] intact. Gait is deferred for now. LABORATORY DATA: Sodium is 130, blood sugar is 186. ASSESSMENT AND PLAN: This is a 41-year-old man with past medical history of end-stage renal disease, on Monday, Monday and Monday on hemodialysis; type 2 diabetes mellitus; peripheral vascular disease, who was brought for cardiac arrest in the field and was initially asystole but was brought back to atrial fibrillation and had low systolic and diastolic blood pressure of 89/49. Currently, he was in the ICU, we managed and hypothermic protocol initiated was weaned off as well as placed on antibiotics and had emergent hemodialysis. Currently, his MRI of the brain showed no acute intracranial abnormality. He has intermittent confusion which is likely more of a delirium which is superimposed metabolic encephalopathy for underlying his chronic medical conditions. At this time continue; 1. Monitor his electrolytes and correct accordingly. 2. Follow with nephrology versus end-stage renal disease and hyperkalemia. 3. No AEDs needed since this is not a provoked seizure. We will hold off for any antiepileptics. 4. Keep his blood pressures between 130 to 140 and avoid hypertensive events. 5. Monitor his blood sugars, keep his blood sugars between 140 to 180 and continue current present medical management. Thank you for this followup. Delio Gomez MD
[2017-05-22] MEDS: Oxycodone/Acetaminophen 5/325 mg Tab PO PRN ×2 (05:44→13:01)
[2017-05-22] MEDS: Acetylcysteine 20% Inhal Soln (4ml) INH SCH ×2 (07:44→19:04)
[2017-05-22] MEDS: Albuterol-Ipratrop 3 mg / 0.5 (3 ml) UD INH SCH ×4 (07:45→19:04)
[2017-05-22] MEDS: Insulin Lispro (humaLOG) 100 Units/ml Inj SC SCH ×4 (08:58→22:16)
[2017-05-22] MEDS: guaiFENesin-DM 600-30 mg ER Tab PO SCH ×2 (08:59→17:19)
[2017-05-22] MEDS: Sevelamer Carb 0.8 gm/Packet PO SCH ×3 (08:59→17:21)
[2017-05-22] MEDS: Pantoprazole 40 mg EC Tab PO SCH (08:59)
[2017-05-22] MEDS: Thiamine 100 mg/ml Inj IM SCH ×2 (09:00→22:17)
[2017-05-22 09:07] LABS: HEMATOCRIT 35.9 % (35.0-51.0); MEAN CELL VOLUME 85.5 fl (80.0-94.0); MEAN CORPUSCULAR HEMOGLOBIN 27.2 pg (27.0-31.0); MEAN CORPUSCULAR HGB CONC 31.8 g/dL (33.0-37.0); RED CELL DISTRIBUTION WIDTH 18.9 % (11.5-14.5); WHITE BLOOD COUNT 7.9 K/uL (4.8-10.8)
[2017-05-22 09:15] LABS: POTASSIUM 4.8 MMOL/L (3.6-5.0)
--- NOTE | 2017-05-22 10:12 | CP.PCM.PN ---
Subjective - Date & Time of Evaluation Date of Evaluation: 05/22/17 Time of Evaluation: 09:45 - Subjective Subjective: Pt was seen while on dialysis he is alert, oriented to persona nd place and year denies CP at present but states last night, he had CP, no SOB no abd pain wants to be sitted up in a chair. Objective - Vital Signs/Intake and Output Vital Signs (last 24 hours): Temp Pulse Resp BP Pulse Ox 98.3 F 92 H 18 168/98 H 100 05/22/17 08:10 05/22/17 08:58 05/22/17 08:10 05/22/17 08:58 05/22/17 08:10 Intake and Output: 05/22/17 05/22/17 06:59 18:59 Intake Total 340 Balance 340 - Medications Medications: Current Medications Acetaminophen (Tylenol 325mg Tab) 650 mg PO Q6 PRN PRN Reason: Pain, Mild (1-3) Acetylcysteine (Acetylcysteine 20%) 2 ml INH RBID [facility] Last Admin: 05/22/17 07:44 Dose: 2 ml Albuterol/Ipratropium (Duoneb 3 Mg/0.5 Mg (3 Ml) Ud) 3 ml INH RQID [facility] Last Admin: 05/22/17 07:45 Dose: 3 ml Carvedilol (Coreg) 6.25 mg PO Q12 [facility] Last Admin: 05/22/17 08:58 Dose: 6.25 mg Clopidogrel Bisulfate (Plavix) 75 mg PO DAILY [facility] Last Admin: 05/22/17 09:07 Dose: 75 mg Dextrose (Dextrose 50% Inj) 0 ml IV STAT PRN; Protocol PRN Reason: Hyglycemia Protocol Dextrose (Glutose 15) 0 gm PO ONCE PRN; Protocol PRN Reason: Hypoglycemia Protocol Dextrose (Dextrose 50% Inj) 0 ml IV STAT PRN; Protocol PRN Reason: Hyglycemia Protocol Dextrose (Glutose 15) 0 gm PO ONCE PRN; Protocol PRN Reason: Hypoglycemia Protocol Diphenhydramine HCl (Benadryl) 25 mg PO MWF [facility] Last Admin: 05/22/17 08:57 Dose: 25 mg Docusate Sodium (Colace Liquid) 100 mg PO BID [facility] Last Admin: 05/22/17 08:57 Dose: 100 mg Glucagon (Glucagen Diagnostic Kit) 0 mg IM STAT PRN; Protocol PRN Reason: Hypoglycemia Protocol Glucagon (Glucagen Diagnostic Kit) 0 mg IM STAT PRN; Protocol PRN Reason: Hypoglycemia Protocol Guaifenesin/Dextromethorphan (Mucinex-Dm 600-30 Mg) 1 tab PO BID [facility] Last Admin: 05/22/17 08:59 Dose: 1 tab Haloperidol Lactate (Haldol) 1 mg IVP TID PRN PRN Reason: Agitation Heparin Sodium (Porcine) (Heparin) 5,000 units SC Q12 JENI PRN Reason: Protocol Last Admin: 05/22/17 08:58 Dose: 5,000 units Piperacillin Sod/Tazobactam (Sod 2.25 gm/ Sodium Chloride) 100 mls @ 100 mls/ hr IVPB Q8 [facility] Last Admin: 05/22/17 01:36 Dose: 100 mls/hr Vancomycin HCl 1 gm/ Sodium (Chloride) 250 mls @ 125 mls/hr IVPB MWF [facility] Insulin Human Lispro (Humalog) 0 units SC ACHS [facility] PRN Reason: Protocol Last Admin: 05/22/17 08:58 Dose: Not Given Lorazepam (Ativan) 1 mg IVP Q8 PRN PRN Reason: Agitation Last Admin: 05/21/17 22:01 Dose: 1 mg Oxycodone/Acetaminophen (Percocet 5/325 Mg Tab) 1 tab PO Q6 PRN PRN Reason: Pain, moderate (4-7) Last Admin: 05/22/17 05:44 Dose: 1 tab Pantoprazole Sodium (Protonix Ec Tab) 40 mg PO DAILY [facility] Last Admin: 05/22/17 08:59 Dose: 40 mg Sevelamer Carbonate (Renvela) 2.4 gm PO TIDWM [facility] Last Admin: 05/22/17 08:59 Dose: 2.4 gm Thiamine HCl (Vitamin B1 Inj) 100 mg IM Q12 [facility] Last Admin: 05/22/17 09:00 Dose: 100 mg - Labs Labs: 05/22/17 08:40 05/22/17 08:40 PT 11.6 Seconds (9.8-13.1) 05/15/17 20:29 INR 1.1 (0.9-1.2) 05/15/17 20:29 APTT 35.8 Seconds (25.6-37.1) 05/15/17 20:29 - Constitutional Appears: alert, oriented , not in distress, on 2 liters NC - Head Exam Head Exam: NORMAL INSPECTION, NORMOCEPHALIC - Eye Exam Eye Exam: EOMI, Normal appearance Pupil Exam: NORMAL ACCOMODATION - ENT Exam ENT Exam: Mucous Membranes Dry, Normal External Ear Exam - Neck Exam Neck Exam: Full ROM. absent: Meningismus - Respiratory Exam Respiratory Exam: Rales, Rhonchi. absent: Wheezes - Cardiovascular Exam Cardiovascular Exam: REGULAR RHYTHM, +S1, +S2 Additional comments: Right Chest HD catheter Right basilic PICC line - GI/Abdominal Exam GI & Abdominal Exam: Soft, Normal Bowel Sounds. absent: Tenderness - Extremities Exam Additional comments: Right AKA, Left BKA left groin TLC - Neurological Exam Neurological Exam: Alert, Awake Additional comments: oriented to person, place and year - Psychiatric Exam Psychiatric exam: normal affect - Skin Skin Exam: Dry, Normal Color, Warm Assessment and Plan - Assessment and Plan (Free Text) Assessment: 41 y/o male with PMH ESRD on MWF HD, DM2, and PVD among other medical conditions brought in after having a cardiac arrest in the field. Per his fiancee, after dinner patient had 'seizure like activity' -- shaking/foaming of the mouth. Per report EMS arrived and noted Vfib/Vtach and administered defibrillation. Initially he was in asystole but a second shock brought him back to A fib. He had a BP of 89/46. He was given a dose of epinephrine and a dose of amiodarone in the field. He was intubated in the field. Hypothermia protocol was initiated . He wsa started on Zosyn and Vanco post Hd for possible aspiration Pneumonia. Cardiology, nephro ,Pulmonary were consult Patient self extubated 05/18 and at present doing well, maintaining his airway , saturating 100 % on 2 L O2 via NC , hemodynamically stable, afebrile with few moments of confusion on and off . 1. s/p Cardiac arrest unclear etiology with episode of VFib/Vtach in the field s/p defibrillation and amiodarone troponin slightly elevated 0.5--0.7--0.8 suggesting less likely [place] Hypothermia protocol was initiated on admission cardiology consulted- Dr Ogden Echo : Global Hypokinesia, EF=20% Plan for Cardiac cath patient will need AICD placement 2. Acute delirium with moments of confusion on and off 1:1 for safety Psych consulted haldol PRN for agitation and ativan P 3. Acute respiratory failure post cardiac arrest , possible Aspiration PNA CXR initially showed bilateral infiltrate possible aspiration pneumonia. Repeat CXR post HD showed clear lung farris bilaterally Pt was febrile, leukocytosis on admission and at present afebrile with WBC 8.5 but with cough and thick yellowish secretions Continue Zosyn IV empirically and Vancomycin post HD cultures with no growth pulmonary on consult self extubated 05/18 and at present saturating 100 % on 2 L O2 via NC Continue Duonebs and Acetylcystine INH incentive spirometry Started PT Started Mucinex 4.Combined respiratory and metabolic acidosis-- improved Hemodialysis 5.ESRD on HD/ with hyperkalemia nephro consulted Continue with HD ( MW) patient's [facility] certified concierge is Dr. Augustine 6.Suspected Seizure like activity CT head showed no acute pathology MRI Head showed no acute pathology f/u EEG neuro consulted Seizure precautions ativan, halodol PRN with episodes of confusion and agitation on and off most likely delirium no need for anti seizure medications for now 7.Hypertension BP labile was initially on cardene drip and now d/c will start Coreg 6.25 mg PO BId for BP and HR control 8.DM type II Off insulin drip Accucheck , Lispro coverage continue diabetic diet glucose now controlled off meds 9. PVD with Right AKA and left BKA 10. DVT prophylaxis no signs of current bleeding restarted heparin 11. GI prophylaxis had coffee ground material on OGT most likely stress induced Hgb dropped from 14--11 change protonix to PO
[2017-05-22 10:26] LABS: TROPONIN I 0.067 ng/mL (0.00-0.120)
--- NOTE | 2017-05-22 10:50 | CP.PCM.PN ---
Subjective - Date & Time of Evaluation Date of Evaluation: 05/22/17 Time of Evaluation: 10:48 - Subjective Subjective: He was seen on dialysis now Patient and bed [place] is communicating although his agitated at time. Dialysis order as follow Sodium 138 Potassium 2 mEq Hemodialysis for 4 hours Bicarbonate bath 35 Ultrafiltration 2000 mL Objective - Vital Signs/Intake and Output Vital Signs (last 24 hours): Temp Pulse Resp BP Pulse Ox 98.3 F 92 H 18 162/110 H 100 05/22/17 08:10 05/22/17 09:00 05/22/17 09:00 05/22/17 09:00 05/22/17 09:00 Intake and Output: 05/22/17 05/22/17 06:59 18:59 Intake Total 340 240 Balance 340 240 - Medications Medications: Current Medications Acetaminophen (Tylenol 325mg Tab) 650 mg PO Q6 PRN PRN Reason: Pain, Mild (1-3) Acetylcysteine (Acetylcysteine 20%) 2 ml INH RBID [facility] Last Admin: 05/22/17 07:44 Dose: 2 ml Albuterol/Ipratropium (Duoneb 3 Mg/0.5 Mg (3 Ml) Ud) 3 ml INH RQID [facility] Last Admin: 05/22/17 07:45 Dose: 3 ml Carvedilol (Coreg) 6.25 mg PO Q12 [facility] Last Admin: 05/22/17 08:58 Dose: 6.25 mg Clopidogrel Bisulfate (Plavix) 75 mg PO DAILY [facility] Last Admin: 05/22/17 09:07 Dose: 75 mg Dextrose (Dextrose 50% Inj) 0 ml IV STAT PRN; Protocol PRN Reason: Hyglycemia Protocol Dextrose (Glutose 15) 0 gm PO ONCE PRN; Protocol PRN Reason: Hypoglycemia Protocol Dextrose (Dextrose 50% Inj) 0 ml IV STAT PRN; Protocol PRN Reason: Hyglycemia Protocol Dextrose (Glutose 15) 0 gm PO ONCE PRN; Protocol PRN Reason: Hypoglycemia Protocol Diphenhydramine HCl (Benadryl) 25 mg PO MWF [facility] Last Admin: 05/22/17 08:57 Dose: 25 mg Docusate Sodium (Colace Liquid) 100 mg PO BID [facility] Last Admin: 05/22/17 08:57 Dose: 100 mg Glucagon (Glucagen Diagnostic Kit) 0 mg IM STAT PRN; Protocol PRN Reason: Hypoglycemia Protocol Glucagon (Glucagen Diagnostic Kit) 0 mg IM STAT PRN; Protocol PRN Reason: Hypoglycemia Protocol Guaifenesin/Dextromethorphan (Mucinex-Dm 600-30 Mg) 1 tab PO BID [facility] Last Admin: 05/22/17 08:59 Dose: 1 tab Haloperidol Lactate (Haldol) 1 mg IVP TID PRN PRN Reason: Agitation Heparin Sodium (Porcine) (Heparin) 5,000 units SC Q12 JENI PRN Reason: Protocol Last Admin: 05/22/17 08:58 Dose: 5,000 units Piperacillin Sod/Tazobactam (Sod 2.25 gm/ Sodium Chloride) 100 mls @ 100 mls/ hr IVPB Q8 [facility] Last Admin: 05/22/17 01:36 Dose: 100 mls/hr Vancomycin HCl 1 gm/ Sodium (Chloride) 250 mls @ 125 mls/hr IVPB MWF [facility] Insulin Human Lispro (Humalog) 0 units SC ACHS [facility] PRN Reason: Protocol Last Admin: 05/22/17 08:58 Dose: Not Given Lorazepam (Ativan) 1 mg IVP Q8 PRN PRN Reason: Agitation Last Admin: 05/21/17 22:01 Dose: 1 mg Oxycodone/Acetaminophen (Percocet 5/325 Mg Tab) 1 tab PO Q6 PRN PRN Reason: Pain, moderate (4-7) Last Admin: 05/22/17 05:44 Dose: 1 tab Pantoprazole Sodium (Protonix Ec Tab) 40 mg PO DAILY [facility] Last Admin: 05/22/17 08:59 Dose: 40 mg Sevelamer Carbonate (Renvela) 2.4 gm PO TIDWM [facility] Last Admin: 05/22/17 08:59 Dose: 2.4 gm Thiamine HCl (Vitamin B1 Inj) 100 mg IM Q12 [facility] Last Admin: 05/22/17 09:00 Dose: 100 mg - Labs Labs: 05/22/17 08:40 05/22/17 08:40 PT 11.6 Seconds (9.8-13.1) 05/15/17 20:29 INR 1.1 (0.9-1.2) 05/15/17 20:29 APTT 35.8 Seconds (25.6-37.1) 05/15/17 20:29 - Constitutional Appears: No Acute Distress - ENT Exam ENT Exam: Mucous Membranes Moist - Respiratory Exam Respiratory Exam: NORMAL BREATHING PATTERN - GI/Abdominal Exam GI & Abdominal Exam: Soft, Normal Bowel Sounds - Extremities Exam Extremities Exam: absent: Calf Tenderness - Back Exam Back Exam: absent: CVA tenderness (L), CVA tenderness (R) - Neurological Exam Neurological Exam: Alert Assessment and Plan (1) Chronic kidney disease requiring chronic dialysis Assessment & Plan: Patient tolerating hemodialysis well Continue EPO for anemia Continue hemodialysis 4 hours Status post cardiac arrest doing better Status: Acute (2) Cardiac arrest Status: Acute
[2017-05-23] MEDS: Insulin Lispro (humaLOG) 100 Units/ml Inj SC SCH ×4 (06:36→22:09)
--- NOTE | 2017-05-23 06:40 | CP.PCM.PN ---
Subjective - Date & Time of Evaluation Date of Evaluation: 05/22/17 Time of Evaluation: 19:30 - Subjective Subjective: patient is more alert today. He had HD. Objective - Vital Signs/Intake and Output Vital Signs (last 24 hours): Temp Pulse Resp BP Pulse Ox 98.6 F 100 H 20 153/81 H 95 05/23/17 00:11 05/23/17 00:11 05/23/17 00:11 05/23/17 00:11 05/23/17 00:11 Intake and Output: 05/22/17 05/23/17 18:59 06:59 Intake Total 240 Balance 240 - Medications Medications: Current Medications Acetaminophen (Tylenol 325mg Tab) 650 mg PO Q6 PRN PRN Reason: Pain, Mild (1-3) Acetylcysteine (Acetylcysteine 20%) 2 ml INH RBID [facility] Last Admin: 05/22/17 19:04 Dose: Not Given Albuterol/Ipratropium (Duoneb 3 Mg/0.5 Mg (3 Ml) Ud) 3 ml INH RQID [facility] Last Admin: 05/22/17 19:04 Dose: Not Given Carvedilol (Coreg) 6.25 mg PO Q12 [facility] Last Admin: 05/22/17 22:00 Dose: 6.25 mg Clopidogrel Bisulfate (Plavix) 75 mg PO DAILY [facility] Last Admin: 05/22/17 09:07 Dose: 75 mg Dextrose (Dextrose 50% Inj) 0 ml IV STAT PRN; Protocol PRN Reason: Hyglycemia Protocol Dextrose (Glutose 15) 0 gm PO ONCE PRN; Protocol PRN Reason: Hypoglycemia Protocol Dextrose (Dextrose 50% Inj) 0 ml IV STAT PRN; Protocol PRN Reason: Hyglycemia Protocol Dextrose (Glutose 15) 0 gm PO ONCE PRN; Protocol PRN Reason: Hypoglycemia Protocol Diphenhydramine HCl (Benadryl) 25 mg PO MWF [facility] Last Admin: 05/22/17 08:57 Dose: 25 mg Docusate Sodium (Colace Liquid) 100 mg PO BID [facility] Last Admin: 05/22/17 17:19 Dose: 100 mg Glucagon (Glucagen Diagnostic Kit) 0 mg IM STAT PRN; Protocol PRN Reason: Hypoglycemia Protocol Glucagon (Glucagen Diagnostic Kit) 0 mg IM STAT PRN; Protocol PRN Reason: Hypoglycemia Protocol Guaifenesin/Dextromethorphan (Mucinex-Dm 600-30 Mg) 1 tab PO BID [facility] Last Admin: 05/22/17 17:19 Dose: 1 tab Haloperidol Lactate (Haldol) 1 mg IVP TID PRN PRN Reason: Agitation Heparin Sodium (Porcine) (Heparin) 5,000 units SC Q12 JENI PRN Reason: Protocol Last Admin: 05/22/17 22:00 Dose: 5,000 units Vancomycin HCl 1 gm/ Sodium (Chloride) 250 mls @ 125 mls/hr IVPB MWF [facility] Last Admin: 05/22/17 12:35 Dose: 125 mls/hr Piperacillin Sod/Tazobactam (Sod 2.25 gm/ Sodium Chloride) 100 mls @ 100 mls/ hr IVPB Q8@0500,1300,2100 [facility] Last Admin: 05/23/17 06:00 Dose: 100 mls/hr Insulin Human Lispro (Humalog) 0 units SC ACHS [facility] PRN Reason: Protocol Last Admin: 05/23/17 06:36 Dose: Not Given Lorazepam (Ativan) 1 mg IVP Q8 PRN PRN Reason: Agitation Last Admin: 05/21/17 22:01 Dose: 1 mg Pantoprazole Sodium (Protonix Ec Tab) 40 mg PO DAILY [facility] Last Admin: 05/22/17 08:59 Dose: 40 mg Sevelamer Carbonate (Renvela) 2.4 gm PO TIDWM [facility] Last Admin: 05/22/17 17:21 Dose: 2.4 gm Thiamine HCl (Vitamin B1 Inj) 100 mg IM Q12 [facility] Last Admin: 05/22/17 22:17 Dose: 100 mg - Labs Labs: 05/22/17 08:40 05/22/17 08:40 PT 11.6 Seconds (9.8-13.1) 05/15/17 20:29 INR 1.1 (0.9-1.2) 05/15/17 20:29 APTT 35.8 Seconds (25.6-37.1) 05/15/17 20:29 - Constitutional Appears: Non-toxic - Head Exam Head Exam: NORMAL INSPECTION - Eye Exam Eye Exam: Normal appearance - ENT Exam ENT Exam: Mucous Membranes Moist - Neck Exam Neck Exam: Full ROM - Respiratory Exam Respiratory Exam: Decreased Breath Sounds - Cardiovascular Exam Cardiovascular Exam: REGULAR RHYTHM - GI/Abdominal Exam GI & Abdominal Exam: Normal Bowel Sounds - Rectal Exam Rectal Exam: Deferred - Extremities Exam Additional comments: bilateral amputee - Back Exam Back Exam: NORMAL INSPECTION - Neurological Exam Neurological Exam: Alert - Psychiatric Exam Psychiatric exam: Normal Affect - Skin Skin Exam: Normal Color Assessment and Plan (1) Cardiac arrest Assessment & Plan: more awake. Patient has severe LV dysfunction. will schedule for cardiac catheterization to evaluate for critical coronary stenosis. will likely need AICD for secondary prevention of sudden cardiac Status: Acute (2) DM2 (diabetes mellitus, type 2) Status: Acute (3) ESRD (end stage renal disease) on dialysis Status: Acute (4) HTN (hypertension) Status: Acute
[2017-05-23] MEDS: Albuterol-Ipratrop 3 mg / 0.5 (3 ml) UD INH SCH ×4 (07:45→19:20)
[2017-05-23] MEDS: Acetylcysteine 20% Inhal Soln (4ml) INH SCH ×2 (07:45→19:20)
--- NOTE | 2017-05-23 09:01 | CARD ---
APPROVED REPORT EKG Measurement Heart [id number] <Conclusion> Sinus tachycardia Otherwise normal ECG
[2017-05-23] MEDS: guaiFENesin-DM 600-30 mg ER Tab PO SCH ×2 (09:22→16:53)
[2017-05-23] MEDS: Sevelamer Carb 0.8 gm/Packet PO SCH ×3 (09:23→17:20)
--- NOTE | 2017-05-23 09:58 | CP.PCM.PN ---
Subjective - Date & Time of Evaluation Date of Evaluation: 05/23/17 Time of Evaluation: 09:15 - Subjective Subjective: Pt is alert, oriented and is in good spirits today agreeable to Cardiac cath - pt will be transferred to [facility] for the procedure Denies CP no SOB no abd pain Objective - Vital Signs/Intake and Output Vital Signs (last 24 hours): Temp Pulse Resp BP Pulse Ox 98.2 F 91 H 20 158/82 H 96 05/23/17 08:23 05/23/17 09:23 05/23/17 08:23 05/23/17 09:23 05/23/17 08:23 Intake and Output: 05/23/17 05/23/17 06:59 18:59 Intake Total 420 Balance 420 - Medications Medications: Current Medications Acetaminophen (Tylenol 325mg Tab) 650 mg PO Q6 PRN PRN Reason: Pain, Mild (1-3) Last Admin: 05/23/17 09:30 Dose: 650 mg Acetylcysteine (Acetylcysteine 20%) 2 ml INH RBID [facility] Last Admin: 05/23/17 07:45 Dose: 2 ml Albuterol/Ipratropium (Duoneb 3 Mg/0.5 Mg (3 Ml) Ud) 3 ml INH RQID [facility] Last Admin: 05/23/17 07:45 Dose: 3 ml Carvedilol (Coreg) 6.25 mg PO Q12 [facility] Last Admin: 05/23/17 09:23 Dose: 6.25 mg Clopidogrel Bisulfate (Plavix) 75 mg PO DAILY [facility] Last Admin: 05/23/17 09:23 Dose: 75 mg Dextrose (Dextrose 50% Inj) 0 ml IV STAT PRN; Protocol PRN Reason: Hyglycemia Protocol Dextrose (Glutose 15) 0 gm PO ONCE PRN; Protocol PRN Reason: Hypoglycemia Protocol Dextrose (Dextrose 50% Inj) 0 ml IV STAT PRN; Protocol PRN Reason: Hyglycemia Protocol Dextrose (Glutose 15) 0 gm PO ONCE PRN; Protocol PRN Reason: Hypoglycemia Protocol Diphenhydramine HCl (Benadryl) 25 mg PO MWF [facility] Last Admin: 05/22/17 08:57 Dose: 25 mg Docusate Sodium (Colace Liquid) 100 mg PO BID [facility] Last Admin: 05/23/17 09:22 Dose: Not Given Glucagon (Glucagen Diagnostic Kit) 0 mg IM STAT PRN; Protocol PRN Reason: Hypoglycemia Protocol Glucagon (Glucagen Diagnostic Kit) 0 mg IM STAT PRN; Protocol PRN Reason: Hypoglycemia Protocol Guaifenesin/Dextromethorphan (Mucinex-Dm 600-30 Mg) 1 tab PO BID [facility] Last Admin: 05/23/17 09:22 Dose: Not Given Haloperidol Lactate (Haldol) 1 mg IVP TID PRN PRN Reason: Agitation Heparin Sodium (Porcine) (Heparin) 5,000 units SC Q12 [facility] PRN Reason: Protocol Last Admin: 05/22/17 22:00 Dose: 5,000 units Vancomycin HCl 1 gm/ Sodium (Chloride) 250 mls @ 125 mls/hr IVPB MWF [facility] Last Admin: 05/22/17 12:35 Dose: 125 mls/hr Piperacillin Sod/Tazobactam (Sod 2.25 gm/ Sodium Chloride) 100 mls @ 100 mls/ hr IVPB Q8@0500,1300,2100 [facility] Last Admin: 05/23/17 06:00 Dose: 100 mls/hr Insulin Human Lispro (Humalog) 0 units SC ACHS [facility] PRN Reason: Protocol Last Admin: 05/23/17 06:36 Dose: Not Given Lorazepam (Ativan) 1 mg IVP Q8 PRN PRN Reason: Agitation Last Admin: 05/21/17 22:01 Dose: 1 mg Pantoprazole Sodium (Protonix Ec Tab) 40 mg PO DAILY [facility] Last Admin: 05/22/17 08:59 Dose: 40 mg Sevelamer Carbonate (Renvela) 2.4 gm PO TIDWM [facility] Last Admin: 05/23/17 09:23 Dose: Not Given Thiamine HCl (Vitamin B1 Inj) 100 mg IM Q12 [facility] Last Admin: 05/22/17 22:17 Dose: 100 mg - Labs Labs: 05/22/17 08:40 05/22/17 08:40 PT 11.6 Seconds (9.8-13.1) 05/15/17 20:29 INR 1.1 (0.9-1.2) 05/15/17 20:29 APTT 35.8 Seconds (25.6-37.1) 05/15/17 20:29 - Constitutional Appears: alert, oriented , not in distress, on 2 liters NC - Head Exam Head Exam: NORMAL INSPECTION, NORMOCEPHALIC - Eye Exam Eye Exam: EOMI, Normal appearance Pupil Exam: NORMAL ACCOMMODATION - ENT Exam ENT Exam: Mucous Membranes Dry, Normal External Ear Exam - Neck Exam Neck Exam: Full ROM. absent: Meningismus - Respiratory Exam Respiratory Exam: Rales, Rhonchi. absent: Wheezes - Cardiovascular Exam Cardiovascular Exam: REGULAR RHYTHM, +S1, +S2 Additional comments: Right Chest HD catheter Right basilic PICC line - GI/Abdominal Exam GI & Abdominal Exam: Soft, Normal Bowel Sounds. absent: Tenderness - Extremities Exam Additional comments: Right AKA, Left BKA - Neurological Exam Neurological Exam: Alert, Awake Additional comments: oriented to person, place and year - Psychiatric Exam Psychiatric exam: normal affect - Skin Skin Exam: Dry, Normal Color, Warm Assessment and Plan - Assessment and Plan (Free Text) Assessment: 41 y/o male with PMH ESRD on MWF HD, DM2, and PVD among other medical conditions brought in after having a cardiac arrest in the field. Per his fiancee, after dinner patient had 'seizure like activity' -- shaking/foaming of the mouth. Per report EMS arrived and noted Vfib/Vtach and administered defibrillation. Initially he was in asystole but a second shock brought him back to A fib. He had a BP of 89/46. He was given a dose of epinephrine and a dose of amiodarone in the field. He was intubated in the field. Hypothermia protocol was initiated . He wsa started on Zosyn and Vanco post Hd for possible aspiration Pneumonia. Cardiology, nephro ,Pulmonary were consult Patient self extubated 05/18 and at present doing well, maintaining his airway , saturating 100 % on 2 L O2 via NC , hemodynamically stable, afebrile with few moments of confusion on and off however today very much better - will d/c 1:1 and keep pt close to the Nurses station . 1. s/p Cardiac arrest unclear etiology with episode of VFib/Vtach in the field s/p defibrillation and amiodarone troponin slightly elevated 0.5--0.7--0.8 suggesting less likely [place] Hypothermia protocol was initiated on admission cardiology consulted- Dr Ogdne Echo : Global Hypokinesia, EF=20% Plan for Cardiac cath today patient will need AICD placement 2. Acute delirium with moments of confusion on and off , now better 1:1 for safety - will d/c 1:1, keep pt close to Nurses station [place] Psych consulted haldol PRN for agitation and ativan prn 3. Acute respiratory failure post cardiac arrest , possible Aspiration PNA CXR initially showed bilateral infiltrate possible aspiration pneumonia. Repeat CXR post HD showed clear lung farris bilaterally Pt was febrile, leukocytosis on admission and at present afebrile with WBC 8.5 but with cough and thick yellowish secretions Continue Zosyn IV empirically and Vancomycin post HD cultures with no growth pulmonary on consult self extubated 05/18 and at present saturating 100 % on 2 L O2 via NC Continue Duonebs and Acetylcystine INH incentive spirometry Started PT Started Mucinex 4.Combined respiratory and metabolic acidosis-- improved Hemodialysis 5.ESRD on HD/ with hyperkalemia nephro consulted Continue with HD ( MWF) patient's wheel inspector is Dr. Augustine 6.Suspected Seizure like activity CT head showed no acute pathology MRI Head showed no acute pathology f/u EEG neuro consulted Seizure precautions ativan, halodol PRN had episodes of confusion and agitation on and off most likely delirium no need for anti seizure medications for now 7.Hypertension BP labile was initially on cardene drip and now d/c cont Coreg 6.25 mg PO BId for BP and HR control 8.DM type II Off insulin drip Accucheck , Lispro coverage continue diabetic diet glucose now controlled off meds 9. PVD with Right AKA and left BKA 10. DVT prophylaxis no signs of current bleeding restarted heparin 11. GI prophylaxis had coffee ground material on OGT most likely stress induced Hgb dropped from 14--11 change protonix to PO
[2017-05-23] MEDS: Thiamine 100 mg/ml Inj IM SCH ×2 (12:29→22:00)
--- NOTE | 2017-05-23 13:38 | CP.PCM.PN ---
Subjective - Date & Time of Evaluation Date of Evaluation: 05/23/17 Time of Evaluation: 13:35 - Subjective Subjective: Patient in bed he feels much better more awake Eating okay Objective - Vital Signs/Intake and Output Vital Signs (last 24 hours): Temp Pulse Resp BP Pulse Ox 98.2 F 91 H 20 158/82 H 96 05/23/17 08:23 05/23/17 09:23 05/23/17 08:23 05/23/17 09:23 05/23/17 08:23 Intake and Output: 05/23/17 05/23/17 06:59 18:59 Intake Total 420 Balance 420 - Medications Medications: Current Medications Acetaminophen (Tylenol 325mg Tab) 650 mg PO Q6 PRN PRN Reason: Pain, Mild (1-3) Last Admin: 05/23/17 09:30 Dose: 650 mg Acetylcysteine (Acetylcysteine 20%) 2 ml INH RBID [facility] Last Admin: 05/23/17 07:45 Dose: 2 ml Albuterol/Ipratropium (Duoneb 3 Mg/0.5 Mg (3 Ml) Ud) 3 ml INH RQID [facility] Last Admin: 05/23/17 11:16 Dose: Not Given Carvedilol (Coreg) 6.25 mg PO Q12 [facility] Last Admin: 05/23/17 09:23 Dose: 6.25 mg Clopidogrel Bisulfate (Plavix) 75 mg PO DAILY [facility] Last Admin: 05/23/17 09:23 Dose: 75 mg Dextrose (Dextrose 50% Inj) 0 ml IV STAT PRN; Protocol PRN Reason: Hyglycemia Protocol Dextrose (Glutose 15) 0 gm PO ONCE PRN; Protocol PRN Reason: Hypoglycemia Protocol Dextrose (Dextrose 50% Inj) 0 ml IV STAT PRN; Protocol PRN Reason: Hyglycemia Protocol Dextrose (Glutose 15) 0 gm PO ONCE PRN; Protocol PRN Reason: Hypoglycemia Protocol Diphenhydramine HCl (Benadryl) 25 mg PO MWF [facility] Last Admin: 05/22/17 08:57 Dose: 25 mg Docusate Sodium (Colace Liquid) 100 mg PO BID [facility] Last Admin: 05/23/17 09:22 Dose: Not Given Glucagon (Glucagen Diagnostic Kit) 0 mg IM STAT PRN; Protocol PRN Reason: Hypoglycemia Protocol Glucagon (Glucagen Diagnostic Kit) 0 mg IM STAT PRN; Protocol PRN Reason: Hypoglycemia Protocol Guaifenesin/Dextromethorphan (Mucinex-Dm 600-30 Mg) 1 tab PO BID [facility] Last Admin: 05/23/17 09:22 Dose: Not Given Haloperidol Lactate (Haldol) 1 mg IVP TID PRN PRN Reason: Agitation Heparin Sodium (Porcine) (Heparin) 5,000 units SC Q12 [facility] PRN Reason: Protocol Last Admin: 05/22/17 22:00 Dose: 5,000 units Vancomycin HCl 1 gm/ Sodium (Chloride) 250 mls @ 125 mls/hr IVPB MWF [facility] Last Admin: 05/22/17 12:35 Dose: 125 mls/hr Piperacillin Sod/Tazobactam (Sod 2.25 gm/ Sodium Chloride) 100 mls @ 100 mls/ hr IVPB Q8@0500,1300,2100 [facility] Last Admin: 05/23/17 06:00 Dose: 100 mls/hr Insulin Human Lispro (Humalog) 0 units SC ACHS [facility] PRN Reason: Protocol Last Admin: 05/23/17 06:36 Dose: Not Given Lorazepam (Ativan) 1 mg IVP Q8 PRN PRN Reason: Agitation Last Admin: 05/21/17 22:01 Dose: 1 mg Pantoprazole Sodium (Protonix Ec Tab) 40 mg PO DAILY [facility] Last Admin: 05/22/17 08:59 Dose: 40 mg Sevelamer Carbonate (Renvela) 2.4 gm PO TIDWM [facility] Last Admin: 05/23/17 09:23 Dose: Not Given Thiamine HCl (Vitamin B1 Inj) 100 mg IM Q12 [facility] Last Admin: 05/23/17 12:29 Dose: Not Given - Labs Labs: 05/22/17 08:40 05/22/17 08:40 PT 11.6 Seconds (9.8-13.1) 05/15/17 20:29 INR 1.1 (0.9-1.2) 05/15/17 20:29 APTT 35.8 Seconds (25.6-37.1) 05/15/17 20:29 - Constitutional Appears: No Acute Distress - ENT Exam ENT Exam: Mucous Membranes Moist - Respiratory Exam Respiratory Exam: absent: Chest Wall Tenderness - Cardiovascular Exam Cardiovascular Exam: absent: JVD, Rubs - GI/Abdominal Exam GI & Abdominal Exam: Normal Bowel Sounds - Extremities Exam Extremities Exam: absent: Calf Tenderness - Back Exam Back Exam: absent: CVA tenderness (L), CVA tenderness (R) - Neurological Exam Neurological Exam: Altered Assessment and Plan (1) Chronic kidney disease requiring chronic dialysis Assessment & Plan: End stage renal disease on maintenance hemodialysis Monday Tolerated dialysis yesterday well Vital signs stable Status post cardiac arrest cardiology note noted Scheduled for hemodialysis tomorrow Status: Acute (2) Cardiac arrest Status: Acute
--- NOTE | 2017-05-23 14:13 | CP.PCM.PN ---
Subjective - Date & Time of Evaluation Date of Evaluation: 05/23/17 Time of Evaluation: 14:00 - Subjective Subjective: cardiac cath performed revealing multivessel CAD, severe LV dysfunction, EF 20% Would recommend IACD implant as secondary prevention for sudden cardiac . PCI can be performed of the distal LAD and the diagonal branch at a later date. I will arrange with EP. Objective - Vital Signs/Intake and Output Vital Signs (last 24 hours): Temp Pulse Resp BP Pulse Ox 98.2 F 91 H 20 158/82 H 96 05/23/17 08:23 05/23/17 09:23 05/23/17 08:23 05/23/17 09:23 05/23/17 08:23 Intake and Output: 05/23/17 05/23/17 06:59 18:59 Intake Total 420 Balance 420 - Medications Medications: Current Medications Acetaminophen (Tylenol 325mg Tab) 650 mg PO Q6 PRN PRN Reason: Pain, Mild (1-3) Last Admin: 05/23/17 09:30 Dose: 650 mg Acetylcysteine (Acetylcysteine 20%) 2 ml INH RBID [facility] Last Admin: 05/23/17 07:45 Dose: 2 ml Albuterol/Ipratropium (Duoneb 3 Mg/0.5 Mg (3 Ml) Ud) 3 ml INH RQID [facility] Last Admin: 05/23/17 11:16 Dose: Not Given Carvedilol (Coreg) 6.25 mg PO Q12 [facility] Last Admin: 05/23/17 09:23 Dose: 6.25 mg Clopidogrel Bisulfate (Plavix) 75 mg PO DAILY [facility] Last Admin: 05/23/17 09:23 Dose: 75 mg Dextrose (Dextrose 50% Inj) 0 ml IV STAT PRN; Protocol PRN Reason: Hyglycemia Protocol Dextrose (Glutose 15) 0 gm PO ONCE PRN; Protocol PRN Reason: Hypoglycemia Protocol Dextrose (Dextrose 50% Inj) 0 ml IV STAT PRN; Protocol PRN Reason: Hyglycemia Protocol Dextrose (Glutose 15) 0 gm PO ONCE PRN; Protocol PRN Reason: Hypoglycemia Protocol Diphenhydramine HCl (Benadryl) 25 mg PO MWF [facility] Last Admin: 05/22/17 08:57 Dose: 25 mg Docusate Sodium (Colace Liquid) 100 mg PO BID [facility] Last Admin: 05/23/17 09:22 Dose: Not Given Glucagon (Glucagen Diagnostic Kit) 0 mg IM STAT PRN; Protocol PRN Reason: Hypoglycemia Protocol Glucagon (Glucagen Diagnostic Kit) 0 mg IM STAT PRN; Protocol PRN Reason: Hypoglycemia Protocol Guaifenesin/Dextromethorphan (Mucinex-Dm 600-30 Mg) 1 tab PO BID [facility] Last Admin: 05/23/17 09:22 Dose: Not Given Haloperidol Lactate (Haldol) 1 mg IVP TID PRN PRN Reason: Agitation Heparin Sodium (Porcine) (Heparin) 5,000 units SC Q12 [facility] PRN Reason: Protocol Last Admin: 05/22/17 22:00 Dose: 5,000 units Vancomycin HCl 1 gm/ Sodium (Chloride) 250 mls @ 125 mls/hr IVPB MWF [facility] Last Admin: 05/22/17 12:35 Dose: 125 mls/hr Piperacillin Sod/Tazobactam (Sod 2.25 gm/ Sodium Chloride) 100 mls @ 100 mls/ hr IVPB Q8@0500,1300,2100 [facility] Last Admin: 05/23/17 06:00 Dose: 100 mls/hr Insulin Human Lispro (Humalog) 0 units SC ACHS [facility] PRN Reason: Protocol Last Admin: 05/23/17 06:36 Dose: Not Given Lorazepam (Ativan) 1 mg IVP Q8 PRN PRN Reason: Agitation Last Admin: 05/21/17 22:01 Dose: 1 mg Pantoprazole Sodium (Protonix Ec Tab) 40 mg PO DAILY [facility] Last Admin: 05/22/17 08:59 Dose: 40 mg Sevelamer Carbonate (Renvela) 2.4 gm PO TIDWM [facility] Last Admin: 05/23/17 09:23 Dose: Not Given Thiamine HCl (Vitamin B1 Inj) 100 mg IM Q12 [facility] Last Admin: 05/23/17 12:29 Dose: Not Given - Labs Labs: 05/22/17 08:40 05/22/17 08:40 PT 11.6 Seconds (9.8-13.1) 05/15/17 20:29 INR 1.1 (0.9-1.2) 05/15/17 20:29 APTT 35.8 Seconds (25.6-37.1) 05/15/17 20:29 Assessment and Plan (1) Cardiac arrest Status: Acute (2) DM2 (diabetes mellitus, type 2) Status: Acute (3) ESRD (end stage renal disease) on dialysis Status: Acute (4) HTN (hypertension) Status: Acute
[2017-05-23] MEDS: Pantoprazole 40 mg EC Tab PO SCH (17:19)
--- NOTE | 2017-05-24 07:47 | CP.PCM.PN ---
Subjective - Date & Time of Evaluation Date of Evaluation: 05/24/17 Time of Evaluation: 07:45 - Subjective Subjective: discussed case with EP. will transfer to [facility] for AICD implantation. dialysis today, likely plan for tomorrow. Objective - Vital Signs/Intake and Output Vital Signs (last 24 hours): Temp Pulse Resp BP Pulse Ox 97.9 F 84 20 142/81 96 05/24/17 05:00 05/24/17 05:00 05/24/17 05:00 05/24/17 05:00 05/24/17 05:00 - Medications Medications: Current Medications Acetaminophen (Tylenol 325mg Tab) 650 mg PO Q6 PRN PRN Reason: Pain, Mild (1-3) Last Admin: 05/23/17 09:30 Dose: 650 mg Acetylcysteine (Acetylcysteine 20%) 2 ml INH RBID [facility] Last Admin: 05/23/17 19:20 Dose: 2 ml Albuterol/Ipratropium (Duoneb 3 Mg/0.5 Mg (3 Ml) Ud) 3 ml INH RQID [facility] Last Admin: 05/23/17 19:20 Dose: 3 ml Carvedilol (Coreg) 12.5 mg PO Q12 [facility] Last Admin: 05/23/17 22:08 Dose: 12.5 mg Clopidogrel Bisulfate (Plavix) 75 mg PO DAILY [facility] Last Admin: 05/23/17 09:23 Dose: 75 mg Dextrose (Dextrose 50% Inj) 0 ml IV STAT PRN; Protocol PRN Reason: Hyglycemia Protocol Dextrose (Glutose 15) 0 gm PO ONCE PRN; Protocol PRN Reason: Hypoglycemia Protocol Dextrose (Dextrose 50% Inj) 0 ml IV STAT PRN; Protocol PRN Reason: Hyglycemia Protocol Dextrose (Glutose 15) 0 gm PO ONCE PRN; Protocol PRN Reason: Hypoglycemia Protocol Diphenhydramine HCl (Benadryl) 25 mg PO MWF [facility] Last Admin: 05/22/17 08:57 Dose: 25 mg Docusate Sodium (Colace Liquid) 100 mg PO BID [facility] Last Admin: 05/23/17 17:19 Dose: 100 mg Glucagon (Glucagen Diagnostic Kit) 0 mg IM STAT PRN; Protocol PRN Reason: Hypoglycemia Protocol Glucagon (Glucagen Diagnostic Kit) 0 mg IM STAT PRN; Protocol PRN Reason: Hypoglycemia Protocol Guaifenesin/Dextromethorphan (Mucinex-Dm 600-30 Mg) 1 tab PO BID [facility] Last Admin: 05/23/17 16:53 Dose: Not Given Haloperidol Lactate (Haldol) 1 mg IVP TID PRN PRN Reason: Agitation Heparin Sodium (Porcine) (Heparin) 5,000 units SC Q12 [facility] PRN Reason: Protocol Last Admin: 05/23/17 22:07 Dose: 5,000 units Vancomycin HCl 1 gm/ Sodium (Chloride) 250 mls @ 125 mls/hr IVPB MWF [facility] Last Admin: 05/22/17 12:35 Dose: 125 mls/hr Piperacillin Sod/Tazobactam (Sod 2.25 gm/ Sodium Chloride) 100 mls @ 100 mls/ hr IVPB Q8@0500,1300,2100 [facility] Last Admin: 05/24/17 04:38 Dose: 100 mls/hr Insulin Human Lispro (Humalog) 0 units SC ACHS [facility] PRN Reason: Protocol Last Admin: 05/23/17 22:09 Dose: Not Given Lorazepam (Ativan) 1 mg IVP Q8 PRN PRN Reason: Agitation Last Admin: 05/21/17 22:01 Dose: 1 mg Pantoprazole Sodium (Protonix Ec Tab) 40 mg PO DAILY [facility] Last Admin: 05/23/17 17:19 Dose: 40 mg Sevelamer Carbonate (Renvela) 2.4 gm PO TIDWM [facility] Last Admin: 05/23/17 17:20 Dose: 2.4 gm Thiamine HCl (Vitamin B1 Inj) 100 mg IM Q12 [facility] Last Admin: 05/23/17 22:00 Dose: Not Given - Labs Labs: 05/22/17 08:40 05/22/17 08:40 PT 11.6 Seconds (9.8-13.1) 05/15/17 20:29 INR 1.1 (0.9-1.2) 05/15/17 20:29 APTT 35.8 Seconds (25.6-37.1) 05/15/17 20:29 Assessment and Plan (1) Cardiac arrest Status: Acute (2) DM2 (diabetes mellitus, type 2) Status: Acute (3) ESRD (end stage renal disease) on dialysis Status: Acute (4) HTN (hypertension) Status: Acute
[2017-05-24] MEDS: Albuterol-Ipratrop 3 mg / 0.5 (3 ml) UD INH SCH ×4 (07:57→19:18)
[2017-05-24] MEDS: Acetylcysteine 20% Inhal Soln (4ml) INH SCH ×2 (07:58→19:18)
[2017-05-24] MEDS: Insulin Lispro (humaLOG) 100 Units/ml Inj SC SCH ×4 (08:02→22:29)
[2017-05-24] MEDS: Sevelamer Carb 0.8 gm/Packet PO SCH ×3 (09:55→16:29)
[2017-05-24] MEDS: guaiFENesin-DM 600-30 mg ER Tab PO SCH ×2 (09:58→16:32)
[2017-05-24] MEDS: Thiamine 100 mg/ml Inj IM SCH (09:58)
[2017-05-24] MEDS: Pantoprazole 40 mg EC Tab PO SCH (10:03)
--- NOTE | 2017-05-24 10:06 | CARD ---
APPROVED REPORT EKG Measurement Heart [id number] <Conclusion> Sinus tachycardia Inferior infarct, age undetermined Abnormal ECG
[2017-05-24] MEDS ORDERED: Albuterol-Ipratrop 3 mg / 0.5 (3 ml) UD INH STA (11:39)
[2017-05-24] MEDS ORDERED: guaiFENesin DM 200 mg-20 mg/10 ml UD PO PRN (11:40)
[2017-05-24] MEDS ORDERED: methylPREDNISolone 40 MG in Sodium Chloride 0.9% 50 ML IVPB STA (11:42)
--- NOTE | 2017-05-24 11:43 | CP.PCM.PN ---
Subjective - Date & Time of Evaluation Date of Evaluation: 05/24/17 Time of Evaluation: 10:00 - Subjective Subjective: Plan for AICD in am had Cardiac cath yesterday - plan for PCI at a later date Denies CP no SOB noted sl wheeze no abd pain Sched for dialysis today Objective - Vital Signs/Intake and Output Vital Signs (last 24 hours): Temp Pulse Resp BP Pulse Ox 97.9 F 80 18 152/79 H 97 05/24/17 08:00 05/24/17 10:01 05/24/17 08:00 05/24/17 10:01 05/24/17 08:00 - Medications Medications: Current Medications Acetaminophen (Tylenol 325mg Tab) 650 mg PO Q6 PRN PRN Reason: Pain, Mild (1-3) Last Admin: 05/24/17 09:59 Dose: 650 mg Acetylcysteine (Acetylcysteine 20%) 2 ml INH RBID [facility] Last Admin: 05/24/17 07:58 Dose: 2 ml Albuterol/Ipratropium (Duoneb 3 Mg/0.5 Mg (3 Ml) Ud) 3 ml INH RQID [facility] Last Admin: 05/24/17 11:10 Dose: 3 ml Carvedilol (Coreg) 12.5 mg PO Q12 [facility] Last Admin: 05/24/17 10:01 Dose: 12.5 mg Clopidogrel Bisulfate (Plavix) 75 mg PO DAILY [facility] Last Admin: 05/24/17 10:03 Dose: 75 mg Dextrose (Dextrose 50% Inj) 0 ml IV STAT PRN; Protocol PRN Reason: Hyglycemia Protocol Dextrose (Glutose 15) 0 gm PO ONCE PRN; Protocol PRN Reason: Hypoglycemia Protocol Dextrose (Dextrose 50% Inj) 0 ml IV STAT PRN; Protocol PRN Reason: Hyglycemia Protocol Dextrose (Glutose 15) 0 gm PO ONCE PRN; Protocol PRN Reason: Hypoglycemia Protocol Diphenhydramine HCl (Benadryl) 25 mg PO MWF [facility] Last Admin: 05/22/17 08:57 Dose: 25 mg Docusate Sodium (Colace Liquid) 100 mg PO BID [facility] Last Admin: 05/24/17 10:00 Dose: Not Given Glucagon (Glucagen Diagnostic Kit) 0 mg IM STAT PRN; Protocol PRN Reason: Hypoglycemia Protocol Glucagon (Glucagen Diagnostic Kit) 0 mg IM STAT PRN; Protocol PRN Reason: Hypoglycemia Protocol Guaifenesin/Dextromethorphan (Mucinex-Dm 600-30 Mg) 1 tab PO BID [facility] Last Admin: 05/24/17 09:58 Dose: 1 tab Guaifenesin/Dextromethorphan (Robitussin Dm) 10 ml PO Q4 PRN PRN Reason: Cough Haloperidol Lactate (Haldol) 1 mg IVP TID PRN PRN Reason: Agitation Heparin Sodium (Porcine) (Heparin) 5,000 units SC Q12 [facility] PRN Reason: Protocol Last Admin: 05/24/17 10:49 Dose: Not Given Vancomycin HCl 1 gm/ Sodium (Chloride) 250 mls @ 125 mls/hr IVPB MWF [facility] Last Admin: 05/22/17 12:35 Dose: 125 mls/hr Piperacillin Sod/Tazobactam (Sod 2.25 gm/ Sodium Chloride) 100 mls @ 100 mls/ hr IVPB Q8@0500,1300,2100 [facility] Last Admin: 05/24/17 04:38 Dose: 100 mls/hr Methylprednisolone 40 mg/ (Sodium Chloride) 50 mls @ 100 mls/hr IVPB STAT [facility] Stop: 05/24/17 12:11 Insulin Human Lispro (Humalog) 0 units SC ACHS [facility] PRN Reason: Protocol Last Admin: 05/24/17 08:02 Dose: 2 units Lorazepam (Ativan) 1 mg IVP Q8 PRN PRN Reason: Agitation Last Admin: 05/21/17 22:01 Dose: 1 mg Pantoprazole Sodium (Protonix Ec Tab) 40 mg PO DAILY [facility] Last Admin: 05/24/17 10:03 Dose: 40 mg Sevelamer Carbonate (Renvela) 2.4 gm PO TIDWM [facility] Last Admin: 05/24/17 09:55 Dose: 2.4 gm Thiamine HCl (Vitamin B1 Inj) 100 mg IM Q12 [facility] Last Admin: 05/24/17 09:58 Dose: 100 mg - Labs Labs: 05/22/17 08:40 05/22/17 08:40 PT 11.6 Seconds (9.8-13.1) 05/15/17 20:29 INR 1.1 (0.9-1.2) 05/15/17 20:29 APTT 35.8 Seconds (25.6-37.1) 05/15/17 20:29 - Constitutional Appears: alert, oriented , not in distress, on 2 liters NC - Head Exam Head Exam: NORMAL INSPECTION, NORMOCEPHALIC - Eye Exam Eye Exam: EOMI, Normal appearance Pupil Exam: NORMAL ACCOMMODATION - ENT Exam ENT Exam: Mucous Membranes Dry, Normal External Ear Exam - Neck Exam Neck Exam: Full ROM. absent: Meningismus - Respiratory Exam Respiratory Exam: Rales, Rhonchi. absent: Wheezes - Cardiovascular Exam Cardiovascular Exam: REGULAR RHYTHM, +S1, +S2 Additional comments: Right Chest HD catheter Right basilic PICC line - GI/Abdominal Exam GI & Abdominal Exam: Soft, Normal Bowel Sounds. absent: Tenderness - Extremities Exam Additional comments: Right AKA, Left BKA - Neurological Exam Neurological Exam: Alert, Awake Additional comments: oriented to person, place and year - Psychiatric Exam Psychiatric exam: normal affect - Skin Skin Exam: Dry, Normal Color, Warm Assessment and Plan - Assessment and Plan (Free Text) Assessment: 41 y/o male with PMH ESRD on MWF HD, DM2, and PVD among other medical conditions brought in after having a cardiac arrest in the field. Per his fiancee, after dinner patient had 'seizure like activity' -- shaking/foaming of the mouth. Per report EMS arrived and noted Vfib/Vtach and administered defibrillation. Initially he was in asystole but a second shock brought him back to A fib. He had a BP of 89/46. He was given a dose of epinephrine and a dose of amiodarone in the field. He was intubated in the field. Hypothermia protocol was initiated . He wsa started on Zosyn and Vanco post Hd for possible aspiration Pneumonia. Cardiology, nephro ,Pulmonary were consult Patient self extubated 05/18 and at present doing well, maintaining his airway , saturating 100 % on 2 L O2 via NC , hemodynamically stable, afebrile with few moments of confusion on and off however today very much better - will d/c 1:1 and keep pt close to the Nurses station . 1. s/p Cardiac arrest unclear etiology with episode of VFib/Vtach in the field s/p defibrillation and amiodarone troponin slightly elevated 0.5--0.7--0.8 suggesting less likely NC Hypothermia protocol was initiated on admission cardiology consulted- Dr Ogden Echo : Global Hypokinesia, EF=20% cardiac cath : multivessel CAD, EF=20=%, PCI at a later time as per Dr Ogden patient will need AICD placement - plan for d/c to [facility] [place] in am 2. Acute delirium with moments of confusion on and off , now improved Avasys for monitoring Psych consulted 3. Acute respiratory failure post cardiac arrest , possible Aspiration PNA CXR initially showed bilateral infiltrate possible aspiration pneumonia. 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 Augustine 6.Suspected Seizure like activity CT head showed no acute pathology MRI Head showed no acute pathology neuro consulted Seizure precautions ativan prn no need for anti seizure medications for now 7.Hypertension BP labile was initially on cardene drip and now d/c cont Coreg 6.25 mg PO BId for BP and HR control 8.DM type II Off insulin drip Accucheck , Lispro coverage continue diabetic diet glucose now controlled off meds 9. PVD with Right AKA and left BKA 10. DVT prophylaxis no signs of current bleeding heparin - hold pt for AICD in am 11. GI prophylaxis Hgb dropped from 14--11 change protonix to PO
--- NOTE | 2017-05-24 14:42 | CP.PCM.PN ---
Subjective - Date & Time of Evaluation Date of Evaluation: 05/24/17 Time of Evaluation: 14:41 - Subjective Subjective: patient and bed complaining of shortness of breath No nausea no vomiting Patient about to start dialysis now Objective - Vital Signs/Intake and Output Vital Signs (last 24 hours): Temp Pulse Resp BP Pulse Ox 98.5 F 84 18 143/76 100 05/24/17 12:00 05/24/17 12:00 05/24/17 12:00 05/24/17 12:00 05/24/17 12:00 - Medications Medications: Current Medications Acetaminophen (Tylenol 325mg Tab) 650 mg PO Q6 PRN PRN Reason: Pain, Mild (1-3) Last Admin: 05/24/17 09:59 Dose: 650 mg Acetylcysteine (Acetylcysteine 20%) 2 ml INH RBID [facility] Last Admin: 05/24/17 07:58 Dose: 2 ml Albuterol/Ipratropium (Duoneb 3 Mg/0.5 Mg (3 Ml) Ud) 3 ml INH RQID [facility] Last Admin: 05/24/17 11:10 Dose: 3 ml Carvedilol (Coreg) 12.5 mg PO Q12 [facility] Last Admin: 05/24/17 10:01 Dose: 12.5 mg Clopidogrel Bisulfate (Plavix) 75 mg PO DAILY [facility] Last Admin: 05/24/17 10:03 Dose: 75 mg Dextrose (Dextrose 50% Inj) 0 ml IV STAT PRN; Protocol PRN Reason: Hyglycemia Protocol Dextrose (Glutose 15) 0 gm PO ONCE PRN; Protocol PRN Reason: Hypoglycemia Protocol Dextrose (Dextrose 50% Inj) 0 ml IV STAT PRN; Protocol PRN Reason: Hyglycemia Protocol Dextrose (Glutose 15) 0 gm PO ONCE PRN; Protocol PRN Reason: Hypoglycemia Protocol Diphenhydramine HCl (Benadryl) 25 mg PO MWF [facility] Last Admin: 05/22/17 08:57 Dose: 25 mg Docusate Sodium (Colace Liquid) 100 mg PO BID [facility] Last Admin: 05/24/17 10:00 Dose: Not Given Glucagon (Glucagen Diagnostic Kit) 0 mg IM STAT PRN; Protocol PRN Reason: Hypoglycemia Protocol Glucagon (Glucagen Diagnostic Kit) 0 mg IM STAT PRN; Protocol PRN Reason: Hypoglycemia Protocol Guaifenesin/Dextromethorphan (Mucinex-Dm 600-30 Mg) 1 tab PO BID [facility] Last Admin: 05/24/17 09:58 Dose: 1 tab Guaifenesin/Dextromethorphan (Robitussin Dm) 10 ml PO Q4 PRN PRN Reason: Cough Haloperidol Lactate (Haldol) 1 mg IVP TID PRN PRN Reason: Agitation Heparin Sodium (Porcine) (Heparin) 5,000 units SC Q12 [facility] PRN Reason: Protocol Last Admin: 05/24/17 10:49 Dose: Not Given Vancomycin HCl 1 gm/ Sodium (Chloride) 250 mls @ 125 mls/hr IVPB MWF [facility] Last Admin: 05/22/17 12:35 Dose: 125 mls/hr Piperacillin Sod/Tazobactam (Sod 2.25 gm/ Sodium Chloride) 100 mls @ 100 mls/ hr IVPB Q8@0500,1300,2100 [facility] Last Admin: 05/24/17 04:38 Dose: 100 mls/hr Insulin Human Lispro (Humalog) 0 units SC ACHS [facility] PRN Reason: Protocol Last Admin: 05/24/17 14:31 Dose: Not Given Lorazepam (Ativan) 1 mg IVP Q8 PRN PRN Reason: Agitation Last Admin: 05/21/17 22:01 Dose: 1 mg Pantoprazole Sodium (Protonix Ec Tab) 40 mg PO DAILY [facility] Last Admin: 05/24/17 10:03 Dose: 40 mg Sevelamer Carbonate (Renvela) 2.4 gm PO TIDWM [facility] Last Admin: 05/24/17 09:55 Dose: 2.4 gm Thiamine HCl (Vitamin B1 Inj) 100 mg IM Q12 [facility] Last Admin: 05/24/17 09:58 Dose: 100 mg - Labs Labs: 05/22/17 08:40 05/22/17 08:40 PT 11.6 Seconds (9.8-13.1) 05/15/17 20:29 INR 1.1 (0.9-1.2) 05/15/17 20:29 APTT 35.8 Seconds (25.6-37.1) 05/15/17 20:29 - Constitutional Appears: No Acute Distress - ENT Exam ENT Exam: Mucous Membranes Moist - Respiratory Exam Respiratory Exam: NORMAL BREATHING PATTERN. absent: Chest Wall Tenderness - Cardiovascular Exam Cardiovascular Exam: absent: JVD, Rubs - GI/Abdominal Exam GI & Abdominal Exam: Guarding - Extremities Exam Extremities Exam: absent: Calf Tenderness - Back Exam Back Exam: absent: CVA tenderness (L), CVA tenderness (R) - Neurological Exam Neurological Exam: Alert Assessment and Plan (1) Chronic kidney disease requiring chronic dialysis Assessment & Plan: end stage renal disease patient about to have dialysis rig sodium bath 138 potassium bath 2 mEq bicarbonate 34 Status post cardiac arrest Patient is stable clinically continue EPO for the anemia Status: Acute (2) Cardiac arrest Status: Acute
[2017-05-24] MEDS ORDERED: Oxycodone/Acetaminophen 5/325 mg Tab PO ONE (22:27)
[2017-05-25] MEDS: Thiamine 100 mg/ml Inj IM SCH ×2 (00:24→09:40)
[2017-05-25 04:47] VITALS: TEMP 98.6
[2017-05-25] MEDS: Insulin Lispro (humaLOG) 100 Units/ml Inj SC SCH ×2 (06:30→11:45)
[2017-05-25 07:56] VITALS: BP 134/77; PULSE 89; RESP 20; O2SAT 100
[2017-05-25] MEDS: Albuterol-Ipratrop 3 mg / 0.5 (3 ml) UD INH SCH ×4 (07:59→19:32)
[2017-05-25] MEDS: Acetylcysteine 20% Inhal Soln (4ml) INH SCH (07:59)
[2017-05-25] MEDS: Sevelamer Carb 0.8 gm/Packet PO SCH (09:37)
[2017-05-25] MEDS: Pantoprazole 40 mg EC Tab PO SCH (09:39)
[2017-05-25] MEDS: guaiFENesin-DM 600-30 mg ER Tab PO SCH (09:39)
--- NOTE | 2017-05-25 10:19 | CP.PCM.PN ---
Subjective - Date & Time of Evaluation Date of Evaluation: 05/25/17 Time of Evaluation: 10:17 - Subjective Subjective: Patient is out of bed Decrease shortness of breath Objective - Vital Signs/Intake and Output Vital Signs (last 24 hours): Temp Pulse Resp BP Pulse Ox 98.6 F 89 20 134/77 100 05/25/17 07:56 05/25/17 09:39 05/25/17 07:56 05/25/17 09:39 05/25/17 07:56 - Medications Medications: Current Medications Acetaminophen (Tylenol 325mg Tab) 650 mg PO Q6 PRN PRN Reason: Pain, Mild (1-3) Last Admin: 05/24/17 09:59 Dose: 650 mg Acetylcysteine (Acetylcysteine 20%) 2 ml INH RBID [facility] Last Admin: 05/25/17 07:59 Dose: 2 ml Albuterol/Ipratropium (Duoneb 3 Mg/0.5 Mg (3 Ml) Ud) 3 ml INH RQID [facility] Last Admin: 05/25/17 07:59 Dose: 3 ml Carvedilol (Coreg) 12.5 mg PO Q12 [facility] Last Admin: 05/25/17 09:39 Dose: 12.5 mg Clopidogrel Bisulfate (Plavix) 75 mg PO DAILY [facility] Last Admin: 05/24/17 10:03 Dose: 75 mg Dextrose (Dextrose 50% Inj) 0 ml IV STAT PRN; Protocol PRN Reason: Hyglycemia Protocol Dextrose (Glutose 15) 0 gm PO ONCE PRN; Protocol PRN Reason: Hypoglycemia Protocol Dextrose (Dextrose 50% Inj) 0 ml IV STAT PRN; Protocol PRN Reason: Hyglycemia Protocol Dextrose (Glutose 15) 0 gm PO ONCE PRN; Protocol PRN Reason: Hypoglycemia Protocol Diphenhydramine HCl (Benadryl) 25 mg PO MWF [facility] Last Admin: 05/24/17 18:35 Dose: Not Given Docusate Sodium (Colace Liquid) 100 mg PO BID [facility] Last Admin: 05/25/17 09:39 Dose: 100 mg Glucagon (Glucagen Diagnostic Kit) 0 mg IM STAT PRN; Protocol PRN Reason: Hypoglycemia Protocol Glucagon (Glucagen Diagnostic Kit) 0 mg IM STAT PRN; Protocol PRN Reason: Hypoglycemia Protocol Guaifenesin/Dextromethorphan (Mucinex-Dm 600-30 Mg) 1 tab PO BID [facility] Last Admin: 05/25/17 09:39 Dose: 1 tab Guaifenesin/Dextromethorphan (Robitussin Dm) 10 ml PO Q4 PRN PRN Reason: Cough Haloperidol Lactate (Haldol) 1 mg IVP TID PRN PRN Reason: Agitation Heparin Sodium (Porcine) (Heparin) 5,000 units SC Q12 JEIN PRN Reason: Protocol Last Admin: 05/24/17 10:49 Dose: Not Given Vancomycin HCl 1 gm/ Sodium (Chloride) 250 mls @ 125 mls/hr IVPB MWF [facility] Last Admin: 05/25/17 01:12 Dose: 125 mls/hr Piperacillin Sod/Tazobactam (Sod 2.25 gm/ Sodium Chloride) 100 mls @ 100 mls/ hr IVPB Q8@0500,1300,2100 [facility] Last Admin: 05/25/17 04:22 Dose: 100 mls/hr Insulin Human Lispro (Humalog) 0 units SC ACHS [facility] PRN Reason: Protocol Last Admin: 05/25/17 06:30 Dose: Not Given Lorazepam (Ativan) 1 mg IVP Q8 PRN PRN Reason: Agitation Last Admin: 05/21/17 22:01 Dose: 1 mg Pantoprazole Sodium (Protonix Ec Tab) 40 mg PO DAILY [facility] Last Admin: 05/25/17 09:39 Dose: 40 mg Sevelamer Carbonate (Renvela) 2.4 gm PO TIDWM [facility] Last Admin: 05/25/17 09:37 Dose: Not Given Thiamine HCl (Vitamin B1 Inj) 100 mg IM Q12 [facility] Last Admin: 05/25/17 09:40 Dose: 100 mg - Labs Labs: 05/22/17 08:40 05/22/17 08:40 PT 11.6 Seconds (9.8-13.1) 05/15/17 20:29 INR 1.1 (0.9-1.2) 05/15/17 20:29 APTT 35.8 Seconds (25.6-37.1) 05/15/17 20:29 - Constitutional Appears: No Acute Distress - ENT Exam ENT Exam: Mucous Membranes Moist - Respiratory Exam Respiratory Exam: absent: Chest Wall Tenderness - Cardiovascular Exam Cardiovascular Exam: absent: JVD, Rubs - GI/Abdominal Exam GI & Abdominal Exam: Normal Bowel Sounds - Extremities Exam Extremities Exam: absent: Calf Tenderness - Back Exam Back Exam: absent: CVA tenderness (L), CVA tenderness (R) - Neurological Exam Neurological Exam: Alert Assessment and Plan (1) Chronic kidney disease requiring chronic dialysis Assessment & Plan: End stage renal disease on dialysis TTS patient completed hemodialysis last night with ultrafiltration about 3500 mL Patient scheduled to be transferred to [facility] for AICD Status post cardiac arrest Diabetic chronic Kidney Disease (E11.22) Hypertensive Chronic Kidney Disease (I12.0) End stage renal disease (N18.6) dependence on hemodialysis (Z99.2) (MWF) via permacath Anemia (D64.9), Hyperphosphatemia (E83.39), Secondary Hyperparathyroidism (E21.1 ), HTN (I12.0) s/p Rt AKA and left BKA Status: Acute (2) Cardiac arrest Status: Acute
--- NOTE | 2017-05-25 11:29 | CP.PCM.PN ---
Subjective - Date & Time of Evaluation Date of Evaluation: 05/25/17 Time of Evaluation: 11:00 - Subjective Subjective: Patient seen and examined bedside. Feeling well. denies any chest pain , SOB. hemodynamically stable, afebrile had Hd yesterday For transfer to [facility] for AICD placement today Objective - Vital Signs/Intake and Output Vital Signs (last 24 hours): Temp Pulse Resp BP Pulse Ox 98.6 F 89 20 134/77 100 05/25/17 09:00 05/25/17 09:39 05/25/17 09:00 05/25/17 09:39 05/25/17 09:00 - Medications Medications: Current Medications Acetaminophen (Tylenol 325mg Tab) 650 mg PO Q6 PRN PRN Reason: Pain, Mild (1-3) Last Admin: 05/24/17 09:59 Dose: 650 mg Acetylcysteine (Acetylcysteine 20%) 2 ml INH RBID [facility] Last Admin: 05/25/17 07:59 Dose: 2 ml Albuterol/Ipratropium (Duoneb 3 Mg/0.5 Mg (3 Ml) Ud) 3 ml INH RQID [facility] Last Admin: 05/25/17 07:59 Dose: 3 ml Carvedilol (Coreg) 12.5 mg PO Q12 [facility] Last Admin: 05/25/17 09:39 Dose: 12.5 mg Clopidogrel Bisulfate (Plavix) 75 mg PO DAILY [facility] Last Admin: 05/24/17 10:03 Dose: 75 mg Dextrose (Dextrose 50% Inj) 0 ml IV STAT PRN; Protocol PRN Reason: Hyglycemia Protocol Dextrose (Glutose 15) 0 gm PO ONCE PRN; Protocol PRN Reason: Hypoglycemia Protocol Dextrose (Dextrose 50% Inj) 0 ml IV STAT PRN; Protocol PRN Reason: Hyglycemia Protocol Dextrose (Glutose 15) 0 gm PO ONCE PRN; Protocol PRN Reason: Hypoglycemia Protocol Diphenhydramine HCl (Benadryl) 25 mg PO MWF [facility] Last Admin: 05/24/17 18:35 Dose: Not Given Docusate Sodium (Colace Liquid) 100 mg PO BID [facility] Last Admin: 05/25/17 09:39 Dose: 100 mg Glucagon (Glucagen Diagnostic Kit) 0 mg IM STAT PRN; Protocol PRN Reason: Hypoglycemia Protocol Glucagon (Glucagen Diagnostic Kit) 0 mg IM STAT PRN; Protocol PRN Reason: Hypoglycemia Protocol Guaifenesin/Dextromethorphan (Mucinex-Dm 600-30 Mg) 1 tab PO BID [facility] Last Admin: 05/25/17 09:39 Dose: 1 tab Guaifenesin/Dextromethorphan (Robitussin Dm) 10 ml PO Q4 PRN PRN Reason: Cough Haloperidol Lactate (Haldol) 1 mg IVP TID PRN PRN Reason: Agitation Heparin Sodium (Porcine) (Heparin) 5,000 units SC Q12 JENI PRN Reason: Protocol Last Admin: 05/24/17 10:49 Dose: Not Given Vancomycin HCl 1 gm/ Sodium (Chloride) 250 mls @ 125 mls/hr IVPB MWF [facility] Last Admin: 05/25/17 01:12 Dose: 125 mls/hr Piperacillin Sod/Tazobactam (Sod 2.25 gm/ Sodium Chloride) 100 mls @ 100 mls/ hr IVPB Q8@0500,1300,2100 [facility] Last Admin: 05/25/17 04:22 Dose: 100 mls/hr Insulin Human Lispro (Humalog) 0 units SC ACHS [facility] PRN Reason: Protocol Last Admin: 05/25/17 06:30 Dose: Not Given Lorazepam (Ativan) 1 mg IVP Q8 PRN PRN Reason: Agitation Last Admin: 05/21/17 22:01 Dose: 1 mg Pantoprazole Sodium (Protonix Ec Tab) 40 mg PO DAILY [facility] Last Admin: 05/25/17 09:39 Dose: 40 mg Sevelamer Carbonate (Renvela) 2.4 gm PO TIDWM [facility] Last Admin: 05/25/17 09:37 Dose: Not Given Thiamine HCl (Vitamin B1 Inj) 100 mg IM Q12 [facility] Last Admin: 05/25/17 09:40 Dose: 100 mg - Labs Labs: 05/22/17 08:40 05/22/17 08:40 PT 11.6 Seconds (9.8-13.1) 05/15/17 20:29 INR 1.1 (0.9-1.2) 05/15/17 20:29 APTT 35.8 Seconds (25.6-37.1) 05/15/17 20:29 - Constitutional Appears: Non-toxic - Head Exam Head Exam: ATRAUMATIC, NORMAL INSPECTION, NORMOCEPHALIC - Eye Exam Eye Exam: EOMI, Normal appearance, PERRL Pupil Exam: NORMAL ACCOMODATION - ENT Exam ENT Exam: Mucous Membranes Moist, Normal Exam - Neck Exam Neck Exam: Full ROM, Normal Inspection - Respiratory Exam Respiratory Exam: Clear to Ausculation Bilateral, NORMAL BREATHING PATTERN. absent: Rales, Rhonchi, Wheezes - Cardiovascular Exam Cardiovascular Exam: REGULAR RHYTHM, RRR, +S1, +S2. absent: JVD - GI/Abdominal Exam GI & Abdominal Exam: Soft, Normal Bowel Sounds. absent: Distended, Guarding, Tenderness, Rebound - Rectal Exam Rectal Exam: Deferred - Extremities Exam Additional comments: Left AKA right BKA - Back Exam Back Exam: NORMAL INSPECTION - Neurological Exam Neurological Exam: Alert, Awake, CN II-XII Intact, Oriented x3 - Psychiatric Exam Psychiatric exam: Normal Affect, Normal Mood - Skin Skin Exam: Dry, Intact, Normal Color, Warm Assessment and Plan - Assessment and Plan (Free Text) Assessment: 41 y/o male with PMH ESRD on MWF HD, DM2, and PVD among other medical conditions brought in after having a cardiac arrest in the field. Per his fiancee, after dinner patient had 'seizure like activity' -- shaking/foaming of the mouth. Per report EMS arrived and noted Vfib/Vtach and administered defibrillation. Initially he was in asystole but a second shock brought him back to A fib. He had a BP of 89/46. He was given a dose of epinephrine and a dose of amiodarone in the field. He was intubated in the field. Hypothermia protocol was initiated . He was started on Zosyn and Vanco post Hd for possible aspiration Pneumonia. Cardiology, nephro ,Pulmonary were consuled Patient self extubated 05/18 and at present doing well, maintaining his airway , saturating 100 % on 2 L O2 via NC , hemodynamically stable, afebrile with few moments of confusion on and off however today very much better s/p cardiac cath that showed multi vessel disease Patient for discharge to [facility] today for AICD placement 1. s/p Cardiac arrest unclear etiology with episode of VFib/Vtach in the field s/p defibrillation and amiodarone troponin slightly elevated 0.5--0.7--0.8 suggesting less likely [place] Hypothermia protocol was initiated on admission cardiology consulted- Dr Ogden Echo : Global Hypokinesia, EF=20% cardiac cath : multivessel CAD, EF=20=%, PCI at a later time as per Dr Ogden . Started plavix patient will need AICD placement - plan for d/c to [facility] 2. Acute delirium with moments of confusion on and off , now improved Avasys for monitoring Psych consulted on haldol and Ativan PRN 3. Acute respiratory failure post cardiac arrest , possible Aspiration PNA CXR initially showed bilateral infiltrate possible aspiration pneumonia. Repeat CXR post HD showed clear lung farris bilaterally Pt was febrile, leukocytosis on admission and at present afebrile with WBC 8.5 but with cough and thick yellowish secretions treated with Zosyn IV empirically and Vancomycin post HD since admission . 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 Augustine continue HD as scheduled . Last HD was yesterday 05/24 6.Suspected Seizure like activity CT head showed no acute pathology MRI Head showed no acute pathology neuro consulted Seizure precautions ativan prn no need for anti seizure medications for now 7.Hypertension BP labile was initially on cardene drip and now d/c cont Coreg 6.25 mg PO BId for BP and HR control 8.DM type II Off insulin drip Accucheck , Lispro coverage continue diabetic diet glucose now controlled off meds 9. PVD with Right AKA and left BKA on plavix 10. DVT prophylaxis no signs of current bleeding heparin on hold for AICD placement today 11. GI prophylaxis with episode of coffee ground emesis while intubated most likely stress induced gastritis Hgb dropped from 14--11 changed protonix to PO
--- NOTE | 2017-05-25 15:42 | CP.PCM.DIS ---
Provider - Provider Date of Admission: 05/15/17 00:26 Attending physician: Ralph Ring MD Consults: nephrology pulmonary critical care cardiology psych neuro Time Spent in preparation of Discharge (in minutes): 20 Hospital Course - Lab Results Lab Results: Micro Results 05/20/17 10:15 Naris MRSA Culture (Admit) - Final MRSA NOT DETECTED 05/17/17 08:00 Penis GC Culture - Final NO GC ISOLATED 05/15/17 14:00 Blood-Thru Central Line Blood Culture - Final NO GROWTH AFTER 5 DAYS 05/15/17 14:00 Blood-Thru Central Line Gram Stain - Final TEST NOT PERFORMED 05/18/17 10:59 Sputum Gram Stain - Final 05/18/17 10:59 Sputum Sputum Culture - Final NORMAL ORAL FLORENTINO 05/15/17 09:03 Nose MRSA Culture (Admit) - Final MRSA NOT DETECTED Most Recent Lab Values WBC 7.9 K/uL (4.8-10.8) 05/22/17 08:40 RBC 4.19 Mil/uL (4.40-5.90) L 05/22/17 08:40 Hgb 11.4 g/dL (12.0-18.0) L 05/22/17 08:40 Hct 35.9 % (35.0-51.0) 05/22/17 08:40 MCV 85.5 fl (80.0-94.0) 05/22/17 08:40 MCH 27.2 pg (27.0-31.0) 05/22/17 08:40 MCHC 31.8 g/dL (33.0-37.0) L 05/22/17 08:40 RDW 18.9 % (11.5-14.5) H 05/22/17 08:40 Plt Count 143 K/uL (130-400) 05/22/17 08:40 MPV 8.3 fl (7.2-11.7) 05/15/17 20:29 Neut % (Auto) 84.9 % (50.0-75.0) H 05/15/17 20:29 Lymph % (Auto) 8.9 % (20.0-40.0) L 05/15/17 20:29 Sargent % (Auto) 5.6 % (0.0-10.0) 05/15/17 20:29 Eos % (Auto) 0.3 % (0.0-4.0) 05/15/17 20:29 Baso % (Auto) 0.3 % (0.0-2.0) 05/15/17 20:29 Neut # 8.9 K/uL (1.8-7.0) H 05/15/17 20:29 Lymph # 0.9 K/uL (1.0-4.3) L 05/15/17 20:29 Sargent # 0.6 K/uL (0.0-0.8) 05/15/17 20:29 Eos # 0.0 K/uL (0.0-0.7) 05/15/17 20:29 Baso # 0.0 K/uL (0.0-0.2) 05/15/17 20:29 Neutrophils % (Manual) 92 % (42-75) H 05/15/17 05:30 Band Neutrophils % 2 % (0-2) 05/15/17 05:30 Lymphocytes % (Manual) 2 % (20-50) L 05/15/17 05:30 Monocytes % (Manual) 4 % (0-10) 05/15/17 05:30 Platelet Estimate Normal (NORMAL) 05/15/17 05:30 Anisocytosis (manual) Moderate 05/15/17 05:30 Tear Drop Cells Slight 05/15/17 05:30 Ovalocytes Slight 05/15/17 05:30 PT 11.6 Seconds (9.8-13.1) 05/15/17 20: INR 1.1 (0.9-1.2) 05/15/17 20:29 APTT 35.8 Seconds (25.6-37.1) 05/15/17 20:29 pCO2 41 mm/Hg (35-45) 05/18/17 04:58 pO2 103 mm/Hg (80-100) H 05/18/17 04:58 HCO3 24.7 mmol/L (21-28) 05/18/17 04:58 ABG pH 7.39 (7.35-7.45) 05/18/17 04:58 ABG Total CO2 26.1 mmol/L (22-28) 05/18/17 04:58 ABG O2 Saturation 97.4 % (95-98) 05/18/17 04:58 ABG O2 Content 16.1 ML/dL (15-23) 05/18/17 04:58 ABG Base Excess -0.2 mmol/L (-2.0-3.0) 05/18/17 04:58 ABG Hemoglobin 11.9 g/dL (11.7-17.4) 05/18/17 04:58 ABG Carboxyhemoglobin 1.0 % (0.5-1.5) 05/18/17 04:58 POC ABG HHb (Measured) 2.5 % (0.0-5.0) 05/18/17 04:58 ABG Methemoglobin 1.5 % (0.0-3.0) 05/18/17 04:58 ABG O2 Capacity 16.5 mL/dL (16-24) 05/18/17 04:58 Gurdeep Test Yes 05/18/17 04:58 ABG Potassium 4.5 mmol/L (3.6-5.2) 05/15/17 09:02 VBG pH 7.17 (7.32-7.43) L* 05/14/17 23:34 VBG pCO2 64 mmHg (40-60) H 05/14/17 23:34 VBG HCO3 19.2 mmol/L 05/14/17 23:34 VBG Total CO2 25.3 mmol/L (22-28) 05/14/17 23:34 VBG O2 Sat (Calc) 75.5 % (40-65) H 05/14/17 23:34 VBG Base Excess -6.3 mmol/L (0.0-2.0) L 05/14/17 23:34 VBG Potassium 4.8 mmol/L (3.6-5.2) 05/14/17 23:34 A-a O2 Difference 274.0 mm/Hg 05/18/17 04:58 Hgb O2 Saturation 95.1 % (95.0-98.0) 05/18/17 04:58 Sodium 134.0 mmol/L (132-148) 05/15/17 09:02 Chloride 103.0 mmol/L (98-107) 05/15/17 09:02 Glucose 234 mg/dL (75-110) H 05/15/17 09:02 Lactate 1.7 mmol/L (0.7-2.1) 05/15/17 09:02 Vent Mode A/c 05/18/17 04:58 Mechanical Rate 16 05/18/17 04:58 FiO2 60.0 % 05/18/17 04:58 Tidal Volume 500 05/18/17 04:58 PEEP 8 05/18/17 04:58 Crit Value Called To dalton Anguiano 05/15/17 15:08 Crit Value Called By 203 05/15/17 15:08 Crit Value Read Back Y 05/15/17 15:08 Blood Gas Notified Time 1513 05/15/17 15:08 Sodium 137 mmol/l (132-148) 05/22/17 08:40 Potassium 4.8 MMOL/L (3.6-5.0) 05/22/17 08:40 Chloride 93 mmol/L (98-107) L 05/22/17 08:40 Carbon Dioxide 24 mmol/L (22-30) 05/22/17 08:40 Anion Gap 25 (10-20) H 05/22/17 08:40 BUN 70 mg/dl (9-20) H 05/22/17 08:40 Creatinine 10.6 mg/dL (0.8-1.5) H* D 05/22/17 08:40 Est GFR ( Amer) 7 05/22/17 08:40 Est GFR (Non-Af Amer) 5 05/22/17 08:40 POC Glucose (mg/dL) 176 mg/dL (65-110) H 05/25/17 11:35 Random Glucose 117 mg/dL (75-110) H 05/22/17 08:40 Hemoglobin A1c 4.5 % (4.2-6.5) 05/18/17 07:00 Lactic Acid 2.1 MMOL/L (0.7-2.1) 05/15/17 05:30 Calcium 9.0 mg/dL (8.4-10.2) 05/22/17 08:40 Phosphorus 8.8 mg/dl (2.5-4.5) H 05/15/17 20:29 Magnesium 2.1 MG/DL (1.6-2.3) 05/15/17 20:29 Total Bilirubin 0.8 mg/dl (0.2-1.3) 05/19/17 04:20 AST 35 U/L (17-59) 05/19/17 04:20 ALT 41 U/L (21-72) 05/19/17 04:20 Alkaline Phosphatase 106 U/L (38-126) 05/19/17 04:20 Total Creatine Kinase 206 U/L (55-170) H 05/15/17 00:01 CK-MB (Mass) 1.22 ng/mL (0.0-3.38) 05/22/17 09:30 Troponin I 0.0670 ng/mL (0.00-0.120) 05/22/17 09:30 Total Protein 7.1 G/DL (6.3-8.2) 05/19/17 04:20 Albumin 3.9 g/dL (3.5-5.0) 05/19/17 04:20 Globulin 3.2 gm/dL (2.2-3.9) 05/19/17 04:20 Albumin/Globulin Ratio 1.2 (1.0-2.1) 05/19/17 04:20 Prolactin 51.7 ng/mL (3.7-17.9) H 05/15/17 00:01 Arterial Blood Potassium 4.5 mmol/L (3.6-5.2) 05/15/17 09:02 Venous Blood Potassium 4.8 mmol/L (3.6-5.2) 05/14/17 23:34 Alcohol, Quantitative < 10 mg/dl (0-10) 05/15/17 00:01 Hep Bs Antigen Negative (NEGATIVE) 05/16/17 18:00 Hep Bs Antibody Positive (NEGATIVE) 05/16/17 18:00 Hepatitis C Antibody Negative (NEGATIVE) 05/16/17 18:00 - Hospital Course Hospital Course: 41 y/o male with PMH ESRD on MWF HD, DM2, and PVD among other medical conditions brought in after having a cardiac arrest in the field. Per his fiancee, after dinner patient had 'seizure like activity' -- shaking/foaming of the mouth. Per report EMS arrived and noted Vfib/Vtach and administered defibrillation. Initially he was in asystole but a second shock brought him back to A fib. He had a BP of 89/46. He was given a dose of epinephrine and a dose of amiodarone in the field. He was intubated in the field. Hypothermia protocol was initiated . He was started on Zosyn and Vanco post Hd for possible aspiration Pneumonia. Cardiology, nephro ,Pulmonary were consuled Patient self extubated 05/18 and at present doing well, maintaining his airway , saturating 100 % on 2 L O2 via NC , hemodynamically stable, afebrile with few moments of confusion on and off however today very much better s/p cardiac cath that showed multi vessel disease Patient for discharge to [facility] today for AICD placement 1. s/p Cardiac arrest unclear etiology with episode of VFib/Vtach in the field s/p defibrillation and amiodarone troponin slightly elevated 0.5--0.7--0.8 suggesting less likely [place] Hypothermia protocol was initiated on admission cardiology consulted- Dr Ogden Echo : Global Hypokinesia, EF=20% cardiac cath : multivessel CAD, EF=20=%, PCI at a later time as per Dr Ogden . Started plavix patient will need AICD placement - [facility] 2. Acute delirium with moments of confusion on and off , now improved Avasys for monitoring Psych consulted on haldol and Ativan PRN 3. Acute respiratory failure post cardiac arrest , possible Aspiration PNA CXR initially showed bilateral infiltrate possible aspiration pneumonia. Repeat CXR post HD showed clear lung farris bilaterally Pt was febrile, leukocytosis on admission and at present afebrile with WBC 8.5 but with cough and thick yellowish secretions treated with Zosyn IV empirically and Vancomycin post HD since admission . Will d/c bot antibiotics since patient is afebrile., with normal WBC and repeat CXR showing no infiltrate cultures with no growth pulmonary was consulted self extubated 05/18 and at present saturating 100 % on 2 L O2 via NC Continue Duonebs and Acetylcystine INH incentive spirometry continue PT and mucinex 4.Combined respiratory and metabolic acidosis-- improved Hemodialysis 5.ESRD on HD/ with hyperkalemia nephro consulted Continue with HD ( MWF) patient's complex case manager is Dr. Augustine continue HD as scheduled . Last HD was yesterday 05/24 6.Suspected Seizure like activity CT head showed no acute pathology MRI Head showed no acute pathology neuro consulted Seizure precautions ativan prn no need for anti seizure medications for now 7.Hypertension BP labile was initially on cardene drip and now d/c cont Coreg 6.25 mg PO BId for BP and HR control 8.DM type II Off insulin drip Accucheck , Lispro coverage continue diabetic diet glucose now controlled off meds 9. PVD with Right AKA and left BKA on plavix 10. DVT prophylaxis no signs of current bleeding heparin on hold for AICD placement today 11. GI prophylaxis with episode of coffee ground emesis while intubated most likely stress induced gastritis Hgb dropped from 14--11 changed protonix to PO Discharge Exam - Head Exam Head Exam: ATRAUMATIC, NORMAL INSPECTION, NORMOCEPHALIC - Eye Exam Eye Exam: EOMI, Normal appearance, PERRL Pupil Exam: NORMAL ACCOMODATION - ENT Exam ENT Exam: Mucous Membranes Moist, Normal Exam - Neck Exam Neck exam: Full Rom, Normal Inspection - Respiratory Exam Respiratory Exam: Clear to PA & Lateral, NORMAL BREATHING PATTERN. absent: Rales, Rhonchi, Wheezes - Cardiovascular Exam Cardiovascular Exam: REGULAR RHYTHM, RRR, +S1, +S2. absent: JVD - GI/Abdominal Exam GI & Abdominal Exam: Normal Bowel Sounds, Soft. absent: Distended, Guarding, Rebound, Tenderness - Rectal Exam Rectal Exam: Deferred - Extremities Exam Additional comments: left AKA right BKA - Neurological Exam Neurological exam: Alert, CN II-XII Intact, Oriented x3, Reflexes Normal - Psychiatric Exam Psychiatric exam: Normal Affect - Skin Skin Exam: Dry, Intact, Normal Color, Warm Discharge Plan - Follow Up Plan Condition: STABLE Disposition: Trans to Other Acute Care Hosp Patient education suggested?: Yes Additional Instructions: transfer pt to [facility] for AICD placement by DR Callahan keep pt NPO
== END 2017-05-25 16:00 | disposition short-term general hospital (02) | DRG 544 ==
LOC: H.ER 23:19 → H.ERHOLD 05-15 00:26 → H.ICU/CCU 05-15 02:26 → H.TEL 05-20 21:33
PROVIDERS: ADMIT Internal Medicine; ATTEND Internal Medicine
PROC: 06HN33Z Insertion of Infusion Device into Left Femoral Vein, Percutaneous Approach (ICD-10-PCS; principal; 2017-05-15)
PROC: 5A1945Z Respiratory Ventilation, 24-96 Consecutive Hours (ICD-10-PCS; 2017-05-15)
PROC: 5A1D60Z (ICD-10-PCS; 2017-05-16)
PROC: 02HV33Z Insertion of Infusion Device into Superior Vena Cava, Percutaneous Approach (ICD-10-PCS; 2017-05-17)
PROC: 4A023N7 Measurement of Cardiac Sampling and Pressure, Left Heart, Percutaneous Approach (ICD-10-PCS; 2017-05-23)
PROC: B205YZZ Plain Radiography of Left Heart using Other Contrast (ICD-10-PCS; 2017-05-23)
DX: I46.9 Cardiac arrest, cause unspecified (principal); J96.01 Acute respiratory failure with hypoxia; J69.0 Pneumonitis due to inhalation of food and vomit; G93.41 Metabolic encephalopathy; I13.2 Hypertensive heart and chronic kidney disease with heart failure and with stage 5 chronic kidney disease, or end stage renal disease; N17.9 Acute kidney failure, unspecified; N18.6 End stage renal disease; I42.9 Cardiomyopathy, unspecified; I50.22 Chronic systolic (congestive) heart failure; E87.4 Mixed disorder of acid-base balance; R56.9 Unspecified convulsions; E87.5 Hyperkalemia; E11.22 Type 2 diabetes mellitus with diabetic chronic kidney disease; E11.51 Type 2 diabetes mellitus with diabetic peripheral angiopathy without gangrene; E11.65 Type 2 diabetes mellitus with hyperglycemia; I49.01 Ventricular fibrillation; E83.39 Other disorders of phosphorus metabolism; Z99.2 Dependence on renal dialysis; N25.81 Secondary hyperparathyroidism of renal origin; D64.9 Anemia, unspecified; Z88.1 Allergy status to other antibiotic agents; Z91.013 Allergy to seafood; Z89.512 Acquired absence of left leg below knee; Z89.611 Acquired absence of right leg above knee; I25.10 Atherosclerotic heart disease of native coronary artery without angina pectoris; I47.2 Ventricular tachycardia; Z78.1 Physical restraint status; F05 Delirium due to known physiological condition; K29.60 Other gastritis without bleeding